=== PATIENT | female | born 1960 ===

== ENCOUNTER 2020-01-01 08:22 | Outpatient (REF) | payer OTHER, SELFPAY ==
[2020-01-01 10:14] LABS: Hematocrit 37.5 % (37-47); Hemoglobin 11.8 g/dl (12.0-16.0); Mean Corpuscular HGB Conc 31.5 g/dl (31.0-35.0); Mean Corpuscular Hemoglobin 28.3 pg (27.0-33.0); Mean Corpuscular Volume 89.9 fL (80-98); Mean Platelet Volume 10.9 fL (9.4-12.3); Platelet Count 342 X10*3/uL (160-400); Red Blood Count 4.17 X10*6/uL (4.20-5.50); Red Cell Distribution Width 19.2 % (11.0-16.0); White Blood Count 6.3 X10*3/uL (4.8-10.8)
[2020-01-01 10:53] LABS: Anion Gap 14 (12-20); Blood Urea Nitrogen 14 mg/dL (9-16); Calcium 9.7 mg/dL (8.4-10.2); Carbon Dioxide 29 mmol/L (22-29); Chloride 104 mmol/L (96-108); Cholesterol 199 mg/dL; Estimated Glomerular Filt Rate > 60; Glucose Fasting 91 mg/dL (60-99); HDL Cholesterol 70 mg/dL; LDL Cholesterol Calculated 119 mg/dl; Potassium 4.3 mmol/l (3.3-5.1); Sodium 143 mmol/L (135-145); Triglycerides 53 mg/dL
== END 2020-01-01 08:23 | disposition home or self-care (01) ==
LOC: HO.LAB 08:22
PROVIDERS: PCP Internal Medicine; Visit Provider Nurse Practitioner Family
DX: Z00.00 Encounter for general adult medical examination without abnormal findings (principal); J30.9 Allergic rhinitis, unspecified
CPT/HCPCS: 36415; 80048; 80061; 85027

== ENCOUNTER → 2020-01-05 12:23 | Outpatient (BNVA) | payer OTHER, SELFPAY | PROVIDERS: PCP Internal Medicine; Referring Provider Internal Medicine; Visit Provider Orthopaedic Surgery | DX: Z47.1 Aftercare following joint replacement surgery (principal); Z96.652 Presence of left artificial knee joint | CPT/HCPCS: 99212 ==

== ENCOUNTER 2020-02-11 13:00 | Outpatient (RCR) | payer OTHER, SELFPAY ==
--- NOTE | 2020-03-09 14:33 | MHC.PT.DC ---
[facility] [place] [facility] [place] [facility] [place] [facility] [address] Mind[address] Nayak 140 [facility] [phone] F: [phone] F: [phone] F: [phone] F: [phone] Physical Therapy Discharge Report Diagnosis: S/P LEFT TKA Date of Surgery: SP LEFT TKA 10/07/2019 Date of Evaluation: 11/07/19 Date of Discharge: Treatments to Date: 21 Cancellations to Date: 0 No Shows to Date: 0 Discharge Status: Discharge Summary: ALTHOUGH ISMA IS STILL LACKING FULL ROM AND SHE DEMONSTATES DECREASED QUAD STRENGTH SHE REQUESTS DC TO [facility] AT THIS TIME. SHE HAS BEEN INSTRUCTED TO CONTACT US WITH ANY QUESTIONS Electronically signed by: TOMA OLMEDO PT, DPT Please sign and return to therapist. Thank you for your referral.
== END 2020-03-09 14:59 | disposition other institution (70) ==
LOC: HO.PT 13:00
PROVIDERS: PCP Internal Medicine; Visit Provider Physician Assistant
DX: Z47.1 Aftercare following joint replacement surgery (principal); Z96.651 Presence of right artificial knee joint
CPT/HCPCS: 97014; 97110; 97112; 97530

== ENCOUNTER → 2020-02-18 10:57 | Outpatient (BNVA) | payer OTHER, SELFPAY | PROVIDERS: PCP Internal Medicine; Visit Provider Internal Medicine | DX: I10 Essential (primary) hypertension (principal); I51.7 Cardiomegaly; R00.2 Palpitations | CPT/HCPCS: 93005; 99212 ==

== ENCOUNTER → 2020-03-16 13:22 | Outpatient (BNVA) | payer OTHER, SELFPAY | PROVIDERS: PCP Internal Medicine; Visit Provider Student in an Organized Health Care Education/Training Program | DX: M89.49 Other hypertrophic osteoarthropathy, multiple sites (principal) | CPT/HCPCS: 99212 ==

== ENCOUNTER 2020-05-10 09:29 | Outpatient (REF) | payer OTHER, SELFPAY | END 2020-05-10 09:30 | disposition home or self-care (01) | LOC: HO.LAB 09:29 | PROVIDERS: Visit Provider Internal Medicine | DX: Z20.822 Contact with and (suspected) exposure to COVID-19 (principal) | CPT/HCPCS: 36415; C9803; U0003; U0005 ==

== ENCOUNTER 2020-05-26 11:02 | Outpatient (REF) | payer OTHER, SELFPAY ==
--- NOTE | ~2020-05-26 | XR_ITS ---
EXAMINATION: XR CHEST CLINICAL INFORMATION: Acute bronchitis COMPARISON: Previous chest x-ray most recent November 2017 TECHNIQUE: 2 views of the chest were obtained. FINDINGS: There is a severe thoracolumbar scoliosis. The cardiac silhouette may be slightly enlarged. Hilar and mediastinal contours are unremarkable. The lungs are clear. There is no pleural effusion or pneumothorax. XR/XR chest 2V IMPRESSION: Severe thoracolumbar scoliosis. Question slightly enlarged cardiac silhouette. No evidence for acute disease in the chest.
== END 2020-05-26 11:03 | disposition home or self-care (01) ==
LOC: HO.XRAY 11:02
PROVIDERS: PCP Internal Medicine; Visit Provider Internal Medicine
DX: J20.9 Acute bronchitis, unspecified (principal); J45.909 Unspecified asthma, uncomplicated; J30.9 Allergic rhinitis, unspecified; Z79.899 Other long term (current) drug therapy
CPT/HCPCS: 71046; 99212

== ENCOUNTER 2020-06-08 16:06 | Emergency (ER) | payer OTHER, SELFPAY ==
--- NOTE | ~2020-06-08 | CT_ITS ---
EXAMINATION: CT ABDOMEN AND PELVIS WITHOUT CONTRAST CLINICAL INFORMATION: Left lower quadrant pain. COMPARISON: None TECHNIQUE: Multidetector volumetric imaging was performed from the superior aspect of the liver through the pubic symphysis. Sagittal and coronal reformatted images were obtained on the technologist's workstation. This CT examination was performed using dose optimization techniques as appropriate, variously including the following: *Automated exposure control *Adjustment of mA and/or kV according to patient size (this includes techniques or standardized protocols for targeted exams where dose is matched to indication/reason for exam; i.e. extremities or head) *Use of iterative reconstruction technique DLP: 553 mGy-cm FINDINGS: LUNG BASES: There is a 4 mm pleural-based lung nodule at the posterior left lung base image 03/09 series 8. No routine follow-up imaging recommended. No acute airspace disease. No pleural effusion LIVER, GALLBLADDER, AND BILIARY TREE: The liver is normal in size, shape, and attenuation. No focal hepatic lesion or biliary ductal dilatation is present. The gallbladder is unremarkable with no evidence of radiopaque gallstones, gallbladder wall thickening, or obvious pericholecystic inflammatory changes. PANCREAS: Unremarkable. SPLEEN: Unremarkable. ADRENAL GLANDS: Unremarkable. KIDNEYS AND URETERS: Left kidney: There is mild hydronephrosis of left kidney with distention renal pelvis calyces and left hydroureter to the ureterovesical junction. There is no renal or ureteral calculus. Right kidney: The kidneys normal. No renal or ureteral calculus. No hydronephrosis. BLADDER: There is a 2 mm stone layering dependently in the central bladder, axial image 598/681 series 4. GASTROINTESTINAL TRACT: There are scattered diverticula of the colon. There is no diverticulitis. There is no bowel wall thickening /edema. There is no bowel obstruction. There is a moderate volume of stool in the colon. The appendix is normal . The small bowel loops are unremarkable. The stomach is normal. There is no hiatal hernia. ABDOMINAL WALL: No significant hernia is appreciated. LYMPH NODES: Normal. VASCULAR: Scattered vascular calcifications of aorta and iliac arteries. There is no aneurysm. PELVIC VISCERA: Unremarkable. OSSEOUS STRUCTURES: Dextroscoliosis of thoracolumbar spine CT/CT abdomen pelvis wo con IMPRESSION: There is mild hydronephrosis of the left kidney. There is a 2 mm stone layering dependently in the bladder which is likely a recently passed stone. There is no additional stone in either renal collecting system.
[2020-06-08 16:43] VITALS: BP 166/78; PULSE 63; RESP 18; TEMP 36.6; O2SAT 99; BMI 28.8
[2020-06-08 17:19] LABS: MANUAL DIFF FLAG NO
[2020-06-08 17:20] LABS: Basophils Percent Auto 0.6 % (0-2); Eosinophils Absolute Auto 0.2 X10*3/uL (0.0-0.4); Eosinophils Percent Auto 2.3 % (0-4); Hematocrit 35.9 % (37-47); Hemoglobin 11.7 g/dl (12.0-16.0); Imm Gran Abs Auto 0.03 X10*3/uL (0.00-0.03); Imm Gran Pct Auto 0.4 % (0.0-0.4); Lymphocytes Absolute Auto 1.5 X10*3/uL (1.2-4.9); Lymphocytes Percent Auto 21.2 % (20-40); Mean Corpuscular HGB Conc 32.6 g/dl (31.0-35.0); Mean Corpuscular Hemoglobin 29.7 pg (27.0-33.0); Mean Corpuscular Volume 91.1 fL (80-98); Mean Platelet Volume 10.7 fL (9.4-12.3); Monocytes Absolute Auto 0.4 X10*3/uL (0.1-1.2); Monocytes Percent Auto 6.3 % (2-11); Neutrophils Absolute Auto 4.8 X10*3/uL (2.0-8.3); Neutrophils Percent Auto 69.2 % (45-73); Platelet Count 291 X10*3/uL (160-400); Red Blood Count 3.94 X10*6/uL (4.20-5.50); Red Cell Distribution Width 18.6 % (11.0-16.0)
[2020-06-08 17:29] LABS: Glucose Urine UA NEG (NEG); Leukocyte Esterase Urine 1+ (NEG); Nitrite Urine NEG (NEG); PH 5.5 (5.0-8.0); Specific Gravity - Urine >= 1.030 (1.005-1.025); UACC Culture Trigger YES; Urine Blood 2+ (NEG); Urine Ketones NEG (NEG); Urine Protein NEG (NEG-TRACE)
[2020-06-08 17:32] LABS: Appearance Urine HAZY; Color Urine YELLOW
[2020-06-08 17:48] LABS: Alanine Aminotransferase 27 U/L (0-31); Albumin Level 4.6 g/dL (3.5-5.0); Alkaline Phosphatase 124 U/L (39-117); Anion Gap 13 (12-20); Aspartate Amino Transferase 19 U/L (5-31); Bilirubin Total 0.4 mg/dL (0.0-1.0); Blood Urea Nitrogen 18 mg/dL (9-16); Calcium 9.5 mg/dL (8.4-10.2); Carbon Dioxide 28 mmol/L (22-29); Chloride 104 mmol/L (96-108); Creatinine Clr Calc Pharmacy 90.5; Estimated Glomerular Filt Rate > 60; Glucose Random 116 mg/dL (60-115); Lipase 22 U/L (8-78); Sodium 141 mmol/L (135-145); Total Protein 7.8 g/dL (6.5-8.0)
[2020-06-08 17:50] LABS: Bacteria Urine 1+ /LPF; Squamous Epithelial Cell Urine 2+ /LPF
--- NOTE | 2020-06-08 22:18 | ED.ABDPAIN ---
HPI - Abdominal Pain General Chief Complaint: Abdominal Pain Stated Complaint: abdominal pain Time Seen by Provider: 06/08/20 21:20 Source: patient Mode of arrival: ambulatory Limitations: no limitations History of Present Illness HPI narrative: Patient presents to ED for left lower quadrant pain for couple days with feeling of pressure when urinating. Patient denies any blood in urine, nausea, vomiting, fever, or chills. Patient states earlier in the week she had left flank pain that resolved on its own. Patient denies any recent trauma to abdomen, chest, or flank. MD elicited complaint: abdominal pain Related Data Home Medications Medication Instructions Recorded Confirmed amlodipine 5 mg tablet 5 mg PO DAILY 12/30/19 04/26/20 fluticasone 250 mcg-salmeterol 50 ea INHALATION 12/30/19 04/26/20 mcg/dose blistr powdr for inhalation Previous Rx's Medication Instructions Recorded loratadine 10 mg tablet 10 mg PO DAILY #90 tab 03/01/20 albuterol sulfate 90 mcg/actuation 2 puff INHALATION QID PRN 30 Days 03/03/20 aerosol inhaler #8.5 g ibuprofen 800 mg tablet 800 mg PO TID PRN #90 tab 03/15/20 albuterol sulfate 2.5 mg INHALATION Q4-6H PRN 30 04/26/20 Days #75 ml ferrous sulfate 325 mg (65 mg 325 mg PO DAILY 90 Days #90 tab 04/26/20 iron) tablet calcium carbonate 600 mg (1,500 1 tab PO BID #60 tab 05/18/20 mg)-vitamin D3 400 unit tablet fluticasone 100 mcg-salmeterol 50 1 inh INHALATION BID 30 Days #60 ea 05/26/20 mcg/dose blistr powdr for inhalation fluticasone propionate 50 2 spray INTRANASAL DAILY 30 Days 05/26/20 mcg/actuation nasal #16 g spray,suspension albuterol sulfate 90 mcg/actuation 2 puff INHALATION Q4-6H PRN 30 05/27/20 aerosol inhaler Days #8.5 g ketotifen fumarate 0.025 % (0.035 1 drp OPHTHALMIC (EYE) BID PRN 7 05/31/20 %) eye drops Days #5 ml ciprofloxacin HCl 250 mg PO BID 7 Days #14 tab 06/08/20 oxycodone-acetaminophen [Percocet] 1 tab PO TID PRN 3 Days #9 tab 06/08/20 tamsulosin [Flomax] 0.4 mg PO DAILY 10 Days #10 cap 06/08/20 Allergies Allergy/AdvReac Type Severity Reaction Status Date / Time Iodinated Contrast Media Allergy Severe ITCH/RASH Verified 05/26/20 11:17 [IV DYE, IODINE CONTAINING] clams Allergy Intermediate ITCHING Verified 05/26/20 11:17 walnut Allergy Intermediate ITCH/RASH Verified 05/26/20 11:17 docusate [From COLACE] Allergy Unknown ITCHING Verified 05/26/20 11:17 lansoprazole [Prevacid] Allergy Unknown hives Verified 05/26/20 11:17 oxybutynin Allergy Unknown bladder Verified 05/26/20 11:17 pain pistachio nut Allergy Unknown ITCHING Verified 05/26/20 11:17 SEASONAL ALLERGIES Allergy Intermediate ITCHY EYES Uncoded 04/26/20 11:12 Review of Systems Review of Systems Yes all other systems are reviewed and are negative Constitutional: Reports as per HPI and Reports no additional constitutional complaints Eyes: Reports as per HPI and Reports no additional eye complaints Reports system reviewed and no additional complaints, except as documented and Reports as per HPI Cardiovascular: Reports as per HPI and Reports no additional cardiovascular complaints Respiratory: Reports as per HPI and Reports no additional respiratory complaints Gastrointestinal: Reports as per HPI, Reports no additional gastrointestinal complaints, Reports abdominal pain, Denies nausea and Denies vomiting Genitourinary: Reports no additional female genitourinary complaints and Reports as per HPI Comments: Dysuria Musculoskeletal: Reports no additional musculoskeletal complaints and Reports as per HPI Reports system reviewed and no additional complaints, except as documented and Reports as per HPI Psychiatric: Reports no additional psychiatric complaints and Reports as per HPI Physical Exam Vital Signs: Vital Signs: Last Vital Signs Temp 97.9 F 06/08/20 16:43 Pulse 65 06/08/20 23:25 Resp 16 06/08/20 23:25 BP 166/78 H 06/08/20 16:43 Pulse Ox 98 06/08/20 23:25 Body Mass Index 28.8 Const: General: cooperative, healthy appearing, comfortable, no acute distress, well developed, alert and awake; No Physically active Orientation/consciousness: patient oriented x3 HENMT: Head: Yes normal to inspection and Yes No palpable skull fracture present Eyes: General: appearance normal, both eyes and all related structures Neck: Neck: Yes normal visual inspection, Yes full ROM, Yes no lymphadenopathy, Yes no meningeal signs, Yes trachea midline, Yes supple and No tender Chest: Chest palpation & inspection: normal inspection of the chest and normal palpation of entire chest wall Resp: Effort & Inspection: normal respiratory effort and able to speak in complete sentences Cardio: Jugular venous distension: no JVD Heart sounds: S1 normal heart sound present and S2 normal heart sound present GI: Inspection: Yes normal to inspection Palpation (GI): Soft to palpation, not firm, Tenderness to palpation present (GI) in the LLQ and suprapubicly, no guarding and not rigid : General: No CVA tenderness and Yes no CVA tenderness Back/Spine/Pelvis: Back: no CVA tenderness, No CVA tenderness and No back tenderness Skin: General skin exam: no rashes or lesions noted and elasticity normal Neuro: General: patient oriented x3, no meningeal signs and CN's II-XI intact bilaterally Cranial nerves: Yes CN's II-XII intact bilaterally Extrem: General: Yes normal to inspection and Yes full ROM Psych: Appearance: grossly normal, well kempt and not disheveled Course Course Course Narrative: Patient will have labs and UA sent. Reevaluation(s) Reevaluation #1: Labs came back at baseline. UA shows UTI was sent for CT scan to make sure there is no kidney stones. Reevaluation #2: CT scan shows kidney stones now in the bladder which means it would soon past. Patient will be discharged with pain medication, Flomax, and antibiotics MDM - Abdominal Pain MDM Narrative Medical decision making narrative: Kidney stone Lab Data Result diagrams: 06/08/20 17:13 06/08/20 17:13 Labs: Lab Results 06/08/20 06/08/20 06/08/20 Range/Units 17:13 17:13 17:13 WBC 7.0 (4.8-10.8) X10*3/uL RBC 3.94 L (4.20-5.50) X10*6/uL Hgb 11.7 L (12.0-16.0) g/dl Hct 35.9 L (37-47) % MCV 91.1 (80-98) fL MCH 29.7 (27.0-33.0) pg MCHC 32.6 (31.0-35.0) g/dl RDW 18.6 H (11.0-16.0) % Plt Count 291 (160-400) X10*3/uL MPV 10.7 (9.4-12.3) fL Immature Gran % (Auto) 0.4 (0.0-0.4) % Neut % (Auto) 69.2 (45-73) % Lymph % (Auto) 21.2 (20-40) % Republic % (Auto) 6.3 (2-11) % Eos % (Auto) 2.3 (0-4) % Baso % (Auto) 0.6 (0-2) % Lymph # (Auto) 1.5 (1.2-4.9) X10*3/uL Republic # (Auto) 0.4 (0.1-1.2) X10*3/uL Eos # (Auto) 0.2 (0.0-0.4) X10*3/uL Baso # (Auto) 0.0 (0.0-0.2) X10*3/uL Abs Immat Gran (auto) 0.03 (0.00-0.03) X10*3/uL Absolute Neuts (auto) 4.8 (2.0-8.3) X10*3/uL Absolute Nucleated RBC 0.000 (0.0-0.012) X10*3/uL Nucleated RBC % (auto) 0.0 (0.0-0.2) /100WBC Hold Blue Top SEE NOTE Sodium 141 (135-145) mmol/L Potassium 4.0 (3.3-5.1) mmol/L Chloride 104 (96-108) mmol/L Carbon Dioxide 28 (22-29) mmol/L Anion Gap 13 (12-20) BUN 18 H (9-16) mg/dL Creatinine 0.66 (0.5-1.4) mg/dL Estim Creat Clear Calc 90.5 Estimated GFR > 60 Random Glucose 116 H (60-115) mg/dL Calcium 9.5 (8.4-10.2) mg/dL Total Bilirubin 0.4 (0.0-1.0) mg/dL AST 19 (5-31) U/L ALT 27 (0-31) U/L Alkaline Phosphatase 124 H (39-117) U/L Total Protein 7.8 (6.5-8.0) g/dL Albumin 4.6 (3.5-5.0) g/dL Lipase 22 (8-78) U/L Urine Color Urine Appearance Urine pH (5.0-8.0) Ur Specific [place] (1.005-1.025) Urine Protein (NEG-TRACE) MG/DL Urine Glucose (UA) (NEG) MG/DL Urine Ketones (NEG) MG/DL Urine Blood (NEG) Urine Nitrite (NEG) Ur Leukocyte Esterase (NEG) Urine RBC (0) /HPF Urine WBC (0-4) /HPF Ur Squamous Epith Cells /LPF Urine Bacteria /LPF 06/08/20 Range/Units 17:13 WBC (4.8-10.8) X10*3/uL RBC (4.20-5.50) X10*6/uL Hgb (12.0-16.0) g/dl Hct (37-47) % MCV (80-98) fL MCH (27.0-33.0) pg MCHC (31.0-35.0) g/dl RDW (11.0-16.0) % Plt Count (160-400) X10*3/uL MPV (9.4-12.3) fL Immature Gran % (Auto) (0.0-0.4) % Neut % (Auto) (45-73) % Lymph % (Auto) (20-40) % Republic % (Auto) (2-11) % Eos % (Auto) (0-4) % Baso % (Auto) (0-2) % Lymph # (Auto) (1.2-4.9) X10*3/uL Republic # (Auto) (0.1-1.2) X10*3/uL Eos # (Auto) (0.0-0.4) X10*3/uL Baso # (Auto) (0.0-0.2) X10*3/uL Abs Immat Gran (auto) (0.00-0.03) X10*3/uL Absolute Neuts (auto) (2.0-8.3) X10*3/uL Absolute Nucleated RBC (0.0-0.012) X10*3/uL Nucleated RBC % (auto) (0.0-0.2) /100WBC Hold Blue Top Sodium (135-145) mmol/L Potassium (3.3-5.1) mmol/L Chloride (96-108) mmol/L Carbon Dioxide (22-29) mmol/L Anion Gap (12-20) BUN (9-16) mg/dL Creatinine (0.5-1.4) mg/dL Estim Creat Clear Calc Estimated GFR Random Glucose (60-115) mg/dL Calcium (8.4-10.2) mg/dL Total Bilirubin (0.0-1.0) mg/dL AST (5-31) U/L ALT (0-31) U/L Alkaline Phosphatase (39-117) U/L Total Protein (6.5-8.0) g/dL Albumin (3.5-5.0) g/dL Lipase (8-78) U/L Urine Color YELLOW Urine Appearance HAZY Urine pH 5.5 (5.0-8.0) Ur Specific [place] >= 1.030 H (1.005-1.025) Urine Protein NEG (NEG-TRACE) MG/DL Urine Glucose (UA) NEG (NEG) MG/DL Urine Ketones NEG (NEG) MG/DL Urine Blood 2+ H (NEG) Urine Nitrite NEG (NEG) Ur Leukocyte Esterase 1+ H (NEG) Urine RBC 5-9 H (0) /HPF Urine WBC 1-4 (0-4) /HPF Ur Squamous Epith Cells 2+ /LPF Urine Bacteria 1+ /LPF Discharge Plan Discharge Clinical Impression: Kidney stone, Calculus in bladder Patient Disposition: Home, Self-Care Instructions: Kidney Stones (ED), Bladder Stones (ED) Additional Instructions: Regrese al servicio de urgencias si empeora el dolor abdominal, hematuria macrosc?pica, n?useas, v?mitos, fiebre, escalofr?os, debilidad, dolor hui en el costado o cualquier otro s?ntoma preocupante. Prescriptions: New oxycodone-acetaminophen [Percocet] 5-325 mg tablet 1 tab PO TID PRN (Reason: pain) 3 Days Qty: 9 RF: 0 tamsulosin [Flomax] 0.4 mg capsule 0.4 mg PO DAILY 10 Days Qty: 10 RF: 0 ciprofloxacin HCl 250 mg tablet 250 mg PO BID 7 Days Qty: 14 RF: 0 No Action loratadine 10 mg tablet 10 mg PO DAILY Qty: 90 RF: 0 albuterol sulfate 90 mcg/actuation HFA aerosol inhaler 2 puff inhalation QID PRN (Reason: bronchospasm) 30 Days Qty: 8.5 RF: 4 ibuprofen 800 mg tablet 800 mg PO TID PRN (Reason: pain) Qty: 90 RF: 1 calcium carbonate-vitamin D3 600 mg(1,500mg) -400 unit tablet 1 tab PO BID Qty: 60 RF: 6 ketotifen fumarate [Alaway] 0.025 % (0.035 %) drops 1 drp ophthalmic (eye) BID PRN (Reason: allergy symptoms) 7 Days Qty: 5 RF: 0 fluticasone propion-salmeterol 250-50 mcg/dose blister with device inhalation RF: 0 amlodipine 5 mg tablet 5 mg PO DAILY RF: 0 albuterol sulfate 2.5 mg /3 mL (0.083 %) solution for nebulization 2.5 mg inhalation Q4-6H PRN (Reason: shortness of breath or wheezing) 30 Days Qty: 75 RF: 6 ferrous sulfate 325 mg (65 mg iron) tablet 325 mg PO DAILY 90 Days Qty: 90 RF: 1 fluticasone propion-salmeterol [Wixela Inhub] 100-50 mcg/dose blister with device 1 inh inhalation BID 30 Days Qty: 60 RF: 3 fluticasone propionate [Children's Flonase Allergy Rlf] 50 mcg/actuation spray,suspension 2 spray intranasal DAILY 30 Days Qty: 16 RF: 2 albuterol sulfate [ProAir HFA] 90 mcg/actuation HFA aerosol inhaler 2 puff inhalation Q4-6H PRN (Reason: shortness of breath or wheezing) 30 Days Qty: 8.5 RF: 3 Referrals: Sunil Carrasco MD [Physician] - 2 days (Left kidney/bladder stone. 2 mm.) Interventions: ED Discharge Assessment Last Done: 06/08/20 23:27 Discharge Date/Time: 06/08/20 23:31 Print Language: [facility] Past Medical History Medical History Acute bronchitis Allergic rhinitis Anemia Asthma Essential hypertension Primary osteoarthritis involving multiple joints Right ankle pain Surgical History History of arthroscopy of right knee History of hemorrhoidectomy History of tonsillectomy History of total abdominal hysterectomy History of total left knee replacement History of total right knee replacement Family History Family History Father Alcoholism Mother Diabetes Acute CVA (cerebrovascular accident) Sister Breast cancer Family/Other FH: mental illness Brother Diabetes Daughter In good health Daughter In good health Daughter In good health Social History Social History Alcohol intake: never Smoking Status: Never smoker Advance Directives: Yes Advance Directives on File: Yes Advance Directives Date on File: 11/28/19
[2020-06-08] MEDS: oxyCODONE HCl Immed Release 5 MG TABLET PO (23:16)
[2020-06-08 23:25] VITALS: PULSE 65; RESP 16; O2SAT 98
== END 2020-06-08 23:31 | disposition home or self-care (01) ==
PROVIDERS: Emergency Medicine; Emergency Provider Emergency Medicine; PCP Internal Medicine
DX: N13.2 Hydronephrosis with renal and ureteral calculous obstruction (principal); N21.0 Calculus in bladder; R10.32 Left lower quadrant pain; I10 Essential (primary) hypertension
CPT/HCPCS: 36415; 74176; 80053; 81001; 81003; 83690; 85025; 87086; 99283; 99284

== ENCOUNTER → 2020-06-24 11:41 | Outpatient (BNVA) | payer OTHER, SELFPAY | PROVIDERS: PCP Internal Medicine; Visit Provider Internal Medicine | DX: J45.909 Unspecified asthma, uncomplicated (principal) | CPT/HCPCS: 99212 ==

== ENCOUNTER 2020-07-21 11:17 | Outpatient (REF) | payer OTHER, SELFPAY ==
--- NOTE | ~2020-07-21 | MM_ITS ---
EXAMINATION: MM SCREENING DIGITAL BREAST TOMOSYNTHESIS, BILATERAL CLINICAL INFORMATION: Screening. Asymptomatic. The lifetime risk of breast cancer based on the Tyrer-Cuzick Model is 9%. COMPARISON: Mammography: 03/17/2019, 03/02/2018, 02/09/2017 TECHNIQUE: Digital breast tomosynthesis is performed in both the craniocaudal and mediolateral oblique views along with computer-aided detection (CAD). Synthesized 2D images are generated from the tomosynthesis. FINDINGS: The breasts are heterogeneously dense, which may obscure small masses (ACR BI-RADS breast composition Category c). Breast tissue composition borders on extremely dense. There are no significant masses, abnormal calcifications, or other abnormalities. Parenchymal pattern is similar to prior studies. No significant changes. MM/MM tomosynthesis screening BI IMPRESSION: No mammographic evidence of malignancy. ASSESSMENT: BI-RADS 1: Negative RECOMMENDATION: Routine annual mammography screening. This patient's information was entered into a reminder system with a target due date for their next mammogram.
== END 2020-07-21 11:18 | disposition home or self-care (01) ==
LOC: HO.MAMMO 11:17
PROVIDERS: Visit Provider Internal Medicine
DX: Z12.31 Encounter for screening mammogram for malignant neoplasm of breast (principal)
CPT/HCPCS: 77063; 77067

== ENCOUNTER → 2020-07-22 10:19 | Outpatient (BNVA) | payer OTHER, SELFPAY | PROVIDERS: PCP Internal Medicine; Visit Provider Internal Medicine | DX: J45.909 Unspecified asthma, uncomplicated (principal); J44.9 Chronic obstructive pulmonary disease, unspecified | CPT/HCPCS: 99212 ==

== ENCOUNTER → 2020-07-27 11:06 | Outpatient (BNVA) | payer OTHER, SELFPAY | PROVIDERS: PCP Internal Medicine; Visit Provider Urology | DX: N20.0 Calculus of kidney (principal) | CPT/HCPCS: 99202 ==

== ENCOUNTER 2020-08-24 15:36 | Outpatient (REF) | payer OTHER, SELFPAY ==
--- NOTE | ~2020-08-24 | US_ITS ---
EXAMINATION: US RETROPERITONEAL LIMITED (RENAL ONLY) CLINICAL INFORMATION: Calculus of kidney. COMPARISON: CT abdomen and pelvis without contrast dated 06/08/2020. Ultrasound abdomen complete dated 09/27/2017 and 03/26/2008. TECHNIQUE: Real-time imaging of the kidneys. FINDINGS: RIGHT KIDNEY: 10.9 x 3.9 x 5.4 cm (SAG x AP x TRV). The kidney is normal in size, contour, and echogenicity. Renal cortical thickness is normal. No calculi or focal parenchymal lesions. No hydronephrosis. LEFT KIDNEY: 12.1 x 5.6 x 4.3 cm (SAG x AP x TRV). The kidney is normal in size, contour, and echogenicity. Renal cortical thickness is normal. No calculi or focal parenchymal lesions. No hydronephrosis. US/US renal BI IMPRESSION: Normal renal ultrasound. No stone seen.
== END 2020-08-24 15:37 | disposition home or self-care (01) ==
LOC: HO.US 15:36
PROVIDERS: PCP Internal Medicine; Visit Provider Urology
DX: N20.0 Calculus of kidney (principal)
CPT/HCPCS: 76775

== ENCOUNTER → 2020-09-03 11:15 | Outpatient (BNVA) | payer OTHER, SELFPAY | PROVIDERS: PCP Internal Medicine; Visit Provider Urology | DX: N20.0 Calculus of kidney (principal) | CPT/HCPCS: Q3014 ==

== ENCOUNTER → 2020-09-28 10:51 | Outpatient (BNVA) | payer OTHER, SELFPAY | PROVIDERS: PCP Internal Medicine; Referring Provider Internal Medicine; Visit Provider Internal Medicine | DX: I10 Essential (primary) hypertension (principal); I51.7 Cardiomegaly; R00.2 Palpitations; R06.02 Shortness of breath | CPT/HCPCS: 93005; 99212 ==

== ENCOUNTER 2020-10-14 08:24 | Outpatient (REF) | payer OTHER, SELFPAY ==
--- NOTE | ~2020-10-14 | XR_ITS ---
EXAMINATION: AP WEIGHTBEARING VIEWS OF BOTH KNEES AND LATERAL AND SUNRISE VIEWS OF BOTH KNEES CLINICAL INFORMATION: Pain COMPARISON: 11/24/2019 TECHNIQUE: As above FINDINGS: Bilateral arthroplasty changes appear intact without evidence for any hardware failure. No effusion on either side. No new findings. No focal bony lesion. XR/XR knee LT 2V IMPRESSION: No evidence of any hardware failure. No new abnormality.
--- NOTE | ~2020-10-14 | XR_ITS ---
EXAMINATION: AP WEIGHTBEARING VIEWS OF BOTH KNEES AND LATERAL AND SUNRISE VIEWS OF BOTH KNEES CLINICAL INFORMATION: Pain COMPARISON: 11/24/2019 TECHNIQUE: As above FINDINGS: Bilateral arthroplasty changes appear intact without evidence for any hardware failure. No effusion on either side. No new findings. No focal bony lesion. XR/XR knee RT 2V IMPRESSION: No evidence of any hardware failure. No new abnormality.
--- NOTE | ~2020-10-14 | XR_ITS ---
EXAMINATION: AP WEIGHTBEARING VIEWS OF BOTH KNEES AND LATERAL AND SUNRISE VIEWS OF BOTH KNEES CLINICAL INFORMATION: Pain COMPARISON: 11/24/2019 TECHNIQUE: As above FINDINGS: Bilateral arthroplasty changes appear intact without evidence for any hardware failure. No effusion on either side. No new findings. No focal bony lesion. XR/XR knee standing BI IMPRESSION: No evidence of any hardware failure. No new abnormality.
== END 2020-10-14 08:25 | disposition home or self-care (01) ==
LOC: HO.HOSX 08:24
PROVIDERS: Visit Provider Orthopaedic Surgery
DX: Z47.1 Aftercare following joint replacement surgery (principal); Z96.653 Presence of artificial knee joint, bilateral
CPT/HCPCS: 73560; 73565; 99212

== ENCOUNTER → 2020-10-28 14:57 | Outpatient (REF) | payer OTHER, SELFPAY ==
--- NOTE | 2020-10-28 15:01 | HM_ITS ---
Basic rhythm is normal sinus rhythm with average heart rate of 76 beats per minute. No significant bradycardia or pauses noted. No episodes of atrial fibrillation noted. Av conduction appears satisfactory Rare PACs noted with 3 short runs of SVT the longest lasting 5 beats. Patient reported no symptoms. MTDD
== END ==
LOC: HO.CARD 14:57
PROVIDERS: Visit Provider Internal Medicine
DX: R00.2 Palpitations (principal)
CPT/HCPCS: 93242

== ENCOUNTER 2020-10-29 08:52 | Outpatient (REF) | payer OTHER, SELFPAY ==
[2020-10-29 09:21] LABS: MANUAL DIFF FLAG NO
[2020-10-29 09:28] LABS: Basophils Percent Auto 0.3 % (0-2); Eosinophils Absolute Auto 0.2 X10*3/uL (0.0-0.4); Eosinophils Percent Auto 3.2 % (0-4); Hematocrit 36.4 % (37-47); Hemoglobin 11.8 g/dl (12.0-16.0); Imm Gran Abs Auto 0.02 X10*3/uL (0.00-0.03); Imm Gran Pct Auto 0.3 % (0.0-0.4); Lymphocytes Absolute Auto 1.9 X10*3/uL (1.2-4.9); Lymphocytes Percent Auto 31.8 % (20-40); Mean Corpuscular HGB Conc 32.4 g/dl (31.0-35.0); Mean Corpuscular Hemoglobin 29.5 pg (27.0-33.0); Mean Platelet Volume 10.7 fL (9.4-12.3); Monocytes Absolute Auto 0.5 X10*3/uL (0.1-1.2); Monocytes Percent Auto 7.7 % (2-11); Neutrophils Absolute Auto 3.4 X10*3/uL (2.0-8.3); Neutrophils Percent Auto 56.7 % (45-73); Platelet Count 298 X10*3/uL (160-400); Red Cell Distribution Width 18.4 % (11.0-16.0); White Blood Count 5.9 X10*3/uL (4.8-10.8)
[2020-10-29 09:56] LABS: Alanine Aminotransferase 30 U/L (0-31); Albumin Level 4.5 g/dL (3.5-5.0); Alkaline Phosphatase 109 U/L (39-117); Anion Gap 10 (12-20); Aspartate Amino Transferase 18 U/L (5-31); Bilirubin Total 0.6 mg/dL (0.0-1.0); Blood Urea Nitrogen 12 mg/dL (9-16); Calcium 9.8 mg/dL (8.4-10.2); Carbon Dioxide 28 mmol/L (22-29); Chloride 107 mmol/L (96-108); Cholesterol 172 mg/dL; Estimated Glomerular Filt Rate > 60; Glucose Fasting 95 mg/dL (60-99); HDL Cholesterol 56 mg/dL; Iron 57 mcg/dL (30-160); LDL Cholesterol Calculated 102 mg/dl; Percent Iron Saturation 16 % (15-50); Potassium 3.9 mmol/L (3.3-5.1); Sodium 141 mmol/L (135-145); Total Iron Binding Capacity 357 mcg/dL (228-428); Total Protein 7.4 g/dL (6.5-8.0); Triglycerides 74 mg/dL; Unsaturated Iron Binding 300 ug/dL
[2020-11-03 15:25] LABS: Vitamin D 25-OH, D2 <4 ng/mL; Vitamin D 25-OH, D3 33 ng/mL; Vitamin D 25-OH, Total 33 ng/mL (30-100)
== END 2020-10-29 08:53 | disposition home or self-care (01) ==
LOC: HO.LAB 08:52
PROVIDERS: PCP Internal Medicine; Visit Provider Internal Medicine
DX: I10 Essential (primary) hypertension (principal); D64.9 Anemia, unspecified; E78.5 Hyperlipidemia, unspecified; E55.9 Vitamin D deficiency, unspecified; N20.0 Calculus of kidney
CPT/HCPCS: 36415; 80053; 80061; 82306; 83540; 85025

== ENCOUNTER → 2020-11-22 11:07 | Outpatient (BNVA) | payer OTHER, SELFPAY | PROVIDERS: PCP Internal Medicine; Visit Provider Internal Medicine | DX: J44.9 Chronic obstructive pulmonary disease, unspecified (principal); J45.909 Unspecified asthma, uncomplicated | CPT/HCPCS: 99212 ==

== ENCOUNTER → 2020-12-03 11:37 | Outpatient (REF) | payer OTHER, SELFPAY ==
--- NOTE | 2020-12-03 11:40 | CA_ITS ---
Transthoracic Echocardiogram Patient (Last, First, Middle): Mckenzie Montgomery, Gender: Female Date of : 1960 Age: 59 Procedure Date: 12/03/2020 Procedure Type: Transthoracic Echocardiogram Location: OP Height: 162.56 cm Weight: 76.2 kg BSA: 1.82 m2 Heart Rate: bpm BP: 122 / 66 mmHg Mammalogist: Referring MD: Sarthak Chacon MD Symptoms: R06.02 - Shortness of breath Study Quality: Fair ECG Rhythm: Sinus Conclusions: - Normal left ventricular size and systolic function. - The visually estimated ejection fraction is between 60-65%. There is evidence of regional wall motion abnormalities. - E/E prime ratio is >15, consistent with elevated filling pressures. - The basal inferior segment is hypokinetic. Findings Left Ventricle Normal left ventricular size and systolic function. There is mildly increased left ventricular wall thickness. The visually estimated ejection fraction is between 60-65%. There is evidence of regional wall motion abnormalities. Abnormal diastolic function is noted. Spectral Doppler is indicative of an impaired relaxation filling pattern. E/E prime ratio is >15, consistent with elevated filling pressures. Wall Motion Rest Echo Findings The basal inferior segment is hypokinetic. Right Ventricle Normal right ventricular cavity size and systolic function. Atria The left atrium is likely dilated. Aortic Valve There is a normal trileaflet aortic valve. There is mild calcification of the aortic valve. Mitral Valve The mitral valve appears normal. There is trace mitral valve regurgitation. There is no mitral valve stenosis. Pulmonic Valve Normal pulmonic valve structure and function. There is trace pulmonic valve regurgitation. Tricuspid Valve Normal tricuspid valve structure. There is trace tricuspid valve regurgitation. Normal right atrial pressure. There is no evidence of pulmonary hypertension. Great Vessels All visible segments of the aorta are normal in size. The pulmonary artery was not well visualized. Venous The inferior vena cava is normal in size and collapses greater than 50% with inspiration. Pericardium/Pleural There is no evidence of pericardial effusion. Prior Study Comparison Changes noted compared to prior study. Elevated filling pressures are present. Measurements 2D Linear Measurements IVSd: 1.13 0.6-0.9/0.6-1.0 cm LVIDd: 4.56 3.9-5.3/4.2-5.9 cm LVIDd Index: 2.51 2.4-3.2/2.2-3.1 cm/m2 LVIDs: 2.51 2.0-3.6 cm LVPWd: 0.95 0.7-1.1 cm Ao Root: 2.70 2.1-3.5 cm LA Diam: 3.00 2.7-3.8/3.0-4.0 cm LAIDs Index: 1.65 1.5-2.3 cm/m2 LV Mass: 206.40 67-162/88-224 g LV Mass Index: 113.41 43-95/49-115 g/m2 LVOT Diam: 2.10 3.0+(-)1.3 cm Mitral Valve MV Pk E: 0.77 MV PK A: 0.98 MV Decel Time: 261.00 E/A: 0.80 E'Lateral: 5.77 E'Medial: 4.46 E/E' Med: 17.30 E/E' Lat: 13.40 PHT: 76.00 MVA PHT: 2.89 Decel [place]: 2.96 Aortic Valve AoV Pk Rickie: 1.81 AoV Mn Rickie: 1.15 AoV VTI: 0.39 AoV Pk Grad: 13.00 Aov Mn Grad: 6.00 AUSTYN Cont.VTI: 2.10 LVOT LVOT Pk Rickie: 1.01 LVOT Mn Rickie: 0.63 LVOT VTI: 0.24 LVOT Pk Grad: 4.00 LVOT Mn Grad: 2.00 LVOT Diam: 2.10 LVOT Area: 3.46 Diastolic Function MV Pk E: 0.77 MV Pk A: 0.98 E/A: 0.80 E'Medial: 4.46 E/E' Med: 17.30 E' Laterial: 5.77 E/E' Lat: 13.40 Tricuspid Valve TR Pk Rickie: 2.10 TR Pk Grad: 18.00 RVSP: 23.00 Great Vessels Aorta Ao Root-2D: 2.70 2.0-3.7 cm Ao Asc: 2.70 2.1-3.4 cm Pulmonary Valve PV Pk Rickie: 1.05 Peak PV Grad: 4.00 Updated in Other Vendor System with Status of Final Praful Queen MD electronically signed on 12/05/2020 1:44:26 PM with status of Final
== END ==
LOC: HO.CARD 11:37
PROVIDERS: Visit Provider Internal Medicine
DX: R06.02 Shortness of breath (principal)
CPT/HCPCS: 93306

== ENCOUNTER 2020-12-04 09:42 | Emergency (ER) | payer OTHER, SELFPAY ==
--- NOTE | ~2020-12-04 | CT_ITS ---
EXAMINATION: CT HEAD WITHOUT CONTRAST CLINICAL INFORMATION: Dizziness COMPARISON: Previous head CT March 2016 TECHNIQUE: Contiguous axial imaging was performed from the skull base to vertex without intravenous administration of contrast. This CT examination was performed using dose optimization techniques as appropriate, variously including the following: *Automated exposure control *Adjustment of mA and/or kV according to patient size (this includes techniques or standardized protocols for targeted exams where dose is matched to indication/reason for exam; i.e. extremities or head) *Use of iterative reconstruction technique DLP: 668 mGy-cm FINDINGS: There is no evidence of acute intracranial hemorrhage or territorial infarction. No abnormal mass effect or midline shift is seen. Hernandez to white matter differentiation is well preserved. No extra-axial fluid collections are identified. The ventricles are normal in size. There is no abnormal attenuation within the brain parenchyma. The osseous structures and soft tissues are normal. The mastoid air cells and visualized portions of the paranasal sinuses are well aerated. CT/CT head/brain wo con IMPRESSION: No acute intracranial pathology.
[2020-12-04 10:02] VITALS: BP 162/81; PULSE 69; RESP 16; TEMP 36.4; O2SAT 98; BMI 28.8
--- NOTE | 2020-12-04 10:21 | ECG_ITS ---
Test Reason : DIZZINESS Blood Pressure : / mmHG Vent. Rate : 069 BPM Atrial Rate : 069 BPM P-R Int : 148 ms QRS Dur : 092 ms QT Int : 418 ms P-R-T Axes : -03 -15 020 degrees QTc Int : 447 ms Normal sinus rhythm Moderate voltage criteria for LVH, may be normal variant Borderline ECG When compared with ECG of 03-SEP-2019 11:55, Premature atrial complexes are no longer Present Referred By: Cornelia Tse Electronically Signed By:DILMA MORAN MD
--- NOTE | 2020-12-04 10:23 | ED_ITS ---
HPI - General Adult General Chief complaint: General Medical Stated complaint: N/V/D , chills , dizziness Time Seen by Provider: 12/04/20 09:58 History of Present Illness HPI narrative: 59-year-old female presented today with having sudden onset of vertigo since about 05:00 this morning. Was very abrupt in onset happens when she turns her head to the left she gets a spinning sensation. Patient denies any fever chills no focal weakness no cough no congestion or upper respiratory symptoms. No chest pain. Improved with staying still. Positive nausea positive vomiting worse with the vertigo. No abdominal pain. No leg swelling. Patient from home. Related Data Home Medications Medication Instructions Recorded Confirmed famotidine 40 mg tablet 40 mg PO BID 06/24/20 11/22/20 Previous Rx's Medication Instructions Recorded albuterol sulfate 90 mcg/actuation 2 puff INHALATION QID PRN 30 Days 03/03/20 aerosol inhaler #8.5 g albuterol sulfate 2.5 mg INHALATION Q4-6H PRN 30 04/26/20 Days #75 ml ferrous sulfate 325 mg (65 mg 325 mg PO DAILY 90 Days #90 tab 04/26/20 iron) tablet calcium carbonate 600 mg (1,500 1 tab PO BID #60 tab 05/18/20 mg)-vitamin D3 400 unit tablet ketotifen fumarate 0.025 % (0.035 1 drp OPHTHALMIC (EYE) BID PRN 7 05/31/20 %) eye drops (Alaway) Days #5 ml tamsulosin 0.4 mg capsule (Flomax) 0.4 mg PO DAILY 10 Days #10 cap 06/08/20 pyridoxine (vitamin B6) 100 mg 100 mg PO DAILY 90 Days #90 tab 07/27/20 tablet loratadine 10 mg tablet 10 mg PO DAILY #90 tab 08/06/20 amlodipine 5 mg tablet 5 mg PO DAILY 90 Days #90 tab 08/10/20 fluticasone propionate 50 2 spray INTRANASAL DAILY #48 ml 08/18/20 mcg/actuation nasal spray,suspension diclofenac sodium 1 % topical gel 2 g TOPICAL BID PRN #100 g 09/14/20 montelukast 10 mg tablet 10 mg PO BEDTIME 30 Days #30 tab 09/15/20 fluticasone 250 mcg-salmeterol 50 1 inh INHALATION BID 30 Days #60 ea 09/16/20 mcg/dose blistr powdr for inhalation (Wixela Inhub) ibuprofen 800 mg tablet 800 mg PO TID PRN #90 tab 10/04/20 meclizine 25 mg tablet 25 mg PO TID PRN #14 tab 12/04/20 ondansetron 4 mg disintegrating 4 mg PO TID PRN 5 Days #10 tab 12/04/20 tablet Allergies Allergy/AdvReac Type Severity Reaction Status Date / Time Iodinated Contrast Media Allergy Severe ITCH/RASH Verified 11/22/20 11:27 [IV DYE, IODINE CONTAINING] clams Allergy Intermediate ITCHING Verified 11/22/20 11:27 docusate [From COLACE] Allergy Intermediate ITCHING Verified 11/22/20 11:27 lansoprazole [Prevacid] Allergy Intermediate hives Verified 11/22/20 11:27 oxybutynin Allergy Intermediate bladder Verified 11/22/20 11:27 pain pistachio nut Allergy Intermediate ITCHING Verified 11/22/20 11:27 walnut Allergy Intermediate ITCH/RASH Verified 11/22/20 11:27 SEASONAL ALLERGIES Allergy Intermediate ITCHY EYES Uncoded 10/27/20 11:19 [facility] Past Medical History Attestation statement: The following information was validated with the patient. Medical History Acute bronchitis Allergic rhinitis Allergic rhinosinusitis Anemia Asthma COPD (chronic obstructive pulmonary disease) Essential hypertension Mild major depression, single episode Primary osteoarthritis involving multiple joints Right ankle pain Right shoulder pain Surgical History History of arthroscopy of right knee History of hemorrhoidectomy History of tonsillectomy History of total abdominal hysterectomy History of total left knee replacement History of total right knee replacement Family History Family History Father Alcoholism Mother Diabetes Acute CVA (cerebrovascular accident) Sister Breast cancer Family/Other FH: mental illness Brother Diabetes Daughter In good health Daughter In good health Daughter In good health Social History Social History Alcohol intake: never Patient Tobacco Use Status: Never used Tobacco Use of substances other than those prescribed or required for medical reasons: No Advance Directives: No Advance Directives Date on File: 11/28/19 Physical Exam Vital Signs: Vital Signs: Last Vital Signs Temp 97.7 F 12/04/20 11:49 Pulse 64 12/04/20 11:49 Resp 14 12/04/20 11:49 BP 153/87 H 12/04/20 11:49 Pulse Ox 98 12/04/20 11:49 Body Mass Index 28.8 Appearance: Alert. Oriented X3. No acute distress. Eyes: Pupils equal, round and reactive to light. ENT: Pharynx normal. Neck: Normal inspection. Neck supple. No lymph nodes noted. No crepitus CVS: Normal heart rate and rhythm. Pulses normal. Normal S1 and S2 Respiratory: No respiratory distress. Breath sounds normal. No Wheezing. No rales Abdomen: Soft and nontender. No rigidity. No distention. good BS x4 Skin: Skin warm and dry. Normal skin color. Normal skin turgor. Extremities: No lower extremity edema. Neurovascular intact to all extremities. No Lacerations. No Rash Neuro: Oriented X 3. No motor deficit. No sensory deficit. Moving all extermities. No slurred speech. Positive Hallpike maneuver. Turning patient's head to the left reproduces symptoms. Medical Decision Making MDM Narrative Medical decision making narrative: Patient positive vertigo. Symptoms worse when turning her head to the left. There is otherwise no focal weakness. Patient's electrolytes normal. CT scan of the head was negative for any acute e vidence of bleeding no fracture. Symptom improved after Antivert. Will discharge patient home close follow-up on an outpatient basis. Patient's EKG showed a sinus pattern heart rate was 70 CO QRS QT within normal limits there is no acute ST segment elevation noted Lab Data Result diagrams: 12/04/20 10:38 12/04/20 10:38 Labs: Lab Results 12/04/20 12/04/20 12/04/20 Range/Units 10:34 10:38 10:38 WBC 9.3 (4.8-10.8) X10*3/uL RBC 4.20 (4.20-5.50) X10*6/uL Hgb 12.7 (12.0-16.0) g/dl Hct 38.2 (37-47) % MCV 91.0 (80-98) fL MCH 30.2 (27.0-33.0) pg MCHC 33.2 (31.0-35.0) g/dl RDW 18.2 H (11.0-16.0) % Plt Count TNP MPV TNP Immature Gran % (Auto) 0.3 (0.0-0.4) % Neut % (Auto) 83.2 H (45-73) % Lymph % (Auto) 11.3 L (20-40) % [place] % (Auto) 4.0 (2-11) % Eos % (Auto) 0.8 (0-4) % Baso % (Auto) 0.4 (0-2) % Lymph # (Auto) 1.1 L (1.2-4.9) X10*3/uL [place] # (Auto) 0.4 (0.1-1.2) X10*3/uL Eos # (Auto) 0.1 (0.0-0.4) X10*3/uL Baso # (Auto) 0.0 (0.0-0.2) X10*3/uL Abs Immat Gran (auto) 0.03 (0.00-0.03) X10*3/uL Absolute Neuts (auto) 7.8 (2.0-8.3) X10*3/uL Absolute Nucleated RBC 0.000 (0.0-0.012) X10*3/uL Nucleated RBC % (auto) 0.0 (0.0-0.2) /100WBC Smear Tech's Comments VERIFIED Sodium 139 (135-145) mmol/L Potassium 4.0 (3.3-5.1) mmol/L Chloride 105 (96-108) mmol/L Carbon Dioxide 26 (22-29) mmol/L Anion Gap 12 (12-20) BUN 11 (9-16) mg/dL Creatinine 0.59 (0.5-1.4) mg/dL Estim Creat Clear Calc 101.3 Estimated GFR > 60 Random Glucose 106 (60-115) mg/dL Calcium 9.8 (8.4-10.2) mg/dL Troponin I High Sens (<3.5-17.0) ng/L Urine Color Urine Appearance Urine pH (5.0-8.0) Ur Specific [place] (1.005-1.025) Urine Protein (NEG-TRACE) MG/DL Urine Glucose (UA) (NEG) MG/DL Urine Ketones (NEG) MG/DL Urine Blood (NEG) Urine Nitrite (NEG) Ur Leukocyte Esterase (NEG) Urine RBC (0) /HPF Urine WBC (0-4) /HPF Ur Squamous Epith Cells /LPF Urine Bacteria /LPF COVID-19 ([facility]) Negative (Negative) COVID-19 Clin Com See Note 12/04/20 12/04/20 Range/Units 10:38 11:51 WBC (4.8-10.8) X10*3/uL RBC (4.20-5.50) X10*6/uL Hgb (12.0-16.0) g/dl Hct (37-47) % MCV (80-98) fL MCH (27.0-33.0) pg MCHC (31.0-35.0) g/dl RDW (11.0-16.0) % Plt Count MPV Immature Gran % (Auto) (0.0-0.4) % Neut % (Auto) (45-73) % Lymph % (Auto) (20-40) % [place] % (Auto) (2-11) % Eos % (Auto) (0-4) % Baso % (Auto) (0-2) % Lymph # (Auto) (1.2-4.9) X10*3/uL [place] # (Auto) (0.1-1.2) X10*3/uL Eos # (Auto) (0.0-0.4) X10*3/uL Baso # (Auto) (0.0-0.2) X10*3/uL Abs Immat Gran (auto) (0.00-0.03) X10*3/uL Absolute Neuts (auto) (2.0-8.3) X10*3/uL Absolute Nucleated RBC (0.0-0.012) X10*3/uL Nucleated RBC % (auto) (0.0-0.2) /100WBC Smear Tech's Comments Sodium (135-145) mmol/L Potassium (3.3-5.1) mmol/L Chloride (96-108) mmol/L Carbon Dioxide (22-29) mmol/L Anion Gap (12-20) BUN (9-16) mg/dL Creatinine (0.5-1.4) mg/dL Estim Creat Clear Calc Estimated GFR Random Glucose (60-115) mg/dL Calcium (8.4-10.2) mg/dL Troponin I High Sens 8.7 (<3.5-17.0) ng/L Urine Color STRAW Urine Appearance CLEAR Urine pH 7.0 (5.0-8.0) Ur Specific [place] <= 1.005 (1.005-1.025) Urine Protein NEG (NEG-TRACE) MG/DL Urine Glucose (UA) NEG (NEG) MG/DL Urine Ketones NEG (NEG) MG/DL Urine Blood NEG (NEG) Urine Nitrite NEG (NEG) Ur Leukocyte Esterase 1+ H (NEG) Urine RBC 0 (0) /HPF Urine WBC 1-4 (0-4) /HPF Ur Squamous Epith Cells 1+ /LPF Urine Bacteria TRACE /LPF COVID-19 ([facility]) (Negative) COVID-19 Clin Com Discharge Plan Discharge Clinical Impression: Vertigo Patient Disposition: Home, Self-Care Instructions: Vertigo (ED) Prescriptions: New meclizine 25 mg tablet 25 mg PO TID PRN (Reason: dizziness) Qty: 14 RF: 0 ondansetron 4 mg tablet,disintegrating 4 mg PO TID PRN (Reason: nausea and vomiting) 5 Days Qty: 10 RF: 0 No Action albuterol sulfate 90 mcg/actuation HFA aerosol inhaler 2 puff inhalation QID PRN (Reason: bronchospasm) 30 Days Qty: 8.5 RF: 4 calcium carbonate-vitamin D3 600 mg(1,500mg) -400 unit tablet 1 tab PO BID Qty: 60 RF: 6 ketotifen fumarate [Alaway] 0.025 % (0.035 %) drops 1 drp ophthalmic (eye) BID PRN (Reason: allergy symptoms) 7 Days Qty: 5 RF: 0 loratadine 10 mg tablet 10 mg PO DAILY Qty: 90 RF: 0 amlodipine 5 mg tablet 5 mg PO DAILY 90 Days Qty: 90 RF: 1 fluticasone propionate 50 mcg/actuation spray,suspension 2 spray intranasal DAILY Qty: 48 RF: 0 diclofenac sodium 1 % gel 2 g topical BID PRN (Reason: pain) Qty: 100 RF: 3 montelukast 10 mg tablet 10 mg PO BEDTIME 30 Days Qty: 30 RF: 5 fluticasone propion-salmeterol [Wixela Inhub] 250-50 mcg/dose blister with device 1 inh inhalation BID 30 Days Qty: 60 RF: 3 ibuprofen 800 mg tablet 800 mg PO TID PRN (Reason: for pain) Qty: 90 RF: 1 tamsulosin [Flomax] 0.4 mg capsule 0.4 mg PO DAILY 10 Days Qty: 10 RF: 0 albuterol sulfate 2.5 mg /3 mL (0.083 %) solution for nebulization 2.5 mg inhalation Q4-6H PRN (Reason: shortness of breath or wheezing) 30 Days Qty: 75 RF: 6 ferrous sulfate 325 mg (65 mg iron) tablet 325 mg PO DAILY 90 Days Qty: 90 RF: 1 famotidine 40 mg tablet 40 mg PO BID RF: 0 pyridoxine (vitamin B6) 100 mg tablet 100 mg PO DAILY 90 Days Qty: 90 RF: 1 Referrals: Nora Anderson MD [Primary Care Provider] - 2 days
--- NOTE | 2020-12-04 10:24 | ED_ITS ---
HPI - General Adult General Chief complaint: General Medical Stated complaint: N/V/D , chills , dizziness Time Seen by Provider: 12/04/20 09:58 Source: patient Mode of arrival: ambulatory Limitations: no limitations History of Present Illness HPI narrative: 59 yo female pmhx significant for HTN, COPD, MDD and asthma presents to the ED with complaints of severe dizziness, nausea, vomiting, diarrhea and headache that started this morning. Onset (ago): hour(s) (5) Related Data Home Medications Medication Instructions Recorded Confirmed famotidine 40 mg tablet 40 mg PO BID 06/24/20 11/22/20 Previous Rx's Medication Instructions Recorded albuterol sulfate 90 mcg/actuation 2 puff INHALATION QID PRN 30 Days 03/03/20 aerosol inhaler #8.5 g albuterol sulfate 2.5 mg INHALATION Q4-6H PRN 30 04/26/20 Days #75 ml ferrous sulfate 325 mg (65 mg 325 mg PO DAILY 90 Days #90 tab 04/26/20 iron) tablet calcium carbonate 600 mg (1,500 1 tab PO BID #60 tab 05/18/20 mg)-vitamin D3 400 unit tablet ketotifen fumarate 0.025 % (0.035 1 drp OPHTHALMIC (EYE) BID PRN 7 05/31/20 %) eye drops (Alaway) Days #5 ml tamsulosin 0.4 mg capsule (Flomax) 0.4 mg PO DAILY 10 Days #10 cap 06/08/20 pyridoxine (vitamin B6) 100 mg 100 mg PO DAILY 90 Days #90 tab 07/27/20 tablet loratadine 10 mg tablet 10 mg PO DAILY #90 tab 08/06/20 amlodipine 5 mg tablet 5 mg PO DAILY 90 Days #90 tab 08/10/20 fluticasone propionate 50 2 spray INTRANASAL DAILY #48 ml 08/18/20 mcg/actuation nasal spray,suspension diclofenac sodium 1 % topical gel 2 g TOPICAL BID PRN #100 g 09/14/20 montelukast 10 mg tablet 10 mg PO BEDTIME 30 Days #30 tab 09/15/20 fluticasone 250 mcg-salmeterol 50 1 inh INHALATION BID 30 Days #60 ea 09/16/20 mcg/dose blistr powdr for inhalation (Wixela Inhub) ibuprofen 800 mg tablet 800 mg PO TID PRN #90 tab 10/04/20 Allergies Allergy/AdvReac Type Severity Reaction Status Date / Time Iodinated Contrast Media Allergy Severe ITCH/RASH Verified 11/22/20 11:27 [IV DYE, IODINE CONTAINING] clams Allergy Intermediate ITCHING Verified 11/22/20 11:27 docusate [From COLACE] Allergy Intermediate ITCHING Verified 11/22/20 11:27 lansoprazole [Prevacid] Allergy Intermediate hives Verified 11/22/20 11:27 oxybutynin Allergy Intermediate bladder Verified 11/22/20 11:27 pain pistachio nut Allergy Intermediate ITCHING Verified 11/22/20 11:27 walnut Allergy Intermediate ITCH/RASH Verified 11/22/20 11:27 SEASONAL ALLERGIES Allergy Intermediate ITCHY EYES Uncoded 10/27/20 11:19 PMFSH Past Medical History Medical History Acute bronchitis Allergic rhinitis Allergic rhinosinusitis Anemia Asthma COPD (chronic obstructive pulmonary disease) Essential hypertension Mild major depression, single episode Primary osteoarthritis involving multiple joints Right ankle pain Right shoulder pain Surgical History History of arthroscopy of right knee History of hemorrhoidectomy History of tonsillectomy History of total abdominal hysterectomy History of total left knee replacement History of total right knee replacement Family History Family History Father Alcoholism Mother Diabetes Acute CVA (cerebrovascular accident) Sister Breast cancer Family/Other FH: mental illness Brother Diabetes Daughter In good health Daughter In good health Daughter In good health Social History Social History Alcohol intake: never Patient Tobacco Use Status: Never used Tobacco Use of substances other than those prescribed or required for medical reasons: No Advance Directives: No Advance Directives Date on File: 11/28/19 Physical Exam Vital Signs: Vital Signs: Last Vital Signs Temp 97.6 F 12/04/20 10:02 Pulse 69 12/04/20 10:02 Resp 16 12/04/20 10:02 BP 162/81 H 12/04/20 10:02 Pulse Ox 98 12/04/20 10:02 Body Mass Index 28.8 Discharge Plan Discharge Prescriptions: No Action albuterol sulfate 90 mcg/actuation HFA aerosol inhaler 2 puff inhalation QID PRN (Reason: bronchospasm) 30 Days Qty: 8.5 RF: 4 calcium carbonate-vitamin D3 600 mg(1,500mg) -400 unit tablet 1 tab PO BID Qty: 60 RF: 6 ketotifen fumarate [Alaway] 0.025 % (0.035 %) drops 1 drp ophthalmic (eye) BID PRN (Reason: allergy symptoms) 7 Days Qty: 5 RF: 0 loratadine 10 mg tablet 10 mg PO DAILY Qty: 90 RF: 0 amlodipine 5 mg tablet 5 mg PO DAILY 90 Days Qty: 90 RF: 1 fluticasone propionate 50 mcg/actuation spray,suspension 2 spray intranasal DAILY Qty: 48 RF: 0 diclofenac sodium 1 % gel 2 g topical BID PRN (Reason: pain) Qty: 100 RF: 3 montelukast 10 mg tablet 10 mg PO BEDTIME 30 Days Qty: 30 RF: 5 fluticasone propion-salmeterol [Wixela Inhub] 250-50 mcg/dose blister with device 1 inh inhalation BID 30 Days Qty: 60 RF: 3 ibuprofen 800 mg tablet 800 mg PO TID PRN (Reason: for pain) Qty: 90 RF: 1 tamsulosin [Flomax] 0.4 mg capsule 0.4 mg PO DAILY 10 Days Qty: 10 RF: 0 albuterol sulfate 2.5 mg /3 mL (0.083 %) solution for nebulization 2.5 mg inhalation Q4-6H PRN (Reason: shortness of breath or wheezing) 30 Days Qty: 75 RF: 6 ferrous sulfate 325 mg (65 mg iron) tablet 325 mg PO DAILY 90 Days Qty: 90 RF: 1 famotidine 40 mg tablet 40 mg PO BID RF: 0 pyridoxine (vitamin B6) 100 mg tablet 100 mg PO DAILY 90 Days Qty: 90 RF: 1
[2020-12-04] MEDS: Meclizine HCl 25 MG TABLET PO (10:39)
[2020-12-04] MEDS: 0.9 % Sodium Chloride 1,000 ML 999 ML IV (10:39)
[2020-12-04 10:51] LABS: MANUAL DIFF FLAG SCAN; Monocytes Absolute Auto 0.4 X10*3/uL (0.1-1.2); PLT CLUMP 1; Red Cell Distribution Width 18.2 % (11.0-16.0); SCAN SMEAR FLAG 1
[2020-12-04 10:53] LABS: Basophils Percent Auto 0.4 % (0-2); Eosinophils Absolute Auto 0.1 X10*3/uL (0.0-0.4); Eosinophils Percent Auto 0.8 % (0-4); Hematocrit 38.2 % (37-47); Hemoglobin 12.7 g/dl (12.0-16.0); Imm Gran Abs Auto 0.03 X10*3/uL (0.00-0.03); Imm Gran Pct Auto 0.3 % (0.0-0.4); Lymphocytes Absolute Auto 1.1 X10*3/uL (1.2-4.9); Lymphocytes Percent Auto 11.3 % (20-40); Mean Corpuscular HGB Conc 33.2 g/dl (31.0-35.0); Mean Corpuscular Hemoglobin 30.2 pg (27.0-33.0); Neutrophils Absolute Auto 7.8 X10*3/uL (2.0-8.3); Neutrophils Percent Auto 83.2 % (45-73); White Blood Count 9.3 X10*3/uL (4.8-10.8)
[2020-12-04 11:02] LABS: COVID-19 Test Negative (Negative)
[2020-12-04 11:03] LABS: PLT ABN DIST 1
[2020-12-04 11:09] LABS: SLIDE REVIEW VERIFIED
[2020-12-04 11:19] LABS: Anion Gap 12 (12-20); Blood Urea Nitrogen 11 mg/dL (9-16); Calcium 9.8 mg/dL (8.4-10.2); Carbon Dioxide 26 mmol/L (22-29); Chloride 105 mmol/L (96-108); Creatinine Clr Calc Pharmacy 101.3; Estimated Glomerular Filt Rate > 60; Glucose Random 106 mg/dL (60-115); Sodium 139 mmol/L (135-145)
[2020-12-04 11:26] LABS: Troponin-I High Sensitivity 8.7 ng/L (<3.5-17.0)
[2020-12-04 11:49] VITALS: BP 153/87; PULSE 64; RESP 14; TEMP 36.5; O2SAT 98
[2020-12-04 12:13] LABS: Appearance Urine CLEAR; Color Urine STRAW; Glucose Urine UA NEG (NEG); Leukocyte Esterase Urine 1+ (NEG); Nitrite Urine NEG (NEG); Specific Gravity - Urine <= 1.005 (1.005-1.025); UACC Culture Trigger YES; Urine Blood NEG (NEG); Urine Ketones NEG (NEG); Urine Protein NEG (NEG-TRACE)
[2020-12-04 12:24] LABS: RBC Urine 0 /HPF (0)
[2020-12-04 12:25] LABS: Bacteria Urine TRACE /LPF; Squamous Epithelial Cell Urine 1+ /LPF
== END 2020-12-04 12:51 | disposition home or self-care (01) ==
PROVIDERS: Physician Assistant Medical; Emergency Provider Emergency Medicine Emergency Medical Services; PCP Internal Medicine
DX: R42 Dizziness and giddiness (principal); Z20.822 Contact with and (suspected) exposure to COVID-19; Z79.899 Other long term (current) drug therapy
CPT/HCPCS: 36415; 70450; 80048; 81001; 81003; 84484; 85025; 87086; 87147; 87635; 93005; 96360; 99284

== ENCOUNTER 2020-12-30 14:49 | Outpatient (REF) | payer OTHER, SELFPAY ==
[2020-12-30 16:12] LABS: Anion Gap 13 (12-20); Blood Urea Nitrogen 18 mg/dL (9-16); Calcium 9.7 mg/dL (8.4-10.2); Carbon Dioxide 28 mmol/L (22-29); Chloride 104 mmol/L (96-108); Estimated Glomerular Filt Rate > 60; Glucose Random 169 mg/dL (60-115); Potassium 3.9 mmol/L (3.3-5.1); Sodium 141 mmol/L (135-145)
== END 2020-12-30 14:50 | disposition home or self-care (01) ==
LOC: HO.LAB 14:49
PROVIDERS: PCP Internal Medicine; Visit Provider Nurse Practitioner Family
DX: R93.1 Abnormal findings on diagnostic imaging of heart and coronary circulation (principal)
CPT/HCPCS: 36415; 80048

== ENCOUNTER 2021-02-16 11:20 | Outpatient (REF) | payer OTHER, SELFPAY ==
--- NOTE | ~2021-02-16 | US_ITS ---
EXAMINATION: US RETROPERITONEAL LIMITED (RENAL ONLY) CLINICAL INFORMATION: Calculus of kidney. COMPARISON: Renal ultrasound 08/24/2020. CT abdomen and pelvis 06/08/2020. Ultrasound abdomen 09/27/2017. TECHNIQUE: Real-time imaging of the kidneys. FINDINGS: RIGHT KIDNEY: 12.9 x 4.1 x 6.8 cm (SAG x AP x TRV). The kidney is normal in size, contour, and echogenicity. Renal cortical thickness is normal. No calculi or focal parenchymal lesions. No hydronephrosis. LEFT KIDNEY: 12.7 x 5.3 x 4.8 cm (SAG x AP x TRV). The kidney is normal in size, contour, and echogenicity. Renal cortical thickness is normal. There is a newly appreciated 6 x 7 mm echogenic density with twinkle artifact stone in the lower pole questionable for a stone. No focal parenchymal lesions or hydronephrosis. US/US renal BI IMPRESSION: Question left renal stone. Normal right kidney.
== END 2021-02-16 11:21 | disposition home or self-care (01) ==
LOC: HO.US 11:20
PROVIDERS: PCP Internal Medicine; Visit Provider Urology
DX: N20.0 Calculus of kidney (principal)
CPT/HCPCS: 76775

== ENCOUNTER → 2021-03-03 11:09 | Outpatient (BNVA) | payer OTHER, SELFPAY | PROVIDERS: PCP Internal Medicine; Referring Provider Internal Medicine; Visit Provider Internal Medicine | DX: I25.10 Atherosclerotic heart disease of native coronary artery without angina pectoris (principal); I51.7 Cardiomegaly; I10 Essential (primary) hypertension | CPT/HCPCS: 99212 ==

== ENCOUNTER 2021-03-21 09:04 | Outpatient (REF) | payer OTHER, SELFPAY | END 2021-03-21 09:05 | disposition home or self-care (01) | LOC: HO.LAB 09:04 | PROVIDERS: PCP Internal Medicine | DX: N39.0 Urinary tract infection, site not specified (principal); I10 Essential (primary) hypertension; J44.9 Chronic obstructive pulmonary disease, unspecified; J30.9 Allergic rhinitis, unspecified; J30.2 Other seasonal allergic rhinitis; J98.4 Other disorders of lung; M41.9 Scoliosis, unspecified; Z88.8 Allergy status to other drugs, medicaments and biological substances; Z91.041 Radiographic dye allergy status; Z91.018 Allergy to other foods; Z91.013 Allergy to seafood; Z79.82 Long term (current) use of aspirin; Z79.899 Other long term (current) drug therapy | CPT/HCPCS: 87086; 87088; 87186; 99212; Q3014 ==

== ENCOUNTER 2021-04-11 13:55 | Outpatient (REF) | payer OTHER, SELFPAY ==
[2021-04-11 15:28] LABS: Hematocrit 38.1 % (37.0-47.0); Hemoglobin 12.3 g/dl (12.0-16.0); Mean Corpuscular HGB Conc 32.3 g/dl (31.0-35.0); Mean Corpuscular Hemoglobin 29.5 pg (27.0-33.0); Mean Corpuscular Volume 91.4 fL (80.0-98.0); Mean Platelet Volume 11.6 fL (9.4-12.3); Platelet Count 289 X10*3/uL (160-400); Red Blood Count 4.17 X10*6/uL (4.20-5.50); Red Cell Distribution Width 18.5 % (11.0-16.0)
[2021-04-11 15:35] LABS: INTERNATIONAL NORM RATIO 1.1 (0.9-1.1); Prothrombin Time 12.5 SEC (9.9-13.0)
[2021-04-11 15:56] LABS: Alanine Aminotransferase 34 U/L (0-31); Albumin Level 4.6 g/dL (3.5-5.0); Alkaline Phosphatase 108 U/L (39-117); Anion Gap 11 (12-20); Aspartate Amino Transferase 22 U/L (5-31); Bilirubin Total 0.5 mg/dL (0.0-1.0); Blood Urea Nitrogen 16 mg/dL (9-16); Calcium 10.1 mg/dL (8.4-10.2); Carbon Dioxide 29 mmol/L (22-29); Chloride 106 mmol/L (96-108); Estimated Glomerular Filt Rate > 60; Glucose Fasting 121 mg/dL (60-99); Sodium 142 mmol/L (135-145); Total Protein 7.7 g/dL (6.5-8.0)
[2021-04-11 16:00] LABS: Troponin-I High Sensitivity 3.8 ng/L (<3.5-17.0)
== END 2021-04-11 13:56 | disposition home or self-care (01) ==
LOC: HO.LAB 13:55
PROVIDERS: PCP Internal Medicine; Referring Provider Internal Medicine; Visit Provider Nurse Practitioner Family
DX: R07.9 Chest pain, unspecified (principal); N20.0 Calculus of kidney; I25.10 Atherosclerotic heart disease of native coronary artery without angina pectoris
CPT/HCPCS: 36415; 80053; 84484; 85027; 85610; 93005; 99212

== ENCOUNTER → 2021-05-18 13:14 | Outpatient (BNVA) | payer OTHER, SELFPAY | PROVIDERS: PCP Internal Medicine; Referring Provider Internal Medicine; Visit Provider Nurse Practitioner Family | DX: I51.7 Cardiomegaly (principal); R07.9 Chest pain, unspecified; R06.02 Shortness of breath; I10 Essential (primary) hypertension; R00.2 Palpitations; Z98.890 Other specified postprocedural states | CPT/HCPCS: Q3014 ==

== ENCOUNTER 2021-07-20 08:03 | Outpatient (REF) | payer OTHER, SELFPAY ==
[2021-07-20 09:07] LABS: Alanine Aminotransferase 25 U/L (0-31); Albumin Level 4.2 g/dL (3.5-5.0); Alkaline Phosphatase 104 U/L (39-117); Anion Gap 11 (12-20); Aspartate Amino Transferase 17 U/L (5-31); Bilirubin Total 0.9 mg/dL (0.0-1.0); Blood Urea Nitrogen 16 mg/dL (9-16); Calcium 9.6 mg/dL (8.4-10.2); Carbon Dioxide 27 mmol/L (22-29); Chloride 107 mmol/L (96-108); Cholesterol 166 mg/dL; Estimated Glomerular Filt Rate > 60; Glucose Fasting 99 mg/dL (60-99); HDL Cholesterol 58 mg/dL; LDL Cholesterol Calculated 99 mg/dl; Potassium 4.1 mmol/L (3.3-5.1); Sodium 141 mmol/L (135-145); Total Protein 7.1 g/dL (6.5-8.0); Triglycerides 46 mg/dL
== END 2021-07-20 08:04 | disposition home or self-care (01) ==
LOC: HO.LAB 08:03
PROVIDERS: PCP Internal Medicine; Visit Provider Internal Medicine
DX: E78.5 Hyperlipidemia, unspecified (principal); I25.10 Atherosclerotic heart disease of native coronary artery without angina pectoris
CPT/HCPCS: 36415; 80053; 80061

== ENCOUNTER 2021-09-01 15:48 | Outpatient (REF) | payer OTHER, SELFPAY ==
--- NOTE | ~2021-09-01 | US_ITS ---
EXAMINATION: US RETROPERITONEAL LIMITED (RENAL ONLY) CLINICAL INFORMATION: Calculus of kidney. COMPARISON: Renal ultrasound 02/16/2021 and 08/24/2020. CT abdomen and pelvis 06/08/2020. TECHNIQUE: Real-time imaging of the kidneys. FINDINGS: RIGHT KIDNEY: 11.9 x 3.9 x 4.8 cm (SAG x AP x TRV). The kidney is normal in size, contour, and echogenicity. Renal cortical thickness is normal. No calculi or focal parenchymal lesions. No hydronephrosis. There are multiple echogenic foci likely calcified vessels. LEFT KIDNEY: 12.2 x 5.7 x 5.1 cm (SAG x AP x TRV). The kidney is normal in size, contour, and echogenicity. Renal cortical thickness is normal. No hydronephrosis. There is an anechoic cyst in the midpole measuring 1.1 x 1.3 x 1.3 cm. There is an echogenic stone upper pole measuring 0.2 x 0.2 x 0.6 cm. There are multiple echogenic foci likely calcified vessels. US/US renal BI IMPRESSION: Multiple echogenic foci likely calcified vessels. There is an anechoic cyst in the left kidney midpole measuring 1.1 x 1.3 x 1.3 cm and an echogenic stone in the upper pole measuring 0.2 x 0.2 x 0.6 cm.
== END 2021-09-01 15:49 | disposition home or self-care (01) ==
LOC: HO.US 15:48
DX: N20.0 Calculus of kidney (principal)
CPT/HCPCS: 76775

== ENCOUNTER → 2021-09-21 11:12 | Outpatient (BNVA) | payer OTHER, SELFPAY | PROVIDERS: PCP Internal Medicine; Visit Provider Internal Medicine | DX: M41.9 Scoliosis, unspecified (principal); J44.9 Chronic obstructive pulmonary disease, unspecified; J98.4 Other disorders of lung; J30.9 Allergic rhinitis, unspecified | CPT/HCPCS: 99212 ==

== ENCOUNTER → 2021-10-11 10:22 | Outpatient (BNVA) | payer OTHER, SELFPAY | PROVIDERS: PCP Internal Medicine | DX: N20.0 Calculus of kidney (principal) | CPT/HCPCS: Q3014 ==

== ENCOUNTER 2021-10-12 11:41 | Outpatient (REF) | payer OTHER, SELFPAY ==
--- NOTE | ~2021-10-12 | MM_ITS ---
EXAMINATION: MM SCREENING DIGITAL BREAST TOMOSYNTHESIS, BILATERAL CLINICAL INFORMATION: Screening. Asymptomatic. The lifetime risk of breast cancer based on the Tyrer-Cuzick Model is 9%. COMPARISON: Mammography: 07/21/2020, 03/17/2019, 03/02/2018 6, 02/09/2017, 12/08/2015 TECHNIQUE: Digital breast tomosynthesis is performed in both the craniocaudal and mediolateral oblique views along with computer-aided detection (CAD). Synthesized 2D images are generated from the tomosynthesis. FINDINGS: The breasts are heterogeneously dense, which may obscure small masses (ACR BI-RADS breast composition Category c). Parenchymal pattern is similar to prior studies. No interval architectural abnormality or abnormal calcifications. Nodule central outer left breast on CC view is decreased since 2016 consistent with regressing cyst. The axilla are unremarkable. The skin contours are smooth. MM/MM tomosynthesis screening BI IMPRESSION: No significant changes from prior exams. ASSESSMENT: BI-RADS 2: Benign RECOMMENDATION: Routine annual mammography screening. This patient's information was entered into a reminder system with a target due date for their next mammogram.
== END 2021-10-12 11:42 | disposition home or self-care (01) ==
LOC: HO.MAMMO 11:41
PROVIDERS: PCP Internal Medicine; Visit Provider Internal Medicine
DX: Z12.31 Encounter for screening mammogram for malignant neoplasm of breast (principal)
CPT/HCPCS: 77063; 77067

== ENCOUNTER 2021-11-09 09:25 | Outpatient (REF) | payer OTHER, SELFPAY ==
--- NOTE | ~2021-11-09 | XR_ITS ---
EXAMINATION: XR HAND, BILATERAL HAND CLINICAL INFORMATION: Pain in the joints of the hands. COMPARISON: X-rays of the hands April 2013. TECHNIQUE: 3 views of each hand. FINDINGS: RIGHT HAND: Interphalangeal Joints: Third and 5th DIP Joints: Severe osteoarthritic change with marginal osteophytes and some central erosive change. The changes in the 5th DIP joint are new compared to prior. There is [id number] osteoarthritic change of the 2nd DIP joint which is new compared to prior manifested by marginal osteophytes and nonuniform joint space narrowing. Metacarpophalangeal Joints: Normal. Wrist: Normal. LEFT HAND: Interphalangeal Joints: Third DIP Joint: There is severe osteoarthritic change with prominent marginal osteophytes and some central erosive change with severe joint space loss. Additional mild and/or moderate osteoarthritic change of the 2nd, 4th and 5th DIP joints with marginal osteophytes and subchondral cystic changes. These degenerative changes have progressed compared to prior. Metacarpophalangeal Joints: Normal. First Carpometacarpal Joint: There is joint space narrowing, marginal osteophytes and subchondral cystic change indicative of moderate osteoarthritis, new compared to prior. XR/XR hand wrist LT IMPRESSION: RIGHT HAND: Osteoarthritis involving the interphalangeal joints with degenerative changes progressing compared with the prior x-ray April 2013. Severe degenerative changes noted in the 3rd and 5th PIP joints. LEFT HAND: Osteoarthritis involving multiple joints, overall new compared with the prior x-ray April 2013.
--- NOTE | ~2021-11-09 | XR_ITS ---
EXAMINATION: XR HAND, BILATERAL HAND CLINICAL INFORMATION: Pain in the joints of the hands. COMPARISON: X-rays of the hands April 2013. TECHNIQUE: 3 views of each hand. FINDINGS: RIGHT HAND: Interphalangeal Joints: Third and 5th DIP Joints: Severe osteoarthritic change with marginal osteophytes and some central erosive change. The changes in the 5th DIP joint are new compared to prior. There is [id number] osteoarthritic change of the 2nd DIP joint which is new compared to prior manifested by marginal osteophytes and nonuniform joint space narrowing. Metacarpophalangeal Joints: Normal. Wrist: Normal. LEFT HAND: Interphalangeal Joints: Third DIP Joint: There is severe osteoarthritic change with prominent marginal osteophytes and some central erosive change with severe joint space loss. Additional mild and/or moderate osteoarthritic change of the 2nd, 4th and 5th DIP joints with marginal osteophytes and subchondral cystic changes. These degenerative changes have progressed compared to prior. Metacarpophalangeal Joints: Normal. First Carpometacarpal Joint: There is joint space narrowing, marginal osteophytes and subchondral cystic change indicative of moderate osteoarthritis, new compared to prior. XR/XR hand wrist RT IMPRESSION: RIGHT HAND: Osteoarthritis involving the interphalangeal joints with degenerative changes progressing compared with the prior x-ray April 2013. Severe degenerative changes noted in the 3rd and 5th PIP joints. LEFT HAND: Osteoarthritis involving multiple joints, overall new compared with the prior x-ray April 2013.
[2021-11-09 09:53] LABS: MANUAL DIFF FLAG NO
[2021-11-09 10:11] LABS: Basophils Percent Auto 0.5 % (0-2); Eosinophils Absolute Auto 0.2 X10*3/uL (0.0-0.4); Eosinophils Percent Auto 2.6 % (0-4); Hematocrit 36.4 % (37.0-47.0); Hemoglobin 11.9 g/dl (12.0-16.0); Imm Gran Abs Auto 0.03 X10*3/uL (0.00-0.03); Imm Gran Pct Auto 0.5 % (0.0-0.4); Lymphocytes Absolute Auto 1.6 X10*3/uL (1.2-4.9); Lymphocytes Percent Auto 25.7 % (20-40); Mean Corpuscular HGB Conc 32.7 g/dl (31.0-35.0); Mean Corpuscular Hemoglobin 29.8 pg (27.0-33.0); Mean Corpuscular Volume 91.2 fL (80.0-98.0); Mean Platelet Volume 10.9 fL (9.4-12.3); Monocytes Absolute Auto 0.4 X10*3/uL (0.1-1.2); Monocytes Percent Auto 7.2 % (2-11); Neutrophils Absolute Auto 3.9 x10*3/uL (2.0-8.3); Neutrophils Percent Auto 63.5 % (45-73); Platelet Count 288 X10*3/uL (160-400); Red Blood Count 3.99 X10*6/uL (4.20-5.50); Red Cell Distribution Width 19.1 % (11.0-16.0); White Blood Count 6.1 X10*3/uL (4.8-10.8)
[2021-11-09 10:34] LABS: Alanine Aminotransferase 35 U/L (0-31); Albumin Level 4.5 g/dL (3.5-5.0); Alkaline Phosphatase 107 U/L (39-117); Anion Gap 13 (12-20); Aspartate Amino Transferase 34 U/L (5-31); Bilirubin Total 0.7 mg/dL (0.0-1.0); Blood Urea Nitrogen 13 mg/dL (9-16); C Reactive Protein 1.09 mg/dL (< or = 0.50); Calcium 10.2 mg/dL (8.4-10.2); Carbon Dioxide 28 mmol/L (22-29); Chloride 105 mmol/L (96-108); Estimated Glomerular Filt Rate > 60; Glucose Random 84 mg/dL (60-115); Rheumatoid Factor < 15.0 IU/mL (<15.0); Sodium 142 mmol/L (135-145); Total Protein 7.6 g/dL (6.5-8.0)
[2021-11-09 10:52] LABS: Erythrocyte Sedimentation Rate 22 MM/HR (0-20)
[2021-11-11 17:46] LABS: Cyclic Citrullinated Peptide <16 UNITS
== END 2021-11-09 09:26 | disposition home or self-care (01) ==
LOC: HO.LAB 09:25
PROVIDERS: PCP Internal Medicine; Visit Provider Student in an Organized Health Care Education/Training Program
DX: M19.041 Primary osteoarthritis, right hand (principal); M19.042 Primary osteoarthritis, left hand; M25.50 Pain in unspecified joint; Z79.899 Other long term (current) drug therapy
CPT/HCPCS: 36415; 73110; 73130; 80053; 85025; 85652; 86140; 86200; 86431; 99212

== ENCOUNTER → 2021-12-08 11:33 | Outpatient (BNVA) | payer OTHER, SELFPAY | PROVIDERS: PCP Internal Medicine; Visit Provider Student in an Organized Health Care Education/Training Program | DX: M15.4 Erosive (osteo)arthritis (principal); R74.01 Elevation of levels of liver transaminase levels | CPT/HCPCS: 99212 ==

== ENCOUNTER 2022-01-10 11:00 | Outpatient (RCR) | payer OTHER, SELFPAY | END 2022-02-01 16:06 | disposition home or self-care (01) | LOC: HO.OT 11:00 | PROVIDERS: PCP Internal Medicine; Visit Provider Student in an Organized Health Care Education/Training Program | DX: M15.4 Erosive (osteo)arthritis (principal) | CPT/HCPCS: 97035; 97110; 97166; 97535; 97760 ==

== ENCOUNTER → 2022-01-11 08:25 | Outpatient (BNVA) | payer OTHER, SELFPAY | PROVIDERS: PCP Internal Medicine; Visit Provider Orthopaedic Surgery | DX: M18.12 Unilateral primary osteoarthritis of first carpometacarpal joint, left hand (principal); M19.042 Primary osteoarthritis, left hand; G56.03 Carpal tunnel syndrome, bilateral upper limbs | CPT/HCPCS: 99202 ==

== ENCOUNTER → 2022-02-21 13:41 | Outpatient (BNVA) | payer OTHER, SELFPAY | PROVIDERS: PCP Internal Medicine; Visit Provider Orthopaedic Surgery | DX: G56.03 Carpal tunnel syndrome, bilateral upper limbs (principal); M18.12 Unilateral primary osteoarthritis of first carpometacarpal joint, left hand; M19.042 Primary osteoarthritis, left hand; L03.012 Cellulitis of left finger | CPT/HCPCS: 99212 ==

== ENCOUNTER → 2022-03-23 13:44 | Outpatient (BNVA) | payer OTHER, SELFPAY | PROVIDERS: PCP Internal Medicine; Visit Provider Internal Medicine | DX: M41.9 Scoliosis, unspecified (principal); J98.4 Other disorders of lung; J30.9 Allergic rhinitis, unspecified; J45.909 Unspecified asthma, uncomplicated | CPT/HCPCS: 99212 ==

== ENCOUNTER 2022-03-29 12:24 | Outpatient (REF) | payer OTHER, SELFPAY ==
--- NOTE | ~2022-03-29 | US_ITS ---
EXAMINATION: US RETROPERITONEAL LIMITED (RENAL ONLY) CLINICAL INFORMATION: Calculus of kidney COMPARISON: Ultrasound renal 09/01/2021 and 02/16/2021. CT scan dated June 08, 2020. TECHNIQUE: Real-time imaging of the kidneys. FINDINGS: RIGHT KIDNEY: 13.2 x 3.4 x 5.7 cm (SAG x AP x TRV). The kidney appears unremarkable in size, contour, and echogenicity. Renal cortical thickness is normal. No focal parenchymal lesion identified. No stone identified as such. No hydronephrosis. LEFT KIDNEY: 11.8 x 5.5 x 4.5 cm (SAG x AP x TRV). 1.2 x 1.1 x 1.1 cm benign parapelvic simple renal cyst for which no further dedicated follow up imaging is indicated. The kidney otherwise appears unremarkable in size, contour, and echogenicity. Renal cortical thickness is normal. No suspicious focal parenchymal lesion identified. The technologist toro a 0.5 cm echogenic, nonshadowing structure in the upper pole the left kidney which probably represents normal renal sinus fat. No stone identified as such. No hydronephrosis. US/US renal BI IMPRESSION: Essentially unremarkable renal ultrasound examination.
== END 2022-03-29 12:25 | disposition home or self-care (01) ==
LOC: HO.US 12:24
PROVIDERS: PCP Internal Medicine
DX: N20.0 Calculus of kidney (principal)
CPT/HCPCS: 76775

== ENCOUNTER → 2022-04-13 11:09 | Outpatient (BNVA) | payer OTHER, SELFPAY | PROVIDERS: PCP Internal Medicine; Visit Provider Nurse Practitioner Family | DX: N20.0 Calculus of kidney (principal); R35.0 Frequency of micturition | CPT/HCPCS: 99212 ==

== ENCOUNTER → 2022-05-02 12:58 | Outpatient (BNVA) | payer OTHER, SELFPAY | PROVIDERS: PCP Internal Medicine; Referring Provider Internal Medicine; Visit Provider Nurse Practitioner Family | DX: R07.89 Other chest pain (principal); R00.2 Palpitations; I11.9 Hypertensive heart disease without heart failure; Z98.890 Other specified postprocedural states | CPT/HCPCS: 93005; 99212 ==

== ENCOUNTER 2022-05-03 11:27 | Outpatient (REF) | payer OTHER, SELFPAY ==
--- NOTE | 2022-05-03 08:45 | EMG_ITS ---
Please see scanned EMG / Nerve Conduction Report. MTDD
== END 2022-05-03 11:28 | disposition home or self-care (01) ==
LOC: HO.NEURO 11:27
PROVIDERS: PCP Internal Medicine; Visit Provider Orthopaedic Surgery
DX: R20.0 Anesthesia of skin (principal); R20.2 Paresthesia of skin
CPT/HCPCS: 95885; 95910

== ENCOUNTER 2022-05-04 08:00 | Outpatient (REF) | payer OTHER, SELFPAY ==
[2022-05-04 09:46] LABS: Alanine Aminotransferase 24 U/L (0-31); Albumin Level 4.4 g/dL (3.5-5.0); Alkaline Phosphatase 97 U/L (39-117); Anion Gap 10 (12-20); Aspartate Amino Transferase 17 U/L (5-31); Bilirubin Direct 0.2 mg/dL (0.0-0.5); Bilirubin Total 0.8 mg/dL (0.0-1.0); Blood Urea Nitrogen 18 mg/dL (9-16); Calcium 9.4 mg/dL (8.4-10.2); Carbon Dioxide 31 mmol/L (22-29); Chloride 104 mmol/L (96-108); Cholesterol 168 mg/dL; Estimated Glomerular Filt Rate > 60; Glucose Fasting 92 mg/dL (60-99); HDL Cholesterol 54 mg/dL; LDL Cholesterol Calculated 101 mg/dl; Potassium 4.3 mmol/L (3.3-5.1); Sodium 141 mmol/L (135-145); Total Protein 7.2 g/dL (6.5-8.0); Triglycerides 67 mg/dL
== END 2022-05-04 08:01 | disposition home or self-care (01) ==
LOC: HO.LAB 08:00
PROVIDERS: PCP Internal Medicine; Visit Provider Internal Medicine
DX: Z00.00 Encounter for general adult medical examination without abnormal findings (principal); R74.01 Elevation of levels of liver transaminase levels; E78.5 Hyperlipidemia, unspecified
CPT/HCPCS: 36415; 80053; 80061; 80076; 82248

== ENCOUNTER → 2022-05-19 15:02 | Outpatient (REF) | payer OTHER, SELFPAY ==
--- NOTE | 2022-05-19 15:05 | HM_ITS ---
Conclusion: 1. Patient was monitored for total period of 2 days 2. Baseline was normal sinus rhythm with average heart of 75 beats per minute 3. No significant pauses or bradycardia noted 4. Total of 3295 PACs accounting for 1% of total beats account for frequent PACs 5. Total of 13 SVT events, longest lasting 11 beats and the fastest at 174 beats per minute 6. Total of 5420 PVCs accounting for 1.7% total beats account for frequent PVCs, all isolated 7. Patient reported 6 events that correlated with either PACs or PVCs MTDD
== END ==
LOC: HO.CARD 15:02
PROVIDERS: PCP Internal Medicine; Visit Provider Nurse Practitioner Family
DX: R00.2 Palpitations (principal)
CPT/HCPCS: 93242

== ENCOUNTER 2022-05-30 13:46 | Outpatient (REF) | payer OTHER, SELFPAY ==
[2022-05-30 15:21] LABS: MANUAL DIFF FLAG NO
[2022-05-30 15:38] LABS: Basophils Absolute Auto 0.1 X10*3/uL (0.0-0.2); Eosinophils Absolute Auto 0.2 X10*3/uL (0.0-0.4); Hematocrit 37.8 % (37.0-47.0); Hemoglobin 12.3 g/dl (12.0-16.0); Imm Gran Abs Auto 0.02 X10*3/uL (0.00-0.03); Imm Gran Pct Auto 0.3 % (0.0-0.4); Lymphocytes Absolute Auto 2.1 X10*3/uL (1.2-4.9); Lymphocytes Percent Auto 33.8 % (20-40); Mean Corpuscular HGB Conc 32.5 g/dl (31.0-35.0); Mean Corpuscular Hemoglobin 29.7 pg (27.0-33.0); Mean Corpuscular Volume 91.3 fL (80.0-98.0); Mean Platelet Volume 11.7 fL (9.4-12.3); Monocytes Absolute Auto 0.5 X10*3/uL (0.1-1.2); Monocytes Percent Auto 7.8 % (2-11); Neutrophils Absolute Auto 3.4 x10*3/uL (2.0-8.3); Neutrophils Percent Auto 54.1 % (45-73); Platelet Count 280 X10*3/uL (160-400); Red Blood Count 4.14 X10*6/uL (4.20-5.50); White Blood Count 6.3 X10*3/uL (4.8-10.8)
[2022-05-30 16:29] LABS: Alanine Aminotransferase 25 U/L (0-31); Albumin Level 4.6 g/dL (3.5-5.0); Alkaline Phosphatase 102 U/L (39-117); Anion Gap 11 (12-20); Aspartate Amino Transferase 18 U/L (5-31); Bilirubin Total 0.6 mg/dL (0.0-1.0); Blood Urea Nitrogen 23 mg/dL (9-16); C Reactive Protein 0.63 mg/dL (< or = 0.50); Calcium 10.1 mg/dL (8.4-10.2); Carbon Dioxide 29 mmol/L (22-29); Chloride 106 mmol/L (96-108); Estimated Glomerular Filt Rate > 60; Glucose Random 81 mg/dL (60-115); Potassium 4.1 mmol/L (3.3-5.1); Sodium 142 mmol/L (135-145); Total Protein 7.3 g/dL (6.5-8.0)
[2022-05-30 16:32] LABS: Erythrocyte Sedimentation Rate 18 MM/HR (0-20)
[2022-06-01 11:58] LABS: H Pylori Breath Test Positive (Negative)
[2022-06-05 09:29] LABS: Transglutaminase Ab IgG <1.0 U/mL; Transglutaminase IgA <1.0 U/mL
== END 2022-05-30 13:47 | disposition home or self-care (01) ==
LOC: HO.LAB 13:46
PROVIDERS: Student in an Organized Health Care Education/Training Program; PCP Internal Medicine; Visit Provider Nurse Practitioner Family
DX: M15.4 Erosive (osteo)arthritis (principal); R74.01 Elevation of levels of liver transaminase levels; R10.13 Epigastric pain; K21.9 Gastro-esophageal reflux disease without esophagitis; K59.01 Slow transit constipation
CPT/HCPCS: 36415; 80053; 82550; 83013; 85025; 85652; 86140; 86364; 99202

== ENCOUNTER 2022-05-31 10:34 | Outpatient (REF) | payer OTHER, SELFPAY ==
[2022-06-08 16:43] LABS: Pancreatic Elastase-1 >500 mcg/g
== END 2022-05-31 10:35 | disposition home or self-care (01) ==
LOC: HO.LNP 10:34
PROVIDERS: Visit Provider Nurse Practitioner Family
DX: R10.9 Unspecified abdominal pain (principal)
CPT/HCPCS: 82656

== ENCOUNTER → 2022-07-04 13:51 | Outpatient (BNVA) | payer OTHER, SELFPAY | PROVIDERS: PCP Internal Medicine; Visit Provider Nurse Practitioner Family | DX: K21.9 Gastro-esophageal reflux disease without esophagitis (principal); R10.9 Unspecified abdominal pain; R13.10 Dysphagia, unspecified; K59.1 Functional diarrhea; A04.8 Other specified bacterial intestinal infections | CPT/HCPCS: 99212 ==

== ENCOUNTER → 2022-07-10 13:29 | Outpatient (BNVA) | payer OTHER, SELFPAY | PROVIDERS: PCP Internal Medicine; Visit Provider Nurse Practitioner Family | DX: G43.909 Migraine, unspecified, not intractable, without status migrainosus (principal); R42 Dizziness and giddiness; G47.9 Sleep disorder, unspecified; R06.83 Snoring; G47.19 Other hypersomnia | CPT/HCPCS: 99202 ==

== ENCOUNTER → 2022-08-14 14:17 | Outpatient (BNVA) | payer OTHER, SELFPAY | PROVIDERS: Visit Provider Nurse Practitioner Family | DX: K21.9 Gastro-esophageal reflux disease without esophagitis (principal); K58.2 Mixed irritable bowel syndrome; R10.9 Unspecified abdominal pain; R13.10 Dysphagia, unspecified; R19.7 Diarrhea, unspecified | CPT/HCPCS: 99212 ==

== ENCOUNTER 2022-08-15 09:19 | Outpatient (REF) | payer OTHER, SELFPAY | END 2022-08-15 09:20 | disposition home or self-care (01) | LOC: HO.LNP 09:19 | PROVIDERS: Visit Provider Nurse Practitioner Family | DX: K21.9 Gastro-esophageal reflux disease without esophagitis (principal) | CPT/HCPCS: 87338 ==

== ENCOUNTER 2022-09-19 06:56 | Day surgery (SDC) | payer OTHER, SELFPAY ==
[2022-09-15 16:56] VITALS: BMI 27.6
--- NOTE | 2022-09-18 12:10 | HO.ANESPROP2 ---
Documented by User: Phoebe Garcia NP 09/18/22 12:11 HPI - Anesthesia Eval Consult details Narrative: 61yo F for Upper Endoscopy and Colonoscopy PMF Active Problems Active Problems: All Active Problems (Updated 07/10/22 @ 15:06 by FIFI Ga) Excessive daytime sleepiness (Acute) Snoring (Acute) Sleep difficulties (Acute) Migraine (Acute) Helicobacter pylori (H. pylori) (Acute) Abdominal pain (Acute) Skin lesion (Acute) Urinary frequency (Acute) Arthritis of finger of left hand (Acute) Arthritis of carpometacarpal (CMC) joint of left thumb (Acute) Carpal tunnel syndrome on both sides (Acute) Transaminitis (Acute) Erosive osteoarthritis of left hand (Acute) S/P cardiac catheterization (Acute) Physical exam (Acute) CAD (coronary artery disease) (Acute) Chest pain (Acute) UTI (urinary tract infection) (Acute) Scoliosis (Acute) Restrictive lung disease (Acute) Atherosclerotic cardiovascular disease (Acute) Abnormal echocardiogram findings without diagnosis (Acute) Dysphagia (Acute) Vertigo (Acute) Mild major depression, single episode (Acute) Right shoulder pain (Acute) S/P bilateral unicompartmental knee replacement (Acute) Shortness of breath on exertion (Acute) Bilateral nephrolithiasis (Acute) COPD (chronic obstructive pulmonary disease) (Acute) Allergic rhinosinusitis (Acute) Acute bronchitis (Acute) Asthma (Acute) Anemia (Acute) Primary osteoarthritis involving multiple joints (Acute) Palpitation (Acute) LVH (left ventricular hypertrophy) (Acute) Essential hypertension (Acute) History of total left knee replacement (Acute) Right ankle pain (Acute) Physical exam (Acute) Allergic rhinitis (Acute) Past Medical History Medical History Acute bronchitis Allergic rhinitis Allergic rhinosinusitis Anemia Asthma COPD (chronic obstructive pulmonary disease) Dysphagia Essential hypertension Helicobacter pylori (H. pylori) Mild major depression, single episode Physical exam Primary osteoarthritis involving multiple joints Restrictive lung disease Right ankle pain Right shoulder pain Scoliosis UTI (urinary tract infection) Family History Family History Father Alcoholism Arthritis Mother Diabetes Acute CVA (cerebrovascular accident) Sister Breast cancer Family/Other FH: mental illness Brother Diabetes Myocardial infarct Daughter In good health Daughter In good health Daughter In good health Surgical History Surgical History (Updated 09/19/22 @ 07:17 by Marian Taylor RN) History of arthroscopy of right knee History of hemorrhoidectomy History of tonsillectomy History of total abdominal hysterectomy History of total left knee replacement History of total right knee replacement Hx of cardiac cath Social History Social History Housing: Apartment Alcohol intake: never Patient Tobacco Use Status: Never used Tobacco e-Cigarette/Vaping Use: Never Used Second Hand Smoke Exposure: No Are you DNR?: No Advance Directives: No Advance Directives Information Provided: Yes Advance Directives Date on File: 11/28/19 Nutrition Risks: No Nutritional Risk service: No 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al status: disabled 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 Cognitive needs: No Hearing needs: No Vision needs: No Meds Allergies Allergy/AdvReac Type Severity Reaction Status Date / Time Iodinated Contrast Media Allergy Severe ITCH/RASH Verified 08/14/22 14:25 [IV DYE, IODINE CONTAINING] clams Allergy Intermediate ITCHING Verified 08/14/22 14:25 docusate [From COLACE] Allergy Intermediate ITCHING Verified 08/14/22 14:25 lansoprazole [Prevacid] Allergy Intermediate hives Verified 08/14/22 14:25 oxybutynin Allergy Intermediate bladder Verified 08/14/22 14:25 pain pistachio nut Allergy Intermediate ITCHING Verified 08/14/22 14:25 walnut Allergy Intermediate ITCH/RASH Verified 08/14/22 14:25 SEASONAL ALLERGIES Allergy Intermediate ITCHY EYES Uncoded 08/14/22 14:25 Home Medications Medication Instructions Recorded Confirmed Last Taken Type glucosamine HCl PO DAILY 07/10/22 07/10/22 Unknown History metoprolol succinate 50 mg 50 mg PO DAILY 07/10/22 07/10/22 Unknown History tablet,extended release 24 hr Exam Exam Date and Time: September 18, 2022 1210 Height,Weight and Vital Signs: Height 5 ft 4 in Weight 73.028 kg Pertinent Lab Results Pertinent Lab Results: Laboratory Tests 05/30/22 05/30/22 15:19 15:19 WBC 6.3 Hgb 12.3 Hct 37.8 Plt Count 280 Sodium 142 Potassium 4.1 Chloride 106 Carbon Dioxide 29 BUN 23 H Creatinine 0.62 Assessment and Plan Assessment Anesthesia Assessment: Chart Reviewed Documented by User: Sean Gottlieb MD 09/19/22 08:12 [facility] Past Medical History Medical History Acute bronchitis Allergic rhinitis Allergic rhinosinusitis Anemia Asthma COPD (chronic obstructive pulmonary disease) Dysphagia Essential hypertension Helicobacter pylori (H. pylori) Mild major depression, single episode Physical exam Primary osteoarthritis involving multiple joints Restrictive lung disease Right ankle pain Right shoulder pain Scoliosis UTI (urinary tract infection) Family History Family History Father Alcoholism Arthritis Mother Diabetes Acute CVA (cerebrovascular accident) Sister Breast cancer Family/Other FH: mental illness Brother Diabetes Myocardial infarct Daughter In good health Daughter In good health Daughter In good health Family history of problems with anesthesia: No Surgical History Surgical History (Updated 09/19/22 @ 07:17 by Marian Taylor RN) History of arthroscopy of right knee History of hemorrhoidectomy History of tonsillectomy History of total abdominal hysterectomy History of total left knee replacement History of total right knee replacement Hx of cardiac cath History of Problems with Anesthesia: No Social History Social History Housing: Apartment Alcohol intake: never Patient Tobacco Use Status: Never used Tobacco e-Cigarette/Vaping Use: Never Used Second Hand Smoke Exposure: No Are you DNR?: No Advance Directives: No Advance Directives Information Provided: Yes Advance Directives Date on File: 11/28/19 Nutrition Risks: No Nutritional Risk service: No 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al status: disabled 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 Cognitive needs: No Hearing needs: No Vision needs: No Meds Allergies Allergy/AdvReac Type Severity Reaction Status Date / Time Iodinated Contrast Media Allergy Severe ITCH/RASH Verified 08/14/22 14:25 [IV DYE, IODINE CONTAINING] clams Allergy Intermediate ITCHING Verified 08/14/22 14:25 docusate [From COLACE] Allergy Intermediate ITCHING Verified 08/14/22 14:25 lansoprazole [Prevacid] Allergy Intermediate hives Verified 08/14/22 14:25 oxybutynin Allergy Intermediate bladder Verified 08/14/22 14:25 pain pistachio nut Allergy Intermediate ITCHING Verified 08/14/22 14:25 walnut Allergy Intermediate ITCH/RASH Verified 08/14/22 14:25 SEASONAL ALLERGIES Allergy Intermediate ITCHY EYES Uncoded 08/14/22 14:25 Home Medications Medication Instructions Recorded Confirmed Last Taken Type glucosamine HCl PO DAILY 07/10/22 07/10/22 Unknown History metoprolol succinate 50 mg 50 mg PO DAILY 07/10/22 07/10/22 Unknown History tablet,extended release 24 hr Exam Airway Mallampati Class: II TM Dist: >3cm Neck ROM: Limited Heart: rrr Lungs: cta Assessment and Plan Assessment Anesthesia Assessment: Anesthesia Plan Discussed Final Anesthetic Review Family History of Problems with Anesthesia: No History of Problems with Anesthesia: No NPO: Yes ASA Class: III Final Preanesthetic Review: No Changes in Pt Med Stat, Meds/Allgs Chart Reviewed, Consent Obtained/Reviewed and Anes Risks/Benef Reviewed Patient Risk: Intermediate Procedure Risk: Intermediate Anesthetic Plan Anesthetic Plan: MAC: and Agree w/ Assess. and Plan Disposition: Standard PACU
[2022-09-19] VITALS (11 sets, daily range): BP systolic 114–168; BP diastolic 62–95; PULSE 51–81; RESP 16–20; TEMP 36.1–36.6; O2SAT 93–99
[2022-09-19] MEDS: Lactated Ringers 1,000 ML 100 ML IVCONT (07:26)
--- NOTE | 2022-09-19 08:33 | MHC.SHP ---
Pre-Procedural Eval Section A Date of Service: 09/19/22 Section B Chief Complaint: Diarrhea,dysphagia Details of Present Illness: PMH: Acute bronchitis Allergic rhinitis Allergic rhinosinusitis Anemia Asthma COPD (chronic obstructive pulmonary disease) Dysphagia Essential hypertension Helicobacter pylori (H. pylori) Mild major depression, single episode Physical exam Primary osteoarthritis involving multiple joints Restrictive lung disease Right ankle pain Right shoulder pain Scoliosis UTI (urinary tract infection) Surgical History History of arthroscopy of right knee History of hemorrhoidectomy History of tonsillectomy History of total abdominal hysterectomy History of total left knee replacement History of total right knee replacement Present Medications: see Short Stay Collaborative assessment Allergies: Allergies Allergy/AdvReac Type Severity Reaction Status Date / Time Iodinated Contrast Media Allergy Severe ITCH/RASH Verified 08/14/22 14:25 [IV DYE, IODINE CONTAINING] clams Allergy Intermediate ITCHING Verified 08/14/22 14:25 docusate [From COLACE] Allergy Intermediate ITCHING Verified 08/14/22 14:25 lansoprazole [Prevacid] Allergy Intermediate hives Verified 08/14/22 14:25 oxybutynin Allergy Intermediate bladder Verified 08/14/22 14:25 pain pistachio nut Allergy Intermediate ITCHING Verified 08/14/22 14:25 walnut Allergy Intermediate ITCH/RASH Verified 08/14/22 14:25 SEASONAL ALLERGIES Allergy Intermediate ITCHY EYES Uncoded 08/14/22 14:25 Review of Systems Review of Systems Comment: 10 point ROS as above Exam Exam Comment: Gen appear: No acute distress HEENT: no icterus Chest: No overt resp distress Abd: soft, nontender, nondistended Psych: Stable affect, answering questions appropriately Neuro: A/Ox3 noted to move all extremities spontaneously Ext: no peripheral edema Plan Diagnosis/Plan: Unchanged I have reviewed the history and physical and performed a pertinent physical examination on my patient. No changes have occurred unless specified. Time Spent With Patient Time: Total time managing care of this patient today ____ minutes.
--- NOTE | 2022-09-19 08:34 | P.OP_ITS ---
Operative Note Operative Note Date of Service: 09/19/22 Narrative: Procedure:?Esophagogastroduodenoscopy and colonoscopy Endoscopist:?Malena Chan MD Indication:?dysphagia, chronic diarrhea Anesthesia Provider:?Nancy Romero CRNA Anesthesia Type:?MAC Instrument:?Olympus GIF-H190, PCF-H190L EGD Procedure:?? The procedure, indications, preparation and potential complications were reviewed with the patient, who indicated understanding and gave written informed consent to proceed. A physical exam was performed. The endoscope was introduced through the mouth, and advanced to the second part of duodenum. The mucosa was carefully examined on slow withdrawal of the endoscope.? There were no immediate complications.? Patient tolerated the procedure well. EGD Findings:? * Esophagus:? Normal mucosa noted in the entire esophagus.? The Z-line is at 37 cm. Cold forceps biopsies were taken from middle and lower esophagus rule out eosinophilic esophagitis * Stomach:? Abnormal mucosa was noted in the antrum the 3 o'clock position. Cold forceps biopsies were taken for histology. Retroflexion in the cardia revealed small hiatal hernia. * Duodenum:? Normal duodenal mucosa to the extent visualised.? Cold forceps biopsies were taken to rule out celiac disease. Additional intervention: A soft tip Savary wire was advanced through the biopsy channel of the gastroscope and advanced to the antrum. The gastroscope was then backed out. Savary Kendra bougie was guided over the wire and the esophagus was incrementally dilated from 16 mm to 18 mm. On relook, no heme or tear was noted anywhere in the esophagus. Colonoscopy Procedure:? The patient was then turned for the colonoscopy. A digital rectal exam was performed which was abnormal for external hemorrhoids.? A distal attachment cap was affixed to the tip of the scope and the colonoscope was then inserted through the anus and advanced through the colon to the cecum at 70 cm and terminal ileum. Appendiceal orifice and ileocecal valve were identified. Mucosa was carefully examined under high definition white light as the instrument was slowly withdrawn in a retrograde panoramic fashion. Retroflexion was performed i n rectum. The procedure was not difficult. There were no immediate obvious complications. The quality of the prep was BBPS: 2+2+3 = adequate Withdrawal time: 10 minutes Limitations: No limitation. Findings: Mucosa: Normal mucosa to cecum and terminal ileum.? Cold forceps biopsies were taken from the right and left side of colon to rule out microscopic colitis. Protruding lesions: * Large internal hemorrhoids without stigmata of recent bleeding. Excavated lesions: * Mild diverticulosis in sigmoid colon. Impression: 1. Normal esophageal mucosa (biopsy, dilation) 2. Abnormal antral mucosa (biopsy) 3. Normal duodenum (biopsy) 4. Normal colon and terminal ileum mucosa (biopsy) 5. Diverticulosis 6. Internal and external hemorrhoids Recommendations:?? * Await pathology results.? * Although no distinct stricture was noted, if patient has promising response to dilation, this can be repeated as needed for recurrence of symptoms. Otherwise, can consider barium swallow and/or HREM for further evaluation. * Repeat colonoscopy for asymptomatic colon cancer screening in 7-10 years.
[2022-09-19] MEDS: Meclizine HCl 25 MG TABLET PO (11:05)
[2022-09-19] MEDS: ondansetron HCL 4 MG/2 ML VIAL IVPUSH (12:09)
== END 2022-09-19 12:47 | disposition home or self-care (01) ==
PROVIDERS: PCP Internal Medicine; Visit Provider Internal Medicine
PROC: (CPT 45380; principal; 2022-09-19 08:30)
DX: K44.9 Diaphragmatic hernia without obstruction or gangrene (principal); K31.9 Disease of stomach and duodenum, unspecified; K57.30 Diverticulosis of large intestine without perforation or abscess without bleeding; K64.8 Other hemorrhoids; K64.4 Residual hemorrhoidal skin tags; Z86.19 Personal history of other infectious and parasitic diseases; I10 Essential (primary) hypertension; J44.9 Chronic obstructive pulmonary disease, unspecified; D64.9 Anemia, unspecified; K21.9 Gastro-esophageal reflux disease without esophagitis; Z79.899 Other long term (current) drug therapy
CPT/HCPCS: 45380; 43248; 43239; 88305; 88342; J2405

== ENCOUNTER → 2022-09-19 06:56 | Outpatient (BNV) | payer OTHER, SELFPAY | PROVIDERS: PCP Internal Medicine; Visit Provider Internal Medicine | DX: K52.9 Noninfective gastroenteritis and colitis, unspecified (principal); R13.10 Dysphagia, unspecified; K57.30 Diverticulosis of large intestine without perforation or abscess without bleeding; K64.8 Other hemorrhoids | CPT/HCPCS: 43248; 45380 ==

== ENCOUNTER 2022-10-02 13:51 | Outpatient (AMB) | payer OTHER, SELFPAY ==
--- NOTE | 2022-10-02 13:58 | A.OFFVIS_ITS ---
Intake Vital Signs 10/02/22 13:59 Height 5 ft 4 in Weight 160 lb 0.889 oz BMI 27.5 Blood Pressure Location Lt brachial Position Sitting Intake Visit Reasons: S/P double; Dr. Chan Intake Note: Mckenzie presents in office as a est.patient for a post-op for EGD/COLO pt got it done 09.19.22 PT CC: pt reports having nausea , GERD, bloating , food smells bad to pt , lots of gas pt denies any other GI Issues Public Health Outreach Worker Required: Yes Public Health Outreach Worker Language: Samoan Accompanied by: Self / Same As Patient Allergies Iodinated Contrast Media [IV DYE, IODINE CONTAINING] Allergy (Severe, Verified 10/02/22 14:00) ITCH/RASH clams Allergy (Intermediate, Verified 10/02/22 14:00) ITCHING docusate [From COLACE] Allergy (Intermediate, Verified 10/02/22 14:00) ITCHING lansoprazole [Prevacid] Allergy (Intermediate, Verified 10/02/22 14:00) hives oxybutynin Allergy (Intermediate, Verified 10/02/22 14:00) bladder pain pistachio nut Allergy (Intermediate, Verified 10/02/22 14:00) ITCHING walnut Allergy (Intermediate, Verified 10/02/22 14:00) ITCH/RASH SEASONAL ALLERGIES Allergy (Intermediate, Uncoded 10/02/22 14:00) ITCHY EYES HPI S/P double; Dr. Chan HPI Details LAST VISIT Abdominal pain Occasional abdominal discomfort. Low FODMAP diet discussed with patient Dysphagia Patient reports occasional dysphagia with dyspepsia. Awaiting to go for barium swallow. Appointment was made for September. Will send patient for upper endoscopy GERD (gastroesophageal reflux disease) Discussed with patient avoiding dietary triggers in late night snacking. Staying away from food that could be spicy. Patient will avoid salad dressings like Caesar dressing. Will send patient for upper endoscopy to rule out gastritis, esophagitis, Ferrara's, gastric or peptic ulcer, H pylori. Will send patient for H pylori testing again to see if previous treatment eradicated the bacteria Diarrhea Patient reports postprandial loose stools occasionally. Patient denies any melena, hematochezia, unintentional weight loss or ribbon like stools. Patient will try to change her diet if she continues to have a diarrhea I will send her for colonoscopy. Will book colonoscopy today and cancel if patient's condition will improve IBS (irritable bowel syndrome) Discussed with patient will FODMAP diet. List of food recommended as well as list of food to avoid given to patient. I will see patient in 4 weeks, sooner on as needed basis. Patient is agreeable to this plan and verbalizes understanding of instructions. She was given the opportunity to ask questions and all questions answered. ? Thank you for allowing me to participate in the care Plan Orders Orders H pylori Ag Stool Today K21.9 Medications New sucralfate 1 g PO BEDTIME 30 tabs 1RF R19.7 pantoprazole take one tablet half an hour before breakfast 40 mg PO DAILY 30 tabs 2RF K21.9 Discontinued omeprazole Discontinued Reason: Doctor's Order 20 mg PO DAILY 30 caps 3RF K21.9 UPPER ENDOSCOPY AND COLONOSCOPY EGD Findings:? * Esophagus:? Normal mucosa noted in the entire esophagus.? The Z-line is at 37 cm. Cold forceps biopsies were taken from middle and lower esophagus rule out eosinophilic esophagitis * Stomach:?? Abnormal mucosa was noted in the antrum the 3 o'clock position. ? Cold forceps biopsies were taken for histology.? Retroflexion in the cardia revealed small hiatal hernia. * Duodenum:? Normal duodenal mucosa to the extent visualised.? Cold forceps biopsies were taken to rule out celiac disease. Additional intervention:?A soft tip Savary wire was advanced through the biopsy channel of the gastroscope and advanced to the antrum.? The gastroscope was then backed out.? Savary Kendra bougie was guided over the wire and the esophagus was incrementally dilated from 16 mm to 18 mm.? On relook, no heme or tear was noted anywhere in the esophagus. Colonoscopy Procedure:? The patient was then turned for the colonoscopy. A digital rectal exam was performed which was abnormal? for external hemorrhoids.? A distal attachment cap was affixed to the tip of the scope and the colonoscope was then inserted through the anus and advanced through the colon to the cecum at 70 cm and terminal ileum. Appendiceal orifice and ileocecal valve were identified. Mucosa was carefully examined under high definition white light as the instrument was slowly withdrawn in a retrograde panoramic fashion. Retroflexion was performed in rectum. The procedure was not difficult. There were no immediate obvious complications. The quality of the prep was BBPS: 2+2+3 = adequate Withdrawal time: 10 minutes Limitations: No limitation. Findings: Mucosa: Normal mucosa to cecum and terminal ileum.? Cold forceps biopsies were taken from the right and left side of colon to rule out microscopic colitis. Protruding lesions: * ?Large internal hemorrhoids without stigmata of recent bleeding. Excavated lesions: * Mild diverticulosis in sigmoid colon. Impression: 1. Normal esophageal mucosa (biopsy, dilation) 2. Abnormal antral mucosa (biopsy) 3. Normal duodenum (biopsy) 4. Normal colon and terminal ileum mucosa (biopsy) 5. Diverticulosis 6. Internal and external hemorrhoids Recommendations:?? * Await pathology results.? * Although no distinct stricture was noted, if patient has promising response to dilation, this can be repeated as needed for recurrence of symptoms.? Otherwise, can consider barium swallow and/or HREM for further evaluation. * Repeat colonoscopy for asymptomatic colon cancer screening in 7-10 years.? PATHOLOGY RESULTS Diagnosis A.? Duodenum, biopsy:? Duodenal mucosa with mildly increased intraepithelial lymphocytes, Kelli gland hyperplasia and preserved villous architecture.? See comment. B.? Stomach, antral lesion, biopsy:? Antral-type mucosa with moderate chronic inactive inflammation, regenerative changes and intestinal metaplasia; negative for dysplasia; no Helicobacter organisms seen. C.? Esophagus, lower, biopsy: - Squamous epithelium within normal limits; no inflammation seen; negative for eosinophilic esophagitis. - Small strips of gastric epithelium within normal limits. D.? Esophagus, middle, biopsy:? Squamous epithelium within normal limits; no inflammation seen; negative for eosinophilic esophagitis. E.? Colon, right, biopsy:? Colonic mucosa within normal limits; negative for microscopic colitis. F.? Colon, left, biopsy:? Colonic mucosa within normal limits; negative for microscopic colitis. COMMENT: The findings in the duodenum are non-specific.? The differential diagnosis is broad and includes infection (e.g. viral or H. pylori), medication/drugs (e.g. NSAIDs), gluten sensitivity/celiac disease, bacterial overgrowth, tropical sprue, immunodeficiency syndromes (e.g. IgA deficiency, CVID), autoimmune enteropathy, Crohns and collagen vascular disease, among others.? Please correlate with clinical and other laboratory findings. TODAY'S VISIT Patient is here today for follow-up and to discuss upper endoscopy and colonoscopy results. Both procedures discussed with patient as well as the biopsy results. Patient denies any ill effects from the prep, anesthesia or procedure itself. Patient continues to have epigastric discomfort with dyspepsia. She no longer has symptoms of dysphagia. Patient states that she eats small amounts and feels like the food does not taste good to her. Patient did not like taking sucralfate and stopped. Patient is taking pantoprazole every morning, states that it helps her but she still occasionally will have dyspepsia. Patient states that she is constipated. Tried taking senna, however felt like she was getting back pain when she was taking it and she stopped taking. Patient had no trouble when she took Dulcolax before colonoscopy. Patient denies melena, hematochezia, unintentional weight loss or ribbon like stools. [facility] Medical History Acute bronchitis Allergic rhinitis Allergic rhinosinusitis Anemia Asthma COPD (chronic obstructive pulmonary disease) Dysphagia Essential hypertension Helicobacter pylori (H. pylori) Mild major depression, single episode Physical exam PONV (postoperative nausea and vomiting) Primary osteoarthritis involving multiple joints Restrictive lung disease Right ankle pain Right shoulder pain Scoliosis UTI (urinary tract infection) Surgical History History of arthroscopy of right knee History of esophagogastroduodenoscopy (EGD) History of hemorrhoidectomy History of tonsillectomy History of total abdominal hysterectomy History of total left knee replacement History of total right knee replacement Hx of cardiac cath Hx of colonoscopy Family History Father Alcoholism Arthritis Mother Diabetes Acute CVA (cerebrovascular accident) Sister Breast cancer Family/Other FH: mental illness Brother Diabetes Myocardial infarct Daughter In good health Daughter In good health Daughter In good health Social History Housing: Apartment Alcohol intake: never Patient Tobacco Use Status: Never used Tobacco e-Cigarette/Vaping Use: Never Used Second Hand Smoke Exposure: No Advance Directives Date on File: 11/28/19 service: No 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al status: disabled 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 Cognitive needs: No Hearing needs: No Vision needs: No Review of Systems Const Denies weight gain and Denies weight loss ENT Reports no additional complaints, Denies dysphagia and Denies odynophagia Card Reports no additional complaints Resp Reports no additional complaints GI Denies abdominal pain, Denies belching, Denies melena, Reports bloating, Denies change in bowel habits, Reports constipation, Denies dysphagia, Denies excessive flatus, Reports dyspepsia, Reports heartburn, Denies diarrhea, Denies loose stools, Reports nausea, Denies odynophagia and Denies vomiting Reports no additional complaints Musc Reports no additional complaints Neuro Reports no additional complaints Psych Reports no additional complaints Endo Reports no additional complaints Physical Exam Vital Signs: BMI result Body Mass Index 27.5 Const General: healthy appearing, no acute distress and well developed Nutritional Appearance: well nourished Orientation/consciousness: patient oriented x3 HEENT Head: Yes normal to inspection, Yes normocephalic and Yes atraumatic Face and sinus: Yes normal facial exam Mouth: Normal oral and palatal mucosa present Throat: Yes posterior oropharynx normal, Yes tonsils normal and Yes uvula midline Eyes General: appearance normal, both eyes and all related structures Neck Neck: Yes normal visual inspection, Yes full ROM and Yes trachea midline Thyroid: Thyroid normal Resp Effort & Inspection: normal respiratory effort, able to speak in complete sentences, no tracheal deviation and symmetric chest movement Auscultation: clear to auscultation bilaterally Cardio Rate: regular rate Heart sounds: S1 normal heart sound present and S2 normal heart sound present GI Inspection: Yes normal to inspection and No distended Palpation (GI): Soft to palpation, not firm, nontender and No hepatosplenomegaly present Auscultation: normal bowel sounds General: Yes no CVA tenderness Back/Spine/Pelvis Back: no CVA tenderness Skin General skin exam: elasticity normal, turgor normal and dry skin Neuro General: patient oriented x3 Psych Appearance: grossly normal Mental Status: mental status grossly normal Speech and movement: Normal speech and movement present Assessment & Plan Assessment & Plan (1) Abdominal pain: Code(s): R10.9 - Unspecified abdominal pain Qualifiers: Abdominal location: epigastric Qualified Code(s): R10.13 - Epigastric pain Plan: Continue taking PPI. Patient was encouraged to avoid dietary triggers. Eat small amounts and more often. (2) Dysphagia: Code(s): R13.10 - Dysphagia, unspecified Qualifiers: Dysphagia type: unspecified Qualified Code(s): R13.10 - Dysphagia, unspecified Plan: Balloon stretching of the esophagus helped. Patient has no dysphagia. Will repeat if symptoms return (3) GERD (gastroesophageal reflux disease): Code(s): K21.9 - Gastro-esophageal reflux disease without esophagitis Qualifiers: Esophagitis presence: without esophagitis Qualified Code(s): K21.9 - Gastro-esophageal reflux disease without esophagitis Plan: Continue PPI therapy. Patient was encouraged to avoid dietary triggers and lightheaded snacking. Staying upright for minimum 3 hours after meals discussed with patient (4) IBS (irritable bowel syndrome): Code(s): K58.9 - Irritable bowel syndrome without diarrhea Qualifiers: Irritable bowel syndrome type: with constipation Qualified Code(s): K58.1 - Irritable bowel syndrome with constipation Plan: Postprandial abdominal bloating and occasional cramping. Patient was encouraged to take Dulcolax tablet to help her move her bowels better. Stop Senokot. Patient was also encouraged to increase fluid intake and activity to promote better bowel motility. I will see patient in 2 months, sooner on as needed basis. Patient is agreeable to this plan and verbalizes understanding of instructions. She was given the opportunity to ask questions and all questions answered. Thank you for allowing me to participate in her care Medications: New bisacodyl (Dulcolax (bisacodyl)) 10 mg (2 x 5 mg) PO BEDTIME 180 tabs 4RF Discontinued sucralfate Discontinued Reason: Doctor's Order 1 g PO BEDTIME 30 tabs 1RF R19.7 - Diarrhea, unspecified sennosides (Natural Senna Laxative) Discontinued Reason: Doctor's Order 17.2 mg (2 x 8.6 mg) PO BEDTIME 60 tabs 1RF constipation K59.00 - Constipation, unspecified Coding Level of Care Code Est Pt Level 4 (53283) Diagnoses Abdominal pain R10.13 Abdominal location: epigastric Dysphagia R13.10 Dysphagia type: unspecified GERD (gastroesophageal reflux disease) K21.9 Esophagitis presence: without esophagitis IBS (irritable bowel syndrome) K58.1 Irritable bowel syndrome type: with constipation Time Spent (min) 35 Comment 20 minutes spent with patient and additional 15 minutes spent reviewing her records
[2022-10-02 13:59] VITALS: BMI 27.5
== END 2022-10-02 14:27 | disposition home or self-care (01) ==
PROVIDERS: PCP Internal Medicine; Visit Provider Nurse Practitioner Family
DX: R10.13 Epigastric pain (principal); R13.10 Dysphagia, unspecified; K21.9 Gastro-esophageal reflux disease without esophagitis; K58.1 Irritable bowel syndrome with constipation
CPT/HCPCS: 99214

== ENCOUNTER → 2022-10-02 13:51 | Outpatient (BNVA) | payer OTHER, SELFPAY | PROVIDERS: PCP Internal Medicine; Visit Provider Nurse Practitioner Family | DX: K58.1 Irritable bowel syndrome with constipation (principal); K21.9 Gastro-esophageal reflux disease without esophagitis; R10.13 Epigastric pain; R13.10 Dysphagia, unspecified | CPT/HCPCS: 99212 ==

== ENCOUNTER 2022-10-19 13:03 | Outpatient (REF) | payer OTHER, SELFPAY ==
--- NOTE | ~2022-10-19 | US_ITS ---
EXAMINATION: US RETROPERITONEAL LIMITED (RENAL ONLY) CLINICAL INFORMATION: Calculus of kidney. COMPARISON: Ultrasound retroperitoneal limited (renal only) 03/29/2022 [address] 09/01/2021. CT abdomen and pelvis without contrast 06/08/2020. TECHNIQUE: Real-time imaging of the kidneys. FINDINGS: RIGHT KIDNEY: 12.2 x 3.8 x 4.7 cm (SAG x AP x TRV). The kidney is normal in size, contour, and echogenicity. Renal cortical thickness is normal. No calculi or focal parenchymal lesions. No hydronephrosis. Mild nonspecific pelvic fullness. LEFT KIDNEY: 11.9 x 6.2 x 5.0 cm (SAG x AP x TRV). The kidney is normal in size, contour, and echogenicity. Renal cortical thickness is normal. No renal calculi or hydronephrosis. Mild nonspecific pelvic fullness. US/US renal BI IMPRESSION: Mild bilateral pelvic fullness. No calyectasis. No nephrolithiasis.
== END 2022-10-19 13:04 | disposition home or self-care (01) ==
LOC: HO.US 13:03
PROVIDERS: Visit Provider Nurse Practitioner Family
DX: N20.0 Calculus of kidney (principal)
CPT/HCPCS: 76775

== ENCOUNTER 2022-10-25 13:39 | Outpatient (AMB) | payer OTHER, SELFPAY ==
--- NOTE | 2022-10-25 13:40 | A.OFFVIS_ITS ---
Intake Vital Signs 10/25/22 13:42 Height 5 ft 4 in Weight 161 lb BMI 27.6 BP 128/80 Blood Pressure Location Rt brachial Position Sitting Intake Visit Reasons: 3m follow up Dizziness/giddiness - Confirmed Intake Note: Patient presents for 3 month follow up dizziness/giddiness.Patient states Im still having some dizziness if I sleep on my left side. Allergies Iodinated Contrast Media [IV DYE, IODINE CONTAINING] Allergy (Severe, Verified 10/25/22 13:43) ITCH/RASH clams Allergy (Intermediate, Verified 10/25/22 13:43) ITCHING docusate [From COLACE] Allergy (Intermediate, Verified 10/25/22 13:43) ITCHING lansoprazole [Prevacid] Allergy (Intermediate, Verified 10/25/22 13:43) hives oxybutynin Allergy (Intermediate, Verified 10/25/22 13:43) bladder pain pistachio nut Allergy (Intermediate, Verified 10/25/22 13:43) ITCHING walnut Allergy (Intermediate, Verified 10/25/22 13:43) ITCH/RASH SEASONAL ALLERGIES Allergy (Intermediate, Uncoded 10/25/22 13:43) ITCHY EYES Medication List - Last Reconciled 10/25/22 by FIFI Ga acetaminophen 500 mg PO .every 8 hours PRN 5 days albuterol sulfate 2.5 mg (3 mL) inhalation Q4-6H PRN 30 days albuterol sulfate 90 mcg/actuation 2 puffs inhalation Q4-6H PRN bisacodyl (Dulcolax (bisacodyl)) 10 mg (2 x 5 mg) PO BEDTIME blood pressure monitor As directed calcium carbonate-vitamin D3 600 mg-10 mcg (400 unit) 1 tab PO BID diclofenac sodium 1% 2 grams topical BID PRN fluticasone propion-salmeterol 250-50 mcg/dose (Wixela Inhub) INHALE 1 PUFF BY MOUTH TWICE A DAY fluticasone propionate 50 mcg/actuation 2 sprays intranasal DAILY glucosamine HCl PO DAILY lidocaine 4% (Aspercreme (lidocaine)) 1 patch topical DAILY PRN 30 days loratadine 10 mg PO DAILY meclizine 25 mg PO TID PRN 30 days methylcellulose (laxative) (Citrucel) 500 mg PO DAILY metoprolol succinate ER 50 mg PO DAILY pantoprazole 40 mg PO DAILY pyridoxine (vitamin B6) 50 mg (1/2 x 100 mg) PO DAILY 90 days HPI HPI Comments History of Present Illness Details 61-yr-old female presents for f/u visit. Pt reports she had a Covid-19 infection in early Sep- was very fatigued, increased nasal congestion, headaches, hair loss. She took vit C and zinc, which helped. She is now feeling better. She also reports she is scheduled to have EGD in Nov d/t dysphagia. She reports her dizziness is better, as long as she does not sleep on her left side or turns her head quickly. However, when she had the colonoscopy, she had to lay on the left side and this triggered her dizziness. Headaches were better, but increased since the Covid-19 infection, since she has had more headache and migraine. She is taking the vitamin B2. [facility] Medical History Acute bronchitis Allergic rhinitis Allergic rhinosinusitis Anemia Asthma COPD (chronic obstructive pulmonary disease) Dysphagia Essential hypertension Helicobacter pylori (H. pylori) Mild major depression, single episode Physical exam PONV (postoperative nausea and vomiting) Primary osteoarthritis involving multiple joints Restrictive lung disease Right ankle pain Right shoulder pain Scoliosis UTI (urinary tract infection) Surgical History History of arthroscopy of right knee History of esophagogastroduodenoscopy (EGD) History of hemorrhoidectomy History of tonsillectomy History of total abdominal hysterectomy History of total left knee replacement History of total right knee replacement Hx of cardiac cath Hx of colonoscopy Family History Father Alcoholism Arthritis Mother Diabetes Acute CVA (cerebrovascular accident) Sister Breast cancer Family/Other FH: mental illness Brother Diabetes Myocardial infarct Daughter In good health Daughter In good health Daughter In good health Social History Housing: Apartment Alcohol intake: never Patient Tobacco Use Status: Never used Tobacco e-Cigarette/Vaping Use: Never Used Second Hand Smoke Exposure: No Advance Directives Date on File: 11/28/19 service: No 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al status: disabled 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 Cognitive needs: No Hearing needs: No Vision needs: No Review of Systems Const All systems reviewed & are unremarkable except as noted in HPI and below Physical Exam Vital Signs: Last Vital Signs BP 128/80 10/25/22 13:42 BMI result Body Mass Index 27.6 Const General: cooperative and no acute distress Orientation/consciousness: patient oriented x3 HEENT Head: Yes normocephalic Resp Effort & Inspection: normal respiratory effort and able to speak in complete sentences Neuro Other: Stands ok, slightly unsteady with turns General: patient oriented x3 and CN's II-XI intact bilaterally Cognition (Neuro): normal cognition Motor exam (neuro): 5/5 motor strength present throughout Psych Appearance: grossly normal Mental Status: mental status grossly normal Speech and movement: Normal speech and movement present Affect: normal affect Attitude: cooperative Thought process: Normal thought process present Thought content: Normal thought content present Insight: Good insight present (Psych) Judgement: Good judgement present (Psych) Assessment & Plan Assessment & Plan (1) Vertigo: Comment: ? BPPV, ? vestibular migraine component, ? intracranial process Code(s): R42 - Dizziness and giddiness (2) Excessive daytime sleepiness: Code(s): G47.19 - Other hypersomnia (3) Snoring: Code(s): R06.83 - Snoring (4) Sleep difficulties: Code(s): G47.9 - Sleep disorder, unspecified (5) Headache: Code(s): R51.9 - Headache, unspecified Plan Pt is again advised to undergo brain MRI w/wo to assess for intracranial/internal auditory canal etiologies of pt' vertigo and new onset migraine-like headache attacks. Pt advised to try Vestibular tx- she has never tried to do vestibular exercises. Pt advised to undergo HST to assess for sleep apnea. ? Continue Riboflavin. May use Meclizine sparingly. Future considerations- gepant, SSRIs, TCAs, CCBs. ? f/u in 3 months or sooner prn. Orders: Orders MR head/brain wo/w con Today I25.10 - Atherosclerotic heart disease of enterprise coronary artery without angina pectoris, I51.7 - Cardiomegaly, R13.10 - Dysphagia, unspecified, R42 - Dizziness and giddiness, R51.9 - Headache, unspecified RT home sleep study Today G47.19 - Other hypersomnia, G47.9 - Sleep disorder, unspecified, R06.83 - Snoring PT Evaluation and Treatment Today H81.10 - Benign paroxysmal vertigo, unspecified ear Coding Level of Care Code Est Pt Level 4 (76949) Diagnoses Vertigo R42 Excessive daytime sleepiness G47.19 Snoring R06.83 Sleep difficulties G47.9 Headache R51.9
[2022-10-25 13:42] VITALS: BP 128/80; BMI 27.6
== END 2022-10-25 14:25 | disposition home or self-care (01) ==
PROVIDERS: Visit Provider Nurse Practitioner Family
DX: R42 Dizziness and giddiness (principal); G47.19 Other hypersomnia; R06.83 Snoring; G47.9 Sleep disorder, unspecified; R51.9 Headache, unspecified
CPT/HCPCS: 99214

== ENCOUNTER → 2022-10-25 13:39 | Outpatient (BNVA) | payer OTHER, SELFPAY | PROVIDERS: Visit Provider Nurse Practitioner Family | DX: R42 Dizziness and giddiness (principal); G47.19 Other hypersomnia; R06.83 Snoring; R51.9 Headache, unspecified | CPT/HCPCS: 99212 ==

== ENCOUNTER 2022-10-27 14:13 | Outpatient (AMB) | payer OTHER, SELFPAY ==
--- NOTE | 2022-10-27 14:34 | MHC.OFFVIS ---
Intake Intake Visit Reasons: 6m/US(SET) Intake Note: Patient is present for follow up ultrasound/nephrolithiasis (imaging 10/19/22) Urology Medications: vitamin B6 Blood Thinner: none Logistics Program Manager Required: No Accompanied by: Self / Same As Patient Allergies Iodinated Contrast Media [IV DYE, IODINE CONTAINING] Allergy (Severe, Verified 10/27/22 15:13) ITCH/RASH clams Allergy (Intermediate, Verified 10/27/22 15:13) ITCHING docusate [From COLACE] Allergy (Intermediate, Verified 10/27/22 15:13) ITCHING lansoprazole [Prevacid] Allergy (Intermediate, Verified 10/27/22 15:13) hives oxybutynin Allergy (Intermediate, Verified 10/27/22 15:13) bladder pain pistachio nut Allergy (Intermediate, Verified 10/27/22 15:13) ITCHING walnut Allergy (Intermediate, Verified 10/27/22 15:13) ITCH/RASH SEASONAL ALLERGIES Allergy (Intermediate, Uncoded 10/27/22 15:13) ITCHY EYES Medication List - Last Reconciled 10/27/22 by FIFI Palomares-GABBY acetaminophen 500 mg PO .every 8 hours PRN 5 days albuterol sulfate 2.5 mg (3 mL) inhalation Q4-6H PRN 30 days albuterol sulfate 90 mcg/actuation 2 puffs inhalation Q4-6H PRN bisacodyl (Dulcolax (bisacodyl)) 10 mg (2 x 5 mg) PO BEDTIME blood pressure monitor As directed calcium carbonate-vitamin D3 600 mg-10 mcg (400 unit) 1 tab PO BID diclofenac sodium 1% 2 grams topical BID PRN fluticasone propion-salmeterol 250-50 mcg/dose (Wixela Inhub) INHALE 1 PUFF BY MOUTH TWICE A DAY fluticasone propionate 50 mcg/actuation 2 sprays intranasal DAILY glucosamine HCl PO DAILY lidocaine 4% (Aspercreme (lidocaine)) 1 patch topical DAILY PRN 30 days loratadine 10 mg PO DAILY meclizine 25 mg PO TID PRN 30 days methylcellulose (laxative) (Citrucel) 500 mg PO DAILY metoprolol succinate ER 50 mg PO DAILY pantoprazole 40 mg PO DAILY HPI HPI Comments History of Present Illness Details Mckenzie is pleasant 61-year-old female patient of . Up she has a past medical history of anemia, asthma, COPD, dysphagia, hypertension, H pylori, depression, scoliosis, nephrolithiasis, and recurrent urinary tract infections. She presents to the office today for a follow up of her nephrolithiasis. Recent renal imaging results reviewed with the patient today. Bilateral kidneys with no calculi, lesions, and or hydronephrosis noted. Mild bilateral pelvic fullness. When asked patient reports to be doing and feeling well. She does report having episodes of urinary frequency and nocturia at times. However, she reports this to be intermittent and a longstanding issue for many years. Discussed further workup with nuclear renal scan versus surveillance monitoring. In office urinalysis results reviewed with the patient today. She otherwise denies urinary urgency, incontinence, hematuria, dysuria, foul smelling urine, changes to urinary stream, flank pain, fever, and or chills. She is happy with her current voiding parameters. She otherwise offers no issues or concerns at this time. [facility] Medical History Acute bronchitis Allergic rhinitis Allergic rhinosinusitis Anemia Asthma COPD (chronic obstructive pulmonary disease) Dysphagia Essential hypertension Helicobacter pylori (H. pylori) Mild major depression, single episode Physical exam PONV (postoperative nausea and vomiting) Primary osteoarthritis involving multiple joints Restrictive lung disease Right ankle pain Right shoulder pain Scoliosis UTI (urinary tract infection) Surgical History History of arthroscopy of right knee History of esophagogastroduodenoscopy (EGD) History of hemorrhoidectomy History of tonsillectomy History of total abdominal hysterectomy History of total left knee replacement History of total right knee replacement Hx of cardiac cath Hx of colonoscopy Family History Father Alcoholism Arthritis Mother Diabetes Acute CVA (cerebrovascular accident) Sister Breast cancer Family/Other FH: mental illness Brother Diabetes Myocardial infarct Daughter In good health Daughter In good health Daughter In good health Social History Housing: Apartment Alcohol intake: never Patient Tobacco Use Status: Never used Tobacco e-Cigarette/Vaping Use: Never Used Second Hand Smoke Exposure: No Advance Directives Date on File: 11/28/19 service: No 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al status: disabled 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 Cognitive needs: No Hearing needs: No Vision needs: No Review of Systems Const Reports as per HPI Eyes Reports no additional complaints ENT Reports no additional complaints Card Reports as per HPI Resp Reports as per HPI GI Reports as per HPI Reports as per HPI Musc Reports no additional complaints Neuro Reports no additional complaints Psych Reports no additional complaints Endo Reports no additional complaints Connor/Lymph Reports no additional complaints Aller/Immun Reports no additional complaints Physical Exam Const General: cooperative, comfortable, no acute distress, well developed, alert and awake Orientation/consciousness: patient oriented x3 HEENT Head: Yes normal to inspection, Yes normocephalic and Yes atraumatic Ears: hearing grossly normal bilaterally Eyes General: appearance normal, both eyes and all related structures Neck Neck: Yes normal visual inspection and Yes trachea midline Chest Chest palpation & inspection: normal inspection of the chest Resp Effort & Inspection: normal respiratory effort and able to speak in complete sentences Cardio Rate: regular rate GI Inspection: Yes normal to inspection General: Yes no CVA tenderness Back/Spine/Pelvis Back: no CVA tenderness Skin General skin exam: no rashes or lesions noted Neuro General: patient oriented x3 Extrem General: Yes normal to inspection Psych Appearance: grossly normal and well kempt Mental Status: mental status grossly normal Speech and movement: Normal speech and movement present and Clear speech present Affect: normal affect Attitude: cooperative Thought process: Normal thought process present Thought content: Normal thought content present Insight: Fair insight present (Psych) Judgement: Fair judgement present (Psych) Results AMB Urinalysis, Automated UA Leukoctes 0 Ethan/uL Last Edit by [employer] on 10/27/22 14:47 UA Nitrite Last Edit by [employer] on 10/27/22 14:47 UA Urobilinogen 0.2 mg/dL Last Edit by [employer] on 10/27/22 14:47 UA Protein 0 mg/dL Last Edit by [employer] on 10/27/22 14:47 UA pH 6.0 Last Edit by [employer] on 10/27/22 14:47 UA Blood 0 Gabe/uL Last Edit by [employer] on 10/27/22 14:47 UA Specific [place] 1.030 Last Edit by [employer] on 10/27/22 14:47 UA Ketone Last Edit by Jennifer Kendyalexander on 10/27/22 14:47 UA Bilirubin 0 mg/dL Last Edit by Billfarhan Kendyalexander on 10/27/22 14:47 UA Glucose 0 mg/dL Last Edit by Jennifer Kendyalexander on 10/27/22 14:47 Results Reviewed Results Reviewed: Laboratory Last Values Urine pH (Auto) 6.0 10/27/22 14:41 Specific [place] (Auto) 1.030 10/27/22 14:41 Urine Protein (Auto) 0 mg/dL 10/27/22 14:41 Glucose (UA)(Auto) 0 mg/dL 10/27/22 14:41 Urine Blood (Auto) 0 Gabe/uL 10/27/22 14:41 Urine Bilirubin (Auto) 0 mg/dL 10/27/22 14:41 Urine Urobilinogen (Auto) 0.2 mg/dL 10/27/22 14:41 Leukocyte Esterase (Auto) 0 Ethan/uL 10/27/22 14:41 Date of Service: 10/19/22 EXAMINATION: US RETROPERITONEAL LIMITED (RENAL ONLY) CLINICAL INFORMATION: FINDINGS: RIGHT KIDNEY: 12.2 x 3.8 x 4.7 cm (SAG x AP x TRV). The kidney is normal in size, contour, and echogenicity. Renal cortical thickness is normal. No calculi or focal parenchymal lesions. No hydronephrosis. Mild nonspecific pelvic fullness. LEFT KIDNEY: 11.9 x 6.2 x 5.0 cm (SAG x AP x TRV). The kidney is normal in size, contour, and echogenicity. Renal cortical thickness is normal. No renal calculi or hydronephrosis. Mild nonspecific pelvic fullness. IMPRESSION: Mild bilateral pelvic fullness. No calyectasis. No nephrolithiasis. ? Assessment & Plan Assessment & Plan (1) Urinary frequency: Code(s): R35.0 - Frequency of micturition (2) Bilateral nephrolithiasis: Code(s): N20.0 - Calculus of kidney Plan In office urinalysis results reviewed with the patient today; as noted above. Recent renal imaging results reviewed with the patient today; as noted above. Discussed further assessment of mild bilateral pelvic fullness noted on ultrasound versus surveillance monitoring; will continue with surveillance monitoring at this time Patient denies any bothersome urinary issues or concerns at this time. Retroperitoneal ultrasound in 6 months. Follow-up in 6 months with imaging to be completed prior; or sooner with any issues, concerns, and or questions. Orders: Orders US retroperitoneal comp Today N20.0 - Calculus of kidney, R35.0 - Frequency of micturition AMB Urinalysis Automated Today Z13.9 - Encounter for screening, unspecified Patient Instructions: The patient had an opportunity to ask questions regarding the treatment plan. All questions were answered. Physical exam, labs, and imaging were discussed and reviewed in detail. As well as risks, benefits, and discussion of treatment choices. No major barriers to understanding were identified. The patient expressed understanding and agreement with the above treatment plan. The patient was made aware they should contact our office by phone for worsening of their current condition, the appearance of new symptoms, or with any questions or concerns. Compliance is encouraged with any medications and follow up testing that is ordered. It is a privilege to be allowed the opportunity to participate in? your urological care.? Again, if you have any questions or concerns If you have any questions or concerns please do not hesitate to contact me. The office is [phone]. This note is constructed using voice recognition software. While every effort has been made to ensure accuracy run boat operator errors may have been included. Yours sincerely, NANCY Palomares Coding Level of Care Code Est Pt Level 3 (72573) Diagnoses Urinary frequency R35.0 Bilateral nephrolithiasis N20.0
== END 2022-10-27 15:20 | disposition home or self-care (01) ==
PROVIDERS: PCP Internal Medicine; Visit Provider Nurse Practitioner Family
DX: R35.0 Frequency of micturition (principal); N20.0 Calculus of kidney; Z13.9 Encounter for screening, unspecified
CPT/HCPCS: 99213

== ENCOUNTER → 2022-10-27 14:13 | Outpatient (BNVA) | payer OTHER, SELFPAY | PROVIDERS: PCP Internal Medicine; Visit Provider Nurse Practitioner Family | DX: R35.0 Frequency of micturition (principal); N20.0 Calculus of kidney | CPT/HCPCS: 81003; 99212 ==

== ENCOUNTER 2022-11-01 13:13 | Outpatient (AMB) | payer OTHER, SELFPAY ==
[2022-11-01 13:19] VITALS: BP 116/70; BMI 27.5
--- NOTE | 2022-11-01 13:19 | MHC.PC.OV ---
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 Required: No Accompanied by: Self / Same As Patient Allergies Iodinated Contrast Media [IV DYE, IODINE CONTAINING] Allergy (Severe, Verified 11/01/22 13:32) ITCH/RASH clams Allergy (Intermediate, Verified 11/01/22 13:32) ITCHING docusate [From COLACE] Allergy (Intermediate, Verified 11/01/22 13:32) ITCHING lansoprazole [Prevacid] Allergy (Intermediate, Verified 11/01/22 13:32) hives oxybutynin Allergy (Intermediate, Verified 11/01/22 13:32) bladder pain pistachio nut Allergy (Intermediate, Verified 11/01/22 13:32) ITCHING walnut Allergy (Intermediate, Verified 11/01/22 13:32) ITCH/RASH SEASONAL ALLERGIES Allergy (Intermediate, Uncoded 11/01/22 13:32) ITCHY EYES Medication List - Last Reconciled 11/01/22 by Nora Julian MD acetaminophen 500 mg PO .every 8 hours PRN 5 days albuterol sulfate 2.5 mg (3 mL) inhalation Q4-6H PRN 30 days albuterol sulfate 90 mcg/actuation 2 puffs inhalation Q4-6H PRN bisacodyl (Dulcolax (bisacodyl)) 10 mg (2 x 5 mg) PO BEDTIME blood pressure monitor As directed calcium carbonate-vitamin D3 600 mg-10 mcg (400 unit) 1 tab PO BID diclofenac sodium 1% 2 grams topical BID PRN fluticasone propion-salmeterol 250-50 mcg/dose (Wixela Inhub) INHALE 1 PUFF BY MOUTH TWICE A DAY fluticasone propionate 50 mcg/actuation 2 sprays intranasal DAILY glucosamine HCl PO DAILY lidocaine 4% (Aspercreme (lidocaine)) 1 patch topical DAILY PRN 30 days loratadine 10 mg PO DAILY meclizine 25 mg PO TID PRN 30 days methylcellulose (laxative) (Citrucel) 500 mg PO DAILY metoprolol succinate ER 50 mg PO DAILY pantoprazole 40 mg PO DAILY Tobacco use date assessed: 04/27/22 Dental Screening Dental Screen Date: 11/01/22 Did you have a dental visit in the last 12 months?: Yes Did you have a dental problem in the last 6 months where you did not have access to dental care?: No Was dental information given to patient?: Patient has dentist HPI HPI Comments History of Present Illness Details This is a 61-year-old female with asthma, mild major depression, GERD and constipation that comes today for follow-up on her conditions. Use rescue inhaler about twice a month and follows with pulmonology. Depression is in remission with no need for counseling or medications. GERD still present with pantoprazole and will have an endoscopy soon. Constipation stable with medications as needed. No chest pain or shortness of breath. [facility] Medical History (Updated 11/01/22 @ 13:44 by Nora Julian MD) Acute bronchitis Allergic rhinitis Allergic rhinosinusitis Anemia Asthma COPD (chronic obstructive pulmonary disease) Dysphagia Essential hypertension Helicobacter pylori (H. pylori) Mild major depression, single episode Physical exam PONV (postoperative nausea and vomiting) Primary osteoarthritis involving multiple joints Restrictive lung disease Right ankle pain Right shoulder pain Scoliosis UTI (urinary tract infection) Surgical History History of arthroscopy of right knee History of esophagogastroduodenoscopy (EGD) History of hemorrhoidectomy History of tonsillectomy History of total abdominal hysterectomy History of total left knee replacement History of total right knee replacement Hx of cardiac cath Hx of colonoscopy Family History Father Alcoholism Arthritis Mother Diabetes Acute CVA (cerebrovascular accident) Sister Breast cancer Family/Other FH: mental illness Brother Diabetes Myocardial infarct Daughter In good health Daughter In good health Daughter In good health Social History Housing: Apartment Alcohol intake: never Patient Tobacco Use Status: Never used Tobacco e-Cigarette/Vaping Use: Never Used Second Hand Smoke Exposure: No Advance Directives Date on File: 11/28/19 service: No 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al status: disabled 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 Lake Douglass, Kristina Millard, Umang Rome and colleagues, with an educational telma from [employer]. Review of Systems Const All systems reviewed & are unremarkable except as noted in HPI and below Eyes Reports no additional complaints, Denies change in vision and Denies other visual disturbances Card Denies chest pain at rest, Denies chest pain with activity, Denies edema, Denies irregular heart rhythm, Denies claudication, Denies dyspnea, Denies dyspnea on exertion, Denies orthopnea, Denies paroxysmal nocturnal dyspnea and Denies slow heart rate Resp Denies cough, Denies dyspnea and Denies dyspnea on exertion GI Denies abdominal pain, Denies change in bowel habits, Denies excessive flatus, Denies nausea and Denies vomiting Denies urinary incontinence, Denies urinary hesitancy and Denies urinary urgency Musc Denies abnormal gait, Denies atrophy, Denies deformity and Denies limited range of motion Skin/Breast Denies bleeding lesions, Denies changing lesions and Denies rash Neuro Denies abnormal gait and Denies lack of coordination Physical exam (Primary Care) Vital Signs: Last Vital Signs BP 116/70 11/01/22 13:19 BMI result Body Mass Index 27.5 Tobacco/Smoking Status: Tobacco use Status Tobacco use date assessed 04/27/22 11/01/22 13:25 Patient Tobacco Use Status Never used Tobacco 11/01/22 13:25 e-Cigarette/Vaping Use Never Used 11/01/22 13:25 Thrive Assessment: Date of Thrive Assessment Date Thrive assessed 04/27/22 11/01/22 13:25 Eyes General: appearance normal, both eyes and all related structures Eyelids: Yes eyelids normal Conjunctivae: conjunctivae normal Neck Neck: Yes normal visual inspection and Yes supple Resp Effort & Inspection: normal respiratory effort Auscultation: clear to auscultation bilaterally Cardio Jugular venous distension: no JVD Rate: regular rate Rhythm: regular rhythm Heart sounds: S1 normal heart sound present and S2 normal heart sound present Extrem General: Yes full ROM Assessment and Plan Assessment & Plan (1) Mild major depression, single episode: Code(s): F32.0 - Major depressive disorder, single episode, mild Plan: In remission (2) Constipation by delayed colonic transit: Code(s): K59.01 - Slow transit constipation Plan: Continue Citrucel as needed. (3) GERD (gastroesophageal reflux disease): Code(s): K21.9 - Gastro-esophageal reflux disease without esophagitis Plan: Continue PPIs. Follow up with Gastroenterology (4) Asthma: Comment: PULMONARY FUNCTION TEST HAD SHOWN MODERATE DEGREE OF RESTRICTIVE PULMONARY DISORDER, AND NO OBSTRUCTIVE ELEMENT. HOWEVER HER SYMPTOMS ARE CONSISTENT WITH CHRONIC BRONCHIAL ASTHMA. TX: CONT. WIXELA , 250-50 ONE INH BID GARGLE AND RINSE MOUTH WELL AFTER USING WIXELA AND ALSO MOUTH WASHES WITH DILUTED SOLUTION OF LISTERINE TID AND USE VENTOLIN 2 PUFFS Q 6 HRS PRN Code(s): J45.909 - Unspecified asthma, uncomplicated Plan: Continue Wixela. Use rescue inhaler as needed. Medications: Refilled calcium carbonate-vitamin D3 600 mg-10 mcg (400 unit) 1 tab PO BID 180 tabs 2RF Coding Level of Care Code Est Pt Level 4 (65393) Diagnoses Mild major depression, single episode F32.0 Constipation by delayed colonic transit K59.01 GERD (gastroesophageal reflux disease) K21.9 Asthma J45.909 Time Spent (min) 22
== END 2022-11-01 13:46 | disposition home or self-care (01) ==
PROVIDERS: Visit Provider Internal Medicine
DX: F32.0 Major depressive disorder, single episode, mild (principal); K59.01 Slow transit constipation; K21.9 Gastro-esophageal reflux disease without esophagitis; J45.909 Unspecified asthma, uncomplicated
CPT/HCPCS: 99214

== ENCOUNTER 2022-11-14 14:00 | Outpatient (RCR) | payer OTHER, SELFPAY ==
[2022-11-09 10:39] VITALS: BP 154/65; PULSE 70
--- NOTE | 2022-11-09 12:35 | MHC.PT.EP ---
[facility] [place] Office [place] Office [place] [facility] [address] Dorothy Nayak [address] [phone] F: [phone] F: [phone] F: [phone] F: [phone] Physical Therapy Plan of Care Date of Evaluation: 11/09/22 Date of Surgery: Diagnosis: BPPV Assessment: 61 y/o female referred to PT with BPPV. Dizziness episodes occurs every 2-3 months which occurs with L sidelying and turning head tooo quickly. Describes dizziness as room-spinning that lasts for several hours with associated n/v and tinnitus. Of note, she has a hx of migraines (vision/noise sensitivity, dizzy), HTN, and nausea will eating and she is undergoing testing for n/v. Brain MRI has been ordered. Examination shows negative VBI testing, dizziness with smooth pursuits/ saccades, mild dizziness with VOR, normal static balance (- romberg), 20/24 DGI, and BPPV testing not performed secondary to time constraints. Hx sounds like BPPV with ? mild hypofunction. She does have positve oculomotor tests which may show central involvement as well. Will assess for BPPV next visit and educated pt to bring a ride as well as take her anti-nausea medications she has been prescribed Frequency and Duration: The patient will be seen 2x/week for 4 weeks Short Term Goals: Assess for BPPV (pt to bring a ride) Assisted Goals: Pt will be (-) for nystagmus of reports of vertigo in all diagnostic directions B to resolutions of BPPV in 4 weeks Tolerate position changes without complaints vertigo to improve safety and return to pre-onset level Pt to be able to functionally move in all planes without provocation of dizziness and return to PLOF in 4 weeks Pt to be educated on sx and indications to return to therapy when needed in 4 weeks Treatment Plan: Modalities to reduce pain, spasms and effusion. Manual therapy to restore motion and function. Therapeutic exercise to improve strength and flexibility. Neuromuscular re-education for posture and balance. Therapeutic activities to return to functional activities of daily living. Electronically signed by: Inge Salas PT Please sign and return to therapist. Thank you for your referral.
--- NOTE | 2022-12-27 09:25 | MHC.PT.DC ---
[facility] Office [place] Office [place] Office [address] Dorothy Nayak [address] [phone] F: [phone] F: [phone] F: [phone] F: [phone] Physical Therapy Discharge Report Diagnosis: BPPV Date of Surgery: Date of Evaluation: 11/09/22 Date of Discharge: Treatments to Date: 2 Cancellations to Date: 0 No Shows to Date: 0 Discharge Status: Recommend MD Follow-up Discharge Summary: Assessed for BPPV with Juan-Hallpike and Roll Test; all positions (-) for sx and nystagmus. Dizziness may be stemming from vestibular migraines or another source, but at this time she is negative for BPPV. She is undergoing brain MRI 12/13/22 and sees her program manager slp this week. She will f/u with MD regarding continued dizziness. Will keep her chart open for 30 days in case of recurrence. It has been > 30 days and chart will now be d/c. Electronically signed by: Inge Salas PT Please sign and return to therapist. Thank you for your referral.
== END 2022-12-27 09:25 | disposition home or self-care (01) ==
LOC: HO.PT 14:00
PROVIDERS: PCP Internal Medicine; Visit Provider Nurse Practitioner Family
DX: H81.10 Benign paroxysmal vertigo, unspecified ear (principal)
CPT/HCPCS: 95992; 97110; 97112; 97162

== ENCOUNTER 2022-11-16 13:56 | Outpatient (AMB) | payer OTHER, SELFPAY ==
[2022-11-16 14:01] VITALS: BP 102/60; PULSE 68; O2SAT 96; BMI 27.6
--- NOTE | 2022-11-16 14:01 | MHC.OFFVIS ---
Intake Vital Signs 11/16/22 14:01 Height 5 ft 4 in Weight 161 lb BMI 27.6 BP 102/60 Blood Pressure Location Lt brachial Position Sitting Pulse 68 Pulse Source Pulse Oximeter Pulse Oximetry (%) 96 Oxygen Delivery Method Room Air Intake Visit Reasons: Asthma Intake Note: pt is here for follow up and states her lungs are okay, but her allergies are acting up, she states it might be going into her chest, she has a lot of phelgm. 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 Allergies Iodinated Contrast Media [IV DYE, IODINE CONTAINING] Allergy (Severe, Verified 11/16/22 14:13) ITCH/RASH clams Allergy (Intermediate, Verified 11/16/22 14:13) ITCHING docusate [From COLACE] Allergy (Intermediate, Verified 11/16/22 14:13) ITCHING lansoprazole [Prevacid] Allergy (Intermediate, Verified 11/16/22 14:13) hives oxybutynin Allergy (Intermediate, Verified 11/16/22 14:13) bladder pain pistachio nut Allergy (Intermediate, Verified 11/16/22 14:13) ITCHING walnut Allergy (Intermediate, Verified 11/16/22 14:13) ITCH/RASH SEASONAL ALLERGIES Allergy (Intermediate, Uncoded 11/16/22 14:13) ITCHY EYES Medication List - Last Reconciled 11/16/22 by Chelly Navarro MD acetaminophen 500 mg PO .every 8 hours PRN 5 days albuterol sulfate 2.5 mg (3 mL) inhalation Q4-6H PRN 30 days albuterol sulfate 90 mcg/actuation 2 puffs inhalation Q4-6H PRN bisacodyl (Dulcolax (bisacodyl)) 10 mg (2 x 5 mg) PO BEDTIME blood pressure monitor As directed calcium carbonate-vitamin D3 600 mg-10 mcg (400 unit) 1 tab PO BID diclofenac sodium 1% 2 grams topical BID PRN fluticasone propion-salmeterol 250-50 mcg/dose (Wixela Inhub) INHALE 1 PUFF BY MOUTH TWICE A DAY fluticasone propionate 50 mcg/actuation 2 sprays intranasal DAILY glucosamine HCl PO DAILY lidocaine 4% (Aspercreme (lidocaine)) 1 patch topical DAILY PRN 30 days loratadine 10 mg PO DAILY meclizine 25 mg PO TID PRN 30 days methylcellulose (laxative) (Citrucel) 500 mg PO DAILY metoprolol succinate ER 50 mg PO DAILY pantoprazole 40 mg PO DAILY Do you need a note to return to daycare/school/sports/work: No HPI Asthma HPI Details 61 years old very pleasant female is here for follow-up, after about 9 months. During the summer months her allergies has been acting up off and on, causing increased nasal. Congestion and postnasal discharge Recently due to change in the weather she is again having increased symptoms. Her breathing has remained very stable and she denies any shortness of breath on exertion. She also denies wheezing. She continues to use Wixela 250-51 inhalation b.i.d.. For her allergy. Issue she takes Claritin p.r.n. She was supposed to be on montelukast 10 mg daily which she ran out of and needs a prescription for renewal. She always has discomfort in the back and this is more due to her dextroscoliosis. [facility] Medical History PONV (postoperative nausea and vomiting) Helicobacter pylori (H. pylori) Physical exam UTI (urinary tract infection) Scoliosis Restrictive lung disease Dysphagia Mild major depression, single episode Right shoulder pain COPD (chronic obstructive pulmonary disease) Allergic rhinosinusitis Acute bronchitis Asthma Anemia Primary osteoarthritis involving multiple joints Essential hypertension Right ankle pain Allergic rhinitis Surgical History History of esophagogastroduodenoscopy (EGD) Hx of colonoscopy Hx of cardiac cath History of total left knee replacement History of arthroscopy of right knee History of hemorrhoidectomy History of total right knee replacement History of total abdominal hysterectomy History of tonsillectomy Family History Father Alcoholism Arthritis Mother Diabetes Acute CVA (cerebrovascular accident) Sister Breast cancer Family/Other FH: mental illness Brother Diabetes Myocardial infarct Daughter In good health Daughter In good health Daughter In good health Social History Housing: Apartment Alcohol intake: never Patient Tobacco Use Status: Never used Tobacco e-Cigarette/Vaping Use: Never Used Second Hand Smoke Exposure: No Advance Directives Date on File: 11/28/19 service: No 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al status: disabled 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 Cognitive needs: No Hearing needs: No Vision needs: No Review of Systems Const All systems reviewed & are unremarkable except as noted in HPI and below Eyes Reports no additional complaints ENT Reports nasal congestion and Reports nasal discharge Card Denies chest pain, Denies irregular heart rhythm and Denies leg edema Resp Reports as per HPI GI Reports no additional complaints Reports no additional complaints Musc Reports back pain (Mild) Skin/Breast Reports system reviewed and no additional complaints, except as documented Neuro Reports no additional complaints Psych Reports no additional complaints Physical Exam Vital Signs: Last Vital Signs Pulse 68 11/16/22 14:01 BP 102/60 11/16/22 14:01 Pulse Ox 96 11/16/22 14:01 Oxygen Delivery Method Room Air 11/16/22 14:01 BMI result Body Mass Index 27.6 Const General: comfortable, no acute distress, alert and awake Orientation/consciousness: patient oriented x3 HEENT Head: Yes normal to inspection General nose exam: No nasal polyps present, No nasal discharge present and Other nasal findings present (Mild nasal congestion, chronic) Face and sinus: Yes sinuses nontender Mouth: oropharynx normal Throat: Yes posterior oropharynx normal Eyes General: appearance normal, both eyes and all related structures Neck Neck: Yes normal visual inspection, Yes no lymphadenopathy, Yes trachea midline and Yes no JVD Thyroid: Thyroid normal Chest Chest palpation & inspection: normal inspection of the chest, normal palpation of entire chest wall and no tenderness Resp Other: Percussion note resonant, breath sounds are slightly distant, no wheezes or rhonchi are heard today. Cardio Palpation: normal PMI Rate: regular rate Rhythm: regular rhythm Heart sounds: no gallops and no murmurs Peripheral pulses: Peripheral pulses 2+ throughout GI Palpation (GI): Soft to palpation, nontender, No hepatosplenomegaly present and no masses Auscultation: normal bowel sounds Back/Spine/Pelvis Thoracic/Lumbar Spine: thoracic and lumbar spine normal to inspection and Thoracic/lumbar scoliosis (Patient has moderately severe size dextroscoliosis of the thoracic spine.) Skin General skin exam: no rashes or lesions noted Neuro General: patient oriented x3 and no focal motor deficits Cranial nerves: Yes CN's II-XII intact bilaterally Extrem General: Yes normal to inspection, Yes no clubbing, cyanosis or edema and Yes no calf tenderness Psych Appearance: grossly normal and well kempt Speech and movement: Normal speech and movement present Assessment & Plan Assessment & Plan (1) Scoliosis: Comment: MODERATELY SEVERE DEXTROSCOLIOSIS OF THORACOLUMBAR SPINE. Code(s): M41.9 - Scoliosis, unspecified (2) Restrictive lung disease: Comment: THIS IS MAINLY BECAUSE OF DEXTROSCOLIOSIS OF THE THORACO -LUMBAR SPINE Code(s): J98.4 - Other disorders of lung (3) Allergic rhinosinusitis: Comment: SHE HAS ONGOING CHRONIC RHINITIS AND SINUSITIS. I THINK THIS IS THE BASIC CAUSE OF HER ONGOING CHRONIC COUGH, WHICH IS MOSTLY UNDER CONTROL. TX: FLONASE 2 SPRAY EACH NOSTRIL DAILY LORATADINE 10 MG DAILY. CONTINUE MONTELUKAST 10 MG DAILY. represcribed . Code(s): J30.9 - Allergic rhinitis, unspecified (4) Asthma: Comment: PULMONARY FUNCTION TEST HAD SHOWN MODERATE DEGREE OF RESTRICTIVE PULMONARY DISORDER, AND NO OBSTRUCTIVE ELEMENT. HOWEVER HER SYMPTOMS ARE CONSISTENT WITH CHRONIC BRONCHIAL ASTHMA. TX: CONT. WIXELA , 250-50 ONE INH BID GARGLE AND RINSE MOUTH WELL AFTER USING WIXELA AND ALSO MOUTH WASHES WITH DILUTED SOLUTION OF LISTERINE TID AND USE VENTOLIN 2 PUFFS Q 6 HRS PRN Code(s): J45.909 - Unspecified asthma, uncomplicated Coding Level of Care Code Est Pt Level 3 (97363) Diagnoses Scoliosis M41.9 Restrictive lung disease J98.4 Allergic rhinosinusitis J30.9 Asthma J45.909
== END 2022-11-16 14:13 | disposition home or self-care (01) ==
PROVIDERS: PCP Internal Medicine; Visit Provider Internal Medicine
DX: M41.9 Scoliosis, unspecified (principal); J98.4 Other disorders of lung; J30.9 Allergic rhinitis, unspecified; J45.909 Unspecified asthma, uncomplicated
CPT/HCPCS: 99213

== ENCOUNTER → 2022-11-16 13:56 | Outpatient (BNVA) | payer OTHER, SELFPAY | PROVIDERS: PCP Internal Medicine; Visit Provider Internal Medicine | DX: J98.4 Other disorders of lung (principal); J45.909 Unspecified asthma, uncomplicated; M41.9 Scoliosis, unspecified | CPT/HCPCS: 99212 ==

== ENCOUNTER → 2022-12-07 09:51 | Outpatient (REF) | payer OTHER, SELFPAY | LOC: HO.SL 09:51 | PROVIDERS: PCP Internal Medicine; Visit Provider Nurse Practitioner Family | DX: G47.33 Obstructive sleep apnea (adult) (pediatric) (principal); R06.83 Snoring | CPT/HCPCS: 95806 ==

== ENCOUNTER 2022-12-07 09:54 | Outpatient (REF) | payer OTHER, SELFPAY ==
--- NOTE | ~2022-12-07 | FL_ITS ---
EXAMINATION: FL BARIUM SWALLOW CLINICAL INFORMATION: Dysphasia, heartburn, cough. COMPARISON: 10/18/2016. TECHNIQUE/FINDINGS: Barium swallow examination is performed using fluoroscopic evaluation in addition to multiple fluoroscopic spot views. The patient aspirated barium to the subglottic region on the first swallow and the exam was terminated at that time. Unfortunately, due to a technical problem, the lateral cine image hold run of the hypopharynx and aspiration event did not save. Barium can be seen along the anterior trachea at the level of the mónica on one of the spot image hold images. Limited images of the stomach, GE junction, distal esophagus show no definite abnormality. Fluoroscopy time: 52 seconds DAP: 275.9 Gycm2 Images: 1 Cine image hold fluoroscopy run, and 2 spot images acquired. FL/FL barium swallow IMPRESSION: Patient aspirated thick barium on first swallow to the subglottic region. Study was terminated at that point, and no further drinks were given. Unfortunately, the lateral cine image run of the hypopharynx did not save for technical reasons. Otherwise, limited images of the esophagus and stomach show no gross abnormality but are very limited. Patient was advised to performed a chin tuck maneuver when eating or drinking, until the patient could follow up with her physician. Findings were discussed with Dr. Dale Julian via phone call at 12:14 PM, 12/07/2022.
== END 2022-12-07 09:55 | disposition home or self-care (01) ==
LOC: HO.XRAY 09:54
PROVIDERS: PCP Internal Medicine; Visit Provider Nurse Practitioner Family
DX: R13.10 Dysphagia, unspecified (principal)
CPT/HCPCS: 74220

== ENCOUNTER → 2022-12-07 09:54 | Outpatient (BNV) | payer OTHER, SELFPAY | PROVIDERS: PCP Internal Medicine; Visit Provider Radiology Diagnostic Radiology | DX: R13.10 Dysphagia, unspecified (principal) | CPT/HCPCS: 74220 ==

== ENCOUNTER → 2022-12-07 10:51 | Outpatient (BNV) | payer OTHER, SELFPAY | PROVIDERS: PCP Internal Medicine; Visit Provider Psychiatry & Neurology Neurology | DX: G47.33 Obstructive sleep apnea (adult) (pediatric) (principal) | CPT/HCPCS: 95806 ==

== ENCOUNTER 2022-12-13 08:16 | Outpatient (REF) | payer OTHER, SELFPAY ==
--- NOTE | ~2022-12-13 | MR_ITS ---
EXAMINATION: MR BRAIN WITHOUT AND WITH CONTRAST CLINICAL INFORMATION: Dizziness and giddiness, vertigo and migraine. COMPARISON: CT scan of the head 12/04/2020. TECHNIQUE: Multiplanar, multisequence MRI of the brain was obtained before and after the intravenous administration of 7.5 mL Gadavist. FINDINGS: No diffusion abnormalities are identified to suggest an acute or subacute infarct. No mass effect or midline shift is seen. The ventricles and sulci are mildly commensurately prominent. There are a few scattered foci of hyperintense T2 and FLAIR signal in the periventricular and subcortical white matter and in the gwendolyn which are nonspecific. They are most consistent with mild chronic microvascular ischemic disease. No extra-axial fluid collections are seen. On postcontrast imaging, there is no abnormal parenchymal or leptomeningeal enhancement. No pathologic magnetic susceptibility artifact is identified on the gradient refocused acquisition. The cerebellar tonsils have normal contour and position, and the craniocervical junction appears normal. Marrow signal and midline structures are normal. The major intracranial flow-voids at the level of the [place] are preserved. There are degenerative changes of the left temporomandibular joint. The dural venous sinus flow-voids are maintained. The mastoid air cells are well-aerated. There is mild mucoperiosteal thickening in the ethmoid sinuses bilaterally. MR/MR head/brain wo/w con IMPRESSION: 1. There are no acute bleeds or territorial infarcts. No masses are demonstrated. There is no abnormal enhancement. 2. There are chronic microvascular ischemic changes and there is mild diffuse volume loss.
[2022-12-13] MEDS: gadobutroL 7.5 ML VIAL IVPUSH (09:14)
== END 2022-12-13 08:17 | disposition home or self-care (01) ==
LOC: HO.MRI 08:16
PROVIDERS: PCP Internal Medicine; Visit Provider Nurse Practitioner Family
DX: R42 Dizziness and giddiness (principal); G43.909 Migraine, unspecified, not intractable, without status migrainosus; I25.10 Atherosclerotic heart disease of native coronary artery without angina pectoris; R13.10 Dysphagia, unspecified; I51.7 Cardiomegaly
CPT/HCPCS: 70553; A9585

== ENCOUNTER 2022-12-27 10:44 | Outpatient (AMB) | payer OTHER, SELFPAY ==
[2022-12-27 10:49] VITALS: BP 140/80; PULSE 77; TEMP 37.3; O2SAT 96; BMI 28.0
--- NOTE | 2022-12-27 10:49 | A.OFFVIS_ITS ---
Intake Vital Signs 12/27/22 10:49 Height 5 ft 4 in Weight 163 lb BMI 28.0 BP 140/80 H Blood Pressure Location Lt brachial Position Sitting Pulse 77 Pulse Source Pulse Oximeter Temp 99.1 F Temp Source Temporal Artery Scan Pulse Oximetry (%) 96 Oxygen Delivery Method Room Air Intake Visit Reasons: shortness of breath, productive cough Intake Note: pt is here for a sick visit, she has had asthma for a about 2-3 weeks, she feels nebulizer medication is not working as well, it feels like she gets no relief from it., wheezing , coughing, she is using mucinex and she needs something for allegies from last visit, but nothing is at pharmacy, Licensed Insurance Agent Required: No Allergies Iodinated Contrast Media [IV DYE, IODINE CONTAINING] Allergy (Severe, Verified 12/27/22 10:57) ITCH/RASH clams Allergy (Intermediate, Verified 12/27/22 10:57) ITCHING docusate [From COLACE] Allergy (Intermediate, Verified 12/27/22 10:57) ITCHING lansoprazole [Prevacid] Allergy (Intermediate, Verified 12/27/22 10:57) hives oxybutynin Allergy (Intermediate, Verified 12/27/22 10:57) bladder pain pistachio nut Allergy (Intermediate, Verified 12/27/22 10:57) ITCHING walnut Allergy (Intermediate, Verified 12/27/22 10:57) ITCH/RASH SEASONAL ALLERGIES Allergy (Intermediate, Uncoded 12/27/22 10:57) ITCHY EYES Medication List - Last Reconciled 12/27/22 by Chelly Navarro MD acetaminophen 500 mg PO .every 8 hours PRN 5 days albuterol sulfate 2.5 mg (3 mL) inhalation Q4-6H PRN 30 days albuterol sulfate 90 mcg/actuation 2 puffs inhalation Q4-6H PRN bisacodyl (Dulcolax (bisacodyl)) 10 mg (2 x 5 mg) PO BEDTIME blood pressure monitor As directed calcium carbonate-vitamin D3 600 mg-10 mcg (400 unit) 1 tab PO BID diclofenac sodium 1% 2 grams topical BID PRN fluticasone propion-salmeterol 250-50 mcg/dose (Wixela Inhub) INHALE 1 PUFF BY MOUTH TWICE A DAY fluticasone propionate 50 mcg/actuation 2 sprays intranasal DAILY glucosamine HCl PO DAILY lidocaine 4% (Aspercreme (lidocaine)) 1 patch topical DAILY PRN 30 days loratadine 10 mg PO DAILY meclizine 25 mg PO TID PRN 30 days methylcellulose (laxative) (Citrucel) 500 mg PO DAILY metoprolol succinate ER 50 mg PO DAILY pantoprazole 40 mg PO DAILY Do you need a note to return to daycare/school/sports/work: No HPI shortness of breath, productive cough HPI Details PATIENT COMES FOR AN URGENT VISIT TODAY BECAUSE OF SCRATCHY FEELING IN THE THROAT, DIFFICULTY IN SWALLOWING BECAUSE IT HURTS ON THE LEFT SIDE WHEN SHE SWALLOWS, SHE HAS HAD INCREASED COUGH BUT CANNOT EXPECTORATES ANY PHLEGM. IN RETURNED SHE IS BECOMING MORE SHORT OF BREATH. SHE HAS HAD NO FEVER BUT FEELS WARM AND SWEATY. SHE DOES HAVE HER CHRONIC ONGOING NASAL CONGESTION WITH POSTNASAL DISCHARGE. [facility] Medical History Bronchitis PONV (postoperative nausea and vomiting) Helicobacter pylori (H. pylori) Physical exam UTI (urinary tract infection) Scoliosis Restrictive lung disease Dysphagia Mild major depression, single episode Right shoulder pain COPD (chronic obstructive pulmonary disease) Allergic rhinosinusitis Acute bronchitis Asthma Anemia Primary osteoarthritis involving multiple joints Essential hypertension Right ankle pain Allergic rhinitis Surgical History History of esophagogastroduodenoscopy (EGD) Hx of colonoscopy Hx of cardiac cath History of total left knee replacement History of arthroscopy of right knee History of hemorrhoidectomy History of total right knee replacement History of total abdominal hysterectomy History of tonsillectomy Family History Father Alcoholism Arthritis Mother Diabetes Acute CVA (cerebrovascular accident) Sister Breast cancer Family/Other FH: mental illness Brother Diabetes Myocardial infarct Daughter In good health Daughter In good health Daughter In good health Social History Housing: Apartment Alcohol intake: never Patient Tobacco Use Status: Never used Tobacco e-Cigarette/Vaping Use: Never Used Second Hand Smoke Exposure: No Advance Directives Date on File: 10/02/20 service: No 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al status: disabled 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 Cognitive needs: No Hearing needs: No Vision needs: No Review of Systems Const All systems reviewed & are unremarkable except as noted in HPI and below Eyes Reports no additional complaints ENT Reports nasal congestion and Reports nasal discharge Card Denies chest pain, Denies irregular heart rhythm and Denies leg edema Resp Reports as per HPI GI Reports no additional complaints Reports no additional complaints Musc Reports back pain (Mild) Skin/Breast Reports system reviewed and no additional complaints, except as documented Neuro Reports no additional complaints Psych Reports no additional complaints Physical Exam Const General: comfortable, no acute distress, alert and awake Orientation/consciousness: patient oriented x3 HEENT Head: Yes normal to inspection General nose exam: No nasal polyps present, No nasal discharge present and Other nasal findings present (Mild nasal congestion, chronic) Face and sinus: Yes sinuses nontender Mouth: oropharynx normal Throat: Yes posterior oropharynx normal Eyes General: appearance normal, both eyes and all related structures Neck Neck: Yes normal visual inspection, Yes no lymphadenopathy, Yes trachea midline and Yes no JVD Thyroid: Thyroid normal Chest Chest palpation & inspection: normal inspection of the chest, normal palpation of entire chest wall and no tenderness Resp Other: Percussion note resonant, breath sounds are slightly distant, SHE HAS INSPIRATORY CREPITATIONS OVER THE RIGHT UPPER LOBE, AND MID CHEST AREA. NO ACTIVE WHEEZES. Cardio Palpation: normal PMI Rate: regular rate Rhythm: regular rhythm Heart sounds: no gallops and no murmurs Peripheral pulses: Peripheral pulses 2+ throughout GI Palpation (GI): Soft to palpation, nontender, No hepatosplenomegaly present and no masses Auscultation: normal bowel sounds Back/Spine/Pelvis Thoracic/Lumbar Spine: thoracic and lumbar spine normal to inspection and Thoracic/lumbar scoliosis (Patient has moderately severe size dextroscoliosis of the thoracic spine.) Skin General skin exam: no rashes or lesions noted Neuro General: patient oriented x3 and no focal motor deficits Cranial nerves: Yes CN's II-XII intact bilaterally Extrem General: Yes normal to inspection, Yes no clubbing, cyanosis or edema and Yes no calf tenderness Psych Appearance: grossly normal and well kempt Speech and movement: Normal speech and movement present Assessment & Plan Assessment & Plan (1) Acute bronchitis: Comment: SYMPTOMS OF ACUTE RONCHITIS, SINCE LAST WEEK. A CHEST X-RAY IS ORDERED TO RULE OUT ANY PNEUMONIA Code(s): J20.9 - Acute bronchitis, unspecified (2) Asthma: Comment: SHE HAS CHRONIC ASTHMA IN ADDITION TO CHRONIC RHINOSINUSITIS AT PRESENT SHE HAS A FLARE UP OF HER ACUTE SYMPTOMS, ESPECIALLY WITH COUGH. TX: PREDNISONE 20 MG B.I.D. FOR 5 DAYS, AND COURSE OF Z-KEVIN IS PRESCRIBED. CONT. WIXELA , 250-50 ONE INH BID GARGLE AND RINSE MOUTH WELL AFTER USING WIXELA AND ALSO MOUTH WASHES WITH DILUTED SOLUTION OF LISTERINE TID AND USE VENTOLIN 2 PUFFS Q 6 HRS PRN Code(s): J45.909 - Unspecified asthma, uncomplicated (3) Allergic rhinitis: Comment: Chronic allergic rhinitis. Advised to use Flonase 2 spray each nostril daily. May use Zyrtec or loratadine 10 mg once a day p.r.n. Montelukast 10 mg daily is added. Code(s): J30.9 - Allergic rhinitis, unspecified Orders: Orders XR chest 2V Today J30.9 - Allergic rhinitis, unspecified, J44.9 - Chronic obstructive pulmonary disease, unspecified, J45.909 - Unspecified asthma, uncomplicated Medications: New prednisone 20 mg PO BID 5 days 10 tabs 0RF azithromycin For 250 mg dose pack: take 500 mg today (day 1), then 250 mg for 4 days (days 2-5) PO 6 tabs 0RF montelukast 10 mg PO DAILY 30 days 30 tabs 3RF ALLERGIC RHINITIS Coding Level of Care Code Est Pt Level 3 (69422) Diagnoses Acute bronchitis J20.9 Asthma J45.909 Allergic rhinitis J30.9
== END 2022-12-27 11:08 | disposition home or self-care (01) ==
PROVIDERS: PCP Internal Medicine; Visit Provider Internal Medicine
DX: J20.9 Acute bronchitis, unspecified (principal); J45.909 Unspecified asthma, uncomplicated; J30.9 Allergic rhinitis, unspecified
CPT/HCPCS: 99213

== ENCOUNTER 2022-12-27 10:44 | Outpatient (REF) | payer OTHER, SELFPAY ==
--- NOTE | ~2022-12-27 | XR_ITS ---
EXAMINATION: XR CHEST CLINICAL INFORMATION: Chronic obstructive pulmonary disease, unspecified COMPARISON: 05/26/2020, 11/26/2017 TECHNIQUE: 2 views of the chest were obtained. FINDINGS: Dextroscoliosis scoliosis of the thoracic spine causing thoracic cage deformity. No focal consolidation, interstitial pulmonary edema or pneumothorax. No pleural effusion. The cardiomediastinal silhouette is within normal limits. XR/XR chest 2V IMPRESSION: No acute cardiopulmonary disease.
== END 2022-12-27 10:45 | disposition home or self-care (01) ==
LOC: HO.XRAY 10:44
PROVIDERS: PCP Internal Medicine; Visit Provider Internal Medicine
DX: J44.9 Chronic obstructive pulmonary disease, unspecified (principal); J20.9 Acute bronchitis, unspecified; J45.909 Unspecified asthma, uncomplicated
CPT/HCPCS: 71046; 99212

== ENCOUNTER 2023-01-08 14:22 | Outpatient (REF) | payer OTHER, SELFPAY ==
--- NOTE | ~2023-01-08 | FL_ITS ---
EXAMINATION: XR FL BARIUM SWALLOW CLINICAL INFORMATION: Dysphasia. COMPARISON: None available. TECHNIQUE: Only a single lateral image of the neck was obtained. FINDINGS: The patient was unable to proceed with the exam. FLUOROSCOPY TIME: 0:54 minutes. DOSE AREA PRODUCT: 369.8 uGy-m2 (microgray-meter squared). DLP: 26.06 mGy IMAGES: 1 FL/FL barium swallow modified IMPRESSION: Unsuccessful performance of the barium swallow.
--- NOTE | 2023-01-09 12:47 | MHC.SL.IMP ---
Date of Plan of Treatment: 01/08/23 Onset of Symptoms/Illness: 10/02/22 Date Treatment Started: 01/08/23 Admitting Diagnosis: Dysphagia Primary Speech & Language Diagnosis: R13.10 Dysphagia Reason for Today's Visit: 40077 Modified Barium Swallow Study Pre-evaluation Dietary Consistencies: Regular Pre-evaluation Liquid Consistency: Thin Pre-evaluation Medication Administration: Whole with Liquid Medical History: Modified Barium Swallow Study Fluoroscopic Evaluation of Swallowing Function CPT Code 34338 Evaluation Year: 2022 Reason for Study: Pt reporting difficulty swallowing. Referring Physician: Mercy CRUZ Evaluating Clinician: Christen Vernon MA, CCC-PRESSER HAND Study Number: 1 Patient Name: Mckenzie Montgomery Status: Outpatient, Ambulatory Age: 62 Gender: Female Medical History Medical History Bronchitis PONV (postoperative nausea and vomiting) Helicobacter pylori (H. pylori) Physical exam UTI (urinary tract infection) Scoliosis Restrictive lung disease Dysphagia Mild major depression, single episode Right shoulder pain COPD (chronic obstructive pulmonary disease) Allergic rhinosinusitis Acute bronchitis Asthma Anemia Primary osteoarthritis involving multiple joints Essential hypertension Right ankle pain Allergic rhinitis Surgical History History of esophagogastroduodenoscopy (EGD) Hx of colonoscopy Hx of cardiac cath History of total left knee replacement History of arthroscopy of right knee History of hemorrhoidectomy History of total right knee replacement History of total abdominal hysterectomy History of tonsillectomy Current (pre-evaluation) Intake/Diet: Route: PO Diet Grade: Regular Liquid Consistencies: Thin SUBJECTIVE: Pt is a 62 year old female referred for a modified barium swallow study by Mercy CRUZ from the Gastroenterology office. Pt reports that food feels stuck in her upper pharynx and that she was experiencing pain when swallowing. She reports onset to have occurred after she fell sick with a cough and a fever. She says that now she no longer feels sick and her dysphagia has resolved, though she mentioned an episode of water coming back up after she had laid down. Pt is being followed by [facility] for GERD, as well as IBS and dysphagia. Her history also includes bronchitis, H pylori, scoliosis, restrictive lung disease, COPD, allergic rhinosinusitis, and asthma. Of note, pt did have a barium swallow x-ray on 12/07/22 which noted aspiration on thick barium. Pt?s chest x-ray from 12/27/22 showed no acute cardiopulmonary disease. Oral Motor Exam Facial Symmetry: Symmetrical Mouth Occlusion: Normal Oral-Facial Teeth Characteristics: Intact/Normal Oral-Facial Smile (Lips) Description: Normal Tongue Size: Normal Is patient able to manage secretions?: Yes Is patient able to produce volitional cough?: Yes Food and Liquid Trials: Oral Impairment: Lip Closure: Did not test Oral Impairment: Tongue Control During Bolus Hold: Did not test Oral Impairment: Bolus Preparation/Mastication: 0=Timely and efficient chewing and mashing Oral Impairment: Bolus Transport/Lingual Motion: 0=Brisk tongue motion Oral Impairment: Oral Residue: 1=Trace residue lining oral structures Oral Impairment:Initiation of Pharyngeal Swallow: 3=Bolus head in pyriforms Pharyngeal Impairment: Soft Palate Elevation: 0=No bolus between soft palate (SP)/pharyngeal wall (PW) Pharyngeal Impairment: Laryngeal Elevation: 1=Partial thyroid cartilage/arytenoids to epiglottic petiole movement Pharyngeal Impairment: Anterior Hyoid Excursion: 1=Partial anterior movement Pharyngeal Impairment: Epiglottic Movement: 1=Partial inversion Pharyngeal Impairment: Laryngeal Vestibular Closure:: 0=Complete: no air/contrast in laryngeal vestibule Pharyngeal Impairment: Pharyngeal Stripping Wave: 0=Present: complete Pharyngeal Impairment: Pharyngeal Contraction: Did not test Pharyngeal Impairment: Pharyngoesophageal Segment Openin=Complete distension and complete duration: no obstruction of flow Pharyngeal Impairment: Tongue Base (TB) Retraction: 1=Trace column of contrast/air between TB and posterior PW Pharyngeal Impairment: Pharyngeal Residue: 1=Trace residue within or on pharyngeal structures Pharyngeal Impairment: Esophageal Clearance Upright Position: Did not test Impressions and Recommendations OBJECTIVE: Time-out: performed at 15:00 Evaluation Start: 14:45; Stop: 14:50 Viewing Planes: LATERAL ONLY Contrast: MBSImP? Standardized Protocol using commercially prepared, standardized Barium viscosities, including: Varibar? THIN LIQUID (40% w/v, <15 cps) , 1/2 Shortbread Cookie (1 x1 x.25 ) MBSImP ID: [id number] MBSImP Results: Lip closure for intraoral bolus containment could not be assessed due to logistical reasons not related to physiologic impairment. Tongue control during bolus hold could not be assessed due to logistical reasons not related to physiologic impairment. Bolus preparation and mastication resulted in timely and efficient chewing and mashing. Bolus transport/lingual motion was with brisk tongue motion. Oral residue was a trace, lining oral structures. Initiation of the pharyngeal swallow occurred when the bolus head was in the pyriform sinuses. Soft palate elevation resulted in no bolus between the soft palate and the pharyngeal wall. Laryngeal elevation was decreased, with partial superior movement of the thyroid cartilage/partial approximation of the arytenoids to the epiglottic petiole. Anterior hyoid excursion demonstrated partial anterior movement. Epiglottic movement resulted in partial inversion. Laryngeal vestibular closure was complete, as indicated by no air or contrast within the laryngeal vestibule at the height of the swallow. Pharyngeal stripping wave was present and complete. Pharyngeal contraction could not be determined due to logistical reasons not related to physiologic impairment. Pharyngoesophageal segment opening was completely distended for complete duration with no obstruction of bolus flow. Tongue base retraction allowed a trace column of contrast or air between the retracted tongue base and the posterior pharyngeal wall. Pharyngeal residue was a trace within or on pharyngeal structures. Esophageal clearance in the upright position could not be assessed due to logistical reasons not related to physiologic impairment. Oral Impairment Score: 3 (absence of score, component 1component 2) Pharyngeal Impairment Score: 3 (absence of score, component 13) Esophageal Impairment Score: --- (absence of score, component 17) Laryngeal Penetration and Aspiration: Neither penetration nor aspiration was observed in today's study with Cookie, Thin. ASSESSMENT: Clinician Assessment: This exam was conducted by the speech pathologist and radiologist. Pt was standing for lateral view and trialed the following consistencies: thin liquid barium (5 mL, individual cup sips), pureed solid (applesauce with barium paste), regular solid (Linda Doone cookie coated with barium paste), whole barium pill tablet with sips of water. Unable to visualize lip closure with imaging. Clinically, pt did not appear to have any spillage anteriorly. Posterior lingual motion was brisk and timely. Mastication pattern was also timely and efficient. There was trace lingual residue with liquids and solids which cleared with subsequent swallows. Pharyngeal swallow trigger was timely across most trials, on one instance, initiated at the level of the pyriforms. There was no nasopharyngeal reflux. Reduced laryngeal elevation and partial epiglottic inversion noted, but laryngeal vestibular closure was complete. No evidence of penetration or aspiration during this exam. There was trace residue in the valleculae and the pyriforms, which cleared with subsequent swallows. Pt swallowed whole barium pill tablet with sips of water. Pt briefly held the tablet on the tongue, then with sips of water, the tablet passed through the oral and pharyngeal cavities with no hang up. No obstruction of flow through the PES Liquid Intake Recommendation: Thin Liquid Intake Strategies: Small Sips Dietary Recommendations: Regular Medication Administration: Whole with Liquid Please contact the pharmacy regarding appropriate crushable or liquid drug formulations that are available whenever modified delivery is recommended. Compensatory Strategies Recommended: Sitting Upright (90 deg), Small Bites and Sips, Rate of Ingestion Change Supervision during eating and or drinking: None Needed Recommendation for Speech Therapy: NA:Typical Evaluation PLAN: Intake Recommendations: Route: PO Diet Grade: Regular Liquid Consistencies: Thin Post-Study Functional Oral Intake Scale (FOIS): 7- Total oral intake with no restrictions Overall, unremarkable exam. No evidence of penetration or aspiration. Very trace residue noted on the tongue and in the valleculae, which cleared with subsequent swallows. Further follow-up with speech therapy is not warranted at this time as pt?s swallow is deemed to be within functional limits in the oral and pharyngeal phases. Recommend pt to continue monitoring her dysphagia. If there are any changes or worsening of symptoms, consult with MD, at which point a re-evaluation may be indicated. Recommend pt continue her workup as indicated with [facility]to rule in/out an esophageal pathology, as pt is reporting sometimes expectorating liquids and solids, Suggested Referrals: The patient might benefit from a referral to: Gastroenterology Indication for Referral: Continue workup for pt?s complaint of expectoration of liquids and solids Therapy Recommendations: Therapy will be discontinued Clinician - Supplemental, Miscellaneous Communication: It is important to note MBSS objective studies are snapshots in time and Patient function might vary with factors such as time of day or concomitant medical conditions. For this reason, the final treatment plan for this patient should rest with their medical care team. Additional recommendations should be considered with the totality of the Patient in mind. Thank for the opportunity to participate in the care of this patient. If you have any questions about the content of this report, please contact the [facility] at [facility]. Education: Education regarding findings from today's study and plans for therapy were provided to Patient only through Verbal Instruction. Understanding was expressed by the Patient only. Chief Librarian Work With Blind Clinician/Clinical Fellow: No Supervisory Statement: N/A Speech Language Pathologist: Christen Vernon M.A., CCC-PRESSER HAND
== END 2023-01-08 14:23 | disposition home or self-care (01) ==
LOC: HO.XRAY 14:22
PROVIDERS: PCP Internal Medicine; Visit Provider Nurse Practitioner Family
DX: R13.10 Dysphagia, unspecified (principal)
CPT/HCPCS: 74230; 92611

== ENCOUNTER 2023-01-15 10:12 | Outpatient (AMB) | payer OTHER, SELFPAY ==
[2023-01-15 10:25] VITALS: BP 130/80; PULSE 65; O2SAT 95; BMI 28.1
--- NOTE | 2023-01-15 10:25 | A.OFFVIS_ITS ---
Intake Vital Signs 01/15/23 10:25 Height 5 ft 4 in Weight 164 lb BMI 28.1 BP 130/80 Blood Pressure Location Lt brachial Position Sitting Pulse 65 Pulse Source Pulse Oximeter Pulse Oximetry (%) 95 Oxygen Delivery Method Room Air Intake Visit Reasons: Cough Intake Note: pt is here for follow up and states she is doing better, and today started with congestion in the nose. Manifest/Order Organizer Print Orders Required: No Allergies Iodinated Contrast Media [IV DYE, IODINE CONTAINING] Allergy (Severe, Verified 1 03/17/22 10:39) ITCH/RASH clams Allergy (Intermediate, Verified 01/15/23 10:39) ITCHING docusate [From COLACE] Allergy (Intermediate, Verified 01/15/23 10:39) ITCHING lansoprazole [Prevacid] Allergy (Intermediate, Verified 01/15/23 10:39) hives oxybutynin Allergy (Intermediate, Verified 01/15/23 10:39) bladder pain pistachio nut Allergy (Intermediate, Verified 01/15/23 10:39) ITCHING walnut Allergy (Intermediate, Verified 01/15/23 10:39) ITCH/RASH SEASONAL ALLERGIES Allergy (Intermediate, Uncoded 01/15/23 10:39) ITCHY EYES Medication List - Last Reconciled 01/15/23 by Chelly Navarro MD acetaminophen 500 mg PO .every 8 hours PRN 5 days albuterol sulfate 2.5 mg (3 mL) inhalation Q4-6H PRN 30 days albuterol sulfate 90 mcg/actuation 2 puffs inhalation Q4-6H PRN bisacodyl (Dulcolax (bisacodyl)) 10 mg (2 x 5 mg) PO BEDTIME blood pressure monitor As directed calcium carbonate-vitamin D3 600 mg-10 mcg (400 unit) 1 tab PO BID diclofenac sodium 1% 2 grams topical BID PRN fluticasone propion-salmeterol 250-50 mcg/dose (Wixela Inhub) INHALE 1 PUFF BY MOUTH TWICE A DAY fluticasone propionate 50 mcg/actuation 2 sprays intranasal DAILY glucosamine HCl PO DAILY lidocaine 4% (Aspercreme (lidocaine)) 1 patch topical DAILY PRN 30 days loratadine 10 mg PO DAILY meclizine 25 mg PO TID PRN 30 days methylcellulose (laxative) (Citrucel) 500 mg PO DAILY metoprolol succinate ER 50 mg PO DAILY pantoprazole 40 mg PO DAILY Do you need a note to return to daycare/school/sports/work: No HPI Cough HPI Details 62 years old female is doing well and mark dempsey come for routine follow-up. Only problem is nasal congestion off and on with postnasal drip and cough. She uses her inhalers regularly, She gets short of breath if she walks fast or climbs stairs. Has had no recent infection. [facility] Medical History Bronchitis PONV (postoperative nausea and vomiting) Helicobacter pylori (H. pylori) Physical exam UTI (urinary tract infection) Scoliosis Restrictive lung disease Dysphagia Mild major depression, single episode Right shoulder pain COPD (chronic obstructive pulmonary disease) Allergic rhinosinusitis Acute bronchitis Asthma Anemia Primary osteoarthritis involving multiple joints Essential hypertension Right ankle pain Allergic rhinitis Surgical History History of esophagogastroduodenoscopy (EGD) Hx of colonoscopy Hx of cardiac cath History of total left knee replacement History of arthroscopy of right knee History of hemorrhoidectomy History of total right knee replacement History of total abdominal hysterectomy History of tonsillectomy Family History Father Alcoholism Arthritis Mother Diabetes Acute CVA (cerebrovascular accident) Sister Breast cancer Family/Other FH: mental illness Brother Diabetes Myocardial infarct Daughter In good health Daughter In good health Daughter In good health Social History Housing: Apartment Alcohol intake: never Patient Tobacco Use Status: Never used Tobacco e-Cigarette/Vaping Use: Never Used Second Hand Smoke Exposure: No Advance Directives Date on File: 11/28/19 service: No 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al status: disabled 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 Cognitive needs: No Hearing needs: No Vision needs: No Review of Systems Const All systems reviewed & are unremarkable except as noted in HPI and below Eyes Reports no additional complaints ENT Reports nasal congestion and Reports nasal discharge Card Denies chest pain, Denies irregular heart rhythm and Denies leg edema Resp Reports as per HPI GI Reports no additional complaints Reports no additional complaints Musc Reports back pain (Mild) Skin/Breast Reports system reviewed and no additional complaints, except as documented Neuro Reports no additional complaints Psych Reports no additional complaints Physical Exam Vital Signs: Last Vital Signs Pulse 65 01/15/23 10:25 BP 130/80 01/15/23 10:25 Pulse Ox 95 01/15/23 10:25 Oxygen Delivery Method Room Air 01/15/23 10:25 BMI result Body Mass Index 28.1 Const General: comfortable, no acute distress, alert and awake Orientation/consciousness: patient oriented x3 HEENT Head: Yes normal to inspection General nose exam: No nasal polyps present, No nasal discharge present and Other nasal findings present (Mild nasal congestion, chronic) Face and sinus: Yes sinuses nontender Mouth: oropharynx normal Throat: Yes posterior oropharynx normal Eyes General: appearance normal, both eyes and all related structures Neck Neck: Yes normal visual inspection, Yes no lymphadenopathy, Yes trachea midline and Yes no JVD Thyroid: Thyroid normal Chest Chest palpation & inspection: normal inspection of the chest, normal palpation of entire chest wall and no tenderness Resp Other: Percussion note resonant, breath sounds are slightly distant, Breath sounds are slightly distant. No audible wheezes or crepitations. Cardio Palpation: normal PMI Rate: regular rate Rhythm: regular rhythm Heart sounds: no gallops and no murmurs Peripheral pulses: Peripheral pulses 2+ throughout GI Palpation (GI): Soft to palpation, nontender, No hepatosplenomegaly present and no masses Auscultation: normal bowel sounds Back/Spine/Pelvis Thoracic/Lumbar Spine: thoracic and lumbar spine normal to inspection and Thoracic/lumbar scoliosis (Patient has moderately severe size dextroscoliosis of the thoracic spine.) Skin General skin exam: no rashes or lesions noted Neuro General: patient oriented x3 and no focal motor deficits Cranial nerves: Yes CN's II-XII intact bilaterally Extrem General: Yes normal to inspection, Yes no clubbing, cyanosis or edema and Yes no calf tenderness Psych Appearance: grossly normal and well kempt Speech and movement: Normal speech and movement present Assessment & Plan Assessment & Plan (1) Asthma: Comment: SHE HAS THE CHRONIC BRONCHIAL ASTHMA IN ADDITION TO CHRONIC ALLERGIC RHINOSINUSITIS. TREATED FOR ACUTE EXACERBATION LAST MONTH AND HAS RECOVERED TO BASELINE. TX: CONT. WIXELA , 250-50 ONE INH BID GARGLE AND RINSE MOUTH WELL AFTER USING WIXELA AND USE VENTOLIN 2 PUFFS Q 6 HRS PRN Code(s): J45.909 - Unspecified asthma, uncomplicated Plan: ABOVE (2) Allergic rhinosinusitis: Comment: SHE HAS ONGOING CHRONIC RHINITIS AND SINUSITIS. I THINK THIS IS THE BASIC CAUSE OF HER ONGOING CHRONIC COUGH, WHICH IS MOSTLY UNDER CONTROL. TX: FLONASE 2 SPRAY EACH NOSTRIL DAILY LORATADINE 10 MG DAILY. CONTINUE MONTELUKAST 10 MG DAILY. represcribed . Code(s): J30.9 - Allergic rhinitis, unspecified Plan: ABOVE (3) COPD (chronic obstructive pulmonary disease): Comment: PER PFT. DID NOT HAVE EVIDENCE OF COPD ,, But clinically patient does have symptoms of bronchial asthma/COPD, mild. She is doing well with WIXELA 250-50 1 INHALATION B.I.D. AND USES PROAIR Q 4-6 HOURS ONLY P.R.N. Code(s): J44.9 - Chronic obstructive pulmonary disease, unspecified Plan: ABOVE (4) Scoliosis: Comment: MODERATELY SEVERE DEXTROSCOLIOSIS OF THORACOLUMBAR SPINE. Code(s): M41.9 - Scoliosis, unspecified Plan: THIS IS A CHRONIC ABNORMALITY, CAUSES BACK PAIN OFF AND ON. STABLE AT PRESENT Coding Level of Care Code Est Pt Level 3 (55272) Diagnoses Asthma J45.909 Allergic rhinosinusitis J30.9 COPD (chronic obstructive pulmonary disease) J44.9 Scoliosis M41.9
== END 2023-01-15 10:45 | disposition home or self-care (01) ==
PROVIDERS: PCP Internal Medicine; Visit Provider Internal Medicine
DX: J45.909 Unspecified asthma, uncomplicated (principal); J30.9 Allergic rhinitis, unspecified; J44.9 Chronic obstructive pulmonary disease, unspecified; M41.9 Scoliosis, unspecified
CPT/HCPCS: 99213

== ENCOUNTER → 2023-01-15 10:12 | Outpatient (BNVA) | payer OTHER, SELFPAY | PROVIDERS: PCP Internal Medicine; Visit Provider Internal Medicine | DX: J45.909 Unspecified asthma, uncomplicated (principal); J44.9 Chronic obstructive pulmonary disease, unspecified; M41.9 Scoliosis, unspecified | CPT/HCPCS: 99212 ==

== ENCOUNTER 2023-01-17 10:13 | Outpatient (AMB) | payer OTHER, SELFPAY ==
[2023-01-17 10:14] VITALS: BP 134/63; PULSE 81; BMI 28.0
--- NOTE | 2023-01-17 10:14 | MHC.OFFVIS ---
Intake Vital Signs 01/17/23 10:14 Height 5 ft 4 in Weight 163 lb 2.273 oz BMI 28.0 BP 134/63 Blood Pressure Location Lt brachial Position Sitting Pulse 81 Intake Visit Reasons: 2 month fu Intake Note: Mckenzie presents in the office as a 2 month follow up. CC: She states she is feeling better but she still has constipation. Allergies Iodinated Contrast Media [IV DYE, IODINE CONTAINING] Allergy (Severe, Verified 01/17/23 10:20) ITCH/RASH clams Allergy (Intermediate, Verified 01/17/23 10:20) ITCHING docusate [From COLACE] Allergy (Intermediate, Verified 01/17/23 10:20) ITCHING lansoprazole [Prevacid] Allergy (Intermediate, Verified 01/17/23 10:20) hives oxybutynin Allergy (Intermediate, Verified 01/17/23 10:20) bladder pain pistachio nut Allergy (Intermediate, Verified 01/17/23 10:20) ITCHING walnut Allergy (Intermediate, Verified 01/17/23 10:20) ITCH/RASH SEASONAL ALLERGIES Allergy (Intermediate, Uncoded 01/17/23 10:20) ITCHY EYES HPI 2 month fu HPI Details LAST VISIT: Abdominal pain Continue taking PPI. Patient was encouraged to avoid dietary triggers. Eat small amounts and more often. Dysphagia Balloon stretching of the esophagus helped. Patient has no dysphagia. Will repeat if symptoms return GERD (gastroesophageal reflux disease) Continue PPI therapy. Patient was encouraged to avoid dietary triggers and lightheaded snacking. Staying upright for minimum 3 hours after meals discussed with patient IBS (irritable bowel syndrome) Postprandial abdominal bloating and occasional cramping. Patient was encouraged to take Dulcolax tablet to help her move her bowels better. Stop Senokot. Patient was also encouraged to increase fluid intake and activity to promote better bowel motility. I will see patient in 2 months, sooner on as needed basis. Patient is agreeable to this plan and verbalizes understanding of instructions. She was given the opportunity to ask questions and all questions answered. ? Thank you for allowing me to participate in her care Plan Medications New bisacodyl (Dulcolax (bisacodyl)) 10 mg (2 x 5 mg) PO BEDTIME 180 tabs 4RF Discontinued sucralfate Discontinued Reason: Doctor's Order 1 g PO BEDTIME 30 tabs 1RF R19.7 - Diarrhea, unspecified sennosides (Natural Senna Laxative) Discontinued Reason: Doctor's Order 17.2 mg (2 x 8.6 mg) PO BEDTIME 60 tabs 1RF constipation K59.00 - Constipation, unspecified LAST VISIT Patient is here today for follow-up. Patient reports that since the last time I have seen her she has been doing better. Patient no longer has dyspepsia or dysphagia. Patient takes pantoprazole every morning. Patient reports that her symptoms are suppressed. Patient continues to have constipation. Patient states that when she takes Dulcolax she will have a bowel movement, however she reports to have cramping. Patient does not drink enough water. Patient states that she used to had trouble swallowing even drinking water and just recently is feeling better. Patient has been following up with pulmonology and is getting over upper respiratory infection. Patient was on prednisone for 5 days [facility] Medical History Bronchitis PONV (postoperative nausea and vomiting) Helicobacter pylori (H. pylori) Physical exam UTI (urinary tract infection) Scoliosis Restrictive lung disease Dysphagia Mild major depression, single episode Right shoulder pain COPD (chronic obstructive pulmonary disease) Allergic rhinosinusitis Acute bronchitis Asthma Anemia Primary osteoarthritis involving multiple joints Essential hypertension Right ankle pain Allergic rhinitis Surgical History History of esophagogastroduodenoscopy (EGD) Hx of colonoscopy Hx of cardiac cath History of total left knee replacement History of arthroscopy of right knee History of hemorrhoidectomy History of total right knee replacement History of total abdominal hysterectomy History of tonsillectomy Family History Father Alcoholism Arthritis Mother Diabetes Acute CVA (cerebrovascular accident) Sister Breast cancer Family/Other FH: mental illness Brother Diabetes Myocardial infarct Daughter In good health Daughter In good health Daughter In good health Housing: Apartment Alcohol intake: never Patient Tobacco Use Status: Never used Tobacco e-Cigarette/Vaping Use: Never Used Second Hand Smoke Exposure: No Advance Directives Date on File: 11/28/19 service: No 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al status: disabled 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 Cognitive needs: No Hearing needs: No Vision needs: No Review of Systems Const Denies weight gain and Denies weight loss ENT Reports no additional complaints, Denies dysphagia and Denies odynophagia Card Reports no additional complaints Resp Reports no additional complaints GI Denies abdominal pain, Denies belching, Denies melena, Denies bloating, Denies change in bowel habits, Reports constipation, Denies dysphagia, Denies excessive flatus, Denies dyspepsia, Denies heartburn, Denies diarrhea, Denies loose stools, Denies nausea, Denies odynophagia and Denies vomiting Reports no additional complaints Musc Reports no additional complaints Neuro Reports no additional complaints Psych Reports no additional complaints Endo Reports no additional complaints Physical Exam Const General: healthy appearing, no acute distress and well developed Nutritional Appearance: obese Orientation/consciousness: patient oriented x3 HEENT Head: Yes normal to inspection, Yes normocephalic and Yes atraumatic Face and sinus: Yes normal facial exam Mouth: Normal oral and palatal mucosa present Throat: Yes posterior oropharynx normal, Yes tonsils normal and Yes uvula midline Eyes General: appearance normal, both eyes and all related structures Neck Neck: Yes normal visual inspection, Yes full ROM and Yes trachea midline Thyroid: Thyroid normal Resp Effort & Inspection: normal respiratory effort, able to speak in complete sentences, no tracheal deviation and symmetric chest movement Auscultation: clear to auscultation bilaterally Cardio Rate: regular rate Heart sounds: S1 normal heart sound present and S2 normal heart sound present GI Inspection: Yes normal to inspection, No distended and Yes obesity Palpation (GI): Soft to palpation, not firm, nontender and No hepatosplenomegaly present Auscultation: normal bowel sounds General: Yes no CVA tenderness Back/Spine/Pelvis Back: no CVA tenderness Skin General skin exam: elasticity normal, turgor normal and dry skin Neuro General: patient oriented x3 Psych Appearance: grossly normal Mental Status: mental status grossly normal Assessment & Plan Assessment & Plan (1) Abdominal pain: Code(s): R10.9 - Unspecified abdominal pain Qualifiers: Abdominal location: epigastric Qualified Code(s): R10.13 - Epigastric pain (2) Dysphagia: Code(s): R13.10 - Dysphagia, unspecified Qualifiers: Dysphagia type: unspecified Qualified Code(s): R13.10 - Dysphagia, unspecified (3) GERD (gastroesophageal reflux disease): Code(s): K21.9 - Gastro-esophageal reflux disease without esophagitis Qualifiers: Esophagitis presence: esophagitis presence not specified Qualified Code(s): K21.9 - Gastro-esophageal reflux disease without esophagitis (4) IBS (irritable bowel syndrome): Code(s): K58.9 - Irritable bowel syndrome without diarrhea Qualifiers: Irritable bowel syndrome type: with constipation Qualified Code(s): K58.1 - Irritable bowel syndrome with constipation (5) Constipation by delayed colonic transit: Code(s): K59.01 - Slow transit constipation Plan: Continue pantoprazole daily. Discussed with patient avoiding dietary triggers in late night snacking. Patient was encouraged to stay upright for minimal 3 hours after meals. Left lower quadrant pain occasionally when constipated. Patient will take MiraLax daily and 1-2 Dulcolax tablets in the evening. Food was encouraged to increase fluid intake and activity to promote better bowel motility. I will see patient in 4 months, sooner on as needed basis. Patient is agreeable to this plan and verbalizes understanding of instructions. She was given the opportunity to ask questions and all questions answered. Thank you for allowing me to participate in her care Medications: Refilled pantoprazole take one tablet half an hour before breakfast 40 mg PO DAILY 90 tabs 2RF K21.9 - Gastro-esophageal reflux disease without esophagitis Coding Level of Care Code Est Pt Level 4 (97734) Diagnoses Epigastric pain R10.13 Abdominal location: epigastric Dysphagia, unspecified type R13.10 Dysphagia type: unspecified Gastroesophageal reflux disease, unspecified whether esophagitis present K21.9 Esophagitis presence: esophagitis presence not specified Irritable bowel syndrome with constipation K58.1 Irritable bowel syndrome type: with constipation Constipation by delayed colonic transit K59.01 Time Spent (min) 35 Comment 20 minutes spent with patient and additional 15 minutes spent reviewing her records
== END 2023-01-17 10:43 | disposition home or self-care (01) ==
PROVIDERS: PCP Internal Medicine; Visit Provider Nurse Practitioner Family
DX: R10.13 Epigastric pain (principal); R13.10 Dysphagia, unspecified; K21.9 Gastro-esophageal reflux disease without esophagitis; K58.1 Irritable bowel syndrome with constipation; K59.01 Slow transit constipation
CPT/HCPCS: 99214

== ENCOUNTER → 2023-01-17 10:13 | Outpatient (BNVA) | payer OTHER, SELFPAY | PROVIDERS: PCP Internal Medicine; Visit Provider Nurse Practitioner Family | DX: R10.13 Epigastric pain (principal); R13.10 Dysphagia, unspecified; K21.9 Gastro-esophageal reflux disease without esophagitis; K58.1 Irritable bowel syndrome with constipation; K59.01 Slow transit constipation | CPT/HCPCS: 99212 ==

== ENCOUNTER 2023-02-07 10:28 | Outpatient (AMB) | payer OTHER, SELFPAY ==
[2023-02-07 10:37] VITALS: BP 136/68; PULSE 75; O2SAT 95; BMI 28.2
--- NOTE | 2023-02-07 10:38 | AM.OFFWIN_ITS ---
Intake Vital Signs 02/07/23 10:37 Height 5 ft 4 in Weight 164 lb 6 oz BMI 28.2 BP 136/68 Blood Pressure Location Rt brachial Position Sitting Pulse 75 Pulse Source Pulse Oximeter Pulse Oximetry (%) 95 Oxygen Delivery Method Room Air Intake Visit Reasons: EP, left eye redness/itchiness (masked) Patient Tobacco Use Status: Never used Tobacco Allergies Iodinated Contrast Media [IV DYE, IODINE CONTAINING] Allergy (Severe, Verified 02/07/23 10:40) ITCH/RASH clams Allergy (Intermediate, Verified 02/07/23 10:40) ITCHING docusate [From COLACE] Allergy (Intermediate, Verified 02/07/23 10:40) ITCHING lansoprazole [Prevacid] Allergy (Intermediate, Verified 02/07/23 10:40) hives oxybutynin Allergy (Intermediate, Verified 02/07/23 10:40) bladder pain pistachio nut Allergy (Intermediate, Verified 02/07/23 10:40) ITCHING walnut Allergy (Intermediate, Verified 02/07/23 10:40) ITCH/RASH SEASONAL ALLERGIES Allergy (Intermediate, Uncoded 01/17/23 10:20) ITCHY EYES Medication List - Last Reconciled 02/07/23 by Marley Ratliff MD acetaminophen 500 mg PO .every 8 hours PRN 5 days albuterol sulfate 2.5 mg (3 mL) inhalation Q4-6H PRN 30 days albuterol sulfate 90 mcg/actuation 2 puffs inhalation Q4-6H PRN bisacodyl (Dulcolax (bisacodyl)) 10 mg (2 x 5 mg) PO BEDTIME blood pressure monitor As directed calcium carbonate-vitamin D3 600 mg-10 mcg (400 unit) 1 tab PO BID diclofenac sodium 1% 2 grams topical BID PRN fluticasone propion-salmeterol 250-50 mcg/dose (Wixela Inhub) INHALE 1 PUFF BY MOUTH TWICE A DAY fluticasone propionate 50 mcg/actuation 2 sprays intranasal DAILY glucosamine HCl PO DAILY lidocaine 4% (Aspercreme (lidocaine)) 1 patch topical DAILY PRN 30 days loratadine 10 mg PO DAILY meclizine 25 mg PO TID PRN 30 days methylcellulose (laxative) (Citrucel) 500 mg PO DAILY metoprolol succinate ER 50 mg PO DAILY pantoprazole 40 mg PO DAILY Do you need a note to return to daycare/school/sports/work: No HPI EP, left eye redness/itchiness (masked) HPI Details Patient is 62-year-old female came today to be evaluated for possible conjunctivitis Patient says that her eyes have been itching for the past 3 days, and this morning she woke up with sticky discharge in both eyes Vision is intact however eyes feels very irritated. There is no pain in the eye On examination patient does not have any photophobia, pupil are reactive, extraocular movement intact I am treating her with Polytrim eyedrops, patient was instructed to seek ophthalmology consultation if not better within 3 days. [facility] Medical History Bronchitis PONV (postoperative nausea and vomiting) Helicobacter pylori (H. pylori) Physical exam UTI (urinary tract infection) Scoliosis Restrictive lung disease Dysphagia Mild major depression, single episode Right shoulder pain COPD (chronic obstructive pulmonary disease) Allergic rhinosinusitis Acute bronchitis Asthma Anemia Primary osteoarthritis involving multiple joints Essential hypertension Right ankle pain Allergic rhinitis Surgical History History of esophagogastroduodenoscopy (EGD) Hx of colonoscopy Hx of cardiac cath History of total left knee replacement History of arthroscopy of right knee History of hemorrhoidectomy History of total right knee replacement History of total abdominal hysterectomy History of tonsillectomy Family History Father Alcoholism Arthritis Mother Diabetes Acute CVA (cerebrovascular accident) Sister Breast cancer Family/Other FH: mental illness Brother Diabetes Myocardial infarct Daughter In good health Daughter In good health Daughter In good health Social History Housing: Apartment Alcohol intake: never Patient Tobacco Use Status: Never used Tobacco e-Cigarette/Vaping Use: Never Used Second Hand Smoke Exposure: No Advance Directives Date on File: 11/28/19 service: No 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al status: disabled 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 Cognitive needs: No Hearing needs: No Vision needs: No Review of Systems Const All systems reviewed & are unremarkable except as noted in HPI and below Physical Exam Vital Signs: Last Vital Signs Pulse 75 02/07/23 10:37 BP 136/68 02/07/23 10:37 Pulse Ox 95 02/07/23 10:37 Oxygen Delivery Method Room Air 02/07/23 10:37 BMI result Body Mass Index 28.2 Const General: no acute distress Orientation/consciousness: patient oriented x3 Eyes Other: Moderate conjunctival injection bilateral, CHUY, extraocular movement intact no photophobia no pain with palpation Resp Effort & Inspection: normal respiratory effort and able to speak in complete sentences Auscultation: clear to auscultation bilaterally Cardio Other: S1 S2 Neuro General: patient oriented x3 Psych Mental Status: mental status grossly normal Assessment & Plan Assessment & Plan (1) Acute conjunctivitis, bilateral: Code(s): H10.33 - Unspecified acute conjunctivitis, bilateral Qualifiers: Acute conjunctivitis type: unspecified Qualified Code(s): H10.33 - Unspecified acute conjunctivitis, bilateral Plan Patient is 62-year-old female came today to be evaluated for possible conjunctivitis Patient says that her eyes have been itching for the past 3 days, and this morning she woke up with sticky discharge in both eyes Vision is intact however eyes feels very irritated. There is no pain in the eye On examination patient does not have any photophobia, pupil are reactive, extraocular movement intact I am treating her with Polytrim eyedrops, patient was instructed to seek ophthalmology consultation if not better within 3 days. Medications: New polymyxin B sulf-trimethoprim 10,000 unit- 1 mg/mL while awake; do not exceed 6 doses in 24 hours 1 drp ophthalmic (eye) QID 5 days 10 mL 0RF Coding Level of Care Code Est Pt Level 3 (91493) Diagnoses Acute conjunctivitis of both eyes, unspecified acute conjunctivitis type H10.33 Acute conjunctivitis type: unspecified
== END 2023-02-07 11:51 | disposition home or self-care (01) ==
PROVIDERS: PCP Internal Medicine; Visit Provider Internal Medicine
DX: H10.33 Unspecified acute conjunctivitis, bilateral (principal)
CPT/HCPCS: 99213

== ENCOUNTER 2023-04-24 13:23 | Outpatient (REF) | payer OTHER, SELFPAY ==
--- NOTE | ~2023-04-24 | US_ITS ---
EXAMINATION: US RETROPERITONEAL COMPLETE (RENAL) CLINICAL INFORMATION: Frequency of micturition. COMPARISON: Renal ultrasound 10/19/2022 and 03/29/2022. CT abdomen and pelvis 06/08/2020. TECHNIQUE: Real-time imaging of the kidneys and bladder. FINDINGS: RIGHT KIDNEY: 13.1 x 3.8 x 5.8 cm (SAG x AP x TRV). The kidney is normal in size, contour, and echogenicity. Renal cortical thickness is normal. No calculi or focal parenchymal lesions. No hydronephrosis. LEFT KIDNEY: 12.2 x 5.7 x 5.2 cm (SAG x AP x TRV). The kidney is normal in size, contour, and echogenicity. Renal cortical thickness is normal. No calculi or focal parenchymal lesions. No hydronephrosis. BLADDER: Partially distended. Bilateral ureteral jets are demonstrated. Prevoid bladder volume is 93 mL. Postvoid bladder volume was not obtained. ADDITIONAL FINDINGS: A 2.0 cm benign, simple left ovarian follicles seen, for which no imaging follow-up is recommended. US/US retroperitoneal comp IMPRESSION: Unremarkable examination.
== END 2023-04-24 13:24 | disposition home or self-care (01) ==
LOC: HO.US 13:23
PROVIDERS: PCP Internal Medicine; Visit Provider Nurse Practitioner Family
DX: N20.0 Calculus of kidney (principal); R35.0 Frequency of micturition
CPT/HCPCS: 76770

== ENCOUNTER 2023-04-30 11:02 | Outpatient (AMB) | payer OTHER, SELFPAY ==
--- NOTE | 2023-04-30 11:17 | MHC.OFFVIS ---
Intake Intake Visit Reasons: 6m/US(set) Intake Note: Patient is present for follow up ultrasound/nephrolithiasis Imagin04/24/23 Urology Medications: none Blood Thinner: none Ribbing Machine Operator Required: Yes Ribbing Machine Operator Name: BARBARA DALTONMIGDALIA Accompanied by: Self / Same As Patient Allergies Iodinated Contrast Media [IV DYE, IODINE CONTAINING] Allergy (Severe, Verified 04/30/23 13:15) ITCH/RASH clams Allergy (Intermediate, Verified 04/30/23 13:15) ITCHING docusate [From COLACE] Allergy (Intermediate, Verified 04/30/23 13:15) ITCHING lansoprazole [Prevacid] Allergy (Intermediate, Verified 04/30/23 13:15) hives oxybutynin Allergy (Intermediate, Verified 04/30/23 13:15) bladder pain pistachio nut Allergy (Intermediate, Verified 04/30/23 13:15) ITCHING walnut Allergy (Intermediate, Verified 04/30/23 13:15) ITCH/RASH SEASONAL ALLERGIES Allergy (Intermediate, Uncoded 04/30/23 13:15) ITCHY EYES Medication List - Last Reconciled 04/30/23 by NANCY Palomares acetaminophen 500 mg PO .every 8 hours PRN 5 days albuterol sulfate 2.5 mg (3 mL) inhalation Q4-6H PRN 30 days albuterol sulfate 90 mcg/actuation 2 puffs inhalation Q4-6H PRN bisacodyl (Dulcolax (bisacodyl)) 10 mg (2 x 5 mg) PO BEDTIME blood pressure monitor As directed calcium carbonate-vitamin D3 600 mg-10 mcg (400 unit) 1 tab PO BID diclofenac sodium 1% 2 grams topical BID PRN fluticasone propion-salmeterol 250-50 mcg/dose (Wixela Inhub) INHALE 1 PUFF BY MOUTH TWICE A DAY fluticasone propionate 50 mcg/actuation 2 sprays intranasal DAILY glucosamine HCl PO DAILY lidocaine 4% (Aspercreme (lidocaine)) 1 patch topical DAILY PRN 30 days loratadine 10 mg PO DAILY meclizine 25 mg PO TID PRN 30 days methylcellulose (laxative) (Citrucel) 500 mg PO DAILY metoprolol succinate ER 50 mg PO DAILY mirabegron ER (Myrbetriq) 25 mg PO DAILY 30 days montelukast 10 mg PO DAILY olopatadine 0.2% (Pataday Once Daily Relief) 1 drp ophthalmic (eye) BEDTIME 7 days pantoprazole 40 mg PO DAILY polymyxin B sulf-trimethoprim 10,000 unit- 1 mg/mL 1 drp ophthalmic (eye) QID 5 days tobramycin 0.3% 1 drp ophthalmic (eye) Q4H 7 days valacyclovir 1,000 mg PO Q8H 5 days HPI HPI Comments History of Present Illness Details Mckenzie is pleasant 62-year-old / Macedonian speaking female patient of Dr. Hunter. She has a past medical history of anemia, asthma, COPD, dysphagia, hypertension, H pylori, depression, scoliosis, nephrolithiasis, and recurrent urinary tract infections. She presents to the office today for a follow up of her nephrolithiasis. Recent renal imaging results reviewed with the patient today. Bilateral kidneys with no calculi, lesions, and or hydronephrosis. The bladder is partially distended. Bilateral ureteral jets are demonstrated. Pre void bladder volume is approximately 100 mL. Postvoid bladder volume was not obtained. Two point cm benign simple left ovarian follicles seen which require no additional follow-up per radiology report. In discussion with the patient today she continues to report intermittent episodes of urinary frequency and nocturia as well as urinary urgency. In office urinalysis results reviewed with the patient today microscopic hematuria noted. She otherwise denies any previous smoking history and or known chemical exposure. When asked she denies incontinence, hematuria, dysuria, foul smelling urine, changes to urinary stream, flank pain, fever, and or chills. When asked she does report a history of sleep apnea and is currently undergoing further assessment evaluation for a CPAP machine. Discussed at length further treatment options for urinary urgency, urinary frequency, and episodes of nocturia. Discussed at length correlation of sleep apnea with nocturia. Discussed pelvic floor therapy verses trial of medication. Discussed possible near future in office cystoscopy and or urodynamics for further assessment evaluation. She otherwise offers no issues or concerns at this time. [facility] Medical History Bronchitis PONV (postoperative nausea and vomiting) Helicobacter pylori (H. pylori) Physical exam UTI (urinary tract infection) Scoliosis Restrictive lung disease Dysphagia Mild major depression, single episode Right shoulder pain COPD (chronic obstructive pulmonary disease) Allergic rhinosinusitis Acute bronchitis Asthma Anemia Primary osteoarthritis involving multiple joints Essential hypertension Right ankle pain Allergic rhinitis Surgical History History of esophagogastroduodenoscopy (EGD) Hx of colonoscopy Hx of cardiac cath History of total left knee replacement History of arthroscopy of right knee History of hemorrhoidectomy History of total right knee replacement History of total abdominal hysterectomy History of tonsillectomy Family History Father Alcoholism Arthritis Mother Diabetes Acute CVA (cerebrovascular accident) Sister Breast cancer Family/Other FH: mental illness Brother Diabetes Myocardial infarct Daughter In good health Daughter In good health Daughter In good health Social History Housing: Apartment Alcohol intake: never Patient Tobacco Use Status: Never used Tobacco e-Cigarette/Vaping Use: Never Used Second Hand Smoke Exposure: No Advance Directives Date on File: 11/28/19 service: No 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al status: disabled 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 Cognitive needs: No Hearing needs: No Vision needs: No Review of Systems Const Reports as per HPI Eyes Reports no additional complaints ENT Reports no additional complaints Card Reports as per HPI Resp Reports as per HPI GI Reports as per HPI Reports as per HPI Musc Reports no additional complaints Neuro Reports no additional complaints Psych Reports no additional complaints Endo Reports no additional complaints Connor/Lymph Reports no additional complaints Aller/Immun Reports no additional complaints Physical Exam Const General: cooperative, comfortable, no acute distress, well developed, alert and awake Orientation/consciousness: patient oriented x3 HEENT Head: Yes normal to inspection, Yes normocephalic and Yes atraumatic Ears: hearing grossly normal bilaterally Eyes General: appearance normal, both eyes and all related structures Neck Neck: Yes normal visual inspection and Yes trachea midline Chest Chest palpation & inspection: normal inspection of the chest Resp Effort & Inspection: normal respiratory effort and able to speak in complete sentences Cardio Rate: regular rate GI Inspection: Yes normal to inspection General: Yes no CVA tenderness Back/Spine/Pelvis Back: no CVA tenderness Skin General skin exam: no rashes or lesions noted Neuro General: patient oriented x3 Extrem General: Yes normal to inspection Psych Appearance: grossly normal and well kempt Mental Status: mental status grossly normal Speech and movement: Normal speech and movement present and Clear speech present Affect: normal affect Attitude: cooperative Thought process: Normal thought process present Thought content: Normal thought content present Insight: Fair insight present (Psych) Judgement: Fair judgement present (Psych) Results AMB Urinalysis, Automated UA Leukoctes 0 Ethan/uL Last Edit by Ultromexzi Bey on 04/30/23 11:33 UA Nitrite Negative Last Edit by Mendeleyalexander on 04/30/23 11:33 UA Urobilinogen 0.2 mg/dL Last Edit by Mendeleyalexander on 04/30/23 11:33 UA Protein 15 mg/dL Last Edit by [facility] on 04/30/23 11:33 UA pH 6.0 Last Edit by Mendeleyalexander on 04/30/23 11:33 UA Blood 10 Gabe/uL Last Edit by Mendeleyalexander on 04/30/23 11:33 UA Specific [place] 1.025 Last Edit by Mendeleyalexander on 04/30/23 11:33 UA Ketone Negative Last Edit by [facility] on 04/30/23 11:33 UA Bilirubin 0 mg/dL Last Edit by [facility] on 04/30/23 11:33 UA Glucose 0 mg/dL Last Edit by Mendeleyalexander on 04/30/23 11:33 Results Reviewed Results Reviewed: Laboratory Last Values Urine pH (Auto) 6.0 04/30/23 11:23 Specific [place] (Auto) 1.025 04/30/23 11:23 Urine Protein (Auto) 15 mg/dL 04/30/23 11:23 Glucose (UA)(Auto) 0 mg/dL 04/30/23 11:23 Urine Ketones (Auto) Negative 04/30/23 11:23 Urine Blood (Auto) 10 Gabe/uL 04/30/23 11:23 Urine Nitrite (Auto) Negative 04/30/23 11:23 Urine Bilirubin (Auto) 0 mg/dL 04/30/23 11:23 Urine Urobilinogen (Auto) 0.2 mg/dL 04/30/23 11:23 Leukocyte Esterase (Auto) 0 Ethan/uL 04/30/23 11:23 Date of Service: 04/24/23 EXAMINATION: US RETROPERITONEAL COMPLETE (RENAL) FINDINGS: RIGHT KIDNEY: 13.1 x 3.8 x 5.8 cm (SAG x AP x TRV). The kidney is normal in size, contour, and echogenicity. Renal cortical thickness is normal. No calculi or focal parenchymal lesions. No hydronephrosis. LEFT KIDNEY: 12.2 x 5.7 x 5.2 cm (SAG x AP x TRV). The kidney is normal in size, contour, and echogenicity. Renal cortical thickness is normal. No calculi or focal parenchymal lesions. No hydronephrosis. BLADDER: Partially distended. Bilateral ureteral jets are demonstrated. Prevoid bladder volume is 93 mL. Postvoid bladder volume was not obtained. ADDITIONAL FINDINGS: A 2.0 cm benign, simple left ovarian follicles seen, for which no imaging follow-up is recommended. IMPRESSION: Unremarkable examination Assessment & Plan Assessment & Plan (1) Urinary frequency: Code(s): R35.0 - Frequency of micturition (2) Bilateral nephrolithiasis: Code(s): N20.0 - Calculus of kidney Plan In office urinalysis results reviewed with the patient today; as noted above. Recent renal imaging results reviewed with the patient today; as noted above. Discussed at length further treatment options for urinary urgency, urinary frequency, and nocturia. Discussed correlation of nocturia with sleep apnea. Discussed bladder triggers/irritants. Start Myrbetriq 25 mg daily as discussed and prescribed. Discussed potential near future in office cystoscopy and or urodynamics for further assessment evaluation. Follow-up in 2-3 months with [facility]; or sooner with any issues, concerns, and or questions. Orders: Orders AMB Urinalysis Automated Today Z13.9 - Encounter for screening, unspecified Medications: New mirabegron ER (Myrbetriq) 25 mg PO DAILY 30 days 30 tabs 2RF N30.10 - Interstitial cystitis (chronic) without hematuria, N32.81 - Overactive bladder, R35.1 - Nocturia, R39.15 - Urgency of urination Patient Instructions: The patient had an opportunity to ask questions regarding the treatment plan. All questions were answered. Physical exam, labs, and imaging were discussed and reviewed in detail. As well as risks, benefits, and discussion of treatment choices. No major barriers to understanding were identified. The patient expressed understanding and agreement with the above treatment plan. The patient was made aware they should contact our office by phone for worsening of their current condition, the appearance of new symptoms, or with any questions or concerns. Compliance is encouraged with any medications and follow up testing that is ordered. It is a privilege to be allowed the opportunity to participate in? your urological care.? Again, if you have any questions or concerns If you have any questions or concerns please do not hesitate to contact me. The office is [phone]. This note is constructed using voice recognition software. While every effort has been made to ensure accuracy lead housekeeper errors may have been included. Yours sincerely, NANCY Palomares Coding Level of Care Code Est Pt Level 4 (63615) Diagnoses Urinary frequency R35.0 Bilateral nephrolithiasis N20.0
== END 2023-04-30 12:13 | disposition home or self-care (01) ==
PROVIDERS: PCP Internal Medicine; Visit Provider Nurse Practitioner Family
DX: R35.0 Frequency of micturition (principal); N20.0 Calculus of kidney
CPT/HCPCS: 99214

== ENCOUNTER → 2023-04-30 11:02 | Outpatient (BNVA) | payer OTHER, SELFPAY | PROVIDERS: PCP Internal Medicine; Visit Provider Nurse Practitioner Family | DX: R35.0 Frequency of micturition (principal); N20.0 Calculus of kidney | CPT/HCPCS: 81003; 99212 ==

== ENCOUNTER 2023-05-01 12:45 | Outpatient (AMB) | payer OTHER, SELFPAY ==
[2023-05-01 12:47] VITALS: BP 130/70; BMI 29.2
--- NOTE | 2023-05-01 12:47 | MHC.PC.OV ---
Vital Signs 05/01/23 12:47 Height 5 ft 4 in Weight 170 lb BMI 29.2 BP 130/70 Blood Pressure Location Lt brachial Position Sitting Intake Visit Reasons: PE Intake Note: Patient here for a physical exam Construction Management Assistant Required: No Accompanied by: Self / Same As Patient Allergies Iodinated Contrast Media [IV DYE, IODINE CONTAINING] Allergy (Severe, Verified 05/01/23 13:10) ITCH/RASH clams Allergy (Intermediate, Verified 05/01/23 13:10) ITCHING docusate [From COLACE] Allergy (Intermediate, Verified 05/01/23 13:10) ITCHING lansoprazole [Prevacid] Allergy (Intermediate, Verified 05/01/23 13:10) hives oxybutynin Allergy (Intermediate, Verified 05/01/23 13:10) bladder pain pistachio nut Allergy (Intermediate, Verified 05/01/23 13:10) ITCHING walnut Allergy (Intermediate, Verified 05/01/23 13:10) ITCH/RASH SEASONAL ALLERGIES Allergy (Intermediate, Uncoded 05/01/23 13:10) ITCHY EYES Medication List - Last Reconciled 05/01/23 by Nora Julian MD acetaminophen 500 mg PO .every 8 hours PRN 5 days albuterol sulfate 2.5 mg (3 mL) inhalation Q4-6H PRN 30 days albuterol sulfate 90 mcg/actuation 2 puffs inhalation Q4-6H PRN bisacodyl (Dulcolax (bisacodyl)) 10 mg (2 x 5 mg) PO BEDTIME blood pressure monitor As directed calcium carbonate-vitamin D3 600 mg-10 mcg (400 unit) 1 tab PO BID diclofenac sodium 1% 2 grams topical BID PRN fluticasone propion-salmeterol 250-50 mcg/dose (Wixela Inhub) INHALE 1 PUFF BY MOUTH TWICE A DAY fluticasone propionate 50 mcg/actuation 2 sprays intranasal DAILY glucosamine HCl PO DAILY lidocaine 4% (Aspercreme (lidocaine)) 1 patch topical DAILY PRN 30 days loratadine 10 mg PO DAILY meclizine 25 mg PO TID PRN 30 days methylcellulose (laxative) (Citrucel) 500 mg PO DAILY metoprolol succinate ER 50 mg PO DAILY mirabegron ER (Myrbetriq) 25 mg PO DAILY 30 days montelukast 10 mg PO DAILY olopatadine 0.2% (Pataday Once Daily Relief) 1 drp ophthalmic (eye) BEDTIME 7 days pantoprazole 40 mg PO DAILY tobramycin 0.3% 1 drp ophthalmic (eye) Q4H 7 days valacyclovir 1,000 mg PO Q8H 5 days Tobacco use date assessed: 05/01/23 Dental Screening Dental Screen Date: 05/01/23 Did you have a dental visit in the last 12 months?: No Did you have a dental problem in the last 6 months where you did not have access to dental care?: No Was dental information given to patient?: Patient has dentist HPI HPI Comments History of Present Illness Details This is a 62-year-old female with COPD that comes for her physical exam. COPD has been follow by pulmonology and has been stable with long-acting inhaler. Colonoscopy done 2022. Mammogram was over 2 years ago and will be order. No need for Pap smear due to hysterectomy. No chest pain or shortness of breath. [facility] Medical History (Updated 05/01/23 @ 13:24 by Nora Julian MD) Bronchitis PONV (postoperative nausea and vomiting) Helicobacter pylori (H. pylori) Physical exam UTI (urinary tract infection) Scoliosis Restrictive lung disease Dysphagia Mild major depression, single episode Right shoulder pain COPD (chronic obstructive pulmonary disease) Allergic rhinosinusitis Acute bronchitis Asthma Anemia Primary osteoarthritis involving multiple joints Essential hypertension Right ankle pain Allergic rhinitis Surgical History History of esophagogastroduodenoscopy (EGD) Hx of colonoscopy Hx of cardiac cath History of total left knee replacement History of arthroscopy of right knee History of hemorrhoidectomy History of total right knee replacement History of total abdominal hysterectomy History of tonsillectomy Family History Father Alcoholism Arthritis Mother Diabetes Acute CVA (cerebrovascular accident) Sister Breast cancer Family/Other FH: mental illness Brother Diabetes Myocardial infarct Daughter In good health Daughter In good health Daughter In good health Social History Housing: Apartment Alcohol intake: never Patient Tobacco Use Status: Never used Tobacco e-Cigarette/Vaping Use: Never Used Second Hand Smoke Exposure: No Advance Directives Date on File: 11/28/19 service: No 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al status: disabled 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 1. Little interest or pleasure in doing things: several days 2. Feeling down, depressed, or hopeless: several days 3. Trouble falling or staying asleep, or sleeping too much: several days 4. Feeling tired or having little energy: not at all 5. Poor appetite or overeating: not at all 6. Feeling bad about yourself - or that you are a failure or have let yourself or your family down: not at all 7. Trouble concentrating on things, such as reading the newspaper or watching television: not at all 8. Moving or speaking so slowly that other people could have noticed. Or the opposite - being so fidgety or restless that you have been moving around a lot more than usual: not at all 9. Thoughts that you would be better off or of hurting yourself in some way: not at all Total score: 3 Depression Screening Interpretation: Negative Depression Screening Done: Yes 85267 - PHQ-9 Billing: Yes Source: Developed by Drs. Lake Douglass, Kristina Millard, mUang Rome and colleagues, with an educational telma from [employer]. Thrive Questionnaire Date Thrive assessed: 05/01/23 I am a: Patient What is your living situation today?: I have a steady place to live Within the past 12 months, did the food you bought not last and you didn't have the money to get more?: Never true Within the past 12 months, did you worry whether your food would run out before you got money to buy more?: Never true Do you have trouble paying for medicines?: No Do you have trouble getting transportation to medical appointments?: No Do you have trouble paying your heating and electricity bill?: No Do you have trouble taking care of your child, family member or friend?: No Do you have trouble with day-to-day activities such as bathing, preparing meals, shopping, managing finances, etc.?: No Are you currently unemployed and looking for a job?: No Are you interested in more education?: No Please select the resources that you would like help with: None Currently or been in a relationship where the following occur: no concerns reported THRIVE Score: 0 AUDIT C Alcohol Use Questionnaire (AUDIT-C) 1. How often do you have a drink containing alcohol?: Never Total Score: 0 Score Reviewed/Action Taken: No HELEN-7 AMB Questionnaire HELEN-7 Date HELEN - 7 assessed: 05/01/23 Feeling nervous, anxious, or on edge: 0 = Not at all Not being able to stop or control worryin = Not at all Worrying too much about different things: 0 = Not at all Trouble relaxin = Not at all Being so restless that it is hard to sit still: 0 = Not at all Becoming easily annoyed or irritable: 0 = Not at all Feeling afraid as if something awful might happen: 0 = Not at all Total HELEN-7 score (0-4 normal; 5-9 mild; 10-14 moderate; 15-21 severe): 0 Source: Developed by Drs. Lake Douglass, Kristina Millard, Umang Rome and colleagues, with an educational telma from [employer]. HELEN-7 Assessment Billing HELEN-7 Assessment Tool: HELEN-7 Assessment 06997 Review of Systems Const All systems reviewed & are unremarkable except as noted in HPI and below Eyes Reports no additional complaints, Denies change in vision and Denies other visual disturbances Card Denies chest pain at rest, Denies chest pain with activity, Denies edema, Denies irregular heart rhythm, Denies claudication, Denies dyspnea, Denies dyspnea on exertion, Denies orthopnea, Denies paroxysmal nocturnal dyspnea and Denies slow heart rate Resp Denies cough, Denies dyspnea and Denies dyspnea on exertion GI Denies abdominal pain, Denies change in bowel habits, Denies excessive flatus, Denies nausea and Denies vomiting Denies urinary incontinence, Denies urinary hesitancy and Denies urinary urgency Musc Denies abnormal gait, Denies atrophy, Denies deformity and Denies limited range of motion Skin/Breast Denies bleeding lesions, Denies changing lesions and Denies rash Neuro Denies abnormal gait and Denies lack of coordination Physical exam (Primary Care) Vital Signs: Last Vital Signs BP 130/70 05/01/23 12:47 BMI result Body Mass Index 29.2 Tobacco/Smoking Status: Tobacco use Status Tobacco use date assessed 05/01/23 05/01/23 12:55 Patient Tobacco Use Status Never used Tobacco 05/01/23 12:55 e-Cigarette/Vaping Use Never Used 05/01/23 12:55 PHQ-9: PHQ-9 Score PHQ-9: Total score 3 05/01/23 12:55 Depression Screening Interpretation: Negative Thrive Assessment: Date of Thrive Assessment Date Thrive assessed 05/01/23 05/01/23 12:55 Currently or been in a relationship where the following occur: no concerns reported Const Orientation/consciousness: patient oriented x3 HENMT Head: Yes normal to inspection, Yes normocephalic and Yes atraumatic Ears: external ears normal Eyes General: appearance normal, both eyes and all related structures Eyelids: Yes eyelids normal Conjunctivae: conjunctivae normal Neck Neck: Yes normal visual inspection and Yes supple Resp Effort & Inspection: normal respiratory effort Auscultation: clear to auscultation bilaterally Cardio Jugular venous distension: no JVD Rate: regular rate Rhythm: regular rhythm Heart sounds: S1 normal heart sound present and S2 normal heart sound present GI Inspection: Yes normal to inspection Palpation (GI): Soft to palpation and nontender Auscultation: normal bowel sounds Skin General skin exam: no rashes or lesions noted Neuro General: patient oriented x3 and no focal motor deficits Extrem General: Yes full ROM Psych Appearance: grossly normal Assessment and Plan Assessment & Plan (1) Physical exam: Code(s): Z00.00 - Encounter for general adult medical examination without abnormal findings Plan: Repeat in a year. (2) COPD (chronic obstructive pulmonary disease): Comment: PER PFT. DID NOT HAVE EVIDENCE OF COPD ,, But clinically patient does have symptoms of bronchial asthma/COPD, mild. She is doing well with WIXELA 250-50 1 INHALATION B.I.D. AND USES PROAIR Q 4-6 HOURS ONLY P.R.N. Code(s): J44.9 - Chronic obstructive pulmonary disease, unspecified Plan: Continue long-acting inhaler. Follow-up with pulmonology. Use rescue inhaler as needed. Orders: Orders IRON PROFILE Today D64.9 - Anemia, unspecified Vitamin B12 and Folate Today E53.8 - Deficiency of other specified B group vitamins Lipid Panel Today Z00.00 - Encounter for general adult medical examination without abnormal findings Complete Blood Count Auto Diff Today D64.9 - Anemia, unspecified Vitamin D 25-OH Total Today E55.9 - Vitamin D deficiency, unspecified Comprehensive [place]. Panel Fast Today Z00.00 - Encounter for general adult medical examination without abnormal findings MM screening mammo BI Today Z12.31 - Encounter for screening mammogram for malignant neoplasm of breast Coding Level of Care Code Est Pt Prev Care 40-64y(23657) Diagnoses Physical exam Z00.00 COPD (chronic obstructive pulmonary disease) J44.9 Additional Codes HELEN-7 Assessment Billing - HELEN-7 Assessment Tool: HELEN-7 Assessment 83830 ([id number]) Time Spent (min) 31
== END 2023-05-01 13:27 | disposition home or self-care (01) ==
PROVIDERS: Visit Provider Internal Medicine
DX: Z00.00 Encounter for general adult medical examination without abnormal findings (principal); J44.9 Chronic obstructive pulmonary disease, unspecified
CPT/HCPCS: 99396

== ENCOUNTER 2023-05-04 15:13 | Outpatient (AMB) | payer OTHER, SELFPAY ==
--- NOTE | 2023-05-04 15:32 | MHC.OFFVIS ---
Intake Intake Visit Reasons: 3m follow up Dizziness/giddiness-Conf Intake Note: Patient presents for 3 month follow up dizziness. I'm getting them but not as much or strong as before Allergies Iodinated Contrast Media [IV DYE, IODINE CONTAINING] Allergy (Severe, Verified 05/11/23 11:08) ITCH/RASH clams Allergy (Intermediate, Verified 05/11/23 11:08) ITCHING docusate [From COLACE] Allergy (Intermediate, Verified 05/11/23 11:08) ITCHING lansoprazole [Prevacid] Allergy (Intermediate, Verified 05/11/23 11:08) hives oxybutynin Allergy (Intermediate, Verified 05/11/23 11:08) bladder pain pistachio nut Allergy (Intermediate, Verified 05/11/23 11:08) ITCHING walnut Allergy (Intermediate, Verified 05/11/23 11:08) ITCH/RASH SEASONAL ALLERGIES Allergy (Intermediate, Uncoded 05/09/23 11:08) ITCHY EYES Medication List - Last Reconciled 05/04/23 by FIFI Ga acetaminophen 500 mg PO .every 8 hours PRN 5 days albuterol sulfate 2.5 mg (3 mL) inhalation Q4-6H PRN 30 days albuterol sulfate 90 mcg/actuation 2 puffs inhalation Q4-6H PRN bisacodyl (Dulcolax (bisacodyl)) 10 mg (2 x 5 mg) PO BEDTIME blood pressure monitor As directed calcium carbonate-vitamin D3 600 mg-10 mcg (400 unit) 1 tab PO BID diclofenac sodium 1% 2 grams topical BID PRN fluticasone propion-salmeterol 250-50 mcg/dose (Wixela Inhub) INHALE 1 PUFF BY MOUTH TWICE A DAY fluticasone propionate 50 mcg/actuation 2 sprays intranasal DAILY glucosamine HCl PO DAILY lidocaine 4% (Aspercreme (lidocaine)) 1 patch topical DAILY PRN 30 days loratadine 10 mg PO DAILY magnesium oxide 400 mg PO BEDTIME 30 days meclizine 25 mg PO TID PRN 30 days methylcellulose (laxative) (Citrucel) 500 mg PO DAILY metoprolol succinate ER 50 mg PO DAILY mirabegron ER (Myrbetriq) 25 mg PO DAILY 30 days montelukast 10 mg PO DAILY olopatadine 0.2% (Pataday Once Daily Relief) 1 drp ophthalmic (eye) BEDTIME 7 days pantoprazole 40 mg PO DAILY riboflavin (vitamin B2) 400 mg PO DAILY 30 days tobramycin 0.3% 1 drp ophthalmic (eye) Q4H 7 days valacyclovir 1,000 mg PO Q8H 5 days HPI HPI Comments History of Present Illness Details 62-yr-old female presents for f/u visit. She had home study (lasted 668min) which showed mild MAXIMILIANO w/ AHI 12/hr w/ O2 kieran 75%- SpO2 < 90% x's 105 min of study, and SpO2 < 88% x's 23.8min of study. She was advised to start APAP. Pt started APAP, however, she did not tolerate this and has returned the machine. She does still have snoring and nocturia- saw urology recently who suggested she try Myrbetric- but she does not want to take as it carries a risk for dizziness. She does have asthma, and is f/b Dr Navarro. She is still having daily headache and dizziness. The dizziness is triggered by moving her eyes, turning her head, or moving quickly. She did vestibular PT eval at [facility] [place]- was told no vestibular s/s. She has been having falls- she relates this to her back pain- has had for a long time - has scoliosis. Walking with a cane helps when the pain is stronger and walking outside. Baseline headache characteristics: Unilateral, possibly right-sided pulling sensation (like hair is being pulled) a/w photophobia, phonophobia, osmophobia, some nausea, can be dizzy (different than her vertigo). MR/MR head/brain wo/w con IMPRESSION: 1. There are no acute bleeds or territorial infarcts. No masses are demonstrated. There is no abnormal enhancement. 2. There are chronic microvascular ischemic changes and there is mild diffuse volume loss. COUNTS INCLUDE 234 BEDS AT THE [facility] Medical History MAXIMILIANO (obstructive sleep apnea) Bronchitis PONV (postoperative nausea and vomiting) Helicobacter pylori (H. pylori) Physical exam UTI (urinary tract infection) Scoliosis Restrictive lung disease Dysphagia Mild major depression, single episode Right shoulder pain COPD (chronic obstructive pulmonary disease) Allergic rhinosinusitis Acute bronchitis Asthma Anemia Primary osteoarthritis involving multiple joints Essential hypertension Right ankle pain Allergic rhinitis Surgical History History of esophagogastroduodenoscopy (EGD) Hx of colonoscopy Hx of cardiac cath History of total left knee replacement History of arthroscopy of right knee History of hemorrhoidectomy History of total right knee replacement History of total abdominal hysterectomy History of tonsillectomy Family History Father Alcoholism Arthritis Mother Diabetes Acute CVA (cerebrovascular accident) Sister Breast cancer Family/Other FH: mental illness Brother Diabetes Myocardial infarct Daughter In good health Daughter In good health Daughter In good health Social History Housing: Apartment Alcohol intake: never Patient Tobacco Use Status: Never used Tobacco e-Cigarette/Vaping Use: Never Used Second Hand Smoke Exposure: No Advance Directives Date on File: 11/28/19 service: No 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al status: disabled 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 Cognitive needs: No Hearing needs: No Vision needs: Yes Physical Exam Const General: cooperative and no acute distress Orientation/consciousness: patient oriented x3 Resp Effort & Inspection: normal respiratory effort and able to speak in complete sentences Neuro General: patient oriented x3 Cranial nerves: Yes CN's II-XII intact bilaterally Cognition (Neuro): normal cognition Psych Appearance: grossly normal Mental Status: mental status grossly normal Speech and movement: Normal speech and movement present Affect: normal affect Attitude: cooperative Assessment & Plan Assessment & Plan (1) Migraine without aura: Code(s): G43.009 - Migraine without aura, not intractable, without status migrainosus (2) Vertigo: Comment: ? BPPV, ? vestibular migraine component Code(s): R42 - Dizziness and giddiness (3) Snoring: Code(s): R06.83 - Snoring (4) Sleep difficulties: Code(s): G47.9 - Sleep disorder, unspecified Plan Reviewed brain MRI w/wo- chronic microvascular ischemic changes and mild diffuse volume loss. Pt advised to try Vestibular tx- she has never tried to do vestibular exercises. MAXIMILIANO: Reviewed HST results mild MAXIMILIANO 12/hr and O2 kieran 75%. Pt was started on APAP, unfortunately she did not tolerate it. Avoid sleeping supine. Pt advised to f/u w/ pulmonology. ? For migraine and dizziness: Continue Riboflavin. Start Magnesium 400mg qhs. May use Meclizine sparingly. Vestibular eval- did not reveal BPPV. Future considerations- gepant, SSRIs, TCAs, CCBs. ? f/u in 4 months or sooner prn. Medications: New riboflavin (vitamin B2) 400 mg PO DAILY 30 tabs 6RF 30 days magnesium oxide may hold for loose stools 400 mg PO BEDTIME 30 tabs 6RF 30 days Coding Level of Care Code Est Pt Level 4 (28016) Diagnoses Migraine without aura G43.009 Vertigo R42 Snoring R06.83 Sleep difficulties G47.9
== END 2023-05-04 16:28 | disposition home or self-care (01) ==
PROVIDERS: PCP Internal Medicine; Visit Provider Nurse Practitioner Family
DX: G43.009 Migraine without aura, not intractable, without status migrainosus (principal); R42 Dizziness and giddiness; R06.83 Snoring; G47.9 Sleep disorder, unspecified
CPT/HCPCS: 99214

== ENCOUNTER → 2023-05-04 15:13 | Outpatient (BNVA) | payer OTHER, SELFPAY | PROVIDERS: PCP Internal Medicine; Visit Provider Nurse Practitioner Family | DX: R42 Dizziness and giddiness (principal); G43.909 Migraine, unspecified, not intractable, without status migrainosus; R06.83 Snoring; G47.9 Sleep disorder, unspecified | CPT/HCPCS: 99212 ==

== ENCOUNTER 2023-05-09 10:56 | Outpatient (AMB) | payer OTHER, SELFPAY ==
--- NOTE | 2023-05-09 11:02 | MHC.OFFVIS ---
Intake Vital Signs 05/09/23 11:03 Height 5 ft 4 in Weight 169 lb 12.095 oz BMI 29.1 BP 120/70 Blood Pressure Location Lt brachial Position Sitting Pulse 83 Pulse Source Pulse Oximeter Pulse Oximetry (%) 95 Oxygen Delivery Method Room Air Intake Visit Reasons: Cough Intake Note: pt is here for follow up and states she is runny nose, and sinus pain, she starts with asthma this way. Sleep medicine would like to have ABG done, it was 105 last time and wanted to repeat it. pt returned cpap due to short of breath, Tanika to her to return it. Dinkey Locomotive Engineer Required: No Allergies Iodinated Contrast Media [IV DYE, IODINE CONTAINING] Allergy (Severe, Verified 05/09/23 11:08) ITCH/RASH clams Allergy (Intermediate, Verified 05/09/23 11:08) ITCHING docusate [From COLACE] Allergy (Intermediate, Verified 05/09/23 11:08) ITCHING lansoprazole [Prevacid] Allergy (Intermediate, Verified 05/09/23 11:08) hives oxybutynin Allergy (Intermediate, Verified 05/09/23 11:08) bladder pain pistachio nut Allergy (Intermediate, Verified 05/09/23 11:08) ITCHING walnut Allergy (Intermediate, Verified 05/09/23 11:08) ITCH/RASH SEASONAL ALLERGIES Allergy (Intermediate, Uncoded 05/09/23 11:08) ITCHY EYES Do you need a note to return to daycare/school/sports/work: No HPI Cough HPI Details This 62 years old female is being treated for chronic allergic rhinitis and bronchial asthma. She has been fairly stable on Wixela 250-51 inhalation b.i.d.. And for her nasal allergies she has used montelukast in the past but had some. Side effect and stopped using Now she uses Flonase and also loratadine as needed. According to her history whenever she has increased nasal congestion with pressure over the sinuses it is followed by an exacerbation of her bronchial asthma. Now she states that her nose is congested with postnasal drip for the last few weeks. She has feeling of chills, with some pressure over the sinuses, and she thinks she is having a flare up of or sinus problem. She does have mild intermittent. Cough but No expectoration she denies any wheezing attacks . Patient was diagnosed to have sleep apnea which was mild with total sleep time AHI 12, She try to use the CPAP but could not tolerated. She is now sleeping okay without the CPAP and she tries to sleep on her side. [facility] Medical History (Updated 05/09/23 @ 11:30 by Chelly Navarro MD) MAXIMILIANO (obstructive sleep apnea) Bronchitis PONV (postoperative nausea and vomiting) Helicobacter pylori (H. pylori) Physical exam UTI (urinary tract infection) Scoliosis Restrictive lung disease Dysphagia Mild major depression, single episode Right shoulder pain COPD (chronic obstructive pulmonary disease) Allergic rhinosinusitis Acute bronchitis Asthma Anemia Primary osteoarthritis involving multiple joints Essential hypertension Right ankle pain Allergic rhinitis Surgical History History of esophagogastroduodenoscopy (EGD) Hx of colonoscopy Hx of cardiac cath History of total left knee replacement History of arthroscopy of right knee History of hemorrhoidectomy History of total right knee replacement History of total abdominal hysterectomy History of tonsillectomy Family History Father Alcoholism Arthritis Mother Diabetes Acute CVA (cerebrovascular accident) Sister Breast cancer Family/Other FH: mental illness Brother Diabetes Myocardial infarct Daughter In good health Daughter In good health Daughter In good health Social History Housing: Apartment Alcohol intake: never Patient Tobacco Use Status: Never used Tobacco e-Cigarette/Vaping Use: Never Used Second Hand Smoke Exposure: No Advance Directives Date on File: 11/28/19 service: No 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al status: disabled 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 Cognitive needs: No Hearing needs: No Vision needs: Yes Review of Systems Const All systems reviewed & are unremarkable except as noted in HPI and below Eyes Reports no additional complaints ENT Reports nasal congestion and Reports nasal discharge Card Denies chest pain, Denies irregular heart rhythm and Denies leg edema Resp Reports as per HPI GI Reports no additional complaints Reports no additional complaints Musc Reports back pain (Mild) Skin/Breast Reports system reviewed and no additional complaints, except as documented Neuro Reports no additional complaints Psych Reports no additional complaints Physical Exam Vital Signs: Last Vital Signs Pulse 83 05/09/23 11:03 BP 120/70 05/09/23 11:03 Pulse Ox 95 05/09/23 11:03 Oxygen Delivery Method Room Air 05/09/23 11:03 BMI result Body Mass Index 29.1 Const General: comfortable, no acute distress, alert and awake Orientation/consciousness: patient oriented x3 HEENT Head: Yes normal to inspection General nose exam: No nasal polyps present, No nasal discharge present and Other nasal findings present (Mild nasal congestion, chronic) Face and sinus: Yes sinuses nontender Mouth: oropharynx normal Throat: Yes posterior oropharynx normal Eyes General: appearance normal, both eyes and all related structures Neck Neck: Yes normal visual inspection, Yes no lymphadenopathy, Yes trachea midline and Yes no JVD Thyroid: Thyroid normal Chest Chest palpation & inspection: normal inspection of the chest, normal palpation of entire chest wall and no tenderness Resp Other: Percussion note resonant, breath sounds are slightly distant, Breath sounds are slightly distant. No audible wheezes or crepitations. Cardio Palpation: normal PMI Rate: regular rate Rhythm: regular rhythm Heart sounds: no gallops and no murmurs Peripheral pulses: Peripheral pulses 2+ throughout GI Palpation (GI): Soft to palpation, nontender, No hepatosplenomegaly present and no masses Auscultation: normal bowel sounds Back/Spine/Pelvis Thoracic/Lumbar Spine: thoracic and lumbar spine normal to inspection and Thoracic/lumbar scoliosis (Patient has moderately severe size dextroscoliosis of the thoracic spine.) Skin General skin exam: no rashes or lesions noted Neuro General: patient oriented x3 and no focal motor deficits Cranial nerves: Yes CN's II-XII intact bilaterally Extrem General: Yes normal to inspection, Yes no clubbing, cyanosis or edema and Yes no calf tenderness Psych Appearance: grossly normal and well kempt Speech and movement: Normal speech and movement present Assessment & Plan Assessment & Plan (1) Allergic rhinosinusitis: Comment: SHE HAS ONGOING CHRONIC RHINITIS AND SINUSITIS. I THINK THIS IS THE BASIC CAUSE OF HER ONGOING CHRONIC COUGH, WHICH IS MOSTLY UNDER CONTROL. She seems to have an acute exacerbation for the last 2 weeks. Code(s): J30.9 - Allergic rhinitis, unspecified Plan: TX: FLONASE 2 SPRAY EACH NOSTRIL DAILY LORATADINE 10 MG DAILY. Doxycycline 100 b.i.d. for 10 days. (2) COPD (chronic obstructive pulmonary disease): Comment: PER PFT. DID NOT HAVE EVIDENCE OF COPD ,, But clinically patient does have symptoms of bronchial Asthma/COPD She is doing well with WIXELA 250-50 1 INHALATION B.I.D. Code(s): J44.9 - Chronic obstructive pulmonary disease, unspecified Plan: Continue using Wixela 250-51 inhalation b.i.d.. And ProAir 2 puffs Q 4-6 hours p.r.n.. (3) Restrictive lung disease: Comment: THIS IS MAINLY BECAUSE OF DEXTROSCOLIOSIS OF THE THORACO -LUMBAR SPINE Code(s): J98.4 - Other disorders of lung Plan: Patient explained that she should try to do deep breathing exercises 2 or 3 times a day (4) MAXIMILIANO (obstructive sleep apnea): Comment: Patient was recently diagnosed to have obstructive sleep apnea, mild,. She was being followed by [facility]/sleep medicine service. She could not tolerate the CPAP so she has return the CPAP device. Now she is sleeping fairly well as long as she can sleep in lateral position. Code(s): G47.33 - Obstructive sleep apnea (adult) (pediatric) Plan: as above Coding Level of Care Code Est Pt Level 3 (84873) Diagnoses Allergic rhinosinusitis J30.9 COPD (chronic obstructive pulmonary disease) J44.9 Restrictive lung disease J98.4 MAXIMILIANO (obstructive sleep apnea) G47.33
[2023-05-09 11:03] VITALS: BP 120/70; PULSE 83; O2SAT 95; BMI 29.1
== END 2023-05-09 11:22 | disposition home or self-care (01) ==
PROVIDERS: PCP Internal Medicine; Visit Provider Internal Medicine
DX: J30.9 Allergic rhinitis, unspecified (principal); J44.9 Chronic obstructive pulmonary disease, unspecified; J98.4 Other disorders of lung; G47.33 Obstructive sleep apnea (adult) (pediatric)
CPT/HCPCS: 99213

== ENCOUNTER → 2023-05-09 10:56 | Outpatient (BNVA) | payer OTHER, SELFPAY | PROVIDERS: PCP Internal Medicine; Visit Provider Internal Medicine | DX: J98.4 Other disorders of lung (principal); J44.9 Chronic obstructive pulmonary disease, unspecified; G47.33 Obstructive sleep apnea (adult) (pediatric); J30.9 Allergic rhinitis, unspecified | CPT/HCPCS: 99212 ==

== ENCOUNTER 2023-05-11 11:02 | Outpatient (AMB) | payer OTHER, SELFPAY ==
--- NOTE | 2023-05-11 11:09 | MHC.OFFVIS ---
Intake Vital Signs 05/11/23 11:11 Height 5 ft 4 in Weight 169 lb BMI 29.0 BP 133/72 Blood Pressure Location Lt brachial Position Sitting Pulse 79 Pulse Oximetry (%) 95 Oxygen Delivery Method Room Air Intake Visit Reasons: 4 month follow up Intake Note: Patient follow up abdominal pain. Patient cc: chronic constipation medication is not helping her, acid reflex with burning sensation and some swallowing problems with solid and liquid, too. Scientific Director Required: No Accompanied by: Self / Same As Patient Allergies Iodinated Contrast Media [IV DYE, IODINE CONTAINING] Allergy (Severe, Verified 05/11/23 11:08) ITCH/RASH clams Allergy (Intermediate, Verified 05/11/23 11:08) ITCHING docusate [From COLACE] Allergy (Intermediate, Verified 05/11/23 11:08) ITCHING lansoprazole [Prevacid] Allergy (Intermediate, Verified 05/11/23 11:08) hives oxybutynin Allergy (Intermediate, Verified 05/11/23 11:08) bladder pain pistachio nut Allergy (Intermediate, Verified 05/11/23 11:08) ITCHING walnut Allergy (Intermediate, Verified 05/11/23 11:08) ITCH/RASH SEASONAL ALLERGIES Allergy (Intermediate, Uncoded 05/09/23 11:08) ITCHY EYES HPI 4 month follow up HPI Details LAST VISIT Abdominal pain Dysphagia GERD (gastroesophageal reflux disease) IBS (irritable bowel syndrome) Constipation by delayed colonic transit Continue pantoprazole daily. Discussed with patient avoiding dietary triggers in late night snacking. Patient was encouraged to stay upright for minimal 3 hours after meals. Left lower quadrant pain occasionally when constipated. Patient will take MiraLax daily and 1-2 Dulcolax tablets in the evening. Food was encouraged to increase fluid intake and activity to promote better bowel motility. I will see patient in 4 months, sooner on as needed basis. Patient is agreeable to this plan and verbalizes understanding of instructions. She was given the opportunity to ask questions and all questions answered. ? Thank you for allowing me to participate in her care Plan Medications Refilled pantoprazole take one tablet half an hour before breakfast 40 mg PO DAILY 90 tabs 2RF K21.9 TODAY'S VISIT Patient is here today for follow-up. Patient reports that she has been feeling better, however in the last week or so she has has been having respiratory issues. Patient reports that her asthma flare up and she had to see her qa lead yesterday. Patient was put on doxycycline. She continues to have a sore throat sinus pressure and having trouble swallowing. Patient reports that she is taking her pantoprazole every morning, however sometimes depending on what she eats she has to take it again after heavy meal in the evening. Patient reports that she wakes up in the morning sometimes with epigastric discomfort and burning. Patient reports that she is moving her bowels better now. Unable to take Dulcolax tablets as they were causing too much pain. Patient but fiber supplements [id number] and is using bathroom daily. Patient denies melena, hematochezia, unintentional weight loss or ribbon like stools. [facility] Medical History MAXIMILIANO (obstructive sleep apnea) Bronchitis PONV (postoperative nausea and vomiting) Helicobacter pylori (H. pylori) Physical exam UTI (urinary tract infection) Scoliosis Restrictive lung disease Dysphagia Mild major depression, single episode Right shoulder pain COPD (chronic obstructive pulmonary disease) Allergic rhinosinusitis Acute bronchitis Asthma Anemia Primary osteoarthritis involving multiple joints Essential hypertension Right ankle pain Allergic rhinitis Surgical History History of esophagogastroduodenoscopy (EGD) Hx of colonoscopy Hx of cardiac cath History of total left knee replacement History of arthroscopy of right knee History of hemorrhoidectomy History of total right knee replacement History of total abdominal hysterectomy History of tonsillectomy Family History Father Alcoholism Arthritis Mother Diabetes Acute CVA (cerebrovascular accident) Sister Breast cancer Family/Other FH: mental illness Brother Diabetes Myocardial infarct Daughter In good health Daughter In good health Daughter In good health Social History Housing: Apartment Alcohol intake: never Patient Tobacco Use Status: Never used Tobacco e-Cigarette/Vaping Use: Never Used Second Hand Smoke Exposure: No Advance Directives Date on File: 11/28/19 service: No 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al status: disabled 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 Cognitive needs: No Hearing needs: No Vision needs: Yes Review of Systems Const Denies weight gain and Denies weight loss ENT Reports no additional complaints, Reports dysphagia and Denies odynophagia Card Reports no additional complaints Resp Reports no additional complaints GI Denies abdominal pain, Denies belching, Denies melena, Reports bloating, Denies change in bowel habits, Reports dysphagia, Denies excessive flatus, Reports dyspepsia, Reports heartburn, Denies diarrhea, Denies loose stools, Denies nausea, Denies odynophagia and Denies vomiting Reports no additional complaints Musc Reports no additional complaints Neuro Reports no additional complaints Psych Reports no additional complaints Endo Reports no additional complaints Physical Exam Vital Signs: Last Vital Signs Pulse 79 05/11/23 11:11 BP 133/72 05/11/23 11:11 Pulse Ox 95 05/11/23 11:11 Oxygen Delivery Method Room Air 05/11/23 11:11 BMI result Body Mass Index 29.0 Const General: healthy appearing, no acute distress and well developed Nutritional Appearance: well nourished Orientation/consciousness: patient oriented x3 Resp Effort & Inspection: normal respiratory effort, able to speak in complete sentences, no tracheal deviation and symmetric chest movement Auscultation: clear to auscultation bilaterally Cardio Rate: regular rate GI Inspection: Yes normal to inspection and No distended Palpation (GI): Soft to palpation, not firm, nontender and No hepatosplenomegaly present Auscultation: normal bowel sounds General: Yes no CVA tenderness Back/Spine/Pelvis Back: no CVA tenderness Skin General skin exam: elasticity normal, turgor normal and dry skin Neuro General: patient oriented x3 Psych Appearance: grossly normal Mental Status: mental status grossly normal Assessment & Plan Assessment & Plan (1) Dysphagia: Code(s): R13.10 - Dysphagia, unspecified Qualifiers: Dysphagia type: unspecified Qualified Code(s): R13.10 - Dysphagia, unspecified (2) Abdominal pain: Code(s): R10.9 - Unspecified abdominal pain Qualifiers: Abdominal location: epigastric Qualified Code(s): R10.13 - Epigastric pain (3) Constipation by delayed colonic transit: Code(s): K59.01 - Slow transit constipation (4) GERD (gastroesophageal reflux disease): Code(s): K21.9 - Gastro-esophageal reflux disease without esophagitis Qualifiers: Esophagitis presence: esophagitis presence not specified Qualified Code(s): K21.9 - Gastro-esophageal reflux disease without esophagitis (5) IBS (irritable bowel syndrome): Code(s): K58.9 - Irritable bowel syndrome without diarrhea Qualifiers: Irritable bowel syndrome type: without diarrhea Qualified Code(s): K58.9 - Irritable bowel syndrome without diarrhea Plan Continue pantoprazole every morning. Patient was encouraged to avoid dietary triggers and late night snacking. Staying upright for minimal 3 hours after meals discussed with patient. Patient will start taking famotidine at bedtime. We will refer her to ENT patient can continue taking fiber supplements. I will see her in 6 months, sooner on as needed basis. Patient is agreeable to this plan and verbalizes understanding of instructions. She was given the opportunity to ask questions and all questions answered. Thank you for allowing me to participate in her care Orders: Referrals Ear/Nose/Throat Referral R13.10 - Dysphagia, unspecified Medications: New famotidine 40 mg PO BEDTIME 30 tabs 3RF K21.9 - Gastro-esophageal reflux disease without esophagitis Coding Level of Care Code Est Pt Level 3 (07485) Diagnoses Dysphagia, unspecified type R13.10 Dysphagia type: unspecified Epigastric pain R10.13 Abdominal location: epigastric Constipation by delayed colonic transit K59.01 Gastroesophageal reflux disease, unspecified whether esophagitis present K21.9 Esophagitis presence: esophagitis presence not specified Irritable bowel syndrome without diarrhea K58.9 Irritable bowel syndrome type: without diarrhea Time Spent (min) 30 Comment 20 minutes spent with patient and additional 10 minutes spent reviewing her records
[2023-05-11 11:11] VITALS: BP 133/72; PULSE 79; O2SAT 95; BMI 29.0
== END 2023-05-11 12:15 | disposition home or self-care (01) ==
PROVIDERS: PCP Internal Medicine; Visit Provider Nurse Practitioner Family
DX: R13.10 Dysphagia, unspecified (principal); R10.13 Epigastric pain; K59.01 Slow transit constipation; K21.9 Gastro-esophageal reflux disease without esophagitis; K58.9 Irritable bowel syndrome, unspecified
CPT/HCPCS: 99213

== ENCOUNTER → 2023-05-11 11:02 | Outpatient (BNVA) | payer OTHER, SELFPAY | PROVIDERS: PCP Internal Medicine; Visit Provider Nurse Practitioner Family | DX: R13.10 Dysphagia, unspecified (principal); R10.13 Epigastric pain; K59.01 Slow transit constipation; K21.9 Gastro-esophageal reflux disease without esophagitis; K58.1 Irritable bowel syndrome with constipation; Z79.899 Other long term (current) drug therapy | CPT/HCPCS: 99212 ==

== ENCOUNTER 2023-05-29 11:55 | Outpatient (REF) | payer OTHER, SELFPAY | END 2023-05-29 11:56 | disposition home or self-care (01) | LOC: HO.MAMMO 11:55 | PROVIDERS: PCP Internal Medicine; Visit Provider Internal Medicine | DX: Z12.31 Encounter for screening mammogram for malignant neoplasm of breast (principal) | CPT/HCPCS: 77063; 77067 ==

== ENCOUNTER → 2023-05-29 12:30 | Outpatient (BNV) | payer OTHER, SELFPAY | PROVIDERS: PCP Internal Medicine; Visit Provider Radiology Diagnostic Radiology | DX: Z12.31 Encounter for screening mammogram for malignant neoplasm of breast (principal) | CPT/HCPCS: 77063; 77067 ==

== ENCOUNTER 2023-06-27 13:13 | Outpatient (AMB) | payer OTHER, SELFPAY ==
--- NOTE | 2023-06-27 13:20 | MHC.OFFVIS ---
Vital Signs 06/27/23 13:21 Height 5 ft 4 in Weight 167 lb 8.821 oz BMI 28.8 BP 130/80 Blood Pressure Location Lt brachial Position Sitting Pulse 66 Intake Visit Reasons: r/s 1 year followup w/ekg Intake Note: 1 year follow-up with ekg c/o chest pain and palpitations Foreign Languages Department Chair Required: Yes Foreign Languages Department Chair Name: [facility] [place] Allergies Iodinated Contrast Media [IV DYE, IODINE CONTAINING] Allergy (Severe, Verified 05/11/23 11:08) ITCH/RASH clams Allergy (Intermediate, Verified 05/11/23 11:08) ITCHING docusate [From COLACE] Allergy (Intermediate, Verified 05/11/23 11:08) ITCHING lansoprazole [Prevacid] Allergy (Intermediate, Verified 05/11/23 11:08) hives oxybutynin Allergy (Intermediate, Verified 05/11/23 11:08) bladder pain pistachio nut Allergy (Intermediate, Verified 05/11/23 11:08) ITCHING walnut Allergy (Intermediate, Verified 05/11/23 11:08) ITCH/RASH SEASONAL ALLERGIES Allergy (Intermediate, Uncoded 05/09/23 11:08) ITCHY EYES Medication List - Last Reconciled 06/27/23 by Sarthak Chacon MD acetaminophen 500 mg PO .every 8 hours PRN 5 days albuterol sulfate 2.5 mg (3 mL) inhalation Q4-6H PRN 30 days albuterol sulfate 90 mcg/actuation 2 puffs inhalation Q4-6H PRN blood pressure monitor As directed calcium carbonate-vitamin D3 600 mg-10 mcg (400 unit) 1 tab PO BID diclofenac sodium 1% 2 grams topical BID PRN famotidine 40 mg PO BEDTIME fluticasone propion-salmeterol 250-50 mcg/dose (Wixela Inhub) INHALE 1 PUFF BY MOUTH TWICE A DAY fluticasone propionate 50 mcg/actuation 2 sprays intranasal DAILY glucosamine HCl PO DAILY lidocaine 4% (Aspercreme (lidocaine)) 1 patch topical DAILY PRN 30 days loratadine 10 mg PO DAILY magnesium oxide 400 mg PO BEDTIME 30 days meclizine 25 mg PO TID PRN 30 days metoprolol succinate ER 50 mg PO DAILY mirabegron ER (Myrbetriq) 25 mg PO DAILY 30 days olopatadine 0.2% (Pataday Once Daily Relief) 1 drp ophthalmic (eye) BEDTIME 7 days pantoprazole 40 mg PO DAILY riboflavin (vitamin B2) 400 mg PO DAILY 30 days tobramycin 0.3% 1 drp ophthalmic (eye) Q4H 7 days valacyclovir 1,000 mg PO Q8H 5 days HPI Comments Details: Mckenzie returns for follow-up. Originally, seen regarding hypertension. She checked home blood pressures because of dizziness and detected hypertension. She was on hydrochlorothiazide and then we added amlodipine. Over time, she is stopped both medications. Then she was complaining of some other symptoms like palpitations, chest pressure extra which led to further workup. She underwent coronary CTA that showed LAD stenosis but then cardiac catheterization did not show any evidence of the same. Unclear reason for discrepancy. Again having nonspecific symptoms like electric shock type sensation down the left arm extra. Nothing clearly anginal. [facility] Medical History MAXIMILIANO (obstructive sleep apnea) Bronchitis PONV (postoperative nausea and vomiting) Helicobacter pylori (H. pylori) Physical exam UTI (urinary tract infection) Scoliosis Restrictive lung disease Dysphagia Mild major depression, single episode Right shoulder pain COPD (chronic obstructive pulmonary disease) Allergic rhinosinusitis Acute bronchitis Asthma Anemia Primary osteoarthritis involving multiple joints Essential hypertension Right ankle pain Allergic rhinitis Surgical History History of esophagogastroduodenoscopy (EGD) Hx of colonoscopy Hx of cardiac cath History of total left knee replacement History of arthroscopy of right knee History of hemorrhoidectomy History of total right knee replacement History of total abdominal hysterectomy History of tonsillectomy Family History Father Alcoholism Arthritis Mother Diabetes Acute CVA (cerebrovascular accident) Sister Breast cancer Family/Other FH: mental illness Brother Diabetes Myocardial infarct Daughter In good health Daughter In good health Daughter In good health Social History Housing: Apartment Alcohol intake: never Patient Tobacco Use Status: Never used Tobacco e-Cigarette/Vaping Use: Never Used Second Hand Smoke Exposure: No Advance Directives Date on File: 11/28/19 service: No 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al status: disabled 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 Cognitive needs: No Hearing needs: No Vision needs: Yes Review of Systems Const Denies chills, Denies fatigue, Denies fever(s), Denies frequent falls, Denies weakness, Denies weight gain and Denies weight loss ENT Denies dizziness Card Denies chest pain, Denies leg edema, Denies lightheadedness, Denies palpitations, Denies dyspnea, Denies dyspnea on exertion, Denies orthopnea and Denies other (loss of consciousness) Resp Denies cough, Denies dyspnea and Denies dyspnea on exertion GI Denies hematochezia and Denies change in stool character Musc Denies abnormal gait, Denies muscle weakness, Denies numbness, Denies radiating pain into limb and Denies tingling Neuro Denies abnormal gait, Denies dizziness, Denies frequent falls, Denies numbness, Denies tingling and Denies weakness Endo Denies fatigue and Denies palpitations Physical Exam Vital Signs: Last Vital Signs Pulse 66 06/27/23 13:21 BP 130/80 06/27/23 13:21 BMI result Body Mass Index 28.8 Const General: comfortable and no acute distress Orientation/consciousness: patient oriented x3 HEENT Other: Unremarkable Head: Yes normal to inspection Neck Neck: Yes normal visual inspection Chest Chest palpation & inspection: normal inspection of the chest Resp Auscultation: clear to auscultation bilaterally Cardio Palpation: normal PMI Heart sounds: S1 normal heart sound present, S2 normal heart sound present, no gallops, no murmurs and no rubs GI Palpation (GI): Soft to palpation Back/Spine/Pelvis Other: unremarkable Skin General skin exam: no rashes or lesions noted Neuro General: patient oriented x3 Extrem General: Yes normal to inspection Psych Mental Status: mental status grossly normal Office Procedures EKG Details: EKG with sinus rhythm at 66/Min; voltage criteria for LVH and T inversions in lead 3 and AVF more prominent now than in the past. [id number], Complete Assessment & Plan Assessment & Plan (1) Chest pain: Code(s): R07.9 - Chest pain, unspecified Category: Medical (2) Essential hypertension: Code(s): I10 - Essential (primary) hypertension Category: Medical (3) LVH (left ventricular hypertrophy): Code(s): I51.7 - Cardiomegaly Category: Medical (4) PAC (premature atrial contraction): Code(s): I49.1 - Atrial premature depolarization Category: Medical (5) PVC (premature ventricular contraction): Code(s): I49.3 - Ventricular premature depolarization Category: Medical Plan Cardiac studies reviewed. EKG with sinus rhythm, LVH; nonspecific changes in the inferior leads. Echocardiogram with LVEF 60-65% and basal inferior hypokinesis. Myocardial perfusion imaging study without any significant findings. Coronary CTA had reported severe narrowing in the proximal subsequent of distal LAD with evidence of myocardial bridging. Otherwise normal coronaries. Cardiac catheterization 2021-LAD with a small proximal LAD bridge but otherwise normal coronary arteries. Overall, atypical symptoms and discrepant findings in the about testing. From the catheterization standpoint, no clear obstructive disease at all. Unclear if she had a small inferior NSTEMI at some point which could possibly explain EKG/echo findings. Vasospasm is also not completely excluded. She has been on amlodipine in the past but not anymore. With regard to palpitations, prior Holter had shown supraventricular and ventricular ectopy. She feels better with beta-blockers and that can be continued. Follow-up in 1 year. In the interim, call with concerns. Discussed using live diecast machine operator. Coding Level of Care Code Est Pt Level 4 (94580) Diagnoses Chest pain R07.9 Essential hypertension I10 LVH (left ventricular hypertrophy) I51.7 PAC (premature atrial contraction) I49.1 PVC (premature ventricular contraction) I49.3 CPT Codes EKG - CPT: 22689-[id number], Complete ([id number])
[2023-06-27 13:21] VITALS: BP 130/80; PULSE 66; BMI 28.8
== END 2023-06-27 13:41 | disposition home or self-care (01) ==
PROVIDERS: PCP Internal Medicine; Visit Provider Internal Medicine
DX: R07.9 Chest pain, unspecified (principal); I10 Essential (primary) hypertension; I51.7 Cardiomegaly; I49.1 Atrial premature depolarization; I49.3 Ventricular premature depolarization
CPT/HCPCS: 93010; 99214

== ENCOUNTER → 2023-06-27 13:13 | Outpatient (BNVA) | payer OTHER, SELFPAY | PROVIDERS: PCP Internal Medicine; Visit Provider Internal Medicine | DX: R07.9 Chest pain, unspecified (principal); R00.2 Palpitations; I10 Essential (primary) hypertension; I51.7 Cardiomegaly; I49.1 Atrial premature depolarization; I49.3 Ventricular premature depolarization | CPT/HCPCS: 93005; 99212 ==

== ENCOUNTER 2023-09-09 09:56 | Inpatient (IN) | payer OTHER, SELFPAY ==
[2023-09-09] VITALS (9 sets, daily range): BP systolic 139–166; BP diastolic 60–87; PULSE 62–83; RESP 14–20; TEMP 36.6–38.7; O2SAT 92–96; BMI 28.5
--- NOTE | 2023-09-09 | ECG_ITS ---
Test Reason : PRE OP Blood Pressure : / mmHG Vent. Rate : 063 BPM Atrial Rate : 063 BPM P-R Int : 156 ms QRS Dur : 094 ms QT Int : 398 ms P-R-T Axes : 000 -41 004 degrees QTc Int : 407 ms Normal sinus rhythm with sinus arrhythmia Left axis deviation Moderate voltage criteria for LVH, may be normal variant ( R in aVL , Cullen product ) Abnormal ECG When compared with ECG of 04-DEC-2020 10:37, No significant change was found Referred By: Susan Breaux Electronically Signed By:GALE MCDANIEL MD
--- NOTE | ~2023-09-09 | CT_ITS ---
EXAMINATION: CT ABDOMEN AND PELVIS WITHOUT CONTRAST CLINICAL INFORMATION: Left abdominal pain and bloating COMPARISON: 06/08/2020 TECHNIQUE: Multidetector volumetric imaging was performed from the superior aspect of the liver through the pubic symphysis. Sagittal and coronal reformatted images were obtained on the technologist's workstation. This CT examination was performed using dose optimization techniques as appropriate, variously including the following: *Automated exposure control *Adjustment of mA and/or kV according to patient size (this includes techniques or standardized protocols for targeted exams where dose is matched to indication/reason for exam; i.e. extremities or head) *Use of iterative reconstruction technique DLP: 554 mGy-cm FINDINGS: AUDITOR IN CHARGE: Thoracolumbar scoliosis. Nonobstructive bowel pattern. LUNG BASES: The visualized lung bases are unremarkable. LIVER, GALLBLADDER, AND BILIARY TREE: The liver is normal in size, shape, and attenuation. No focal hepatic lesion or biliary ductal dilatation is present. The gallbladder is unremarkable with no evidence of radiopaque gallstones, gallbladder wall thickening, or obvious pericholecystic inflammatory changes. PANCREAS: Unremarkable. SPLEEN: Unremarkable. ADRENAL GLANDS: Unremarkable. KIDNEYS AND URETERS: The left kidney is comparatively larger than the right. Bilateral mild intrarenal collecting system prominence. No hydroureteronephrosis, renal, ureteral calculi or perinephric stranding. BLADDER: Decompressed but unremarkable. GASTROINTESTINAL TRACT: Under distended stomach. Nonobstructive bowel pattern. Unremarkable terminal ileum. Appendiceal tip is thickened with small internal calcification surrounding inflammatory change. No CT evidence of perforation or abscess collection. Diverticulosis without diverticulitis. ABDOMINAL WALL: Small fat filled left inguinal hernia. LYMPH NODES: No pathologic lymphadenopathy. VASCULAR: Atherosclerotic calcifications nonaneurysmal aorta. Unremarkable inferior vena cava and iliac veins. PELVIC VISCERA:. No pelvic pathology recognized. OSSEOUS STRUCTURES: Severe thoracolumbar scoliosis. Mild left inferior SI sclerosis. CT/CT abdomen pelvis wo IV con IMPRESSION: Acute appendicitis. Diverticulosis without diverticulitis. Fleischner guidelines were followed. At the time of this dictation, PSA service contacted to alert physician.
[2023-09-09 10:15] LABS: Basophils Absolute Auto 0.1 X10*3/uL (0.0-0.2); Basophils Percent Auto 0.6 % (0-2); Eosinophils Absolute Auto 0.1 X10*3/uL (0.0-0.4); Eosinophils Percent Auto 0.8 % (0-4); Hematocrit 37.7 % (37.0-47.0); Hemoglobin 12.8 g/dl (12.0-16.0); Imm Gran Abs Auto 0.07 X10*3/uL (0.00-0.03); Imm Gran Pct Auto 0.5 % (0.0-0.4); Lymphocytes Absolute Auto 1.2 X10*3/uL (1.2-4.9); Lymphocytes Percent Auto 8.4 % (20-40); MANUAL DIFF FLAG NO; Mean Corpuscular Hemoglobin 31.2 pg (27.0-33.0); Mean Platelet Volume 11.4 fL (9.4-12.3); Monocytes Absolute Auto 0.8 X10*3/uL (0.1-1.2); Monocytes Percent Auto 5.3 % (2-11); NRBC Pct Auto 0.1 /100WBC (0.0-0.2); Neutrophils Absolute Auto 12.2 x10*3/uL (2.0-8.3); Neutrophils Percent Auto 84.4 % (45-73); Platelet Count 303 X10*3/uL (160-400); Red Cell Distribution Width 19.1 % (11.0-16.0); White Blood Count 14.4 X10*3/uL (4.8-10.8)
--- NOTE | 2023-09-09 10:40 | ED_ITS ---
HPI - Abdominal Pain General Chief Complaint: Abdominal Pain Stated Complaint: Kidney stone? Time Seen by Provider: 09/09/23 10:13 Source: patient, family (daughter), RN notes reviewed and old records reviewed Mode of arrival: ambulatory Limitations: no limitations History of Present Illness ED Provider: IRENE GOODEN PA-C HPI narrative: 62 year old rwandan speaking female with pmhx significant for MAXIMILIANO, asthma, anemia, CAD s/p cardiac cath in 2021, and hypertension presents to the ED today for evaluation of left upper quadrant abdominal pain/ bloating x2 days. Admits to associated N/V and frequent bowel movements/ flatus. Denies diarrhea. Admits to chills without documented fever. She reports history of renal stones 1 year ago which felt similar. She has been taking Tylenol at home without improvement. Reports history of total hysterectomy. No other abdominal surgeries. Denies dysuria, hematuria, flank or back pain, constipation. Denies recent travel outside [place]. Denies known sick contacts. Denies recent antibiotic use. Patient both rwandan and bruneian speaking. Curbstone Setter offered however patient is declining at this time. Her daughter, Sybil, is at bedside to assist with history which patient prefers. Related Data Home Medications ?Medication ?Instructions ?Recorded ?Confirmed glucosamine HCl PO DAILY 07/10/22 06/27/23 Previous Rx's ?Medication ?Instructions ?Recorded blood pressure monitor #1 ea 04/19/21 diclofenac sodium 1 % topical gel 2 g topical BID PRN pain #100 grams 12/08/21 acetaminophen 500 mg tablet 500 mg PO .every 8 hours PRN fever 10/09/22 5 days #15 tabs albuterol sulfate 2.5 mg/3 mL 2.5 mg (3 mL) inhalation Q4-6H PRN 10/10/22 (0.083 %) solution for nebulization shortness of breath or wheezing 30 days #75 mL albuterol sulfate 90 mcg/actuation 2 puff inhalation Q4-6H PRN for 10/10/22 aerosol inhaler wheezing #8.5 ea fluticasone propionate 50 2 spray intranasal DAILY #48 mL 10/10/22 mcg/actuation nasal spray,suspension calcium carbonate 600 mg-vitamin 1 tab PO BID #180 tabs 11/01/22 D3 10 mcg (400 unit) tablet lidocaine 4 % topical patch 1 patch topical DAILY PRN pain 30 11/15/22 (Aspercreme (lidocaine)) days #15 ea pantoprazole 40 mg tablet,delayed 40 mg PO DAILY #90 tabs 01/17/23 release olopatadine 0.2 % eye drops 1 drp ophthalmic (eye) BEDTIME 7 02/08/23 (Pataday Once Daily Relief) days #2.5 mL metoprolol succinate 50 mg 50 mg PO DAILY #90 tabs 02/27/23 tablet,extended release 24 hr tobramycin 0.3 % eye drops 1 drp ophthalmic (eye) Q4H 7 days 02/27/23 #5 mL fluticasone 250 mcg-salmeterol 50 See Rx Instructions .Route 03/22/23 mcg/dose blistr powdr for .COMPLEX #60 ea inhalation (Wixela Inhub) meclizine 25 mg tablet 25 mg PO TID PRN dizziness 30 days 03/24/23 #90 tabs valacyclovir 1 gram tablet 1,000 mg PO Q8H 5 days #15 tabs 04/19/23 mirabegron 25 mg tablet,extended 25 mg PO DAILY 30 days #30 tabs 04/30/23 release 24 hr (Myrbetriq) magnesium oxide 400 mg (241.3 mg 400 mg PO BEDTIME 30 days #30 tabs 05/04/23 magnesium) tablet riboflavin (vitamin B2) 400 mg 400 mg PO DAILY 30 days #30 tabs 05/04/23 tablet loratadine 10 mg tablet 10 mg PO DAILY #90 tabs 05/10/23 famotidine 40 mg tablet 40 mg PO BEDTIME #30 tabs 05/11/23 Allergies Allergy/AdvReac Type Severity Reaction Status Date / Time Iodinated Contrast Media Allergy Severe ITCH/RASH Verified 09/09/23 10:06 [IV DYE, IODINE CONTAINING] clams Allergy Intermediate ITCHING Verified 09/09/23 10:06 docusate [From COLACE] Allergy Intermediate ITCHING Verified 09/09/23 10:06 lansoprazole [Prevacid] Allergy Intermediate hives Verified 09/09/23 10:06 oxybutynin Allergy Intermediate bladder Verified 09/09/23 10:06 pain pistachio nut Allergy Intermediate ITCHING Verified 09/09/23 10:06 walnut Allergy Intermediate ITCH/RASH Verified 09/09/23 10:06 SEASONAL ALLERGIES Allergy Intermediate ITCHY EYES Uncoded 09/09/23 10:06 Review of Systems Review of Systems Constitutional: No fever, chills, fatigue, night sweats, weight changes ENT/Mouth: No ear pain, hearing loss, nasal congestion, sinus pain, rhinorrhea, sore throat Eyes: No eye pain, swelling, redness, vision changes, discharge Cardio: No chest pain, palpitations, REDDY, orthopnea, peripheral edema Pulm: No SOB, cough, sputum, wheezing, dyspnea, hemoptysis GI: No hematemesis, diarrhea, constipation, hematochezia, melena, +abdominal pain, +nausea, +vomiting : No irregular bleeding, dysuria, frequency, urgency, hesitancy, hematuria, flank pain, urinary flow changes, urinary incontinence or retention MSK: No back pain, neck pain, joint pain, myalgias Skin: No lesions, rashes Neuro: No weakness, numbness, paresthesias, LOC, dizziness, headache Psych: No anxiety/panic, depression, SI/HI, AH/VH All other systems reviewed and are negative. [facility] Past Medical History Attestation statement: The following information was validated with the patient. Source: old records reviewed and nursing notes reviewed Medical History MAXIMILIANO (obstructive sleep apnea) Bronchitis PONV (postoperative nausea and vomiting) Helicobacter pylori (H. pylori) Physical exam UTI (urinary tract infection) Scoliosis Restrictive lung disease Dysphagia Mild major depression, single episode Right shoulder pain COPD (chronic obstructive pulmonary disease) Allergic rhinosinusitis Acute bronchitis Asthma Anemia Primary osteoarthritis involving multiple joints Essential hypertension Right ankle pain Allergic rhinitis Surgical History History of esophagogastroduodenoscopy (EGD) Hx of colonoscopy Hx of cardiac cath History of total left knee replacement History of arthroscopy of right knee History of hemorrhoidectomy History of total right knee replacement History of total abdominal hysterectomy History of tonsillectomy Family History Family History Father Alcoholism Arthritis Mother Diabetes Acute CVA (cerebrovascular accident) Sister Breast cancer Family/Other FH: mental illness Brother Diabetes Myocardial infarct Daughter In good health Daughter In good health Daughter In good health Social History Social History Housing: Apartment Alcohol intake: never Patient Tobacco Use Status: Never used Tobacco Smoked in Last 30 Days: No e-Cigarette/Vaping Use: Never Used Second Hand Smoke Exposure: No Use of substances other than those prescribed or required for medical reasons: No Advance Directives: Yes Advance Directives on File: Yes Advance Directives Date on File: 11/28/19 Patient : No service: No 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al status: disabled 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 Afebrile. Const Other: Patient uncomfortable appearing lying on exam bed. General: cooperative, healthy appearing and no acute distress Orientation/consciousness: patient oriented x3 Limitations: no limitations HENMT Head: Yes normal to inspection, Yes No palpable skull fracture present, Yes normocephalic and Yes atraumatic Eyes General: appearance normal, both eyes and all related structures Pupils: Equal, round and reactive pupils present Neck Neck: Yes normal visual inspection, Yes full ROM and Yes no lymphadenopathy Resp Effort & Inspection: normal respiratory effort and able to speak in complete sentences Auscultation: clear to auscultation bilaterally Cardio Rate: regular rate Rhythm: regular rhythm GI Other: Abdomen distended, soft, tender to palpation of the lower right abdomen without rebound tenderness or guarding. normoactive bs x4. General: Yes no CVA tenderness Back/Spine/Pelvis Other: No midline spinous tenderness or step off deformity. No paraspinal muscle tenderness. Back: no CVA tenderness Skin General skin exam: no rashes or lesions noted Neuro General: patient oriented x3 and gait normal Cranial nerves: Yes Equal, round and reactive pupils present Course Course Course Narrative: 1116-- CBC with leukocytosis to 14.4 with left shift. No anemia. H&H stable. Chemistry without acute electrolyte abnormality requiring intervention. Normal renal function. Random glucose 151. Normal liver function. UA without evidence of infection or blood. > CT abdomen/pelvis pending > patient receiving Toradol for pain control and Zofran for nausea. IV fluids ordered. 1246 -- I received a call from [facility] regarding CT abdomen results. CT abdomen showing evidence of acute appendicitis with thickening of the appendiceal tip. I did discuss these results with patient. She states her last p.o. intake was at 8:30 a.m. this morning. Blood cultures. zosyn, and morphine ordered. Bed request placed. I also discussed case with on-call general surgeon Dr. Fernandez who elevated patient at bedside. He has accepted patient admission for treatment of acute appendicitis with IV antibiotics and observation. Bed request placed. Medical Decision Making Medical Decision Making [facility] Narrative: 62 year old rwandan speaking female with pmhx significant for MAXIMILIANO, asthma, anemia, and hypertension presents to the ED today for evaluation of left upper quadrant abdominal pain x2 days. Patient hypertensive, vitals otherwise wnl. Patient uncomfortable appearing. Abdomen distended, soft, tender to palpation of the lower right abdomen without rebound tenderness or guarding. normoactive bs x4. No CVAT bilaterally. ambulating with slow but steady gait. skin w/d/i. no rashes. Differential diagnosis includes gastroenteritis, colitis, diverticulosis/diverticulitis, urinary tract infection, renal colic, nephrolithiasis, hydronephrosis. Lower suspicion for pyelonephritis, bowel obstruction. Unlikely ischemic bowel, acute surgical abdomen. Plan for labs, UA, CT scan, pain control, IVF and re-evaluation. Differential Diagnosis Differential Diagnoses: The differential diagnosis associated with the presentation includes as above Admission/Observation Consideration of admission/observation: Escalation of care including admission/observation considered Patient to be admitted for acute appendicitis. Consult Healthcare Provider Management of the patient was discussed with: [place] (Dr. Fernandez (general surgery)) Lab Data [facility] Lab Attestation statement: I reviewed the patient's lab results. as above. 09/09/23 10:10 09/09/23 10:10 Labs: Lab Results 09/09/23 09/09/23 Range/Units 10:10 11:01 WBC 14.4 H (4.8-10.8) X10*3/uL RBC 4.10 L (4.20-5.50) X10*6/uL Hgb 12.8 (12.0-16.0) g/dl Hct 37.7 (37.0-47.0) % MCV 92.0 (80.0-98.0) fL MCH 31.2 (27.0-33.0) pg MCHC 34.0 (31.0-35.0) g/dl RDW 19.1 H (11.0-16.0) % Plt Count 303 (160-400) X10*3/uL MPV 11.4 (9.4-12.3) fL Immature Gran % (Auto) 0.5 H (0.0-0.4) % Neut % (Auto) 84.4 H (45-73) % Lymph % (Auto) 8.4 L (20-40) % [place] % (Auto) 5.3 (2-11) % Eos % (Auto) 0.8 (0-4) % Baso % (Auto) 0.6 (0-2) % Lymph # (Auto) 1.2 (1.2-4.9) X10*3/uL [place] # (Auto) 0.8 (0.1-1.2) X10*3/uL Eos # (Auto) 0.1 (0.0-0.4) X10*3/uL Baso # (Auto) 0.1 (0.0-0.2) X10*3/uL Abs Immat Gran (auto) 0.07 H (0.00-0.03) X10*3/uL Absolute Neuts (auto) 12.2 H (2.0-8.3) x10*3/uL Absolute Nucleated RBC 0.020 H (0.0-0.012) X10*3/uL Nucleated RBC % (auto) 0.1 (0.0-0.2) /100WBC Sodium 137 (135-145) mmol/L Potassium 3.8 (3.3-5.1) mmol/L Chloride 104 (96-108) mmol/L Carbon Dioxide 23 (22-29) mmol/L Anion Gap 14 (12-20) BUN 13 (9-16) mg/dL Creatinine 0.72 (0.5-1.4) mg/dL Estim Creat Clear Calc 79.4 Estimated GFR > 60 Random Glucose 151 H (60-115) mg/dL Calcium 9.9 (8.4-10.2) mg/dL Total Bilirubin 0.9 (0.0-1.0) mg/dL AST 16 (5-31) U/L ALT 23 (0-31) U/L Alkaline Phosphatase 111 (39-117) U/L Total Protein 7.9 (6.5-8.0) g/dL Albumin 4.6 (3.5-5.0) g/dL Urine Color Dark Yellow Urine Appearance Clear Urine pH 5.5 (5.0-9.0) Ur Specific [place] >= 1.030 H (1.005-1.025) Urine Protein 30 (1+) H (Neg-Trace) mg/dL Urine Glucose (UA) Negative (Negative) mg/dL Urine Ketones Trace (Negative) mg/dL Urine Blood Negative (Negative) Urine Nitrite Negative (Negative) Ur Leukocyte Esterase Trace H (Negative) Urine RBC 0-2 (0-2) /HPF Urine WBC 0-5 (0-5) /HPF Ur Squamous Epith Cells 0-2 (0-2) /HPF Urine Bacteria None Seen (None Seen) Hyaline Casts 6-10 (0-2) /LPF Independent Interpretation I performed an independent interpretation of an: CT Scan Interpretation: CT abdomen/ pelvis showing thickening of the appendix tip, agree with radiologist's interpretation. Radiology Impression Discussion of test interpretation with radiology: I have reviewed the radiologist's reading. Radiologist Impression: EXAMINATION: CT ABDOMEN AND PELVIS WITHOUT CONTRAST CLINICAL INFORMATION: Left abdominal pain and bloating COMPARISON: 06/08/2020 TECHNIQUE: Multidetector volumetric imaging was performed from the superior aspect of the liver through the pubic symphysis. Sagittal and coronal reformatted images were obtained on the technologist's workstation. This CT examination was performed using dose optimization techniques as appropriate, variously including the following: *Automated exposure control *Adjustment of mA and/or kV according to patient size (this includes techniques or standardized protocols for targeted exams where dose is matched to indication/reason for exam; i.e. extremities or head) *Use of iterative reconstruction technique DLP: 554 mGy-cm FINDINGS: [employer] WORK[employer] CONSULTANT: Thoracolumbar scoliosis. Nonobstructive bowel pattern. LUNG BASES: The visualized lung bases are unremarkable. LIVER, GALLBLADDER, AND BILIARY TREE: The liver is normal in size, shape, and attenuation. No focal hepatic lesion or biliary ductal dilatation is present. The gallbladder is unremarkable with no evidence of radiopaque gallstones, gallbladder wall thickening, or obvious pericholecystic inflammatory changes. PANCREAS: Unremarkable. SPLEEN: Unremarkable. ADRENAL GLANDS: Unremarkable. KIDNEYS AND URETERS: The left kidney is comparatively larger than the right. Bilateral mild intrarenal collecting system prominence. No hydroureteronephrosis, renal, ureteral calculi or perinephric stranding. BLADDER: Decompressed but unremarkable. GASTROINTESTINAL TRACT: Under distended stomach. Nonobstructive bowel pattern. Unremarkable terminal ileum. Appendiceal tip is thickened with small internal calcification surrounding inflammatory change. No CT evidence of perforation or abscess collection. Diverticulosis without diverticulitis. ABDOMINAL WALL: Small fat filled left inguinal hernia. LYMPH NODES: No pathologic lymphadenopathy. VASCULAR: Atherosclerotic calcifications nonaneurysmal aorta. Unremarkable inferior vena cava and iliac veins. PELVIC VISCERA:. No pelvic pathology recognized. OSSEOUS STRUCTURES: Severe thoracolumbar scoliosis. Mild left inferior SI sclerosis. CT/CT abdomen pelvis wo IV con IMPRESSION: Acute appendicitis. Diverticulosis without diverticulitis. Fleischner guidelines were followed. At the time of this dictation, PSA service contacted to alert physician. Independent Historian Clinical information obtained from an independent historian. History obtained from or confirmed by: Other (daughter) External Record Review External record reviewed: Inpatient record, Office record, Outpatient record, Prior outpatient labs, Prior outpatient radiology, Primary care record and Outside ED record Prescription Management I considered prescription management with: Pain Medication and Antibiotic Social Determinants Patient?s care significantly limited by Social Determinants of Health including: Other Social Determinant of Health Medications Administered Discontinued Medications Generic Name Dose Route Start Last Admin Trade Name Freq PRN Reason Stop Dose Admin Sodium Chloride 1,000 mls @ 999 mls/hr 09/09/23 11:15 09/09/23 11:30 Ns IV 09/09/23 12:15 999 mls/hr .Q1H1M THA Administration Ketorolac Tromethamine 15 mg 09/09/23 11:11 09/09/23 11:30 Ketorolac Tromethamine 15 Mg/Ml Vial IVPUSH 09/09/23 11:12 15 mg ONCE ONE Administration Ondansetron HCl 4 mg 09/09/23 11:12 09/09/23 11:30 Ondansetron Hcl 4 Mg/2 Ml Vial IVPUSH 09/09/23 11:13 4 mg ONCE ONE Administration Critical Care Time Critical Care Time Critical Care Time: Yes Total Critical Care Time: 35 Attestation: Critical care time in the amount of 35 minutes has been provided to the patient in terms of direct patient care, frequent reevaluation after IV morphine, consultation with general surgery, review and interpretation of medical data and results, and management of potentially life-threatening conditions. This is all outside of any medical procedures. Discharge Plan Discharge Clinical Impression: Acute appendicitis Qualifiers: Appendicitis gangrene presence: without gangrene Appendicitis perforation presence: without perforation Appendicitis abscess presence: without abscess Patient Disposition: Admitted As Inpatient Print Language: Wallisian
[2023-09-09 10:50] LABS: Alanine Aminotransferase 23 U/L (0-31); Albumin Level 4.6 g/dL (3.5-5.0); Alkaline Phosphatase 111 U/L (39-117); Anion Gap 14 (12-20); Aspartate Amino Transferase 16 U/L (5-31); Bilirubin Total 0.9 mg/dL (0.0-1.0); Blood Urea Nitrogen 13 mg/dL (9-16); Calcium 9.9 mg/dL (8.4-10.2); Carbon Dioxide 23 mmol/L (22-29); Chloride 104 mmol/L (96-108); Creatinine Clr Calc Pharmacy 79.4; Estimated Glomerular Filt Rate > 60; Glucose Random 151 mg/dL (60-115); Potassium 3.8 mmol/L (3.3-5.1); Sodium 137 mmol/L (135-145); Total Protein 7.9 g/dL (6.5-8.0)
--- NOTE | 2023-09-09 11:04 | PC.NURSE ---
Pt presents to ED today with complaints of abd pain 8/10 pain. Reports Hx of Kidney Stones and states pain is similar. C/o frequent and urgent urination. A&Ox3, VSS, and afebrile. Blood labs completed and urine sent to lab to analysis. Family at bedside.
[2023-09-09 11:07] LABS: Appearance Urine Clear; Color Urine Dark Yellow; Glucose Urine UA Negative (Negative); Leukocyte Esterase Urine Trace (Negative); Nitrite Urine Negative (Negative); PH 5.5 (5.0-9.0); Specific Gravity - Urine >= 1.030 (1.005-1.025); UMIC TRIGGER UACC YES; Urine Blood Negative (Negative); Urine Ketones Trace mg/dL (Negative); Urine Protein 30 (1+) mg/dL (Neg-Trace)
[2023-09-09 11:30] LABS: Bacteria Urine None Seen (None Seen); RBC Urine 0-2 /HPF (0-2); Squamous Epithelial Cell Urine 0-2 /HPF (0-2); WBC Urine 0-5 /HPF (0-5)
[2023-09-09] MEDS: Ketorolac Tromethamine 15 MG/ML VIAL IVPUSH (11:30)
[2023-09-09] MEDS: 0.9 % Sodium Chloride 1,000 ML 999 ML IV (11:30)
[2023-09-09] MEDS: ondansetron HCL 4 MG/2 ML VIAL IVPUSH (11:30)
--- NOTE | 2023-09-09 12:07 | MHC.EDTECH ---
pt vital signs taken, pt resting in the room with family member, call tang within reach.
[2023-09-09] MEDS: Morphine Sulfate 4 MG/ML CARTRIDGE IVPUSH (12:50)
--- NOTE | 2023-09-09 12:50 | P.HPGS_ITS ---
History of Present Illness History of Present Illness Date of Service: 09/10/23 Chief complaint: acute appendicitis Narrative: Mckenzie Montgomery is a 62 year old female here in the ED for abdominal pain. She says this started yesterday at noon. She describes this as on the lower abdomen, right more than the left. She says this had persisted through the night so she decided to come to the ED this morning. She has baseline frequency of urination from hyperactive bladder She describes some nausea but no vomitting. She has had no fever. She has other medical problems icluding MAXIMILIANO, CAD and had stents done in 2021. She says she had been following Dr. Chacon for this. She is not on anticoagulation. She had hysterectomy 20 years ago for uterine bleeding. Review of Systems Constitutional: Constitutional: Denies chills and Denies fever(s) Cardiovascular: Cardiovascular: Denies chest pain, Denies dyspnea and Denies dyspnea on exertion Respiratory: Respiratory: Denies cough, Denies dyspnea and Denies dyspnea on exertion Gastrointestinal: Gastrointestinal: Denies hematochezia and Denies change in bowel habits Genitourinary: Genitourinary: Denies hematuria Comments: overactive bladder Musculoskeletal: Musculoskeletal: Denies back pain, Reports arthralgias and Reports limited range of motion Neurologic: Denies focal weakness and Denies convulsions Psychiatric: Psychiatric: Denies depression and Denies mood swings PMFSH Past Medical History Medical History MAXIMILIANO (obstructive sleep apnea) Bronchitis PONV (postoperative nausea and vomiting) Helicobacter pylori (H. pylori) Physical exam UTI (urinary tract infection) Scoliosis Restrictive lung disease Dysphagia Mild major depression, single episode Right shoulder pain COPD (chronic obstructive pulmonary disease) Allergic rhinosinusitis Acute bronchitis Asthma Anemia Primary osteoarthritis involving multiple joints Essential hypertension Right ankle pain Allergic rhinitis Family History Family History Father Alcoholism Arthritis Mother Diabetes Acute CVA (cerebrovascular accident) Sister Breast cancer Family/Other FH: mental illness Brother Diabetes Myocardial infarct Daughter In good health Daughter In good health Daughter In good health Surgical History Surgical History History of esophagogastroduodenoscopy (EGD) Hx of colonoscopy Hx of cardiac cath History of total left knee replacement History of arthroscopy of right knee History of hemorrhoidectomy History of total right knee replacement History of total abdominal hysterectomy History of tonsillectomy Social History Social History Household Members: Family Housing: House Alcohol intake: never Patient Tobacco Use Status: Never used Tobacco e-Cigarette/Vaping Use: Never Used Second Hand Smoke Exposure: No Advance Directives Date on File: 11/28/19 service: No 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al status: disabled 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 Cognitive needs: No Hearing needs: No Vision needs: Yes Meds Allergies Allergy/AdvReac Type Severity Reaction Status Date / Time Iodinated Contrast Media Allergy Severe ITCH/RASH Verified 09/09/23 10:06 [IV DYE, IODINE CONTAINING] clams Allergy Intermediate ITCHING Verified 09/09/23 10:06 docusate [From COLACE] Allergy Intermediate ITCHING Verified 09/09/23 10:06 lansoprazole [Prevacid] Allergy Intermediate hives Verified 09/09/23 10:06 oxybutynin Allergy Intermediate bladder Verified 09/09/23 10:06 pain pistachio nut Allergy Intermediate ITCHING Verified 09/09/23 10:06 walnut Allergy Intermediate ITCH/RASH Verified 09/09/23 10:06 SEASONAL ALLERGIES Allergy Intermediate ITCHY EYES Uncoded 09/09/23 10:06 Active Medications: Current Medications Piperacillin Sod/Tazobactam (Sod 3.375 gm/ Sodium Chloride) 50 mls @ 100 mls/hr IV ONCE ONE Stop: 09/09/23 12:57 Home Medications ?Medication ?Instructions ?Recorded ?Confirmed ?Last Taken ?Type acetaminophen 650 mg 650 mg PO Q8H PRN Pain 09/09/23 09/09/23 09/09/23 History tablet,extended release (Tylenol 8 Hour) albuterol sulfate 2.5 mg/3 mL 2.5 mg inhalation Q6H PRN 09/09/23 09/09/23 Unknown History (0.083 %) solution for nebulization shortness of breath or wheezing albuterol sulfate 90 mcg/actuation 2 puff inhalation Q6H PRN for 09/09/23 09/09/23 Unknown History aerosol inhaler wheezing calcium carbonate 600 mg-vitamin 1 tab PO MOFR@0900 09/09/23 09/09/23 Unknown History D3 10 mcg (400 unit) tablet fluticasone 250 mcg-salmeterol 50 1 inh inhalation BID 09/09/23 09/09/23 Unknown History mcg/dose blistr powdr for inhalation ([place] Inhub) fluticasone propionate 50 1 spray intranasal DAILY 09/09/23 09/09/23 Unknown History mcg/actuation nasal spray,suspension glucosamine sulfate 750 mg tablet 750 mg PO DAILY 09/09/23 09/09/23 Unknown History lidocaine 4 % topical patch 1 patch topical DAILY PRN Back Pain 09/09/23 09/09/23 Unknown History (Aspercreme (lidocaine)) magnesium oxide 400 mg (241.3 mg 400 mg PO BEDTIME PRN Constipation 09/09/23 09/09/23 Unknown History magnesium) tablet pantoprazole 40 mg tablet,delayed 40 mg PO DAILY@0630 PRN Acid Reflux 09/09/23 09/09/23 Unknown History release Physical Exam Vital Signs: Vital Signs: Last Vital Signs Temp 98.9 F 09/09/23 12:00 Pulse 63 09/09/23 12:00 Resp 14 09/09/23 12:00 BP 165/60 H 09/09/23 12:00 Pulse Ox 95 09/09/23 12:00 O2 Del Method Room Air 09/09/23 12:00 BMI result Body Mass Index 28.5 Const: Other: looks well General: comfortable and no acute distress Orientation/consciousness: patient oriented x3 Neck: Neck: Yes no lymphadenopathy Resp: Auscultation: clear to auscultation bilaterally Cardio: Rhythm: regular rhythm GI: Other: some tenderness on RLQ Palpation (GI): Soft to palpation, nontender and no guarding Neuro: General: patient oriented x3 Results Results Labs: Short CBC 09/09/23 Range/Units 10:10 WBC 14.4 H (4.8-10.8) X10*3/uL Hgb 12.8 (12.0-16.0) g/dl Hct 37.7 (37.0-47.0) % Plt Count 303 (160-400) X10*3/uL BMP 09/09/23 10:10 Sodium 137 Potassium 3.8 Chloride 104 Carbon Dioxide 23 BUN 13 Creatinine 0.72 Calcium 9.9 Liver Function 09/09/23 Range/Units 10:10 Total Bilirubin 0.9 (0.0-1.0) mg/dL AST 16 (5-31) U/L ALT 23 (0-31) U/L Alkaline Phosphatase 111 (39-117) U/L Albumin 4.6 (3.5-5.0) g/dL Urine 09/09/23 Range/Units 11:01 Urine Color Dark Yellow Urine Appearance Clear Urine pH 5.5 (5.0-9.0) Ur Specific [place] >= 1.030 H (1.005-1.025) Urine Protein 30 (1+) H (Neg-Trace) mg/dL Urine Glucose (UA) Negative (Negative) mg/dL Abdomen CT scan report/results: report reviewed and image reviewed CT scan - pelvis: report reviewed and image reviewed Additional studies: Laboratory Results WBC 14.4 X10*3/uL (4.8-10.8) H 09/09/23 10:10 RBC 4.10 X10*6/uL (4.20-5.50) L 09/09/23 10:10 Hgb 12.8 g/dl (12.0-16.0) 09/09/23 10:10 Hct 37.7 % (37.0-47.0) 09/09/23 10:10 MCV 92.0 fL (80.0-98.0) 09/09/23 10:10 MCH 31.2 pg (27.0-33.0) 09/09/23 10:10 MCHC 34.0 g/dl (31.0-35.0) 09/09/23 10:10 RDW 19.1 % (11.0-16.0) H 09/09/23 10:10 Plt Count 303 X10*3/uL (160-400) 09/09/23 10:10 MPV 11.4 fL (9.4-12.3) 09/09/23 10:10 Immature Gran % (Auto) 0.5 % (0.0-0.4) H 09/09/23 10:10 Neut % (Auto) 84.4 % (45-73) H 09/09/23 10:10 Lymph % (Auto) 8.4 % (20-40) L 09/09/23 10:10 [place] % (Auto) 5.3 % (2-11) 09/09/23 10:10 Eos % (Auto) 0.8 % (0-4) 09/09/23 10:10 Baso % (Auto) 0.6 % (0-2) 09/09/23 10:10 Lymph # (Auto) 1.2 X10*3/uL (1.2-4.9) 09/09/23 10:10 [place] # (Auto) 0.8 X10*3/uL (0.1-1.2) 09/09/23 10:10 Eos # (Auto) 0.1 X10*3/uL (0.0-0.4) 09/09/23 10:10 Baso # (Auto) 0.1 X10*3/uL (0.0-0.2) 09/09/23 10:10 Abs Immat Gran (auto) 0.07 X10*3/uL (0.00-0.03) H 09/09/23 10:10 Absolute Neuts (auto) 12.2 x10*3/uL (2.0-8.3) H 09/09/23 10:10 Absolute Nucleated RBC 0.020 X10*3/uL (0.0-0.012) H 09/09/23 10:10 Nucleated RBC % (auto) 0.1 /100WBC (0.0-0.2) 09/09/23 10:10 Sodium 137 mmol/L (135-145) 09/09/23 10:10 Potassium 3.8 mmol/L (3.3-5.1) 09/09/23 10:10 Chloride 104 mmol/L (96-108) 09/09/23 10:10 Carbon Dioxide 23 mmol/L (22-29) 09/09/23 10:10 Anion Gap 14 (12-20) 09/09/23 10:10 BUN 13 mg/dL (9-16) 09/09/23 10:10 Creatinine 0.72 mg/dL (0.5-1.4) 09/09/23 10:10 Estim Creat Clear Calc 79.4 09/09/23 10:10 Estimated GFR > 60 09/09/23 10:10 Random Glucose 151 mg/dL (60-115) H 09/09/23 10:10 Calcium 9.9 mg/dL (8.4-10.2) 09/09/23 10:10 Total Bilirubin 0.9 mg/dL (0.0-1.0) 09/09/23 10:10 AST 16 U/L (5-31) 09/09/23 10:10 ALT 23 U/L (0-31) 09/09/23 10:10 Alkaline Phosphatase 111 U/L (39-117) 09/09/23 10:10 Total Protein 7.9 g/dL (6.5-8.0) 09/09/23 10:10 Albumin 4.6 g/dL (3.5-5.0) 09/09/23 10:10 Urine Color Dark Yellow 09/09/23 11:01 Urine Appearance Clear 09/09/23 11:01 Urine pH 5.5 (5.0-9.0) 09/09/23 11:01 Ur Specific [place] >= 1.030 (1.005-1.025) H 09/09/23 11:01 Urine Protein 30 (1+) mg/dL (Neg-Trace) H 09/09/23 11:01 Urine Glucose (UA) Negative mg/dL (Negative) 09/09/23 11:01 Urine Ketones Trace mg/dL (Negative) 09/09/23 11:01 Urine Blood Negative (Negative) 09/09/23 11:01 Urine Nitrite Negative (Negative) 09/09/23 11:01 Ur Leukocyte Esterase Trace (Negative) H 09/09/23 11:01 Urine RBC 0-2 /HPF (0-2) 09/09/23 11:01 Urine WBC 0-5 /HPF (0-5) 09/09/23 11:01 Ur Squamous Epith Cells 0-2 /HPF (0-2) 09/09/23 11:01 Urine Bacteria None Seen (None Seen) 09/09/23 11:01 Hyaline Casts 6-10 /LPF (0-2) 09/09/23 11:01 Impressions Abdomen/Pelvis CT 09/09/23 11:43 IMPRESSION: Acute appendicitis. Diverticulosis without diverticulitis. Fleischner guidelines were followed. At the time of this dictation, PSA service contacted to alert physician. Assessment and Plan (1) Acute appendicitis: Qualifiers: Appendicitis abscess presence: without abscess Appendicitis gangrene presence: without gangrene Appendicitis perforation presence: without perforation Status: Acute I have reviewed her CT scan and this does show the appendix to be thickened at the tip with inflammatory changes c/w appendicits. I had a long discussion with her about option of laparoscopic appendectomy and poss. open appendectomy. I explained to her the risks including but not limited to lbleeding, infections, injury to other organs,staple line leak as well as the beenfits and alternatives. I also explained to her the option of nonoperative treatment with IV abx. I explained to her that there is no guarantee this will achieve complete resolution. She states she is scared about going ahead with surgery for now. She says she wants to try abx tx. I did tell her that if I feel she is not clinically getting better, I would recommend proceeding with surgery. Her daughter was with her during the discussion. She otherwise looks well but does admit to some pain. I have consulted the Hospitalist in view of pt's CAD with stenting in 2021. We will continue with beta clemente for now. Quality Stroke Does the patient have a stroke diagnosis?: No VTE Prior VTE?: No VTE Risk Level:: Medical - moderate - high VTE Device Contraindication: N/A - Device Ordered VTE Drug Contraindication: N/A - Med Ordered Procedures Date of Service Date of Service: 09/10/23
[2023-09-09] MEDS: Piperacillin Sodium/Tazobactam 3.375 GM in 0.9 % Sodium Chloride 50 ML IV ×2 (13:25→19:30)
--- NOTE | 2023-09-09 13:49 | PC.NURSE ---
PO challenge and pt tolerated well
--- NOTE | 2023-09-09 14:28 | MHC.EDTECH ---
assisted pt to go to the bathroom, call tang within reach.
--- NOTE | 2023-09-09 15:54 | PHA.MEDREC ---
Pharmacy Consult ? Medication Reconciliation Pharmacy has completed the medication reconciliation.
--- NOTE | 2023-09-09 15:58 | HO.PM.IMCN ---
History of Present Illness Data of Consult Service Date: 09/09/23 Primary Care Provider: Nora Julian MD HPI Reason for consult: Pre-op clearance Patient is a 62-year-old female with a PMH significant for HTN, asthma, MAXIMILIANO intolerant of CPAP arthritis, GERD, and overactive bladder who presented to the emergency room earlier today for evaluation of abdominal pain that started yesterday afternoon. Was found on imaging to have acute appendicitis and was admitted to the hospital under general surgery services. Patient currently electing to treat with IV antibiotics rather than surgery though will re-evaluate surgical options in the morning. Hospitalist consult for preop risk assessment in case surgery is needed. Patient's PMH complicated by previously experiencing atypical chest pain/palpitations. Has been seen by Dr. Chacon and Bret in Cardiology. Underwent coronary CTA that initially showed LAD stenosis, but subsequent cardiac catheterization did not show evidence of the same and was negative for CAD. Echocardiogram showed LVEF of 60-65% and basal inferior hypokinesis. Patient also previously treated for hypertension with hydrochlorothiazide and amlodipine, but is no longer taking these medications. Pt reports palpitations have been overall well-controlled with metoprolol. Currently denies any chest pain/pressure, palpitations. No shortness a breath or difficulty breathing. Continues to complain of RLQ tenderness, though pain much better than before. Currently no nausea or vomiting. EKG obtained and reviewed, showing normal sinus rhythm without evidence of significant ST elevations or depressions, similar to previous. Review of Systems Review of Systems: RLQ tenderness Denies fever, chills, nausea, vomiting No chest pain/pressure, palpitations Denies shortness of breath or difficulty breathing [facility] Medical History MAXIMILIANO (obstructive sleep apnea) Bronchitis PONV (postoperative nausea and vomiting) Helicobacter pylori (H. pylori) Physical exam UTI (urinary tract infection) Scoliosis Restrictive lung disease Dysphagia Mild major depression, single episode Right shoulder pain COPD (chronic obstructive pulmonary disease) Allergic rhinosinusitis Acute bronchitis Asthma Anemia Primary osteoarthritis involving multiple joints Essential hypertension Right ankle pain Allergic rhinitis Family History Father Alcoholism Arthritis Mother Diabetes Acute CVA (cerebrovascular accident) Sister Breast cancer Family/Other FH: mental illness Brother Diabetes Myocardial infarct Daughter In good health Daughter In good health Daughter In good health Surgical History History of esophagogastroduodenoscopy (EGD) Hx of colonoscopy Hx of cardiac cath History of total left knee replacement History of arthroscopy of right knee History of hemorrhoidectomy History of total right knee replacement History of total abdominal hysterectomy History of tonsillectomy Social History Housing: Apartment Alcohol intake: never Patient Tobacco Use Status: Never used Tobacco Smoked in Last 30 Days: No e-Cigarette/Vaping Use: Never Used Second Hand Smoke Exposure: No Use of substances other than those prescribed or required for medical reasons: No Advance Directives: Yes Advance Directives on File: Yes Advance Directives Date on File: 11/28/19 Patient : No service: No 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al status: disabled 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 Cognitive needs: No Hearing needs: No Vision needs: Yes Meds Allergies Allergy/AdvReac Type Severity Reaction Status Date / Time Iodinated Contrast Media Allergy Severe ITCH/RASH Verified 09/09/23 10:06 [IV DYE, IODINE CONTAINING] clams Allergy Intermediate ITCHING Verified 09/09/23 10:06 docusate [From COLACE] Allergy Intermediate ITCHING Verified 09/09/23 10:06 lansoprazole [Prevacid] Allergy Intermediate hives Verified 09/09/23 10:06 oxybutynin Allergy Intermediate bladder Verified 09/09/23 10:06 pain pistachio nut Allergy Intermediate ITCHING Verified 09/09/23 10:06 walnut Allergy Intermediate ITCH/RASH Verified 09/09/23 10:06 SEASONAL ALLERGIES Allergy Intermediate ITCHY EYES Uncoded 09/09/23 10:06 Active Medications: Current Medications Acetaminophen (Acetaminophen 325 Mg Tablet) 650 mg PO Q6H PRN PRN Reason: Pain, Mild (Pain Scale 1-3), fever or headache Piperacillin Sod/Tazobactam (Sod 3.375 gm/ Sodium Chloride) 50 mls @ 100 mls/hr IV Q6H THA Last Infusion: 09/09/23 13:49 Dose: Infused Magnesium Hydroxide (Milk Of Magnesia 30 Ml Oral.Susp) 30 ml PO DAILY PRN PRN Reason: Constipation Melatonin (Melatonin 3 Mg Tablet) 6 mg PO BEDTIME PRN PRN Reason: Insomnia Metoprolol Succinate (Metoprolol Succinate Er 50 Mg Tab.Er.24h) 50 mg PO DAILY [facility] [place]; Protocol Morphine Sulfate (Morphine Sulfate 4 Mg/Ml Cartridge) 3 mg IVPUSH Q3H PRN; Protocol PRN Reason: Pain, Severe (Pain Scale 7-10) Ondansetron HCl (Ondansetron Hcl 4 Mg/2 Ml Vial) 4 mg IVPUSH Q8H PRN PRN Reason: Nausea and Vomiting Sodium Chloride (0.9 % Sodium Chloride Flush 3 Ml Syringe) 3 ml IVFLUSH QSHIFT [facility] Home Medications ?Medication ?Instructions ?Recorded ?Confirmed ?Last Taken ?Type acetaminophen 650 mg 650 mg PO Q8H PRN Pain 09/09/23 09/09/23 09/09/23 History tablet,extended release (Tylenol 8 Hour) albuterol sulfate 2.5 mg/3 mL 2.5 mg inhalation Q6H PRN 09/09/23 09/09/23 Unknown History (0.083 %) solution for nebulization shortness of breath or wheezing albuterol sulfate 90 mcg/actuation 2 puff inhalation Q6H PRN for 09/09/23 09/09/23 Unknown History aerosol inhaler wheezing calcium carbonate 600 mg-vitamin 1 tab PO MOFR@0900 09/09/23 09/09/23 Unknown History D3 10 mcg (400 unit) tablet fluticasone 250 mcg-salmeterol 50 1 inh inhalation BID 09/09/23 09/09/23 Unknown History mcg/dose blistr powdr for inhalation ([place] Inhub) fluticasone propionate 50 1 spray intranasal DAILY 09/09/23 09/09/23 Unknown History mcg/actuation nasal spray,suspension glucosamine sulfate 750 mg tablet 750 mg PO DAILY 09/09/23 09/09/23 Unknown History lidocaine 4 % topical patch 1 patch topical DAILY PRN Back Pain 09/09/23 09/09/23 Unknown History (Aspercreme (lidocaine)) magnesium oxide 400 mg (241.3 mg 400 mg PO BEDTIME PRN Constipation 09/09/23 09/09/23 Unknown History magnesium) tablet pantoprazole 40 mg tablet,delayed 40 mg PO DAILY@0630 PRN Acid Reflux 09/09/23 09/09/23 Unknown History release Physical Exam Vital Signs and Narrative: Vital Signs: Last Vital Signs Temp 97.8 F 09/09/23 14:00 Pulse 62 09/09/23 14:00 Resp 15 09/09/23 14:00 BP 139/75 09/09/23 14:00 Pulse Ox 95 09/09/23 14:00 O2 Del Method Room Air 09/09/23 14:00 BMI result Body Mass Index 28.5 General: AOx3, no acute distress Resp: CTA bilaterally CVS: S1, S2, RRR GI: +BS, no distention, soft, RLQ tenderness Skin: Warm, dry Neuro: Cranial nerves II-XII grossly intact bilaterally. Motor grossly intact bilaterally Extremities: No edema Psych: Appropriate affect Results Labs 09/09/23 10:10 09/09/23 10:10 Labs: Laboratory Results - last 24 hr 09/09/23 09/09/23 10:10 11:01 MCV 92.0 MCH 31.2 MCHC 34.0 RDW 19.1 H Plt Count 303 MPV 11.4 Immature Gran % (Auto) 0.5 H Neut % (Auto) 84.4 H Lymph % (Auto) 8.4 L [place] % (Auto) 5.3 Eos % (Auto) 0.8 Baso % (Auto) 0.6 Lymph # (Auto) 1.2 [place] # (Auto) 0.8 Eos # (Auto) 0.1 Baso # (Auto) 0.1 Abs Immat Gran (auto) 0.07 H Absolute Neuts (auto) 12.2 H Absolute Nucleated RBC 0.020 H Nucleated RBC % (auto) 0.1 Anion Gap 14 Estim Creat Clear Calc 79.4 Estimated GFR > 60 Random Glucose 151 H Calcium 9.9 Total Bilirubin 0.9 AST 16 ALT 23 Alkaline Phosphatase 111 Total Protein 7.9 Albumin 4.6 Urine Color Dark Yellow Urine Appearance Clear Urine pH 5.5 Ur Specific [place] >= 1.030 H Urine Protein 30 (1+) H Urine Glucose (UA) Negative Urine Ketones Trace Urine Blood Negative Urine Nitrite Negative Ur Leukocyte Esterase Trace H Urine RBC 0-2 Urine WBC 0-5 Ur Squamous Epith Cells 0-2 Urine Bacteria None Seen Hyaline Casts 6-10 Imaging Radiologist's Impressions: Impressions Abdomen/Pelvis CT 09/09/23 11:43 IMPRESSION: Acute appendicitis. Diverticulosis without diverticulitis. Fleischner guidelines were followed. At the time of this dictation, PSA service contacted to alert physician. Assessment and Plan (1) Acute appendicitis: Qualifiers: Appendicitis abscess presence: without abscess Appendicitis gangrene presence: without gangrene Appendicitis perforation presence: without perforation Status: Acute Plan Patient is a 62-year-old female with a PMH significant for HTN, asthma, MAXIMILIANO intolerant of CPAP arthritis, GERD, and overactive bladder who presented to the emergency room earlier today for evaluation of abdominal pain that started yesterday afternoon. Was found on imaging to have acute appendicitis and was admitted to the hospital under general surgery services. Patient currently electing to treat with IV antibiotics rather than surgery though will re-evaluate surgical options in the morning. Hospitalist consult for preop risk assessment in case surgery is needed. Acute appendicitis Plan as per General surgery Atypical chest pain/palpitations Pt has had significant cardiac workup in the past which has been negative Cardiac catheterization in 2020 2- for CAD Palpitations have been well-controlled with metoprolol Continue metoprolol Preop assessment Pt is at moderate risk for procedure given age and comorbidities including asthma Cardiac risk assessment: RCRI score of 1, class II risk No further workup indicated at this time Asthma Not in acute exacerbation Continue home inhalers GERD Continue PPI Thank you for allowing us to participate in the care of this patient. Signing off at this time. Please re-consult if any acute complaints or issues arise.
--- NOTE | 2023-09-09 16:15 | MHC.EDTECH ---
ambulated pt to the bathroom, warm blanket given, call tang within reach.
--- NOTE | 2023-09-09 17:12 | PM.EVENT ---
Event Note Date of Service: 09/09/23 Event Note: seen on ffup says pain is 2/10 stable VS appears well not toxic looking abd soft, mild tenderness on RLQ continue IV abx as pt's preference - continue IV abx, says she will re-think surgery in AM doing well so far repeat labs in AM NPO post MN Time Spent With Patient Time: Total time managing care of this patient today ____ minutes.
[2023-09-09] MEDS: 0.9 % Sodium Chloride Flush 3 ML SYRINGE IVFLUSH (17:28)
[2023-09-09] MEDS: Acetaminophen 325 MG TABLET 650 MG PO (18:48)
--- NOTE | 2023-09-09 18:49 | MHC.EDTECH ---
pt c/o being cold, rectal temp 101.6, RN notified.
--- NOTE | 2023-09-09 18:50 | PC.NURSE ---
Pt with rectal temp 101.6. Tylenol given. Dr. Fernandez and [facility] made aware.
[2023-09-09] MEDS: Famotidine 20 MG TABLET 40 MG PO (19:26)
[2023-09-10] VITALS (14 sets, daily range): BP systolic 140–176; BP diastolic 56–89; PULSE 60–84; RESP 13–22; TEMP 36.4–36.8; O2SAT 93–100
[2023-09-10] MEDS: 0.9 % Sodium Chloride Flush 3 ML SYRINGE IVFLUSH ×4 (00:06→20:27)
[2023-09-10] MEDS: Piperacillin Sodium/Tazobactam 3.375 GM in 0.9 % Sodium Chloride 50 ML IV ×3 (02:02→13:39)
[2023-09-10 07:07] LABS: Hematocrit 35.9 % (37.0-47.0); Hemoglobin 11.7 g/dl (12.0-16.0); Mean Corpuscular HGB Conc 32.6 g/dl (31.0-35.0); Mean Corpuscular Hemoglobin 30.7 pg (27.0-33.0); Mean Corpuscular Volume 94.2 fL (80.0-98.0); Mean Platelet Volume 11.6 fL (9.4-12.3); Platelet Count 265 X10*3/uL (160-400); Red Blood Count 3.81 X10*6/uL (4.20-5.50); Red Cell Distribution Width 19.3 % (11.0-16.0); White Blood Count 8.7 X10*3/uL (4.8-10.8)
[2023-09-10 07:19] LABS: Anion Gap 13 (12-20); Blood Urea Nitrogen 11 mg/dL (9-16); Calcium 9.8 mg/dL (8.4-10.2); Carbon Dioxide 26 mmol/L (22-29); Chloride 105 mmol/L (96-108); Creatinine Clr Calc Pharmacy 77.3; Estimated Glomerular Filt Rate > 60; Glucose Random 94 mg/dL (60-115); Potassium 3.6 mmol/L (3.3-5.1); Sodium 140 mmol/L (135-145)
[2023-09-10] MEDS: Fluticasone Propionate Nasal 16 GM SPRAY 1 SPRAY NOSTRIL-B (07:28)
[2023-09-10] MEDS: Metoprolol Succinate ER 50 MG TAB.ER.24H PO (07:28)
--- NOTE | 2023-09-10 07:59 | PM.PNGS ---
Subjective Subjective Date of Service: 09/10/23 <Serina Julian PA-C - Last Filed: 09/10/23 08:02> 09/10/23 <Fernando Fernandez MD - Last Filed: 09/10/23 16:17> Interval history: Continued RLQ pain, nausea. Would like to proceed with surgery. <Serina Julian PA-C - Last Filed: 09/10/23 08:02> Physical Exam Vital Signs: Vital Signs: Last Vital Signs Temp 98.3 F 09/10/23 07:53 Pulse 71 09/10/23 07:53 Resp 18 09/10/23 07:53 BP 140/76 H 09/10/23 07:53 Pulse Ox 94 09/10/23 07:53 O2 Del Method Room Air 09/10/23 07:53 BMI result Body Mass Index 28.5 <HALEIGH Jolley Last Filed: 09/10/23 08:02> Const: Other: uncomfortable appearing <Serina Julian PA-C - Last Filed: 09/10/23 08:02> General: alert <Serina Julian PA-C - Last Filed: 09/10/23 08:02> Orientation/consciousness: patient oriented x3 <Serina Julian PA-C - Last Filed: 09/10/23 08:02> Resp: Effort & Inspection: normal respiratory effort <Serina Julian PA-C - Last Filed: 09/10/23 08:02> GI: Inspection: No distended <Serina Julian PA-C - Last Filed: 09/10/23 08:02> Palpation (GI): Soft to palpation, Tenderness to palpation present (GI) (RLQ, moderate) and no guarding <HALEIGH Jolley Last Filed: 09/10/23 08:02> Skin: General skin exam: no rashes or lesions noted <HALEIGH Jolley Last Filed: 09/10/23 08:02> Neuro: General: patient oriented x3 <HALEIGH Jolley Last Filed: 09/10/23 08:02> Objective Data Active Medications Acetaminophen (Acetaminophen 325 Mg Tablet) 650 mg PO Q6H PRN PRN Reason: Pain, Mild (Pain Scale 1-3), fever or headache Last Admin: 09/09/23 18:48 Dose: 650 mg Documented By: ONEAL Albuterol Sulfate (Albuterol Sulfate (0.083%) 2.5 Mg/3 Ml Vial.Neb) 2.5 mg INHALE Q6H PRN PRN Reason: shortness of breath or wheezing Albuterol Sulfate (Albuterol Sulfate 90 Mcg 8 Gm Inhaler) 2 puff INHALE Q6H PRN PRN Reason: for wheezing Famotidine (Famotidine 20 Mg Tablet) 40 mg PO BEDTIME [facility] Last Admin: 09/09/23 19:26 Dose: 40 mg Documented By: ANGELA Fluticasone Propionate (Fluticasone Propionate Nasal 16 Gm [place]) 1 spray NOSTRIL-B DAILY [facility] Last Admin: 09/10/23 07:28 Dose: 1 spray Documented By: ANGELA Fluticasone/Vilanterol (Fluticasone/Vilanterol 100/25 Blst.W.Dev) 1 puff INHALE RDAILY [facility] Last Admin: 09/10/23 07:10 Dose: Not Given Documented By: NGHIA Non-Admin Reason: Patient Refused Piperacillin Sod/Tazobactam (Sod 3.375 gm/ Sodium Chloride) 50 mls @ 100 mls/hr IV Q6H [facility] Last Infusion: 09/10/23 07:29 Dose: Infused Documented By: ANGELA Magnesium Hydroxide (Milk Of Magnesia 30 Ml Oral.Susp) 30 ml PO DAILY PRN PRN Reason: Constipation Melatonin (Melatonin 3 Mg Tablet) 6 mg PO BEDTIME PRN PRN Reason: Insomnia Metoprolol Succinate (Metoprolol Succinate Er 50 Mg Tab.Er.24h) 50 mg PO DAILY [facility]; Protocol Last Admin: 09/10/23 07:28 Dose: 50 mg Documented By: ANGELA Morphine Sulfate (Morphine Sulfate 4 Mg/Ml Cartridge) 3 mg IVPUSH Q3H PRN; Protocol PRN Reason: Pain, Severe (Pain Scale 7-10) Ondansetron HCl (Ondansetron Hcl 4 Mg/2 Ml Vial) 4 mg IVPUSH Q8H PRN PRN Reason: Nausea and Vomiting Sodium Chloride (0.9 % Sodium Chloride Flush 3 Ml Syringe) [facility] Last Admin: 09/10/23 07:28 Dose: 3 ml Documented By: ANGELA <Serina Julian PA-C - Last Filed: 09/10/23 08:02> Labs CBC & Chem 7: 09/10/23 06:39 09/10/23 06:39 <Serina Julian PA-C - Last Filed: 09/10/23 08:02> Labs: Laboratory Results - last 24 hr 09/09/23 09/09/23 09/10/23 10:10 11:01 06:39 MCV 92.0 94.2 MCH 31.2 30.7 MCHC 34.0 32.6 RDW 19.1 H 19.3 H Plt Count 303 265 MPV 11.4 11.6 Immature Gran % (Auto) 0.5 H Neut % (Auto) 84.4 H Lymph % (Auto) 8.4 L [place] % (Auto) 5.3 Eos % (Auto) 0.8 Baso % (Auto) 0.6 Lymph # (Auto) 1.2 [place] # (Auto) 0.8 Eos # (Auto) 0.1 Baso # (Auto) 0.1 Abs Immat Gran (auto) 0.07 H Absolute Neuts (auto) 12.2 H Absolute Nucleated RBC 0.020 H 0.000 Nucleated RBC % (auto) 0.1 0.0 Anion Gap 14 13 Estim Creat Clear Calc 79.4 77.3 Estimated GFR > 60 > 60 Random Glucose 151 H 94 Calcium 9.9 9.8 Total Bilirubin 0.9 AST 16 ALT 23 Alkaline Phosphatase 111 Total Protein 7.9 Albumin 4.6 Urine Color Dark Yellow Urine Appearance Clear Urine pH 5.5 Ur Specific [place] >= 1.030 H Urine Protein 30 (1+) H Urine Glucose (UA) Negative Urine Ketones Trace Urine Blood Negative Urine Nitrite Negative Ur Leukocyte Esterase Trace H Urine RBC 0-2 Urine WBC 0-5 Ur Squamous Epith Cells 0-2 Urine Bacteria None Seen Hyaline Casts 6-10 <Serina Julian PA-C - Last Filed: 09/10/23 08:02> Microbiology Microbiology Results: Microbiology 09/09/23 13:08 Blood Culture - Preliminary Blood - Venous <Serina Julian PA-C - Last Filed: 09/10/23 08:02> Procedures Date of Service Date of Service: 09/10/23 <Serina Julian PA-C - Last Filed: 09/10/23 08:02> 09/10/23 <Fernando Fernandez MD - Last Filed: 09/10/23 16:17> Progress Note: A&P Assessment and plan (1) Acute appendicitis: Status: Acute <Serina Julian PA-C - Last Filed: 09/10/23 08:02> Assessment and Plan: Patient says she continues to have pain Also had temperature of 101.6 degrees last night She therefore agrees to proceed with appendectomy I reviewed with her the technique of laparoscopic appendectomy and possible open appendectomy I reviewed the risks including but not limited to bleeding, infections, staple line leak, injury to other organs including bowel or the urinary tract, DC, blood clots, pneumonia She understands and wants to proceed Seen and examined independently <Fernando Fernandez MD - Last Filed: 09/10/23 16:17> Assessment and Plan: WBC improved but has continued RLQ pain and tenderness with IV abx. Would like to proceed with appendectomy. Risks, benefits, alternatives of laparoscopic possible open appendectomy were reviewed with the patient and included but not limited to bleeding, infection, numbness, pain, scarring, bowel or bladder injury or staple line leak and the patient wishes to proceed. She has been added onto the OR schedule for today. Cont IV zosyn. <Serina Julian PA-C - Last Filed: 09/10/23 08:02> Time Spent With Patient Time: Total time managing care of this patient today ____ minutes. <Serina Julian PA-C - Last Filed: 09/10/23 08:02> Quality Stroke Does the patient have a stroke diagnosis?: No <HALEIGH Jolley Last Filed: 09/10/23 08:02> VTE Prior VTE?: No <HALEIGH Jolley Last Filed: 09/10/23 08:02> VTE Risk Level:: Medical - moderate - high <Serina Julian PA-C - Last Filed: 09/10/23 08:02> VTE Device Contraindication: N/A - Device Ordered <HALEIGH Jolley Last Filed: 09/10/23 08:02> VTE Drug Contraindication: N/A - Med Ordered <Serina Julian PA-C - Last Filed: 09/10/23 08:02>
--- NOTE | 2023-09-10 08:24 | MHC.CM.PN ---
CM met with Patient at bedside and addressed IMM with her, providing Patient with the original and a copy has been placed on the chart.Patient lives in a house with her , Son, [id number], and Grandchildren and she uses a cane to assist with mobility. Home/self care is the goal and CM has initiated and will follow for dc planning. PCP is Dr. Nora Spain.
--- NOTE | 2023-09-10 13:53 | PC.NURSE ---
pt ambulated to bathroom steady gait voided dr beard at bedside goig over procedure with patient and family member
--- NOTE | 2023-09-10 13:57 | P.CONAN_ITS ---
HPI - Anesthesia Eval Consult details Narrative: 62 yo female patient with acute appendicitis. For Laparoscopic appendectomy PMFSH Active Problems Active Problems: All Active Problems Acute appendicitis (Acute) PVC (premature ventricular contraction) (Acute) PAC (premature atrial contraction) (Acute) Migraine without aura (Acute) MAXIMILIANO (obstructive sleep apnea) (Acute)- does not use CPAP machine Acute conjunctivitis, bilateral (Acute) Bronchitis (Acute) GERD (gastroesophageal reflux disease) (Acute) Constipation by delayed colonic transit (Acute) Headache (Acute) Benign paroxysmal vertigo, unspecified ear (Acute) Physical exam (Acute) LVH (left ventricular hypertrophy) (Acute) Palpitation (Acute) Bilateral nephrolithiasis (Acute) Shortness of breath on exertion (Acute) S/P bilateral unicompartmental knee replacement (Acute) Vertigo (Acute) Abnormal echocardiogram findings without diagnosis (Acute) Atherosclerotic cardiovascular disease (Acute) Chest pain (Acute) CAD (coronary artery disease) (Acute)- cardiav cath- Clear coronaries S/P cardiac catheterization (Acute) Erosive osteoarthritis of left hand (Acute) Transaminitis (Acute) Carpal tunnel syndrome on both sides (Acute) Arthritis of carpometacarpal (CMC) joint of left thumb (Acute) Arthritis of finger of left hand (Acute) Urinary frequency (Acute) Skin lesion (Acute) Abdominal pain (Acute) Migraine (Acute) Sleep difficulties (Acute) Snoring (Acute) Excessive daytime sleepiness (Acute) Helicobacter pylori (H. pylori) (Acute) Physical exam (Acute) UTI (urinary tract infection) (Acute) Scoliosis (Acute) Restrictive lung disease (Acute) Dysphagia (Acute) Right shoulder pain (Acute) COPD (chronic obstructive pulmonary disease) (Acute) Allergic rhinosinusitis (Acute) Acute bronchitis (Acute) Asthma/COPD -daily inhalers Anemia (Acute) Primary osteoarthritis involving multiple joints (Acute) Essential hypertension (Acute) History of total left knee replacement (Acute) Right ankle pain (Acute) Allergic rhinitis (Acute) Past Medical History Medical History MAXIMILIANO (obstructive sleep apnea) Bronchitis PONV (postoperative nausea and vomiting) Helicobacter pylori (H. pylori) Physical exam UTI (urinary tract infection) Scoliosis Restrictive lung disease Dysphagia Mild major depression, single episode Right shoulder pain COPD (chronic obstructive pulmonary disease) Allergic rhinosinusitis Acute bronchitis Asthma Anemia Primary osteoarthritis involving multiple joints Essential hypertension Right ankle pain Allergic rhinitis Family History Family History Father Alcoholism Arthritis Mother Diabetes Acute CVA (cerebrovascular accident) Sister Breast cancer Family/Other FH: mental illness Brother Diabetes Myocardial infarct Daughter In good health Daughter In good health Daughter In good health Family history of problems with anesthesia: No Surgical History Surgical History History of esophagogastroduodenoscopy (EGD) Hx of colonoscopy Hx of cardiac cath History of total left knee replacement History of arthroscopy of right knee History of hemorrhoidectomy History of total right knee replacement History of total abdominal hysterectomy History of tonsillectomy History of Problems with Anesthesia: No Social History Social History Household Members: Family Housing: House Alcohol intake: never Patient Tobacco Use Status: Never used Tobacco e-Cigarette/Vaping Use: Never Used Second Hand Smoke Exposure: No Advance Directives Date on File: 11/28/19 service: No 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al status: disabled 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 Cognitive needs: No Hearing needs: No Vision needs: Yes Meds Allergies Allergy/AdvReac Type Severity Reaction Status Date / Time Iodinated Contrast Media Allergy Severe ITCH/RASH Verified 09/09/23 10:06 [IV DYE, IODINE CONTAINING] clams Allergy Intermediate ITCHING Verified 09/09/23 10:06 docusate [From COLACE] Allergy Intermediate ITCHING Verified 09/09/23 10:06 lansoprazole [Prevacid] Allergy Intermediate hives Verified 09/09/23 10:06 oxybutynin Allergy Intermediate bladder Verified 09/09/23 10:06 pain pistachio nut Allergy Intermediate ITCHING Verified 09/09/23 10:06 walnut Allergy Intermediate ITCH/RASH Verified 09/09/23 10:06 SEASONAL ALLERGIES Allergy Intermediate ITCHY EYES Uncoded 09/09/23 10:06 Active Medications: Current Medications Acetaminophen (Acetaminophen 325 Mg Tablet) 650 mg PO Q6H PRN PRN Reason: Pain, Mild (Pain Scale 1-3), fever or headache Last Admin: 09/09/23 18:48 Dose: 650 mg Albuterol Sulfate (Albuterol Sulfate (0.083%) 2.5 Mg/3 Ml Vial.Neb) 2.5 mg INHALE Q6H PRN PRN Reason: shortness of breath or wheezing Albuterol Sulfate (Albuterol Sulfate 90 Mcg 8 Gm Inhaler) 2 puff INHALE Q6H PRN PRN Reason: for wheezing Famotidine (Famotidine 20 Mg Tablet) 40 mg PO BEDTIME [facility] Last Admin: 09/09/23 19:26 Dose: 40 mg Fluticasone Propionate (Fluticasone Propionate Nasal 16 Gm [place]) 1 spray NOSTRIL-B DAILY [facility] Last Admin: 09/10/23 07:28 Dose: 1 spray Fluticasone/Vilanterol (Fluticasone/Vilanterol 100/25 Blst.W.Dev) 1 puff INHALE RDAILY [facility] Last Admin: 09/10/23 07:10 Dose: Not Given Piperacillin Sod/Tazobactam (Sod 3.375 gm/ Sodium Chloride) 50 mls @ 100 mls/hr IV Q6H [facility] Last Admin: 09/10/23 13:39 Dose: 100 mls/hr Magnesium Hydroxide (Milk Of Magnesia 30 Ml Oral.Susp) 30 ml PO DAILY PRN PRN Reason: Constipation Melatonin (Melatonin 3 Mg Tablet) 6 mg PO BEDTIME PRN PRN Reason: Insomnia Metoprolol Succinate (Metoprolol Succinate Er 50 Mg Tab.Er.24h) 50 mg PO DAILY [facility]; Protocol Last Admin: 09/10/23 07:28 Dose: 50 mg Morphine Sulfate (Morphine Sulfate 4 Mg/Ml Cartridge) 3 mg IVPUSH Q3H PRN; Protocol PRN Reason: Pain, Severe (Pain Scale 7-10) Ondansetron HCl (Ondansetron Hcl 4 Mg/2 Ml Vial) 4 mg IVPUSH Q8H PRN PRN Reason: Nausea and Vomiting Sodium Chloride (0.9 % Sodium Chloride Flush 3 Ml Syringe) 3 ml IVFLUSH QSHIFT [facility] Last Admin: 09/10/23 07:28 Dose: 3 ml Home Medications ?Medication ?Instructions ?Recorded ?Confirmed ?Last Taken ?Type acetaminophen 650 mg 650 mg PO Q8H PRN Pain 09/09/23 09/09/23 09/09/23 History tablet,extended release (Tylenol 8 Hour) albuterol sulfate 2.5 mg/3 mL 2.5 mg inhalation Q6H PRN 09/09/23 09/09/23 Unknown History (0.083 %) solution for nebulization shortness of breath or wheezing albuterol sulfate 90 mcg/actuation 2 puff inhalation Q6H PRN for 09/09/23 09/09/23 Unknown History aerosol inhaler wheezing calcium carbonate 600 mg-vitamin 1 tab PO MOFR@0900 09/09/23 09/09/23 Unknown History D3 10 mcg (400 unit) tablet fluticasone 250 mcg-salmeterol 50 1 inh inhalation BID 09/09/23 09/09/23 Unknown History mcg/dose blistr powdr for inhalation (Wixela Inhub) fluticasone propionate 50 1 spray intranasal DAILY 09/09/23 09/09/23 Unknown History mcg/actuation nasal spray,suspension glucosamine sulfate 750 mg tablet 750 mg PO DAILY 09/09/23 09/09/23 Unknown History lidocaine 4 % topical patch 1 patch topical DAILY PRN Back Pain 09/09/23 09/09/23 Unknown History (Aspercreme (lidocaine)) magnesium oxide 400 mg (241.3 mg 400 mg PO BEDTIME PRN Constipation 09/09/23 09/09/23 Unknown History magnesium) tablet pantoprazole 40 mg tablet,delayed 40 mg PO DAILY@0630 PRN Acid Reflux 09/09/23 09/09/23 Unknown History release Exam Height,Weight and Vital Signs: Height 5 ft 4 in Weight 75.296 kg Last Vital Signs Temp 97.8 F 09/10/23 13:13 Pulse 69 09/10/23 13:13 Resp 20 09/10/23 13:13 BP 140/80 H 09/10/23 13:13 Pulse Ox 95 09/10/23 13:13 O2 Del Method Room Air 09/10/23 13:13 Pertinent Lab Results Pertinent Lab Results: Laboratory Tests 09/09/23 09/09/23 09/10/23 10:10 11:01 06:39 WBC 14.4 H 8.7 RBC 4.10 L 3.81 L Hgb 12.8 11.7 L Hct 37.7 35.9 L MCV 92.0 94.2 MCH 31.2 30.7 MCHC 34.0 32.6 RDW 19.1 H 19.3 H Plt Count 303 265 MPV 11.4 11.6 Immature Gran % (Auto) 0.5 H Neut % (Auto) 84.4 H Lymph % (Auto) 8.4 L [place] % (Auto) 5.3 Eos % (Auto) 0.8 Baso % (Auto) 0.6 Lymph # (Auto) 1.2 [place] # (Auto) 0.8 Eos # (Auto) 0.1 Baso # (Auto) 0.1 Abs Immat Gran (auto) 0.07 H Absolute Neuts (auto) 12.2 H Absolute Nucleated RBC 0.020 H 0.000 Nucleated RBC % (auto) 0.1 0.0 Sodium 137 140 Potassium 3.8 3.6 Chloride 104 105 Carbon Dioxide 23 26 Anion Gap 14 13 BUN 13 11 Creatinine 0.72 0.74 Estim Creat Clear Calc 79.4 77.3 Estimated GFR > 60 > 60 Random Glucose 151 H 94 Calcium 9.9 9.8 Total Bilirubin 0.9 AST 16 ALT 23 Alkaline Phosphatase 111 Total Protein 7.9 Albumin 4.6 Urine Color Dark Yellow Urine Appearance Clear Urine pH 5.5 Ur Specific [place] >= 1.030 H Urine Protein 30 (1+) H Urine Glucose (UA) Negative Urine Ketones Trace Urine Blood Negative Urine Nitrite Negative Ur Leukocyte Esterase Trace H Urine RBC 0-2 Urine WBC 0-5 Ur Squamous Epith Cells 0-2 Urine Bacteria None Seen Hyaline Casts 6-10 Airway Mallampati Class: III TM Dist: >3cm Neck ROM: Limited Loose/Missing/Broken Teeth: Yes (Missing teeth back. Denies broken or loose teeth) Heart: RRR ?murmur Lungs: CTAB Assessment and Plan Assessment Anesthesia Assessment: Anesthesia Plan Discussed and Chart Reviewed Final Anesthetic Review Family History of Problems with Anesthesia: No History of Problems with Anesthesia: No NPO: Yes ASA Class: III and Emergency Final Preanesthetic Review: No Changes in Pt Med Stat, Meds/Allgs Chart Reviewed, Consent Obtained/Reviewed and Anes Risks/Benef Reviewed Patient Risk: Intermediate Procedure Risk: Intermediate Assessment/Block/Sedation in SS: Assess/Block/Sedation- Anesthetic Plan Anesthetic Plan: GA Disposition: Standard PACU and Inp. Admit - Standard Bed
--- NOTE | 2023-09-10 15:16 | P.OP_ITS ---
Operative Note Operative Note Date of Service: 09/10/23 Narrative: Preop diagnosis: Acute appendicitis Postop diagnosis: Acute appendicitis, with suppurated, markedly inflamed and thickened appendix at the distal 2/3, surrounded by inflamed fatty tissue Procedure: Laparoscopic appendectomy Surgeon: Fernando Fernandez MD 1st assistant branch operations manager: COREEN Julian The patient is a 62 year female admitted yesterday for acute appendicitis. She initially had wanted to just do IV antibiotics. However, this morning, she said that she wanted to proceed with the appendectomy. She did feel better and her WBC was down. She says that she did not want another recurrence. She understood the technique of the planned procedure as well as the risks, benefits, and alternatives. She was brought to the operating room. She was placed supine under general anesthesia via endotracheal tube. A Escalante catheter was inserted. The abdomen was prepped and draped in the usual sterile fashion. A surgical time-out was done. The was receiving IV Zosyn as scheduled . I made a short supraumbilical incision using a blade 15. This was carried down through the full-thickness of the skin and subcutaneous fat. The fascia was grasped with Tin clamps. The fascia was incised. The peritoneum was entered. Through this incision a [place] port was introduced. Pneumoperitoneum was introduced to a pressure of 15 mm Hg. From here on the rest of the procedure was done under vision with a 10 mm laparoscope eventually switched to a 5 mm laparoscope. With laparoscopic visualization I inserted another 5 mm port in the left lower quadrant as well as the suprapubic margin. The patient was placed in a head down and [id number] position. Graspers were placed through the working ports. The small bowel and omentum were retracted away from the right lower quadrant. The appendix was therefore visualized and well exposed. This was markedly adherent to the sidewall on the right side so we had to do careful dissection with the [place] dissector to release this. The appendix was very thickened, indurated and markedly inflamed at the distal 2/3. I applied a grasper towards the distal 2/3rd of the appendix to put this on stretch. I serially divided the attached indurated mesoappendix using LigaSure to divide the mesoappendix. I then defined the base of the appendix. The base was noninflamed and appeared to be very viable. I positioned an Endo-ASIA 30 mm stapler across the base of the appendix and this was fired. The appendix was transected. The appendix was retrieved through an endobag through the umbilical incision. We were using a 5 mm port at this time through the left lower quadrant With laparoscopic visualization, I then visualized all 4 quadrants. There was no other pathology. There was no evidence of any bowel injury. There was no bleeding from the staple line was intact I pulled the omentum to overlie the area of dissection Once hemostasis was confirmed, I desufflated through the port sites. I removed all ports under vision with the laparoscope with the umbilical port removed last. The fascia of the umbilical incision was closed with a [id number] Polysorb 0 stitch. Skin closure was achieved on all incisions using Polysorb 4-0 sub cuticular sutures All incisions were infiltrated with Marcaine 0.5% for postop analgesia. Dressings were applied. The procedure was then completed. The patient tolerated procedure well. There were no immediate complications. Initial and final counts of sponges and instruments were correct. Estimated blood loss was less than 25 cc. The patient was extubated without difficulty and transferred to the recovery room with stable vital signs.
[2023-09-10] MEDS: fentaNYL citrate/PF 100 MCG/2 ML VIAL 25 MCG IVPUSH ×2 (15:57→16:10)
--- NOTE | 2023-09-10 16:16 | PM.EVENT ---
Event Note Date of Service: 09/10/23 Event Note: Seen postop Drowsy but answering questions Lap appendectomy uneventful Stable vital signs Abdomen soft Pain management Family updated Likely home tomorrow Time Spent With Patient Time: Total time managing care of this patient today ____ minutes.
[2023-09-10] MEDS: Lactated Ringers 1,000 ML 100 ML IVCONT (17:37)
[2023-09-10] MEDS: oxyCODONE HCl Immed Release 5 MG TABLET PO (17:43)
[2023-09-10] MEDS: Famotidine 20 MG TABLET 40 MG PO (20:26)
[2023-09-10] MEDS: Acetaminophen 325 MG TABLET 650 MG PO (23:06)
[2023-09-11] MEDS: Lactated Ringers 1,000 ML 100 ML IVCONT (05:13)
--- NOTE | 2023-09-11 07:24 | P.PNGS_ITS ---
Subjective Subjective Date of Service: 09/11/23 [facility] Last Filed: 09/11/23 07:38> 09/11/23 <Serina Julian PA-C - Last Filed: 09/11/23 07:41> 09/11/23 <Fernando Fernandez MD - Last Filed: 09/11/23 10:21> Interval history: Pt states she is feeling okay this morning. Pain is 6/10 soreness and controlled with PO tylenol as she is tolerating PO intake. Denies any N/V this AM, does feel some bloating. Urinarting normally, passing gas but no BM, states she feels she could go soon. <[facility] Last Filed: 09/11/23 07:38> Pt states she is feeling okay this morning. Pain is 6/10 soreness and controlled with PO tylenol as she is tolerating PO intake. Denies any N/V this AM, does feel some bloating. Urinarting normally, passing gas but no BM, states she feels she could go soon. OOB and ambulating to bathroom without difficulty. <Serina Julian PA-C - Last Filed: 09/11/23 07:41> Physical Exam 2 Vital Signs: Vital Signs: Last Vital Signs Temp 97.7 F 09/10/23 16:12 Pulse 63 09/10/23 16:12 Resp 13 09/10/23 16:12 BP 148/82 H 09/10/23 16:12 Pulse Ox 95 09/10/23 16:12 O2 Del Method Room Air 09/10/23 16:12 O2 Flow Rate 2 09/10/23 16:12 FiO2 42 09/10/23 16:12 BMI result Body Mass Index 28.5 <[facility] Last Filed: 09/11/23 07:38> Const: General: comfortable, no acute distress, alert and awake <[facility] Last Filed: 09/11/23 07:38> Orientation/consciousness: patient oriented x3 <[facility] Last Filed: 09/11/23 07:38> Resp: Effort & Inspection: normal respiratory effort and able to speak in complete sentences <[facility] Last Filed: 09/11/23 07:38> GI: Other: 3 small incisions on abdomen, dressings clean, dry, and intact. No ecchymosis or erythema noted. Mildly tender to palpation. <Karenamanda Encinas - Last Filed: 09/11/23 07:38> Inspection: No distended <Serina Julian PA-C - Last Filed: 09/11/23 07:41> Palpation (GI): Soft to palpation and no guarding <Serina Julian PA-C - Last Filed: 09/11/23 07:41> Skin: General skin exam: no rashes or lesions noted <Serina Julian PA-C - Last Filed: 09/11/23 07:41> Neuro: General: patient oriented x3 <Karen Ortizzoe - Last Filed: 09/11/23 07:38> Objective Data Active Medications Acetaminophen (Acetaminophen 325 Mg Tablet) 650 mg PO Q6H PRN PRN Reason: Pain, Mild (Pain Scale 1-3), fever or headache Last Admin: 09/10/23 23:06 Dose: 650 mg Documented By: JEANNE Albuterol Sulfate (Albuterol Sulfate (0.083%) 2.5 Mg/3 Ml Vial.Neb) 2.5 mg INHALE Q6H PRN PRN Reason: shortness of breath or wheezing Albuterol Sulfate (Albuterol Sulfate 90 Mcg 8 Gm Inhaler) 2 puff INHALE Q6H PRN PRN Reason: for wheezing Famotidine (Famotidine 20 Mg Tablet) 40 mg PO BEDTIME [facility] Last Admin: 09/10/23 20:26 Dose: 40 mg Documented By: JEANNE Fluticasone Propionate (Fluticasone Propionate Nasal 16 Gm [place]) 1 spray NOSTRIL-B DAILY [facility] Last Admin: 09/10/23 07:28 Dose: 1 spray Documented By: ANGELA Fluticasone/Vilanterol (Fluticasone/Vilanterol 100/25 Blst.W.Dev) 1 puff INHALE RDAILY [facility] Last Admin: 09/11/23 07:09 Dose: Not Given Documented By: NGHIA Non-Admin Reason: Patient Refused Lactated Ringer's (Lr) 1,000 mls @ 100 mls/hr IVCONT .Q10H [facility] Last Admin: 09/11/23 05:13 Dose: 100 mls/hr Documented By: JEANNE Magnesium Hydroxide (Milk Of Magnesia 30 Ml Oral.Susp) 30 ml PO DAILY PRN PRN Reason: Constipation Melatonin (Melatonin 3 Mg Tablet) 6 mg PO BEDTIME PRN PRN Reason: Insomnia Metoprolol Succinate (Metoprolol Succinate Er 50 Mg Tab.Er.24h) 50 mg PO DAILY [facility]; Protocol Last Admin: 09/10/23 07:28 Dose: 50 mg Documented By: ANGELA Morphine Sulfate (Morphine Sulfate 4 Mg/Ml Cartridge) 3 mg IVPUSH Q3H PRN; Protocol PRN Reason: Pain, Severe (Pain Scale 7-10) Ondansetron HCl (Ondansetron Hcl 4 Mg/2 Ml Vial) 4 mg IVPUSH Q8H PRN PRN Reason: Nausea and Vomiting Oxycodone HCl (Oxycodone Hcl Immed Release 5 Mg Tablet) 5 mg PO Q4H PRN PRN Reason: Pain, Moderate(Pain Scale 4-6) Last Admin: 09/10/23 17:43 Dose: 5 mg Documented By: ANGELA Sodium Chloride (0.9 % Sodium Chloride Flush 3 Ml Syringe) [facility] Last Admin: 09/10/23 20:27 Dose: 3 ml Documented By: JEANNE <[facility] - Last Filed: 09/11/23 07:38> Labs CBC & Chem 7: 09/10/23 06:39 09/10/23 06:39 <[facility] - Last Filed: 09/11/23 07:38> Microbiology Microbiology Results: Microbiology 09/09/23 13:08 Blood Culture - Preliminary Blood - Venous No growth after 24 hours. 09/09/23 13:08 Blood Culture - Preliminary Blood - Venous <[facility] - Last Filed: 09/11/23 07:38> Procedures Date of Service Date of Service: 09/11/23 <[facility] - Last Filed: 09/11/23 07:38> 09/11/23 <Serina Julian PA-C - Last Filed: 09/11/23 07:41> 09/11/23 <Fernando Fernandez MD - Last Filed: 09/11/23 10:21> Progress Note: A&P Assessment and plan (1) Acute appendicitis: Status: Acute <Karen Pena - Last Filed: 09/11/23 07:38> Assessment and Plan: looks well good pain comtrol tolerating diet no events overnight abd soft ok to dc home dc instructions reinforced seen and examined independently <Fernando Fernandez MD - Last Filed: 09/11/23 10:21> (2) S/P laparoscopic appendectomy: Status: Acute <Karen Pena - Last Filed: 09/11/23 07:38> Assessment and Plan: Continue PO diet and continue to monitor for bowel movement Once BM is passed, discharge Pt with PO Tylenol for pain control <Karen Pena - Last Filed: 09/11/23 07:38> Seen independently, agree with Ce ESCOBAR. POD #1 s/p lap appy, doing well post operatively. VSS. Abd benign with appropriate post op tenderness, dressings intact and clean. Stable for dc to home today. F/u in office in 2 weeks. Patient comfortable with plan. <Serina Julian PA-C - Last Filed: 09/11/23 07:41> Time Spent With Patient Time: Total time managing care of this patient today ____ minutes. <Karen Pena - Last Filed: 09/11/23 07:38> Quality Stroke Does the patient have a stroke diagnosis?: No <[facility] Last Filed: 09/11/23 07:38> VTE Prior VTE?: No <[facility] - Last Filed: 09/11/23 07:38> VTE Risk Level:: Medical - moderate - high <[facility] - Last Filed: 09/11/23 07:38> VTE Device Contraindication: N/A - Device Ordered <Karen Pena - Last Filed: 09/11/23 07:38> VTE Drug Contraindication: N/A - Med Ordered <[facility] - Last Filed: 09/11/23 07:38>
[2023-09-11 07:35] VITALS: BP 132/67; PULSE 57; RESP 20; TEMP 36.2; O2SAT 93
[2023-09-11] MEDS: Fluticasone Propionate Nasal 16 GM SPRAY 1 SPRAY NOSTRIL-B (07:48)
[2023-09-11 07:49] VITALS: PULSE 65
[2023-09-11] MEDS: Metoprolol Succinate ER 50 MG TAB.ER.24H PO (07:49)
[2023-09-11] MEDS: 0.9 % Sodium Chloride Flush 3 ML SYRINGE IVFLUSH (07:49)
--- NOTE | 2023-09-11 09:29 | HO.POSTANES ---
Post Anesthesia Evaluation Post Anesthesia Evaluation Date of Service: 09/10/23 Vital Signs: Vital Signs Temp Pulse Resp BP Pulse Ox O2 Del Method 09/11/23 07:49 65 09/11/23 07:35 97.2 F 57 20 132/67 93 Room Air Anesthesia: General Endotracheal-GETA Mental Status: Awake Pain Control: Satisfactory Nausea/Vomiting: None Hydration: Adequate Anesthesia-Related Issues: No Anes. Related Issues
--- NOTE | 2023-09-11 10:25 | P.DS_ITS ---
DS: Providers Provider Date of Service: 09/11/23 Date of admission: 09/09/23 12:58 Date of discharge: 09/11/23 Primary care physician: Nora Julian MD Attending physician on admission: Fernando Fernandez Consults: 09/09/23 13:03 Consult to Hospitalist Routine Comment: Consulting Provider: Hospitalist Reason For Exam: CAD, HTN, poss. need for appendectomy Attending physician on discharge: Fernando Fernandez DS: Diagnosis Discharge Diagnosis (1) Acute appendicitis: Status: Acute (2) S/P laparoscopic appendectomy: Status: Acute DS: Summary Hospital Course Hospital Course: HPI AT ADMISSION: Mckenzie Montgomery is a 62 year old female here in the ED for abdominal pain. She says this started yesterday at noon. She describes this as on the lower abdomen, right more than the left. She says this had persisted through the night so she decided to come to the ED this morning. She has baseline frequency of urination from hyperactive bladder. She describes some nausea but no vomitting. She has had no fever. She has other medical problems including MAXIMILIANO, CAD and had stents done in 2021. She says she had been following Dr. Chacon for this. She is not on anticoagulation. She had hysterectomy 20 years ago for uterine bleeding. CT scan was reviewed and the appendix appeared to be thickened at the tip with inflammatory changes c/w appendicitis. HOSPITAL COURSE: The patient was admitted to the surgical service for further treatment of the acute appendicitis. Treatment options were discussed and she elected to proceed with nonoperative management. She was kept NPO, on IVF and started on IV zosyn. The following day her leukocytosis resolved however she had no symptomatic improvement in her pain and tenderness. She wanted to proceed with surgery. She was added onto the OR schedule for that day for laparoscopic appendectomy, possible open. On 09/10/23, a laparoscopic appendectomy was performed by Dr. Fernandez without complication. The patient tolerated the procedure well. She had an uncomplicated recovery course. On POD #1, she felt well and was tolerating a solid diet without nausea or vomiting, had good pain control and was ambulating without difficulty. She was hemodynamically stable. Her abdomen was benign with appropriate post op tenderness and clean and intact dressings. She felt ready for discharge. She was discharged to home on 09/11/23 in stable condition. She is to follow up in the office in 2 weeks. Status at Discharge Functional status at discharge: independent ambulation Overall status at discharge: patient is progressing back to baseline Time Attestation Discharge Coordination Time (in mins): 30 Quality: Safe Use of Opioids Does Pt have an Active Cancer Diagnosis on the Problem List?: No Quality: Stroke Does the patient have a stroke diagnosis?: No Physical Exam Vital Signs: Vital Signs: Last Vital Signs Temp 97.2 F 09/11/23 07:35 Pulse 65 09/11/23 07:49 Resp 20 09/11/23 07:35 BP 132/67 09/11/23 07:35 Pulse Ox 93 09/11/23 07:35 O2 Del Method Room Air 09/11/23 07:35 O2 Flow Rate 2 09/10/23 16:12 FiO2 42 09/10/23 16:12 BMI result Body Mass Index 28.5 Const: General: comfortable, no acute distress and alert Orientation/consciousness: patient oriented x3 Resp: Effort & Inspection: normal respiratory effort GI: Inspection: No distended and Yes incision (dressings c/d/i) Palpation (GI): Soft to palpation, Tenderness to palpation present (GI) and no guarding Skin: General skin exam: no rashes or lesions noted Neuro: General: patient oriented x3 and moves all extremities DS: Data Data Completed and Pending Pending studies at discharge: Pending at discharge 09/10/23 15:03 Surgical [PTH] Routine Labs on day of discharge: Preliminary micro results at discharge 09/09/23 13:08 Blood Culture - Preliminary Blood - Venous No growth after 24 hours. 09/09/23 13:08 Blood Culture - Preliminary Blood - Venous Discharge Plan Discharge Anticipated Discharge Date/Time: 09/11/23 09:04 Patient Disposition: Home, Self-Care Discharge Diagnosis: acute appendicitis s/p laparoscopic appendectomy Referrals: Fernando Fernandez MD [Physician] - 2 Weeks Nora Anderson MD [Primary Care Provider] - 1 Week Discharge Medications: New docusate sodium [Colace] 100 mg capsule 100 mg PO BID Qty: 30 0RF oxycodone 5 mg tablet 5 mg PO Q4H PRN (Reason: pain (scale score 7-10)) Qty: 24 0RF Rx Instructions: Partial Fill upon patient request. Continued (DME) blood pressure monitor Kit See Rx Instructions .Route Qty: 1 0RF Rx Instructions: As directed metoprolol succinate 50 mg tablet extended release 24 hr 50 mg PO DAILY Qty: 90 3RF meclizine 25 mg tablet 25 mg PO TID PRN (Reason: dizziness) 30 Days Qty: 90 0RF loratadine 10 mg tablet 10 mg PO DAILY Qty: 90 0RF fluticasone propion-salmeterol [Wixela Inhub] 250-50 mcg/dose blister with device 1 inh inhalation BID acetaminophen [Tylenol 8 Hour] 650 mg Tablet Extended Release 650 mg PO Q8H PRN (Reason: Pain) glucosamine sulfate 750 mg Tablet 750 mg PO DAILY Rx Instructions: administer with a meal lidocaine [Aspercreme (lidocaine)] 4 % adhesive patch,medicated 1 patch topical DAILY PRN (Reason: Back Pain) albuterol sulfate 2.5 mg /3 mL (0.083 %) solution for nebulization 2.5 mg inhalation Q6H PRN (Reason: shortness of breath or wheezing) magnesium oxide 400 mg (241.3 mg magnesium) tablet 400 mg PO BEDTIME PRN (Reason: Constipation) Rx Instructions: may hold for loose stools pantoprazole 40 mg tablet,delayed release (DR/EC) 40 mg PO DAILY@0630 PRN (Reason: Acid Reflux) Rx Instructions: take one tablet half an hour before breakfast albuterol sulfate 90 mcg/actuation HFA aerosol inhaler 2 puff inhalation Q6H PRN (Reason: for wheezing) fluticasone propionate 50 mcg/actuation spray,suspension 1 spray intranasal DAILY calcium carbonate-vitamin D3 600 mg-10 mcg (400 unit) tablet 1 tab PO MOFR@0900 diclofenac sodium 1 % gel 2 g topical BID PRN (Reason: pain) Qty: 100 3RF famotidine 40 mg tablet 40 mg PO BEDTIME Qty: 30 3RF riboflavin (vitamin B2) 400 mg tablet 400 mg PO DAILY 30 Days Qty: 30 6RF Discharge Orders: Discharge Order (Routine); Ordered 09/11/23 Ordered By: Fernando Fernandez Diet: Advance to usual diet Activity on Discharge: No heavy lifting Stand Alone Forms: Patient Portal Discharge page Print Language: Citizen Of [place] Activity Restrictions/Additional Instructions: If the incision area is tender, you may apply an ice pack for short intervals (No more than 20 minutes on, followed by at least 20 minutes off). Do not apply heat. Do not use creams, lotions, or topical antibiotics. These can cause infection or allergic reaction. Ok to shower 24 hours after your surgery. Remove bandaids in 2 days and replace. You have steri strips (small white cloth strips) covering your incision- these will fall off ~1 week. Follow up in office with Dr. Fernandez in 2 weeks. ([phone]) No heavy lifting (>10-20lbs) or strenuous activity! Call Your Doctor If: -Your temperature exceeds 101.5? F -You experience excessive pain or swelling -You have an unexpected reaction to medication -You have excessive bleeding -You experience continued vomiting/nausea -Your incision begins to separate -Your incision shows signs of infection such as increased redness, swelling, excessive pain, drainage (light blood or clear fluid is normal) or heat Care Plan Goals: Return to baseline health and resume normal activities following recovery period. Health Concerns: acute appendicitis Plan of Treatment: s/p laparoscopic appendectomy F/u in office in 2 weeks Assessment: Doing well post op.
--- NOTE | 2023-09-11 10:31 | MHC.CM.PN ---
Patient has been medically cleared for dc to home today, self care. Last IMM addressed yesterday.
== END 2023-09-11 11:56 | disposition home or self-care (01) | DRG 399 ==
LOC: HO.ED 12:52 → HO.EDOVER 13:03 → HO.IMC 17:09
PROVIDERS: Physician Assistant Medical; Admitting Provider Surgery; Emergency Provider Emergency Medicine; PCP Internal Medicine; Visit Provider Surgery
PROC: 0DTJ4ZZ Resection of Appendix, Percutaneous Endoscopic Approach (ICD-10-PCS; CPT 44970; principal; 2023-09-10 14:10)
DX: K35.80 Unspecified acute appendicitis (principal); G47.33 Obstructive sleep apnea (adult) (pediatric); I25.10 Atherosclerotic heart disease of native coronary artery without angina pectoris; J45.909 Unspecified asthma, uncomplicated; R00.2 Palpitations; I10 Essential (primary) hypertension; Z95.5 Presence of coronary angioplasty implant and graft; Z91.041 Radiographic dye allergy status; Z79.51 Long term (current) use of inhaled steroids; Z79.899 Other long term (current) drug therapy
CPT/HCPCS: 36415; 74176; 80048; 80053; 81001; 85025; 85027; 87040; 88304; 93005; 99285; J0665; J1100; J1885; J2250; J2270; J2405; J2543; J2704; J3010; J7120

== ENCOUNTER 2023-09-09 12:58 | Outpatient (BNV) | payer OTHER, SELFPAY | END 2023-09-09 16:06 | PROVIDERS: Admitting Provider Surgery; Emergency Provider Emergency Medicine; PCP Internal Medicine; Visit Provider Internal Medicine Cardiovascular Disease | DX: R94.31 Abnormal electrocardiogram [ECG] [EKG] (principal) | CPT/HCPCS: 93010 ==

== ENCOUNTER → 2023-09-09 12:58 | Outpatient (BNV) | payer OTHER, SELFPAY | PROVIDERS: Admitting Provider Surgery; Emergency Provider Emergency Medicine; PCP Internal Medicine; Visit Provider Student in an Organized Health Care Education/Training Program | DX: K35.80 Unspecified acute appendicitis (principal) | CPT/HCPCS: 99222 ==

== ENCOUNTER → 2023-09-09 12:58 | Outpatient (BNV) | payer OTHER, SELFPAY | PROVIDERS: Admitting Provider Surgery; Emergency Provider Emergency Medicine; PCP Internal Medicine; Visit Provider Surgery | DX: K35.80 Unspecified acute appendicitis (principal) | CPT/HCPCS: 44970; 99024; 99222; 99499 ==

== ENCOUNTER 2023-09-21 12:53 | Outpatient (AMB) | payer OTHER, SELFPAY ==
--- NOTE | 2023-09-21 12:58 | A.OFFPC_ITS ---
Vital Signs 09/21/23 12:59 Height 5 ft 4 in Weight 168 lb 4 oz BMI 28.9 BP 110/62 Blood Pressure Location Lt brachial Position Sitting Pulse 73 Pulse Source Pulse Oximeter Pulse Oximetry (%) 94 Oxygen Delivery Method Room Air Intake Visit Reasons: HDF 09/10 Acute Appendicitis Intake Note: Patient is here for hospital discharge follow up. [place] [facility] [place] Flight/Transport Nurse Required: No Master Craftsman: Not Required per policy Accompanied by: Self / Same As Patient Allergies Iodinated Contrast Media [IV DYE, IODINE CONTAINING] Allergy (Severe, Verified 09/21/23 12:58) ITCH/RASH clams Allergy (Intermediate, Verified 09/21/23 12:58) ITCHING docusate [From COLACE] Allergy (Intermediate, Verified 09/21/23 12:58) ITCHING lansoprazole [Prevacid] Allergy (Intermediate, Verified 09/21/23 12:58) hives oxybutynin Allergy (Intermediate, Verified 09/21/23 12:58) bladder pain pistachio nut Allergy (Intermediate, Verified 09/21/23 12:58) ITCHING walnut Allergy (Intermediate, Verified 09/21/23 12:58) ITCH/RASH SEASONAL ALLERGIES Allergy (Intermediate, Uncoded 09/21/23 12:58) ITCHY EYES Tobacco use date assessed: 09/21/23 Dental Screening Dental Screen Date: 05/01/23 HPI HPI Comments History of Present Illness Details 62 y/o female patient who presents to [facility] for HDF. Pt was admitted at [facility] on 09/09/23 for Acute Appendicitis. She had Lap Appendectomy done and was discharged home on 09/11/23. She has a Post-Op visit with the surgical Team on 09/27/23. Today Pt reports some mild tenderness on the abdomen around the incision sites. Denies Fevers, chills, nausea or vomiting. She does endorse Constipation, but takes Fiber. She does report mouth and throat soreness. She does experience pain and burning in the mouth with food (Sagar hot and spicy foods). [facility] Medical History MAXIMILIANO (obstructive sleep apnea) Bronchitis PONV (postoperative nausea and vomiting) Helicobacter pylori (H. pylori) Physical exam UTI (urinary tract infection) Scoliosis Restrictive lung disease Dysphagia Mild major depression, single episode Right shoulder pain COPD (chronic obstructive pulmonary disease) Allergic rhinosinusitis Acute bronchitis Asthma Anemia Primary osteoarthritis involving multiple joints Essential hypertension Right ankle pain Allergic rhinitis Surgical History History of esophagogastroduodenoscopy (EGD) Hx of colonoscopy Hx of cardiac cath History of total left knee replacement History of arthroscopy of right knee History of hemorrhoidectomy History of total right knee replacement History of total abdominal hysterectomy History of tonsillectomy Family History Father Alcoholism Arthritis Mother Diabetes Acute CVA (cerebrovascular accident) Sister Breast cancer Family/Other FH: mental illness Brother Diabetes Myocardial infarct Daughter In good health Daughter In good health Daughter In good health Social History Household Members: Family Housing: House Alcohol intake: never Patient Tobacco Use Status: Never used Tobacco e-Cigarette/Vaping Use: Never Used Second Hand Smoke Exposure: No Advance Directives Date on File: 11/28/19 service: No 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al status: disabled 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 Lake Douglass, Kristina Millard, Umang Rome and colleagues, with an educational telma from [employer]. Review of Systems Const All systems reviewed & are unremarkable except as noted in HPI and below Physical exam (Primary Care) Vital Signs: Last Vital Signs Pulse 73 09/21/23 12:59 BP 110/62 09/21/23 12:59 Pulse Ox 94 09/21/23 12:59 Oxygen Delivery Method Room Air 09/21/23 12:59 BMI result Body Mass Index 28.9 Tobacco/Smoking Status: Tobacco use Status Tobacco use date assessed 09/21/23 09/21/23 13:03 Patient Tobacco Use Status Never used Tobacco 09/21/23 13:03 e-Cigarette/Vaping Use Never Used 09/21/23 13:03 Thrive Assessment: Date of Thrive Assessment Date Thrive assessed 09/10/23 09/21/23 13:03 Const General: comfortable and no acute distress Nutritional Appearance: well nourished Orientation/consciousness: patient oriented x3 Resp Effort & Inspection: normal respiratory effort Auscultation: clear to auscultation bilaterally Cardio Heart sounds: S1 normal heart sound present and S2 normal heart sound present GI Inspection: Yes incision (Well healed scars umbilical and lower abdomen. Small bruising noted) and Yes Abdominal panniculus present Palpation (GI): Soft to palpation, Tenderness to palpation present (GI) periumbilically and No hepatosplenomegaly present Auscultation: normal bowel sounds Skin General skin exam: ecchymosis (Incision site) Neuro General: patient oriented x3, gait normal and moves all extremities Psych Speech and movement: Normal speech and movement present Vital Signs: Last Vital Signs Pulse 73 09/21/23 12:59 BP 110/62 09/21/23 12:59 Pulse Ox 94 09/21/23 12:59 Oxygen Delivery Method Room Air 09/21/23 12:59 BMI result Body Mass Index 28.9 Const General: comfortable and no acute distress Nutritional Appearance: well nourished Orientation/consciousness: patient oriented x3 Resp Effort & Inspection: normal respiratory effort Auscultation: clear to auscultation bilaterally Cardio Heart sounds: S1 normal heart sound present and S2 normal heart sound present GI Inspection: Yes incision (Well healed scars umbilical and lower abdomen. Small bruising noted) and Yes Abdominal panniculus present Palpation (GI): Soft to palpation, Tenderness to palpation present (GI) periumbilically and No hepatosplenomegaly present Auscultation: normal bowel sounds Skin General skin exam: ecchymosis (Incision site) Neuro General: patient oriented x3, gait normal and moves all extremities Psych Speech and movement: Normal speech and movement present Assessment and Plan Assessment & Plan (1) S/P laparoscopic appendectomy: Comment: Stable. Recovering at home. F/U with Surgical team as scheduled Code(s): Z90.49 - Acquired absence of other specified parts of digestive tract (2) Acute appendicitis: Code(s): K35.80 - Unspecified acute appendicitis Qualifiers: Acute appendicitis type: with generalized peritonitis Appendicitis gangrene presence: without gangrene Appendicitis perforation presence: without perforation Appendicitis abscess presence: without abscess Qualified Code(s): K35.200 - Acute appendicitis with generalized peritonitis, without perforation or abscess Plan: Resolved. Hard Surgical Appendectomy done Coding Level of Care Code Est Pt Level 4 (93956) Diagnoses S/P laparoscopic appendectomy Z90.49 Acute appendicitis with generalized peritonitis without gangrene, perforation, or abscess K35.200 Acute appendicitis type: with generalized peritonitis Appendicitis gangrene presence: without gangrene Appendicitis perforation presence: without perforation Appendicitis abscess presence: without abscess Comment Spent 20 minutes reviewing hospital notes.
[2023-09-21 12:59] VITALS: BP 110/62; PULSE 73; O2SAT 94; BMI 28.9
== END 2023-09-21 14:02 | disposition home or self-care (01) ==
PROVIDERS: PCP Internal Medicine; Visit Provider Nurse Practitioner Family
DX: Z90.49 Acquired absence of other specified parts of digestive tract (principal); K35.200 Acute appendicitis with generalized peritonitis, without perforation or abscess
CPT/HCPCS: 99214

== ENCOUNTER 2023-09-27 12:45 | Outpatient (AMB) | payer OTHER, SELFPAY ==
--- NOTE | 2023-09-27 12:47 | MHC.OFFVIS ---
Vital Signs 09/27/23 12:50 Height 5 ft 4 in Weight 168 lb 6 oz BMI 28.9 BP 122/64 Blood Pressure Location Rt brachial Position Sitting Pulse 76 Intake Visit Reasons: s/p appendectomy Intake Note: This patient presents for a post-op assessment status post Laparoscopic appendectomy. Patient c/o; reports no complaints pertaining to surgery. Front Worker Required: Yes Front Worker Language: Bengali Accompanied by: Self / Same As Patient Allergies Iodinated Contrast Media [IV DYE, IODINE CONTAINING] Allergy (Severe, Verified 09/27/23 12:58) ITCH/RASH clams Allergy (Intermediate, Verified 09/27/23 12:58) ITCHING docusate [From COLACE] Allergy (Intermediate, Verified 09/27/23 12:58) ITCHING lansoprazole [Prevacid] Allergy (Intermediate, Verified 09/27/23 12:58) hives oxybutynin Allergy (Intermediate, Verified 09/27/23 12:58) bladder pain pistachio nut Allergy (Intermediate, Verified 09/27/23 12:58) ITCHING walnut Allergy (Intermediate, Verified 09/27/23 12:58) ITCH/RASH SEASONAL ALLERGIES Allergy (Intermediate, Uncoded 09/27/23 12:58) ITCHY EYES HPI HPI s/p appendectomy: Details: [age] year old female here for follow-up postop. She had undergone laparoscopic appendectomy for acute appendicitis last 09/10/2023. She tolerated the procedure well. She says she is doing well at home. She has good oral intake. [facility] Medical History MAXIMILIANO (obstructive sleep apnea) Bronchitis PONV (postoperative nausea and vomiting) Helicobacter pylori (H. pylori) Physical exam UTI (urinary tract infection) Scoliosis Restrictive lung disease Dysphagia Mild major depression, single episode Right shoulder pain COPD (chronic obstructive pulmonary disease) Allergic rhinosinusitis Acute bronchitis Asthma Anemia Primary osteoarthritis involving multiple joints Essential hypertension Right ankle pain Allergic rhinitis Surgical History History of laparoscopic appendectomy (~09/10/23) History of esophagogastroduodenoscopy (EGD) Hx of colonoscopy Hx of cardiac cath History of total left knee replacement History of arthroscopy of right knee History of hemorrhoidectomy History of total right knee replacement History of total abdominal hysterectomy History of tonsillectomy Family History Father Alcoholism Arthritis Mother Diabetes Acute CVA (cerebrovascular accident) Sister Breast cancer Family/Other FH: mental illness Brother Diabetes Myocardial infarct Daughter In good health Daughter In good health Daughter In good health Social History Household Members: Family Housing: House Alcohol intake: never Patient Tobacco Use Status: Never used Tobacco e-Cigarette/Vaping Use: Never Used Second Hand Smoke Exposure: No Advance Directives Date on File: 11/28/19 service: No 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al status: disabled 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 Cognitive needs: No Hearing needs: No Vision needs: Yes Review of Systems Const Denies chills and Denies fever(s) Card Denies chest pain, Denies dyspnea and Denies dyspnea on exertion Resp Denies cough, Denies dyspnea and Denies dyspnea on exertion GI Denies hematochezia and Denies change in bowel habits Denies hematuria Musc Denies back pain and Denies limited range of motion Neuro Denies focal weakness and Denies convulsions Psych Denies depression and Denies mood swings Physical Exam Vital Signs: Last Vital Signs Pulse 76 09/27/23 12:50 BP 122/64 09/27/23 12:50 BMI result Body Mass Index 28.9 Const General: comfortable and no acute distress Resp Effort & Inspection: normal respiratory effort GI Other: All incisions are well healed Palpation (GI): Soft to palpation, not firm, nontender and no guarding Assessment & Plan Assessment & Plan (1) S/P laparoscopic appendectomy: Comment: Stable. Recovering at home. F/U with Surgical team as scheduled Code(s): Z90.49 - Acquired absence of other specified parts of digestive tract Category: Surgical Plan: She is doing very well at home. All incisions are well healed. I advised her to avoid lifting anything more than 20 lb for at least 2 more weeks She her path report shows acute appendicitis She can follow up on a p.r.n. basis. Coding Level of Care Code Global (52001) Diagnoses S/P laparoscopic appendectomy Z90.49
[2023-09-27 12:50] VITALS: BP 122/64; PULSE 76; BMI 28.9
== END 2023-09-27 13:13 | disposition home or self-care (01) ==
PROVIDERS: PCP Internal Medicine; Visit Provider Surgery
DX: Z90.49 Acquired absence of other specified parts of digestive tract (principal)
CPT/HCPCS: 99024

== ENCOUNTER → 2023-09-27 12:45 | Outpatient (BNVA) | payer OTHER, SELFPAY | PROVIDERS: PCP Internal Medicine; Visit Provider Surgery | DX: Z90.49 Acquired absence of other specified parts of digestive tract (principal) | CPT/HCPCS: 99212 ==

== ENCOUNTER 2023-10-15 10:42 | Outpatient (AMB) | payer OTHER, SELFPAY ==
[2023-10-15 11:20] VITALS: BP 136/74; PULSE 86; TEMP 37; O2SAT 94; BMI 28.7
--- NOTE | 2023-10-15 11:20 | MHC.OFFWIV ---
Intake Vital Signs 10/15/23 11:20 Height 5 ft 4 in Weight 167 lb BMI 28.7 BP 136/74 Blood Pressure Location Rt brachial Position Sitting Pulse 86 Pulse Source Pulse Oximeter Temp 98.6 F Temp Source Oral Pulse Oximetry (%) 94 Oxygen Delivery Method Room Air Intake Visit Reasons: EP fever, asthma, cough Intake Note: Pt is here today c/o fever,asthma and cough x1week Patient Tobacco Use Status: Never used Tobacco Allergies Iodinated Contrast Media [IV DYE, IODINE CONTAINING] Allergy (Severe, Verified 10/15/23 11:26) ITCH/RASH clams Allergy (Intermediate, Verified 10/15/23 11:26) ITCHING docusate [From COLACE] Allergy (Intermediate, Verified 10/15/23 11:26) ITCHING lansoprazole [Prevacid] Allergy (Intermediate, Verified 10/15/23 11:26) hives oxybutynin Allergy (Intermediate, Verified 10/15/23 11:26) bladder pain pistachio nut Allergy (Intermediate, Verified 10/15/23 11:26) ITCHING walnut Allergy (Intermediate, Verified 10/15/23 11:26) ITCH/RASH SEASONAL ALLERGIES Allergy (Intermediate, Uncoded 10/15/23 11:26) ITCHY EYES HPI EP fever, asthma, cough HPI Details This note is constructed using voice recognition software. While every effort has been made to ensure accuracy, adoption specialist errors may have been included. The patient is a 62 year old female who presents to the clinic today with multiple complaints. She is a poor historian in terms of timeline of onset of symptoms, initially reporting symptoms have been for one-week starting last Sunday, then reporting that symptoms started 4 or 5 days ago in terms of her respiratory symptoms. She reports that she has had cough, shortness of breath requiring her to use her nebulizer machine which she started using last night and reports that shortness of breath has nearly completely resolved though she is still coughing. She reports she had a fever of 101 yesterday, and took 1 Tylenol and this completely resolved. She has widespread body aches. She reports that she is taking COVID test x2 at some point since symptom onset both being negative at home. She denies any sick contacts. She also notes that she has urinary tract symptoms, which she has reported started since she had surgery in August, but also reported that it was more frequent last night with voiding 10 times overnight. She reports that she is voiding more frequently, but denies burning, urgency, or any change in color or volume of urine. [facility] Medical History MAXIMILIANO (obstructive sleep apnea) Bronchitis PONV (postoperative nausea and vomiting) Helicobacter pylori (H. pylori) Physical exam UTI (urinary tract infection) Scoliosis Restrictive lung disease Dysphagia Mild major depression, single episode Right shoulder pain COPD (chronic obstructive pulmonary disease) Allergic rhinosinusitis Acute bronchitis Asthma Anemia Primary osteoarthritis involving multiple joints Essential hypertension Right ankle pain Allergic rhinitis Surgical History History of laparoscopic appendectomy (~09/10/23) History of esophagogastroduodenoscopy (EGD) Hx of colonoscopy Hx of cardiac cath History of total left knee replacement History of arthroscopy of right knee History of hemorrhoidectomy History of total right knee replacement History of total abdominal hysterectomy History of tonsillectomy Family History Father Alcoholism Arthritis Mother Diabetes Acute CVA (cerebrovascular accident) Sister Breast cancer Family/Other FH: mental illness Brother Diabetes Myocardial infarct Daughter In good health Daughter In good health Daughter In good health Social History Household Members: Family Housing: House Alcohol intake: never Patient Tobacco Use Status: Never used Tobacco e-Cigarette/Vaping Use: Never Used Second Hand Smoke Exposure: No Advance Directives Date on File: 11/28/19 service: No 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al status: disabled 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 Cognitive needs: No Hearing needs: No Vision needs: Yes Review of Systems Const All systems reviewed & are unremarkable except as noted in HPI and below Physical Exam Vital Signs: Last Vital Signs Temp 98.6 F 10/15/23 11:20 Pulse 86 10/15/23 11:20 BP 136/74 10/15/23 11:20 Pulse Ox 94 10/15/23 11:20 Oxygen Delivery Method Room Air 10/15/23 11:20 BMI result Body Mass Index 28.7 Const General: cooperative, healthy appearing, comfortable and no acute distress Orientation/consciousness: patient oriented x3 Limitations: no limitations HEENT Head: Yes normal to inspection Ears: hearing grossly normal bilaterally, external ears normal and TM's normal bilaterally General nose exam: Normal external nose present, Normal nares present and No nasal discharge present Face and sinus: Yes normal facial exam and Yes sinuses nontender Mouth: Normal oral and palatal mucosa present and moist mucous membranes Throat: Yes tonsils normal, Yes uvula midline and Yes posterior oropharynx abnormal (Erythema) Eyes General: appearance normal, both eyes and all related structures Neck Neck: Yes normal visual inspection Resp Effort & Inspection: normal respiratory effort, able to speak in complete sentences, Actively coughing, no respiratory distress, not tachypneic, no tripod positioning and no use of accessory muscles Auscultation: clear to auscultation bilaterally Cardio Jugular venous distension: no JVD Rate: regular rate Rhythm: regular rhythm Heart sounds: S1 normal heart sound present, S2 normal heart sound present, no click, no gallops, no murmurs and no rubs Skin General skin exam: no rashes or lesions noted, elasticity normal and turgor normal Neuro General: patient oriented x3 Extrem General: Yes normal to inspection and Yes no clubbing, cyanosis or edema Results AMB Urinalysis, Automated UA Leukoctes 15 Ethan/uL Last Edit by Elizabeth Walker CMA on 10/15/23 12:01 UA Nitrite Negative Last Edit by Elizabeth Walker CMA on 10/15/23 12:01 UA Urobilinogen 0.2 mg/dL Last Edit by Elizabeth Walker CMA on 10/15/23 12:01 UA Protein 0 mg/dL Last Edit by Elizabeth Walker CMA on 10/15/23 12:01 UA pH 6.0 Last Edit by Elizabeth Walker CMA on 10/15/23 12:01 UA Blood 10 Gabe/uL Last Edit by Elizabeth Walker CMA on 10/15/23 12:01 UA Specific [place] 1.030 Last Edit by Elizabeth Walker CMA on 10/15/23 12:01 UA Ketone Negative Last Edit by Elizabeth Walker CMA on 10/15/23 12:01 UA Bilirubin 0 mg/dL Last Edit by Elizabeth Walker CMA on 10/15/23 12:01 UA Glucose 0 mg/dL Last Edit by Elizabeth Walker CMA on 10/15/23 12:01 Results Reviewed Results Reviewed: Laboratory Last Values Urine pH (Auto) 6.0 10/15/23 11:54 [place] (Auto) 1.030 10/15/23 11:54 Urine Protein (Auto) 0 mg/dL 10/15/23 11:54 Glucose (UA)(Auto) 0 mg/dL 10/15/23 11:54 Urine Ketones (Auto) Negative 10/15/23 11:54 Urine Blood (Auto) 10 Gabe/uL 10/15/23 11:54 Urine Nitrite (Auto) Negative 10/15/23 11:54 Urine Bilirubin (Auto) 0 mg/dL 10/15/23 11:54 Urine Urobilinogen (Auto) 0.2 mg/dL 10/15/23 11:54 Leukocyte Esterase (Auto) 15 Ethan/uL 10/15/23 11:54 Assessment & Plan Assessment & Plan (1) URI (upper respiratory infection): Code(s): J06.9 - Acute upper respiratory infection, unspecified Qualifiers: URI type: unspecified URI Qualified Code(s): J06.9 - Acute upper respiratory infection, unspecified Plan: Supportive measures encouraged and reviewed. Viral swab obtained today, however given inability to determine exact timeline, she would not be a good candidate for antiviral therapy with something such as Paxlovid should she but positive for coronavirus. Advised continuing use of nebulizer as needed for asthma. Prednisone burst sent for symptomatic management. Advised follow up with worsening or failure to resolve. (2) Dysuria: Code(s): R30.0 - Dysuria Plan: In office urine inconsistent with likely urinary tract infection, given that symptoms have been ongoing since surgery in August, I advised her that to follow up with her primary care provider should symptoms persist. Plan See above for full details and plan. Orders: Orders AMB Urinalysis Automated Today Z13.9 - Encounter for screening, unspecified SARS-CoV2/FLU/RSV Today J06.9 - Acute upper respiratory infection, unspecified Medications: New prednisone 40 mg (2 x 20 mg) PO DAILY 5 days 10 tabs 0RF Coding Level of Care Code Est Pt Level 3 (79958) Diagnoses Upper respiratory tract infection, unspecified type J06.9 URI type: unspecified URI Dysuria R30.0
== END 2023-10-15 12:06 | disposition home or self-care (01) ==
PROVIDERS: PCP Internal Medicine; Visit Provider Registered Nurse
DX: J06.9 Acute upper respiratory infection, unspecified (principal); R03.0 Elevated blood-pressure reading, without diagnosis of hypertension
CPT/HCPCS: 81003; 99213

== ENCOUNTER 2023-10-15 11:53 | Outpatient (REF) | payer OTHER, SELFPAY ==
[2023-10-15 14:19] LABS: Influenza A PCR NEGATIVE (Negative); Influenza B PCR NEGATIVE (Negative); Resp Syncy Virus RNA Qual PCR NEGATIVE (Negative); SARS COV2 PCR INHOUSE NEGATIVE (Negative)
== END 2023-10-15 11:54 | disposition home or self-care (01) ==
LOC: HO.LNP 11:53
PROVIDERS: Visit Provider Registered Nurse
DX: J06.9 Acute upper respiratory infection, unspecified (principal)
CPT/HCPCS: 0241U

== ENCOUNTER 2023-10-22 13:41 | Outpatient (REF) | payer OTHER, SELFPAY ==
--- NOTE | ~2023-10-22 | XR_ITS ---
EXAMINATION: XR CHEST CLINICAL INFORMATION: Bronchitis. COMPARISON: Most recent chest radiograph dated 12/27/2022. TECHNIQUE: 2 views of the chest were obtained. FINDINGS: Dextrocurvature of the thoracic spine and hypoinflation of the left lung is unchanged. No new focal airspace consolidation. No pleural effusion or pneumothorax. Stable cardiomediastinal silhouette. XR/XR chest 2V IMPRESSION: No acute cardiopulmonary findings. Electronically signed by: Urbano Kunz MD 11/12/2023 08:56 PM EDT
== END 2023-10-22 13:42 | disposition home or self-care (01) ==
LOC: HO.XRAY 13:41
PROVIDERS: PCP Internal Medicine; Visit Provider Internal Medicine
DX: J44.9 Chronic obstructive pulmonary disease, unspecified (principal); J20.9 Acute bronchitis, unspecified; R05.9 Cough, unspecified
CPT/HCPCS: 71046; 99212

== ENCOUNTER 2023-10-22 13:41 | Outpatient (AMB) | payer OTHER, SELFPAY ==
[2023-10-22 13:45] VITALS: BP 140/70; PULSE 80; O2SAT 95; BMI 28.7
--- NOTE | 2023-10-22 13:45 | A.OFFVIS_ITS ---
Vital Signs 10/22/23 13:45 Height 5 ft 4 in Weight 167 lb BMI 28.7 BP 140/70 H Blood Pressure Location Lt brachial Position Sitting Pulse 80 Pulse Source Pulse Oximeter Pulse Oximetry (%) 95 Oxygen Delivery Method Room Air Intake Visit Reasons: Unrelenting cough/ Covid negative Intake Note: pt is here for a sick visit, she has a very bad cough, had fever x4 days, using nebulizer with no relief, wheezing, cough very bad night, tried mucinex, theraflu was given prednisone for 5 days but no antibiotic at urgent care. 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 Allergies Iodinated Contrast Media [IV DYE, IODINE CONTAINING] Allergy (Severe, Verified 10/22/23 14:00) ITCH/RASH clams Allergy (Intermediate, Verified 10/22/23 14:00) ITCHING docusate [From COLACE] Allergy (Intermediate, Verified 10/22/23 14:00) ITCHING lansoprazole [Prevacid] Allergy (Intermediate, Verified 10/22/23 14:00) hives oxybutynin Allergy (Intermediate, Verified 10/22/23 14:00) bladder pain pistachio nut Allergy (Intermediate, Verified 10/22/23 14:00) ITCHING walnut Allergy (Intermediate, Verified 10/22/23 14:00) ITCH/RASH SEASONAL ALLERGIES Allergy (Intermediate, Uncoded 10/22/23 14:00) ITCHY EYES Medication List - Last Reconciled 10/22/23 by Chelly Navarro MD acetaminophen ER (Tylenol 8 Hour) 650 mg PO Q8H PRN albuterol sulfate 2.5 mg (3 mL) inhalation Q6H PRN 30 days albuterol sulfate 90 mcg/actuation 2 puffs inhalation Q6H PRN 30 days NS blood pressure monitor As directed calcium carbonate-vitamin D3 600 mg-10 mcg (400 unit) 1 tab PO MOFR@0900 diclofenac sodium 1% 2 grams topical BID PRN docusate sodium (Colace) 100 mg PO BID famotidine 40 mg PO BEDTIME fluticasone propion-salmeterol 250-50 mcg/dose (Wixela Inhub) 1 inh inhalation BID fluticasone propionate 50 mcg/actuation 1 spray intranasal DAILY glucosamine sulfate 750 mg PO DAILY lidocaine 4% (Aspercreme (lidocaine)) 1 patch topical DAILY PRN loratadine 10 mg PO DAILY magnesium oxide 400 mg PO BEDTIME PRN meclizine 25 mg PO TID PRN 30 days metoprolol succinate ER 50 mg PO DAILY pantoprazole 40 mg PO DAILY@0630 PRN riboflavin (vitamin B2) 400 mg PO DAILY 30 days Do you need a note to return to daycare/school/sports/work: No HPI HPI Unrelenting cough/ Covid negative: Details: This 62 years old female does have history of chronic allergic rhinosinusitis and bronchial asthma. She underwent appendicectomy about 3 weeks ago . For the past 2 weeks she is having increased cough with shortness of breath. Cough is frequent and un-relenting . Feels warm but no fever. Complains of chest discomfort especially in front due to cough. She was seen at urgent care clinic , given a course of prednisone without much improvement. She came for an urgent visit today worried about having pneumonia. [facility] Medical History (Updated 10/22/23 @ 16:30 by Chelly Navarro MD) Cough MAXIMILIANO (obstructive sleep apnea) Bronchitis PONV (postoperative nausea and vomiting) Helicobacter pylori (H. pylori) Physical exam UTI (urinary tract infection) Scoliosis Restrictive lung disease Dysphagia Mild major depression, single episode Right shoulder pain COPD (chronic obstructive pulmonary disease) Allergic rhinosinusitis Acute bronchitis Asthma Anemia Primary osteoarthritis involving multiple joints Essential hypertension Right ankle pain Allergic rhinitis Surgical History History of laparoscopic appendectomy (~09/10/23) History of esophagogastroduodenoscopy (EGD) Hx of colonoscopy Hx of cardiac cath History of total left knee replacement History of arthroscopy of right knee History of hemorrhoidectomy History of total right knee replacement History of total abdominal hysterectomy History of tonsillectomy Family History Father Alcoholism Arthritis Mother Diabetes Acute CVA (cerebrovascular accident) Sister Breast cancer Family/Other FH: mental illness Brother Diabetes Myocardial infarct Daughter In good health Daughter In good health Daughter In good health Social History Household Members: Family Housing: House Alcohol intake: never Patient Tobacco Use Status: Never used Tobacco e-Cigarette/Vaping Use: Never Used Second Hand Smoke Exposure: No Advance Directives Date on File: 11/28/19 service: No 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al status: disabled 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 Cognitive needs: No Hearing needs: No Vision needs: Yes Review of Systems Const All systems reviewed & are unremarkable except as noted in HPI and below Eyes Reports no additional complaints ENT Reports nasal congestion and Reports nasal discharge Card Denies chest pain, Denies irregular heart rhythm and Denies leg edema Resp Reports as per HPI and Reports cough (+++) GI Reports no additional complaints Reports no additional complaints Musc Reports back pain (Mild) Skin/Breast Reports system reviewed and no additional complaints, except as documented Neuro Reports no additional complaints Psych Reports no additional complaints Physical Exam Vital Signs: Last Vital Signs Pulse 80 10/22/23 13:45 BP 140/70 H 10/22/23 13:45 Pulse Ox 95 10/22/23 13:45 Oxygen Delivery Method Room Air 10/22/23 13:45 BMI result Body Mass Index 28.7 Const General: comfortable, no acute distress, alert and awake Orientation/consciousness: patient oriented x3 HEENT Head: Yes normal to inspection General nose exam: No nasal polyps present, No nasal discharge present and Other nasal findings present (Mild nasal congestion, chronic) Face and sinus: Yes sinuses nontender Mouth: oropharynx normal Throat: Yes posterior oropharynx normal Eyes General: appearance normal, both eyes and all related structures Neck Neck: Yes normal visual inspection, Yes no lymphadenopathy, Yes trachea midline and Yes no JVD Thyroid: Thyroid normal Chest Chest palpation & inspection: normal inspection of the chest, normal palpation of entire chest wall and no tenderness Resp Other: Percussion note resonant, breath sounds are slightly distant, Breath sounds are clear but has frequent cough on taking deep breaths . No audible wheezes or crepitations. Cardio Palpation: normal PMI Rate: regular rate Rhythm: regular rhythm Heart sounds: no gallops and no murmurs Peripheral pulses: Peripheral pulses 2+ throughout GI Palpation (GI): Soft to palpation, nontender, No hepatosplenomegaly present and no masses Auscultation: normal bowel sounds Back/Spine/Pelvis Thoracic/Lumbar Spine: thoracic and lumbar spine normal to inspection and Thoracic/lumbar scoliosis (Patient has moderately severe size dextroscoliosis of the thoracic spine.) Skin General skin exam: no rashes or lesions noted Neuro General: patient oriented x3 and no focal motor deficits Cranial nerves: Yes CN's II-XII intact bilaterally Extrem General: Yes normal to inspection, Yes no clubbing, cyanosis or edema and Yes no calf tenderness Psych Appearance: grossly normal and well kempt Speech and movement: Normal speech and movement present Assessment & Plan Assessment & Plan (1) Allergic rhinosinusitis: Comment: SHE HAS ONGOING CHRONIC RHINITIS AND SINUSITIS. I THINK THIS IS THE BASIC CAUSE OF HER ONGOING CHRONIC COUGH, WITH FREQUENT FLARE UPS DUE TO CHANGE IN CLIMATE OR INFECTION Code(s): J30.9 - Allergic rhinitis, unspecified Category: Medical Plan: CONTINUE USING FLONASE -50 2 SPRAY IN EACH NOSTRIL DAILY. LORATADINE 10 MG ONCE A DAY P.R.N. (2) Acute bronchitis: Comment: SYMPTOMS OF ACUTE RONCHITIS, SINCE LAST WEEK. WITH UNREMITTING COUGH, WHICH LINGERS ON. Code(s): J20.9 - Acute bronchitis, unspecified Category: Medical Plan: A CHEST X-RAY IS ORDERED TO RULE OUT PNEUMONIA EMPIRICALLY STARTED ON DOXYCYCLINE 100 B.I.D. FOR 10 DAYS (3) Asthma: Comment: SHE HAS CHRONIC BRONCHIAL ASTHMA IN ADDITION TO CHRONIC ALLERGIC RH INOSINUSITIS. Code(s): J45.909 - Unspecified asthma, uncomplicated Category: Medical Plan: CONT. WIXELA , 250-50 ONE INH BID GARGLE AND RINSE MOUTH WELL AFTER USING WIXELA AND USE VENTOLIN 2 PUFFS Q 6 HRS PRN (4) Cough: Comment: PATIENT IS HAVING ON REMITTING COUGH SINCE LAST 1-2 WEEKS. IT SEEMS TO BE POSTINFECTIOUS COUGH AND ALSO DUE TO AGGRAVATED RHINOSINUSITIS, Code(s): R05.9 - Cough, unspecified Category: Medical Plan: COURSE OF ANTIBIOTIC WITH DOXYCYCLINE 100 B.I.D. AND FOR CONTROL OF COUGH GUAIFENESIN-CODEINE 100-10 MG PER 5 ML. 1 TSP Q.6 HOURS P.R.N. FOR COUGH DURING THE DAYTIME . MAY TAKE 2 TSP AT NIGHT. Orders: Orders XR chest 2V Today J30.9 - Allergic rhinitis, unspecified, J40 - Bronchitis, not specified as acute or chronic, J44.9 - Chronic obstructive pulmonary disease, unspecified Medications: New doxycycline hyclate 100 mg PO BID 20 tabs 0RF bronchitis 10 days codeine-guaifenesin 10-100 mg/5 mL 5 mL PO Q6H PRN 200 mL 2RF cold symptoms 7 days Coding Level of Care Code Est Pt Level 3 (05121) Diagnoses Allergic rhinosinusitis J30.9 Acute bronchitis J20.9 Asthma J45.909 Cough R05.9
== END 2023-10-22 14:20 | disposition home or self-care (01) ==
PROVIDERS: PCP Internal Medicine; Visit Provider Internal Medicine
DX: J30.9 Allergic rhinitis, unspecified (principal); J20.9 Acute bronchitis, unspecified; J45.909 Unspecified asthma, uncomplicated; R05.9 Cough, unspecified
CPT/HCPCS: 99213

== ENCOUNTER 2023-11-01 13:22 | Outpatient (AMB) | payer OTHER, SELFPAY ==
--- NOTE | 2023-11-01 13:25 | A.OFFPC_ITS ---
Vital Signs 11/01/23 13:26 Height 5 ft 4 in Weight 169 lb BMI 29.0 BP 126/68 Blood Pressure Location Lt brachial Position Sitting Intake Visit Reasons: depression,asthma Welder Repair Required: No Accompanied by: Self / Same As Patient Allergies Iodinated Contrast Media [IV DYE, IODINE CONTAINING] Allergy (Severe, Verified 11/01/23 13:53) ITCH/RASH clams Allergy (Intermediate, Verified 11/01/23 13:53) ITCHING docusate [From COLACE] Allergy (Intermediate, Verified 11/01/23 13:53) ITCHING lansoprazole [Prevacid] Allergy (Intermediate, Verified 11/01/23 13:53) hives oxybutynin Allergy (Intermediate, Verified 11/01/23 13:53) bladder pain pistachio nut Allergy (Intermediate, Verified 11/01/23 13:53) ITCHING walnut Allergy (Intermediate, Verified 11/01/23 13:53) ITCH/RASH SEASONAL ALLERGIES Allergy (Intermediate, Uncoded 11/01/23 13:53) ITCHY EYES Medication List - Last Reconciled 11/01/23 by Nora Julian MD acetaminophen ER (Tylenol 8 Hour) 650 mg PO Q8H PRN albuterol sulfate 2.5 mg (3 mL) inhalation Q6H PRN 30 days albuterol sulfate 90 mcg/actuation 2 puffs inhalation Q6H PRN 30 days NS blood pressure monitor As directed calcium carbonate-vitamin D3 600 mg-10 mcg (400 unit) 1 tab PO MOFR@0900 codeine-guaifenesin 10-100 mg/5 mL 5 mL PO Q6H PRN 7 days diclofenac sodium 1% 2 grams topical BID PRN docusate sodium (Colace) 100 mg PO BID doxycycline hyclate 100 mg PO BID 10 days famotidine 40 mg PO BEDTIME fluticasone propion-salmeterol 250-50 mcg/dose (Wixela Inhub) 1 inh inhalation BID fluticasone propionate 50 mcg/actuation 1 spray intranasal DAILY glucosamine sulfate 750 mg PO DAILY lidocaine 4% (Aspercreme (lidocaine)) 1 patch topical DAILY PRN loratadine 10 mg PO DAILY magnesium oxide 400 mg PO BEDTIME PRN meclizine 25 mg PO TID PRN 30 days metoprolol succinate ER 50 mg PO DAILY pantoprazole 40 mg PO DAILY@0630 PRN riboflavin (vitamin B2) 400 mg PO DAILY 30 days Tobacco use date assessed: 09/21/23 Dental Screening Dental Screen Date: 11/01/23 Did you have a dental visit in the last 12 months?: No Did you have a dental problem in the last 6 months where you did not have access to dental care?: No Was dental information given to patient?: Patient has dentist HPI HPI Comments History of Present Illness Details This is a 62-year-old female with COPD, GERD, constipation and osteoarthritis in multiple joints that comes today complaining of diffuse joint pain mildly relieved by Tylenol. COPD has been stable with Wixela and follow by pulmonology. She use rescue inhaler once a month or less. GERD stable with PPIs and famotidine. Constipation well control with medication. Advised to have a high-fiber diet. No chest pain or shortness on breath. [facility] Medical History Cough MAXIMILIANO (obstructive sleep apnea) Bronchitis PONV (postoperative nausea and vomiting) Helicobacter pylori (H. pylori) Physical exam UTI (urinary tract infection) Scoliosis Restrictive lung disease Dysphagia Mild major depression, single episode Right shoulder pain COPD (chronic obstructive pulmonary disease) Allergic rhinosinusitis Acute bronchitis Asthma Anemia Primary osteoarthritis involving multiple joints Essential hypertension Right ankle pain Allergic rhinitis Surgical History History of laparoscopic appendectomy (~09/10/23) History of esophagogastroduodenoscopy (EGD) Hx of colonoscopy Hx of cardiac cath History of total left knee replacement History of arthroscopy of right knee History of hemorrhoidectomy History of total right knee replacement History of total abdominal hysterectomy History of tonsillectomy Family History Father Alcoholism Arthritis Mother Diabetes Acute CVA (cerebrovascular accident) Sister Breast cancer Family/Other FH: mental illness Brother Diabetes Myocardial infarct Daughter In good health Daughter In good health Daughter In good health Social History Household Members: Family Housing: House Alcohol intake: never Patient Tobacco Use Status: Never used Tobacco e-Cigarette/Vaping Use: Never Used Second Hand Smoke Exposure: No Advance Directives Date on File: 11/28/19 service: No 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al status: disabled 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 Lake Douglass, Kristina Millard, Umang Rome and colleagues, with an educational telma from [employer]. Review of Systems Const All systems reviewed & are unremarkable except as noted in HPI and below Card Denies chest pain at rest, Denies chest pain with activity, Denies edema, Denies irregular heart rhythm, Denies claudication, Denies dyspnea, Denies dyspnea on exertion, Denies orthopnea, Denies paroxysmal nocturnal dyspnea and Denies slow heart rate Resp Denies cough, Denies dyspnea and Denies dyspnea on exertion GI Denies abdominal pain, Denies change in bowel habits, Denies excessive flatus, Denies nausea and Denies vomiting Denies urinary incontinence, Denies urinary hesitancy and Denies urinary urgency Musc Denies atrophy, Denies deformity and Denies limited range of motion Skin/Breast Denies bleeding lesions, Denies changing lesions and Denies rash Physical exam (Primary Care) Vital Signs: Last Vital Signs BP 126/68 11/01/23 13:26 BMI result Body Mass Index 29.0 Tobacco/Smoking Status: Tobacco use Status Tobacco use date assessed 09/21/23 11/01/23 13:29 Patient Tobacco Use Status Never used Tobacco 11/01/23 13:29 e-Cigarette/Vaping Use Never Used 11/01/23 13:29 Thrive Assessment: Date of Thrive Assessment Date Thrive assessed 09/10/23 11/01/23 13:29 Resp Effort & Inspection: normal respiratory effort Auscultation: clear to auscultation bilaterally Cardio Jugular venous distension: no JVD Rate: regular rate Rhythm: regular rhythm Heart sounds: S1 normal heart sound present and S2 normal heart sound present Extrem General: Yes full ROM Assessment and Plan Assessment & Plan (1) GERD (gastroesophageal reflux disease): Code(s): K21.9 - Gastro-esophageal reflux disease without esophagitis Plan: Continue famotidine and PPIs. (2) Constipation by delayed colonic transit: Code(s): K59.01 - Slow transit constipation Plan: Continue Colace as needed. (3) COPD (chronic obstructive pulmonary disease): Comment: PER PFT. DID NOT HAVE EVIDENCE OF COPD ,, But clinically patient does have symptoms of bronchial Asthma/COPD She is doing well with WIXELA 250-50 1 INHALATION B.I.D. Code(s): J44.9 - Chronic obstructive pulmonary disease, unspecified Plan: Continue weeks Jenny. Use rescue inhaler as needed. Follow-up with pulmonology. (4) Primary osteoarthritis involving multiple joints: Code(s): M89.49 - Other hypertrophic osteoarthropathy, multiple sites Plan: Continue Tylenol as needed. Coding Level of Care Code Est Pt Level 4 (85735) Complex EM visit Add On G2211 Diagnoses GERD (gastroesophageal reflux disease) K21.9 Constipation by delayed colonic transit K59.01 COPD (chronic obstructive pulmonary disease) J44.9 Primary osteoarthritis involving multiple joints M89.49 Time Spent (min) 21
[2023-11-01 13:26] VITALS: BP 126/68; BMI 29.0
== END 2023-11-01 14:03 | disposition home or self-care (01) ==
PROVIDERS: PCP Internal Medicine; Visit Provider Internal Medicine
DX: K21.9 Gastro-esophageal reflux disease without esophagitis (principal); K59.01 Slow transit constipation; J44.9 Chronic obstructive pulmonary disease, unspecified; M89.49 Other hypertrophic osteoarthropathy, multiple sites
CPT/HCPCS: 99214; G2211

== ENCOUNTER 2023-11-16 13:24 | Outpatient (AMB) | payer OTHER, SELFPAY ==
--- NOTE | 2023-11-16 13:31 | A.OFFVIS_ITS ---
Vital Signs 11/16/23 13:36 Height 5 ft 4 in Weight 168 lb BMI 28.8 BP 122/70 Blood Pressure Location Rt brachial Position Sitting Pulse 70 Pulse Source Pulse Oximeter Pulse Oximetry (%) 94 Oxygen Delivery Method Room Air Intake Visit Reasons: 4 mo f/u Intake Note: Patient resents for a 4 mo fu -Dizziness Email Marketing Executive Required: Yes Email Marketing Executive Services: Email Marketing Executive Offered & Declined (Email Marketing Executive services refused, refusal form signed and scanned into chart.) Accompanied by: Self / Same As Patient Allergies Iodinated Contrast Media [IV DYE, IODINE CONTAINING] Allergy (Severe, Verified 11/16/23 13:33) ITCH/RASH clams Allergy (Intermediate, Verified 11/16/23 13:33) ITCHING docusate [From COLACE] Allergy (Intermediate, Verified 11/16/23 13:33) ITCHING lansoprazole [Prevacid] Allergy (Intermediate, Verified 11/16/23 13:33) hives oxybutynin Allergy (Intermediate, Verified 11/16/23 13:33) bladder pain pistachio nut Allergy (Intermediate, Verified 11/16/23 13:33) ITCHING walnut Allergy (Intermediate, Verified 11/16/23 13:33) ITCH/RASH SEASONAL ALLERGIES Allergy (Intermediate, Uncoded 11/01/23 13:53) ITCHY EYES Medication List - Last Reconciled 11/16/23 by FIFI Ga acetaminophen ER (Tylenol 8 Hour) 650 mg PO Q8H PRN albuterol sulfate 2.5 mg (3 mL) inhalation Q6H PRN 30 days albuterol sulfate 90 mcg/actuation 2 puffs inhalation Q6H PRN 30 days NS blood pressure monitor As directed calcium carbonate-vitamin D3 600 mg-10 mcg (400 unit) 1 tab PO MOFR@0900 codeine-guaifenesin 10-100 mg/5 mL 5 mL PO Q6H PRN 7 days diclofenac sodium 1% 2 grams topical BID PRN docusate sodium (Colace) 100 mg PO BID fluticasone propion-salmeterol 250-50 mcg/dose (Wixela Inhub) 1 inh inhalation BID fluticasone propionate 50 mcg/actuation 1 spray intranasal DAILY glucosamine sulfate 750 mg PO DAILY lidocaine 4% (Aspercreme (lidocaine)) 1 patch topical DAILY PRN loratadine 10 mg PO DAILY magnesium oxide 400 mg PO BEDTIME PRN meclizine 25 mg PO TID PRN 30 days metoprolol succinate ER 50 mg PO DAILY pantoprazole 40 mg PO DAILY@0630 PRN riboflavin (vitamin B2) 400 mg PO DAILY 30 days HPI Comments Details: 62-yr-old female presents for f/u visit. Pt reports she was hospitalized x's 1 week for appendicitis in late August. Pt reports the week prior to the appendectomy, she had increased headaches and dizziness. She is now feeling better, but still has some residual decreased appetite and nausea when eating. The headaches have slowed down since the surgery. She can still be dizzy and mild tinnitus triggered by moving her eyes, turning her head, or moving quickly. Usually tries to not move too quickly. But when she has urinary urgency, she has to get up quickly- so now has a commode at her bedside. Her bedroom is on 2nd floor which does not have bathroom. She previously did vestibular PT eval at [facility]- was told no vestibular s/s. She still has falls- she relates this to her back pain- has had for a long time - has scoliosis. Wearing sneaker s helps. Avoids wearing heels. Walking with a cane helps when the pain is stronger and walking outside. Baseline headache characteristics: Unilateral, possibly right-sided pulling sensation (like hair is being pulled) a/w photophobia, phonophobia, osmophobia, some nausea, can be dizzy (different than her vertigo). MR/MR head/brain wo/w con IMPRESSION: 1. There are no acute bleeds or territorial infarcts. No masses aredemonstrated. There is no abnormal enhancement. 2. There are chronic microvascular ischemic changes and there is milddiffuse volume loss. [facility] Medical History (Updated 11/16/23 @ 14:06 by FIFI Ga) Migraine Cough MAXIMILIANO (obstructive sleep apnea) Bronchitis PONV (postoperative nausea and vomiting) Helicobacter pylori (H. pylori) Physical exam UTI (urinary tract infection) Scoliosis Restrictive lung disease Dysphagia Mild major depression, single episode Right shoulder pain COPD (chronic obstructive pulmonary disease) Allergic rhinosinusitis Acute bronchitis Asthma Anemia Primary osteoarthritis involving multiple joints Essential hypertension Right ankle pain Allergic rhinitis Surgical History History of laparoscopic appendectomy (~09/10/23) History of esophagogastroduodenoscopy (EGD) Hx of colonoscopy Hx of cardiac cath History of total left knee replacement History of arthroscopy of right knee History of hemorrhoidectomy History of total right knee replacement History of total abdominal hysterectomy History of tonsillectomy Family History Father Alcoholism Arthritis Mother Diabetes Acute CVA (cerebrovascular accident) Sister Breast cancer Family/Other FH: mental illness Brother Diabetes Myocardial infarct Daughter In good health Daughter In good health Daughter In good health Social History Household Members: Family Housing: House Alcohol intake: never Patient Tobacco Use Status: Never used Tobacco e-Cigarette/Vaping Use: Never Used Second Hand Smoke Exposure: No Advance Directives Date on File: 11/28/19 service: No 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al status: disabled 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 Cognitive needs: No Hearing needs: No Vision needs: Yes Physical Exam Vital Signs: Last Vital Signs Pulse 70 11/16/23 13:36 BP 122/70 11/16/23 13:36 Pulse Ox 94 11/16/23 13:36 Oxygen Delivery Method Room Air 11/16/23 13:36 BMI result Body Mass Index 28.8 Const General: cooperative and no acute distress Orientation/consciousness: patient oriented x3 Resp Effort & Inspection: normal respiratory effort and able to speak in complete sentences Neuro General: patient oriented x3 Cranial nerves: Yes CN's II-XII intact bilaterally Cognition (Neuro): normal cognition Psych Appearance: grossly normal Mental Status: mental status grossly normal Speech and movement: Normal speech and movement present Affect: normal affect Attitude: cooperative Assessment & Plan Assessment & Plan (1) Migraine without aura: Code(s): G43.009 - Migraine without aura, not intractable, without status migrainosus Category: Medical (2) Vertigo: Comment: ? BPPV, ? vestibular migraine component Code(s): R42 - Dizziness and giddiness Category: Medical Plan Previous Brain MRI w/wo- chronic microvascular ischemic changes and mild diffuse volume loss. ? MAXIMILIANO: HST results mild MAXIMILIANO 12/hr and O2 kieran 75%. Pt was started on APAP, unfortunately she did not tolerate it. Avoid sleeping supine. F/u w/ pulmonology. ? For migraine and dizziness: Continue Riboflavin. Magnesium 400mg qhs. May use Meclizine sparingly. Vestibular eval- did not reveal BPPV. Consider referring back to PT who specializes in vestibular tx. Pt will let us know when she feels ready to do this. Pt would also benefit from optimizing her OAB tx regimen- she did not try myrbetriq was concerned about risks. she might be interested in botox. advised to discuss this w/ her urologist. Future considerations- gepant, SSRIs, TCAs, CCBs. ? f/u in 6 months or sooner prn. Coding Level of Care Code Est Pt Level 4 (69730) Diagnoses Migraine without aura G43.009 Vertigo R42
[2023-11-16 13:36] VITALS: BP 122/70; PULSE 70; O2SAT 94; BMI 28.8
== END 2023-11-16 14:17 | disposition home or self-care (01) ==
PROVIDERS: PCP Internal Medicine; Visit Provider Nurse Practitioner Family
DX: G43.009 Migraine without aura, not intractable, without status migrainosus (principal); R42 Dizziness and giddiness
CPT/HCPCS: 99214

== ENCOUNTER → 2023-11-16 13:24 | Outpatient (BNVA) | payer OTHER, SELFPAY | PROVIDERS: PCP Internal Medicine; Visit Provider Nurse Practitioner Family | DX: G43.009 Migraine without aura, not intractable, without status migrainosus (principal); R42 Dizziness and giddiness | CPT/HCPCS: 99212 ==

== ENCOUNTER 2024-02-06 11:26 | Outpatient (REF) | payer OTHER, SELFPAY | END 2024-02-06 11:27 | disposition home or self-care (01) | LOC: HO.LAB 11:26 | PROVIDERS: PCP Internal Medicine; Visit Provider Nurse Practitioner Family | DX: K21.9 Gastro-esophageal reflux disease without esophagitis (principal); J30.9 Allergic rhinitis, unspecified; R10.13 Epigastric pain; R13.10 Dysphagia, unspecified; K59.01 Slow transit constipation; K58.2 Mixed irritable bowel syndrome; K20.90 Esophagitis, unspecified without bleeding | CPT/HCPCS: 36415; 86003; 99212 ==

== ENCOUNTER 2024-02-06 11:26 | Outpatient (AMB) | payer OTHER, SELFPAY ==
--- NOTE | 2024-02-06 11:31 | A.OFFVIS_ITS ---
Vital Signs 02/06/24 11:32 Height 5 ft 4 in Weight 170 lb 3.15 oz BMI 29.2 BP 142/88 H Blood Pressure Location Rt brachial Position Sitting Pulse 70 Pulse Source Pulse Oximeter Pulse Oximetry (%) 96 Oxygen Delivery Method Room Air Intake Visit Reasons: 6 mnth follow up r/s from 11/08 Intake Note: ESTABLISHED PATIENT Mckenzie presents in office today for a scheduled ~ 8 mos FUV Meds and Allergies reviewed? Y No recent or relevant surgeries? Pt states they recently had their appendix removed via emergency appendectomy. Any significant concerns or new changes? Pt is experiencing nausea. Constipation. Still taking pantoprazole. Pharmacy verified? [facility] Direct Customer Service Representative Required: Yes Direct Customer Service Representative Services: Direct Customer Service Representative Present Direct Customer Service Representative Name: Radha [id number] Information Interpreted: non-clinical & clinical Allergies Iodinated Contrast Media [IV DYE, IODINE CONTAINING] Allergy (Severe, Verified 02/06/24 11:44) ITCH/RASH clams Allergy (Intermediate, Verified 02/06/24 11:44) ITCHING docusate [From COLACE] Allergy (Intermediate, Verified 02/06/24 11:44) ITCHING lansoprazole [Prevacid] Allergy (Intermediate, Verified 02/06/24 11:44) hives oxybutynin Allergy (Intermediate, Verified 02/06/24 11:44) bladder pain pistachio nut Allergy (Intermediate, Verified 02/06/24 11:44) ITCHING walnut Allergy (Intermediate, Verified 02/06/24 11:44) ITCH/RASH SEASONAL ALLERGIES Allergy (Intermediate, Uncoded 11/01/23 13:53) ITCHY EYES HPI HPI 6 mnth follow up r/s from 11/08: Details: LAST VISIT: Dysphagia Abdominal pain Constipation by delayed colonic transit GERD (gastroesophageal reflux disease) IBS (irritable bowel syndrome) Plan Continue pantoprazole every morning. Patient was encouraged to avoid dietary triggers and late night snacking. Staying upright for minimal 3 hours after meals discussed with patient. Patient will start taking famotidine at bedtime. We will refer her to ENT patient can continue taking fiber supplements. I will see her in 6 months, sooner on as needed basis. Patient is agreeable to this plan and verbalizes understanding of instructions. She was given the opportunity to ask questions and all questions answered. ? Thank you for allowing me to participate in her care Orders Referrals Ear/Nose/Throat Referral R13.10 Medications New famotidine 40 mg PO BEDTIME 30 tabs 3RF K21.9 TODAY'S VISIT Patient is here today for follow-up. Patient reports that she has been feeling better, however she continues to have oropharyngeal dysphagia. Patient saw ENT and was found to have no issues. Modified barium swallow did not show any dysphagia, patient had no symptoms during the study and when she got home she had. Looks like patient has more issues when she eats food that is sticky like bread, rice as well as solid food. Patient does admit that she has allergies. Tested in the past several years ago for different allergies, does not remember the actual results. Patient denies ever choking. She does reports that now in the winter she will have increase in mucus production. Frequent postnasal drip specially when she is lying down. Patient denies dyspepsia. Reports that her symptoms of acid reflux are suppressed with pantoprazole, however if she forgets her symptoms are back. Patient reports that she is moving her bowels, however she needs to take fiber in order to have a bowel movements sometimes she uses MiraLax. Denies any melena, hematochezia, unintentional weight loss or ribbon like stools. Patient had appendicitis back in August and had to undergo appendectomy. Patient has seen a surgeon for follow-up. Denies any abdominal pain or discomfort [facility] History Migraine Cough MAXIMILIANO (obstructive sleep apnea) Bronchitis PONV (postoperative nausea and vomiting) Helicobacter pylori (H. pylori) Physical exam UTI (urinary tract infection) Scoliosis Restrictive lung disease Dysphagia Mild major depression, single episode Right shoulder pain COPD (chronic obstructive pulmonary disease) Allergic rhinosinusitis Acute bronchitis Asthma Anemia Primary osteoarthritis involving multiple joints Essential hypertension Right ankle pain Allergic rhinitis Surgical History History of laparoscopic appendectomy (~09/10/23) History of esophagogastroduodenoscopy (EGD) Hx of colonoscopy Hx of cardiac cath History of total left knee replacement History of arthroscopy of right knee History of hemorrhoidectomy History of total right knee replacement History of total abdominal hysterectomy History of tonsillectomy Family History Father Alcoholism Arthritis Mother Diabetes Acute CVA (cerebrovascular accident) Sister Breast cancer Family/Other FH: mental illness Brother Diabetes Myocardial infarct Daughter In good health Daughter In good health Daughter In good health Social History Household Members: Family Housing: House Alcohol intake: never Patient Tobacco Use Status: Never used Tobacco e-Cigarette/Vaping Use: Never Used Second Hand Smoke Exposure: No Advance Directives Date on File: 11/28/19 service: No 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al status: disabled 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 Cognitive needs: No Hearing needs: No Vision needs: Yes Review of Systems Const Denies weight gain and Denies weight loss ENT Reports no additional complaints, Reports dysphagia and Denies odynophagia Card Reports no additional complaints Resp Reports no additional complaints GI Denies abdominal pain, Denies belching, Denies melena, Reports bloating, Denies change in bowel habits, Reports dysphagia, Denies excessive flatus, Reports dyspepsia, Reports heartburn, Denies diarrhea, Denies loose stools, Denies nausea, Denies odynophagia and Denies vomiting Reports no additional complaints Musc Reports no additional complaints Neuro Reports no additional complaints Psych Reports no additional complaints Endo Reports no additional complaints Physical Exam Vital Signs: Last Vital Signs Pulse 70 02/06/24 11:32 BP 142/88 H 02/06/24 11:32 Pulse Ox 96 02/06/24 11:32 Oxygen Delivery Method Room Air 02/06/24 11:32 BMI result Body Mass Index 29.2 Const General: healthy appearing and no acute distress Nutritional Appearance: obese Orientation/consciousness: patient oriented x3 Resp Effort & Inspection: normal respiratory effort, able to speak in complete sentences, no tracheal deviation and symmetric chest movement Auscultation: clear to auscultation bilaterally Cardio Rate: regular rate GI Inspection: Yes normal to inspection, No distended and Yes obesity Palpation (GI): Soft to palpation, not firm, nontender and No hepatosplenomegaly present Auscultation: normal bowel sounds General: Yes no CVA tenderness Back/Spine/Pelvis Back: no CVA tenderness Skin General skin exam: elasticity normal, turgor normal and dry skin Neuro General: patient oriented x3 Psych Appearance: grossly normal Mental Status: mental status grossly normal Assessment & Plan Assessment & Plan (1) Abdominal pain: Code(s): R10.9 - Unspecified abdominal pain Category: Medical Qualifiers: Abdominal location: epigastric Qualified Code(s): R10.13 - Epigastric pain (2) Dysphagia: Code(s): R13.10 - Dysphagia, unspecified Category: Medical Qualifiers: Dysphagia type: unspecified Qualified Code(s): R13.10 - Dysphagia, unspecified (3) Constipation by delayed colonic transit: Code(s): K59.01 - Slow transit constipation Category: Medical (4) GERD (gastroesophageal reflux disease): Code(s): K21.9 - Gastro-esophageal reflux disease without esophagitis Qualifiers: Esophagitis presence: esophagitis presence not specified Qualified Code(s): K21.9 - Gastro-esophageal reflux disease without esophagitis (5) IBS (irritable bowel syndrome): Code(s): K58.9 - Irritable bowel syndrome, unspecified Qualifiers: Irritable bowel syndrome type: with both diarrhea and constipation Qualified Code(s): K58.2 - Mixed irritable bowel syndrome Plan Patient continues to have trouble swallowing food like rice and solids. Patient had upper endoscopy last year did not showed eosinophilic esophagitis. Continue pantoprazole. Continue avoiding dietary triggers and late night snacking. Staying upright for minimum 3 hours after meals discussed with patient. Continue MiraLax as needed. Increase fluid intake and activity to promote better bowel motility. RAST allergen test ordered. Referral to allergy/immunology. Patient will follow-up in our office in 6 months, sooner on as needed basis. She is agreeable to this plan and verbalizes understanding of instructions. She was given the opportunity to ask questions and all questions answered. Thank you for allowing me to participate in her care Orders: Orders Rast Allergen Today K21.9 - Gastro-esophageal reflux disease without esophagitis Referrals Allergy & Immunology Referral J30.9 - Allergic rhinitis, unspecified Coding Level of Care Code Est Pt Level 4 (21043) Diagnoses Epigastric pain R10.13 Abdominal location: epigastric Dysphagia, unspecified type R13.10 Dysphagia type: unspecified Constipation by delayed colonic transit K59.01 Gastroesophageal reflux disease, unspecified whether esophagitis present K21.9 Esophagitis presence: esophagitis presence not specified Irritable bowel syndrome with both constipation and diarrhea K58.2 Irritable bowel syndrome type: with both diarrhea and constipation Time Spent (min) 40 Comment 25 minutes spent with patient and additional 10 minutes spent reviewing her records
[2024-02-06 11:32] VITALS: BP 142/88; PULSE 70; O2SAT 96; BMI 29.2
--- OUTSIDE RECORDS SUMMARY | 2024-02-07 01:38 | XMS_ITS | Continuity of Care Document ---
Author Organization [facility] Address [address] [place] [address]- Care Team Providers Care Firesetter Name Role Phone Dale Julian MD, Nora Castanon Primary Care Physician [phone] Encounter [facility] [place] Date(s): 01/01/24 - 01/31/[address] [address]- Attending Physician: Anjelica Rosales Admitting Physician: Anjelica Rosales Referring Physician: Admtr ArNathaniel Encounter Type: Triage Allergies, Adverse Reactions, Alerts Substance Criticality Severity Reaction Reaction Severity Status oxybutynin Active Prevacid Active Nuts Active Colace Active Contrast Dye RASH Active Medications albuterol CFC free 90 mcg/inh inhalation aerosol 2 puffs, Inhalation, 4 times a day, PRN for wheezing, # 25 Gm, 0 Refills, Maintenance, 10/30/10 12:59:29 PM EDT, Aerosol Start Date: 10/30/10 Status: Ordered Quantity: 25.0 Unit: g Repeat number: 1 amLODIPine 5 mg oral tablet 5 mg, 1, tablet, By Mouth, Daily, # 30 tablet, Refills 0, Maintenance, 03/01/21 9:16:00 AM EST, Partial fill upon patient request if the prescription is for a schedule II opioid drug. Start Date: 03/01/21 Status: Ordered Quantity: 30.0 Unit: tablet Repeat number: 1 aspirin 81 mg oral delayed release tablet 81 mg, 1, tablet, By Mouth, Daily, Refills 0, Maintenance, 04/29/21 8:44:00 AM EST, Partial fill uponpatient request if the prescription is for a schedule II opioid drug. Start Date: 04/29/21 Status: Ordered Repeat number: 1 Claritin 10 mg oral tablet 10 mg, 1, tablet, By Mouth, Daily, # 30 tablet, Refills 0, Maintenance, 03/01/21 9:16:00 AM EST, Partial fill upon patient request if the prescription is for a schedule II opioid drug. Start Date: 03/01/21 Status: Ordered Quantity: 30.0 Unit: tablet Repeat number: 1 Flonase 50 mcg/inh nasal spray Daily, 0 Refills, Maintenance, 03/01/21 9:16:00 AM EST, Partial fill upon patient request if the prescription is for a schedule II opioid drug. Start Date: 03/01/21 Status: Ordered Repeat number: 1 ibuprofen 600 mg oral tablet See Instructions, 1 tablet By Mouth Every 8 hours, 0 Refills, Maintenance, 06/23/13 7:17:10 AM EDT, Tablet Start Date: 06/23/13 Status: Ordered Repeat number: 1 metoprolol 25 mg oral tablet, extended release 25 mg, 1, tablet, By Mouth, Daily, Maintenance, 04/29/21 8:44:00 AM EST, Partial fill upon patient request if the prescription is for a schedule II opioid drug. Start Date: 04/29/21 Status: Ordered Repeat number: 1 pyridoxine 100 mg oral tablet 1 tablet = 100 mg, By Mouth, Daily, 0 Refills, Maintenance, 04/29/21 8:45:00 AM EST, Partial fill upon patient request if the prescription is for a schedule II opioid drug. Start Date: 04/29/21 Status: Ordered Repeat number: 1 Patient Care team information Care Team Personnel Name: Oscar Magana RN Position: S RN Member Role: Primary Care Nurse Name: Dale Julian MD , Nora Castanon Position: Reference Physician Member Role: PCP Address: [address] [place] [address] [address] [place] [address]- Telecom: Care Team Related Persons Name: TITA RODRÍGUEZ Name: JOSUÉ RODRÍGUEZ Insurance Providers Guarantor name: TIFFANIE Health Plan Information #: 1 Payer: [employer]/ONE CARE Member Number: TIFFANIE Policy Number: NA Group Number: [id number]
--- OUTSIDE RECORDS SUMMARY | 2024-02-07 01:38 | XMS_ITS | Data Portability ---
Author Organization [place] - [facility], Allergy Address [address] [place] [address] Care Team Providers Care Hot Blast Worker Name Role Phone ELIZABETH RAMOS Primary Care Provider Assessment Encounter Date Assessment Date Assessment LastModified by Organization Details LastModified Time 12/19/2023 12/19/2023 63-year-old female presents for evaluation of dysphagia. Flexible laryngoscopy was obtained today and was most consistent with reflux. Base of tongue soft to palpation. She does notice significant improvement when using her pantoprazole daily which I have instructed her to make a habit of. I have recommended a modified barium swallow as well for further evaluation. If this is unremarkable consider referring back to GI for reevaluation. She understands and agrees to this plan and has no further questions. [email or web address] Not available 12/19/2023 12:27:30 Plan of Treatment Reminders Order Date Submit Date Provider Last Modified By Organization Details Last Modified Time Details Appointments None recorded. Lab None recorded. Referral None recorded. Procedures None recorded. Surgeries None recorded. Imaging [place], modified barium swallow study 2023 024 [facility], [address] [place] [address], [facility] [address], [place], [address], 12:05:11 Medication Orders None recorded. Patient TargetsNo targets recorded. Patient InstructionsNo instructions recorded. Reason for Referral None Reported. Results Created Date Observation Date Name Description Value Unit Range Abnormal Flag Note LastModifiedBy Organization Detail LastModifiedTime 01/01/20 24 01/01/2024 [place], modif ied randall dunn ow study No observ ation record ed. [email or web address] [facility] [address], [address], 01/01/2024 15:09:03 Result Notes None recorded. Problems Name Problem SNOMED Code Status Onset Date Resolution Date Notes Provider Name and Address Organization Details Recorded Time Vertigo of central origin 40950584 Active 2020 Vertigo of central origin; Note: Date Diagnosed : 1 3:44 PM (H81.4) Not Available [facility] 4 02:35:45 Insomnia 657655767 Active 2020 Insomnia, unspecifi ed; Note: Date Diagnosed : 1 3:42 PM (G47.00) Not Available [facility] 4 02:35:48 Vertigo of central origin NOS Active 2017 Vertigo of central origin, unspecifi ed ear; Note: Date Diagnosed : 8 10:52 AM (H81.49) Not Available [facility] 4 02:35:40 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 Other migraine, intractab le, without status migrainos us; Note: Date Diagnosed : 08/23/2021 1:47 PM (G43.819) Not Available [facility] 4 02:35:41 Bilateral tinnitus 33959789403 02 Active 2017 Tinnitus, bilateral ; Note: Date Diagnosed : 8 10:35 AM (H93.13) Not Available [facility] 4 02:35:45 Dizziness and giddiness 709011119 Active 2017 Dizziness and giddiness ; Note: Date Diagnosed : 8 10:35 AM (R42) Not Available [facility] 4 02:35:44 Migraine 15935731 Active 2017 Other migraine, not intractab le, without status migrainos us; Note: Date Diagnosed : 8 10:52 AM (G43.809) Not Available [facility] 4 02:35:48 Gastroeso phageal reflux disease without esophagit is 617924063 Active 2023 JACKSON JIMÉNEZ PA-C [address] [facility],[place] [address], [place], [address] , [place] - [facility] 12:27:43 Dysphagia 72152585 Active 2023 JACKSON JIMÉNEZ PA-C [address] [address], [place], [address] , [place] [facility] 12:27:57 Problem Notes None recorded. Procedures Surgical History Date Name Laterality Status Provider Name and Address Organization Details Recorded Time 12/19/2023 FOL_Reflux _JMS completed JACKSON JIMÉNEZ PA-C [address] [place] [address], [place], [address], [facility] 12/19/2023 12:26:26 Imaging Results Imaging Date Name Status LastModified by Organiz ation Details LastModified Time 01/01/2024 [place], modified barium swallow [place] [address], [place], [address], 01/01/2024 15:09:03 Procedure Notes None recorded. Medical Equipment None Reported. Medications Name Sig Start Date Stop Date Status Note LastModified by Organization Details LastModified Time albuterol sulfate 2.5 mg/3 mL (0.083 %) solution for nebulizati on INHALE 3 ML EVERY 6 HOURS NEEDED FOR SHORTNESS OF BREATH OR WHEEZING active Not Available Not Available No t Available azithromyc in 250 mg tablet TAKE 2 TABLETS BY MOUTH TODAY, THEN TAKE 1 TABLET DAILY FOR 4 DAYS DIRECTED active Not Available Not Available No t Available metoprolol succinate ER 50 mg tablet,ext ended release 24 hr TAKE 1 TABLET BY MOUTH EVERY DAY active Not Available Not Available No t Available valacyclov ir 1 gram tablet TAKE 1 TABLET BY MOUTH EVERY 8 HOURS FOR 5 DAYS active Not Available Not Available No t Available famotidine 40 mg tablet TAKE 1 TABLET BY MOUTH AT BEDTIME active Not Available Not Available No t Available prednisone 20 mg tablet TAKE 2 TABLETS BY MOUTH EVERY DAY FOR 5 DAYS active Not Available Not Available No t Available magnesium oxide 400 mg (241.3 mg magnesium) tablet TAKE 1 TABLET ORALLY AT BEDTIME FOR 30 DAYS, MAY HOLD FOR LOOSE STOOLS active Not Available Not Available No t Available meclizine 25 mg tablet TAKE 1 TABLET BY MOUTH 3 TIMES A DAY NEEDED FOR DIZZINESS active Not Available Not Available No t Available pantoprazo le 40 mg tablet,del ayed release TAKE 1 TABLET ORALLY DAILY. TAKE HALF AN HOUR BEFORE BREAKFAST active Not Available Not Available No t Available nortriptyl ine 10 mg capsule Take 1 capsule by mouth at bedtime 2021 active Medicatio n ID: [id number] Pr escribed By Name: Alma Zeng Name: nortriptthiago line Send Method: E-Prescri bed Subs Allowed: subs OK Medica tionGener icName: nortripty line Not Available Not Available Not Available tobramycin 0.3 % eye drops PLACE 1 DROP INTO THE EYE(S) EVERY 4 HOURS FOR 7 DAYS active Not Available Not Available No t Available polymyxin B sulfate 10,000 unit-trime thoprim 1 mg/mL eye drops INSTILL 1 DROP INTO THE EYES 4 TIMES A DAY FOR 5 DAYS WHILE AWAKE DO NOT EXCEED 6 DOSES IN 24 HOURS active Not Available Not Available No t Available Advair Diskus 500 mcg-50 mcg/dose powder for inhalation 2017 active Medicatio n ID: [id number] Du ration Value: 90 Brand Name: Advair Diskus Se nd Method: E-Prescri bed Subs Allowed: subs OK Specia l Instructi on: INHALE 1 PUFF BY MOUTH TWICE A DAY Medic ationGene ricName: Advair Diskus Not Available Not Available Not Available docusate sodium 100 mg capsule TAKE 1 CAPSULE BY MOUTH TWICE A DAY active Not Available Not Available No t Available montelukas t 10 mg tablet TAKE 1 TABLET BY MOUTH EVERY DAY FOR ALLERGIC RHINITIS active Not Available Not Available No t Available albuterol sulfate HFA 90 mcg/actuat ion aerosol inhaler TAKE 2 PUFF INHALED EVERY 6 HOURS NEEDED FOR FOR WHEEZING FOR 30 DAYS active Not Available Not Available No t Available fluticason e propionate 50 mcg/actuat ion nasal spray,susp ension USE 1 SPRAY INTRANASA LLY DAILY active Not Available Not Available No t Available doxycyclin e hyclate 100 mg tablet TAKE 1 TABLET ORALLY 2 TIMES A DAY FOR BRONCHITI S FOR 10 DAYS active Not Available Not Available No t Available loratadine 10 mg tablet TAKE 1 TABLET BY MOUTH EVERY DAY active Not Available Not Available No t Available tobramycin 0.3 %-dexameth asone 0.1 % eye drops,susp ension INSTILL 1 DROP INTO BOTH EYES 4 TIMES A DAY active Not Available Not Available No t Available oxycodone 5 mg tablet TAKE 1 TABLET BY MOUTH EVERY 4 HOURS NEEDED FOR PAIN (7-10) active Not Available Not Available No t Available calcium 600 mg (as carbonate) -vitamin D3 10 mcg (400 unit) tablet TAKE 1 TABLET BY MOUTH TWICE A DAY active Not Available Not Available No t Available Myrbetriq 25 mg tablet,ext ended release TAKE 1 TABLET BY MOUTH EVERY DAY active Not Available Not Available No t Available riboflavin (vitamin B2) 400 mg tablet TAKE 1 TABLET BY MOUTH EVERY DAY active Not Available Not Available No t Available Tylenol 325 mg capsule 2017 active Medicatio n ID: [id number] Br and Name: Tylenol S end Method: E-Prescri bed Subs Allowed: subs OK Medica tionGener icName: Tylenol Not Available Not Available Not Available Wixela Inhub 250 mcg-50 mcg/dose powder for inhalation TAKE 1 PUFF BY MOUTH TWICE A DAY active Not Available Not Available No t Available Vitals Date Recorded Body height Body mass index (BMI) Body weight Provider Name and Address Organization Details Last Updated DateTime 12/19/2023 162.56 cm 28 kg/m2 64982.56 g Sulema Patel [place] - [facility] 12/19/2023 11:38:41 Social History None recorded. Functional Status None recorded. Mental Status None recorded. Family History Nothing Reported. Medical History No medical history recorded. Gynecological HistoryNo gynecological history recorded. Obstetrics History GPAL:G 0 P 0 0 0 0 Past Encounters Encounter ID Performer Location Encounter Start Date Encounter Closed Date Diagnosis/Indication Diagnosis SNOMED-CT Code Diagnosis ICD10 Code [id number] JACOB TERRAZAS MD [facility] [address] [address] 12/19/2023 11:26:21 12/19/2023 12:08:20 Gastroesophageal reflux disease without esophagitis 934024287 K21.9 Dysphagia 39925489 R13.1 0 Health Concerns Section Related Observation LastModified by Organization Caren delcid LastModified Time None Recorded Concern Status LastModified by Organization Details LastModified Time None Recorded Advance Directives Directive None Recorded Payers Encounter Date Sequence Insurance Name Policy Number Policy Sena Covered Member ID Sena Member ID Guarantor Name 12/19/2023 1 [facility] - DOS ON OR AFTER 2022 - ONE CARE (MEDICARE REPLACEMENT/ADV ANTAGE - HMO) Mckenzie Montgomery [id number] Mckenzie Montogmery Notes Date Note Type Note Provider Name and Address Organization Details Recorded Time 12/19/2023 text/html 63-year-old tevin hall presents for evaluation of dysphagia. Patient states for the last 3 years she has had difficulty swallowing and feels as though food becomes stuck at the bottom of her throat. She often has to gag it up. This happens with solids and liquids. No history of smoking or other red flag symptoms. Had a barium esophagram which was normal according to patient but I do not have results for review today. She does have significant gastritis and is on pantoprazole. She notices when she takes her pantoprazole regularly her swallowing becomes much better. JACOB TERRAZAS MD [address] [place] [address], [phone] [place] - [facility] 12/19/2023 16:55:57 OBGyn Episode No OBEpisode recorded.
--- OUTSIDE RECORDS SUMMARY | 2024-02-07 01:39 | XMS_ITS | Continuity of Care Document ---
Author Organization [place] - [facility], [facility] Address [address] [place] [address] Care Team Providers Care Respiratory Tech Name Role Phone ELIZABETH RAMOS Primary Care [...] [place], modified barium swallow study 2023 024 [email or web address] [facility], [address] [facility] [address], [place], [address], 12:05:11 Medication Orders None recorded. Patient TargetsNo targets recorded. Patient InstructionsNo instructions recorded. Reason for Referral None Reported. Results Created Date Observation Date Name Description Value Unit Range Abnormal Flag Note LastModifiedBy Organization Detail LastModifiedTime 01/01/20 24 01/01/2024 [place], modif ied randall clark study No observ ation record ed. [email or web address] [facility] [address], [address], 01/01/2024 15:09:03 Result Notes None recorded. Problems Name Problem SNOMED Code Status Onset Date Resolution Date Notes Provider Name and Address Organization Details Recorded Time Vertigo of central origin 44478287 Active 2020 Vertigo of central origin; Note: Date Diagnosed : 1 3:44 PM (H81.4) Not Available [facility] 4 02:35:45 Insomnia 102311395 Active 2020 Insomnia, unspecifi ed; Note: Date Diagnosed : 1 3:42 PM (G47.00) Not Available [facility] 4 02:35:48 Vertigo of central origin NOS Active 2017 Vertigo of central origin, unspecifi ed ear; Note: Date Diagnosed : 8 10:52 AM (H81.49) Not Available [facility] 4 02:35:40 Refractor y migraine 190203726 Active 2021 Other migraine, intractab le, without status migrainos us; Note: Date Diagnosed : 08/23/2021 1:47 PM (G43.819) Not Available [facility] 4 02:35:41 Bilateral tinnitus 18034034534 02 Active 2017 Tinnitus, bilateral ; Note: Date Diagnosed : 8 10:35 AM (H93.13) Not Available [facility] 4 02:35:45 Dizziness and giddiness 264244416 Active 2017 Dizziness and giddiness ; Note: Date Diagnosed : 8 10:35 AM (R42) Not Available [facility] 4 02:35:44 Migraine 29303614 Active 2017 Other migraine, not intractab le, without status migrainos us; Note: Date Diagnosed : 8 10:52 AM (G43.809) Not Available [facility] 4 02:35:48 Gastroeso phageal reflux disease without esophagit is 058417772 Active 2023 JACKSON JIMÉNEZ PA-C [address] [facility],[place] [address], [place], [address] , [facility] 12:27:43 Dysphagia 77518879 Active 2023 JACKSON JIMÉNEZ PA-C [address] [facility] [place] [address], [place], [address] , [facility] 12:27:57 Problem Notes None recorded. Procedures Surgical History Date Name Laterality Status Provider Name and Address Organization Details Recorded Time 12/19/2023 FOL_Reflux _JMS completed JACKSON JIMÉNEZ PA-C [address] [facility],[place] [address], [place], [address], [facility] 12/19/2023 12:26:26 Imaging Results None recorded. Procedure Notes None recorded. Medical Equipment None [...] at bedtime 2021 active Medicatio n ID: [id number] Pr escribed By Name: Alma Zeng Name: sharyn paiz Send Method: E-Prescri bed Subs Allowed: subs [...] for inhalation 2017 active Medicatio n ID: [id number] Du ration Value: 90 Brand Name: Advair [...] mg capsule 2017 active Medicatio n ID: [id number] Br and Name: Tylenol S end Method: [...] Updated DateTime 12/19/2023 162.56 cm 28 kg/m2 54343.56 g Sulema Patel [place] - [facility] 12/19/2023 11:38:41 Social History None recorded. Functional Status None recorded. Mental Status None recorded. Family History Nothing Reported. Medical History No medical history recorded. Gynecological HistoryNo gynecological history recorded. Obstetrics History GPAL:G 0 P 0 0 0 0 Past Encounters Encounter ID Performer Location Encounter Start Date Encounter Closed Date Diagnosis/Indication Diagnosis SNOMED-CT Code Diagnosis ICD10 Code [id number] JACOB TERRAZAS MD [facility] [address] [address] 12/19/2023 11:26:21 12/19/2023 12:08:20 Gastroesophageal reflux disease without esophagitis 358900444 K21.9 Dysphagia 46018714 R13.1 0 Health Concerns Section Related Observation LastModified by Organization Detai ls LastModified Time None Recorded Concern Status LastModified by Organization Details LastModified Time None Recorded Payers Encounter Date Sequence Insurance Name Policy Number Policy Sena Covered Member ID Sena Member ID Guarantor Name 12/19/2023 1 [facility] - DOS ON OR AFTER 2022 - ONE CARE (MEDICARE REPLACEMENT/ADV ANTAGE - HMO) Mckenzie Montgomery [id number] Mckenzie Montgomery Notes Date Note Type Note Provider Name [...] swallowing becomes much better. JACOB TERRAZAS MD [address] [place] [address], [place], [address], [place] - [facility] 12/19/2023 16:55:57 OBGyn Episode No OBEpisode recorded.
== END 2024-02-06 12:52 | disposition home or self-care (01) ==
PROVIDERS: PCP Internal Medicine; Visit Provider Nurse Practitioner Family
DX: R10.13 Epigastric pain (principal); R13.10 Dysphagia, unspecified; K59.01 Slow transit constipation; K21.9 Gastro-esophageal reflux disease without esophagitis; K58.2 Mixed irritable bowel syndrome
CPT/HCPCS: 99214

== ENCOUNTER 2024-02-17 15:06 | Inpatient (IN) | payer OTHER, SELFPAY ==
[2024-02-17] VITALS (8 sets, daily range): BP systolic 130–155; BP diastolic 61–86; PULSE 72–99; RESP 15–28; TEMP 36–36.6; O2SAT 92–96; BMI 28.0; BMI 29.0
--- NOTE | ~2024-02-17 | XR_ITS ---
EXAMINATION: XR CHEST CLINICAL INFORMATION: cough x 4 weeks COMPARISON: 10/22/2023 TECHNIQUE: 2 views of the chest were obtained. FINDINGS: No focal consolidation, pulmonary edema, or pleural effusion. Stable cardiomediastinal silhouette. Marked thoracic scoliosis. XR/XR chest 2V IMPRESSION: No acute cardiopulmonary findings. Electronically signed by: Michael Chong MD 02/17/2024 04:55 PM EST
--- NOTE | 2024-02-17 15:27 | ED_ITS ---
HPI - General Adult General Chief complaint: Upper Respiratory Symptoms Stated complaint: wheezing, asthma acting up, trouble breathing Time Seen by Provider: 02/17/24 15:34 Source: patient and family (Daughter) Mode of arrival: ambulatory Limitations: no limitations History of Present Illness ED Provider: COREEN Hart HPI narrative: 63-year-old female history of PVCs, hypertension, migraine, BPV, coronary artery disease status post cardiac catheterization, H pylori, COPD, asthma, presenting to the emergency department fatigue, malaise, myalgias, nausea, shortness of breath, productive cough ongoing for the past 4 weeks. Patient reports with bothering her most is the productive cough. She reports shortness of breath is worse with exertion and better at rest. Denies sick contacts. She denies chest pain, fevers, chills, vomiting, abdominal pain, headache, vision changes, dizziness and weakness. Related Data Home Medications ?Medication ?Instructions ?Recorded ?Confirmed acetaminophen 650 mg 650 mg PO Q8H PRN Pain 09/09/23 11/16/23 tablet,extended release (Tylenol 8 Hour) calcium 600 mg (as 1 tab PO MOFR@0900 09/09/23 11/16/23 carbonate)-vitamin D3 10 mcg (400 unit) tablet fluticasone 250 mcg-salmeterol 50 1 inh inhalation BID 09/09/23 11/16/23 mcg/dose blistr powdr for inhalation (Wixela Inhub) glucosamine sulfate 750 mg tablet 750 mg PO DAILY 09/09/23 11/16/23 lidocaine 4 % topical patch 1 patch topical DAILY PRN Back Pain 09/09/23 11/16/23 (Aspercreme (lidocaine)) magnesium oxide 400 mg (241.3 mg 400 mg PO BEDTIME PRN Constipation 09/09/23 11/16/23 magnesium) tablet pantoprazole 40 mg tablet,delayed 40 mg PO DAILY@0630 PRN Acid Reflux 09/09/23 11/16/23 release Previous Rx's ?Medication ?Instructions ?Recorded blood pressure monitor #1 ea 04/19/21 diclofenac sodium 1 % topical gel 2 g topical BID PRN pain #100 grams 12/08/21 metoprolol succinate 50 mg 50 mg PO DAILY #90 tabs 02/27/23 tablet,extended release 24 hr riboflavin (vitamin B2) 400 mg 400 mg PO DAILY 30 days #30 tabs 05/04/23 tablet docusate sodium 100 mg capsule 100 mg PO BID #30 caps 09/10/23 (Colace) albuterol sulfate 2.5 mg/3 mL 2.5 mg (3 mL) inhalation Q6H PRN 10/17/23 (0.083 %) solution for nebulization shortness of breath or wheezing 30 days #75 mL albuterol sulfate 90 mcg/actuation 2 puff inhalation Q6H PRN for 10/17/23 aerosol inhaler wheezing 30 days #8.5 grams codeine 10 mg-guaifenesin 100 mg/5 5 ml PO Q6H PRN cold symptoms 7 10/22/23 mL oral liquid days #200 mL fluticasone propionate 50 1 spray intranasal DAILY #16 grams 12/08/23 mcg/actuation nasal spray,suspension meclizine 25 mg tablet 25 mg PO TID PRN dizziness 30 days 12/08/23 #90 tabs loratadine 10 mg tablet 10 mg PO DAILY #90 tabs 02/01/24 Allergies Allergy/AdvReac Type Severity Reaction Status Date / Time Iodinated Contrast Media Allergy Severe ITCH/RASH Verified 02/17/24 15:29 [IV DYE, IODINE CONTAINING] clams Allergy Intermediate ITCHING Verified 02/17/24 15:29 docusate [From COLACE] Allergy Intermediate ITCHING Verified 02/17/24 15:29 lansoprazole [Prevacid] Allergy Intermediate hives Verified 02/17/24 15:29 oxybutynin Allergy Intermediate bladder Verified 02/17/24 15:29 pain pistachio nut Allergy Intermediate ITCHING Verified 02/17/24 15:29 walnut Allergy Intermediate ITCH/RASH Verified 02/17/24 15:29 SEASONAL ALLERGIES Allergy Intermediate ITCHY EYES Uncoded 02/17/24 15:29 Review of Systems 2 Review of Systems: Yes all other systems are reviewed and are negative PMFSH Past Medical History Attestation statement: The following information was validated with the patient. Source: old records reviewed and nursing notes reviewed Medical History Migraine Cough MAXIMILIANO (obstructive sleep apnea) Bronchitis PONV (postoperative nausea and vomiting) Helicobacter pylori (H. pylori) Physical exam UTI (urinary tract infection) Scoliosis Restrictive lung disease Dysphagia Mild major depression, single episode Right shoulder pain COPD (chronic obstructive pulmonary disease) Allergic rhinosinusitis Acute bronchitis Asthma Anemia Primary osteoarthritis involving multiple joints Essential hypertension Right ankle pain Allergic rhinitis Surgical History History of laparoscopic appendectomy (~09/10/23) History of esophagogastroduodenoscopy (EGD) Hx of colonoscopy Hx of cardiac cath History of total left knee replacement History of arthroscopy of right knee History of hemorrhoidectomy History of total right knee replacement History of total abdominal hysterectomy History of tonsillectomy Family History Family History Father Alcoholism Arthritis Mother Diabetes Acute CVA (cerebrovascular accident) Sister Breast cancer Family/Other FH: mental illness Brother Diabetes Myocardial infarct Daughter In good health Daughter In good health Daughter In good health Social History Social History Household Members: Family Housing: House Alcohol intake: never Patient Tobacco Use Status: Never used Tobacco e-Cigarette/Vaping Use: Never Used Second Hand Smoke Exposure: No Advance Directives: Yes Advance Directives on File: Yes Advance Directives Date on File: 11/28/19 Do you have a plan to hurt others: No Plan service: No 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al status: disabled 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 Oriented X3.? No acute distress.? Head: Normocephalic, atraumatic, no step-offs or deformities Eyes: Pupils equal, round and reactive to light.? ENT: Pharynx normal.? Neck: Normal inspection.? Neck supple.? CVS: Normal heart rate and rhythm.? Pulses normal.? Respiratory: No respiratory distress.? Breath sounds normal.? Abdomen: Soft and nontender.? Skin: Skin warm and dry.? Normal skin color.? Normal skin turgor.? Extremities: No lower extremity edema.? No calf ttp. 5/5 strength to bilateral upper and lower extremities Neuro: Oriented X 3.? No motor deficit.? No sensory deficit. CN 2-12 intact Course Course Course Narrative: This is a rapid medical exam performed by Mounika Mendoza NP: Additional HPI, ROS, PE not included below will be deferred to primary provider. Patient is a 63-year-old female with history of HTN, anemia, asthma, COPD, restrictive lung disease, MAXIMILIANO presenting with complaint of shortness of breath and wheezing for the past 4 weeks. Denies fevers. Plan: viral serology, labs, cxr Reevaluation(s) Reevaluation #1: CBC with no acute findings needing intervention. Chemistry unremarkable. Chest x-ray with no acute cardiopulmonary findings. I added a BNP as well as a troponin and EKG on this patient. Will also obtain an ambulatory O2. Time: 17:01 Reevaluation #2: Troponin negative, BNP within normal range. Chest x-ray no acute cardiopulmonary findings. Ambulatory O2 patient 86 87% on room air. I did order ceftriaxone, azithromycin as well as magnesium at this time as patient is still having significant wheezing. At this time infection suspected. Blood cultures lactic acid obtained. Plan hospital admission Dr. Roosevelt [place]. Time: 19:19 Medications Administered Discontinued Medications Generic Name Dose Route Start Last Admin Trade Name Freq PRN Reason Stop Dose Admin Albuterol Sulfate 2.5 mg/ 0 mg 02/17/24 16:02 02/17/24 16:10 Albuterol/Ipratropium 3 ml INHALE 02/17/24 16:03 5 dose ONCE ONE Administration Albuterol Sulfate 5 mg/ 0 mg 02/17/24 17:24 02/17/24 17:34 Albuterol/Ipratropium 3 ml INHALE 02/17/24 17:25 7.5 each ONCE ONE Administration Methylprednisolone Sodium Succinate 125 mg 02/17/24 16:13 02/17/24 16:51 Methylprednisolone Sod Succ 125 Mg/2 Ml Vial IVPUSH 02/17/24 16:14 125 mg ONCE ONE Administration Medical Decision Making Medical Decision Making [facility] Narrative: 1614 63-year-old female presents with fatigue, malaise, myalgias, cough, shortness of breath ongoing for the past 4 weeks. Denies sick contacts. Denies chest pain. Physical exam patient has bilateral expiratory wheezing and faint crackles to bilateral lower lobes. History and physical exam concerning for pneumonia versus bronchitis. Unlikely PE, ACS, acute respiratory distress, tuberculosis. Plan-labs, imaging, viral testing Differential Diagnosis Differential Diagnoses: The differential diagnosis associated with the presentation includes ( History and physical exam concerning for pneumonia versus bronchitis. Unlikely PE, ACS, acute respiratory distress, tuberculosis. a) Admission/Observation Consideration of admission/observation: Escalation of care including admission/observation considered Lab Data MDM Lab Attestation statement: I reviewed the patient's lab results. 02/17/24 15:57 02/17/24 15:57 Labs: Lab Results 02/17/24 02/17/24 Range/Units 15:54 15:57 WBC 7.2 (4.8-10.8) X10*3/uL RBC 3.90 L (4.20-5.50) X10*6/uL Hgb 12.1 (12.0-16.0) g/dl Hct 36.4 L (37.0-47.0) % MCV 93.3 (80.0-98.0) fL MCH 31.0 (27.0-33.0) pg MCHC 33.2 (31.0-35.0) g/dl RDW 19.5 H (11.0-16.0) % Plt Count 280 (160-400) X10*3/uL MPV 11.0 (9.4-12.3) fL Immature Gran % (Auto) 0.6 H (0.0-0.4) % Neut % (Auto) 58.2 (45-73) % Lymph % (Auto) 27.8 (20-40) % [place] % (Auto) 9.2 (2-11) % Eos % (Auto) 2.9 (0-4) % Baso % (Auto) 1.3 (0-2) % Lymph # (Auto) 2.0 (1.2-4.9) X10*3/uL [place] # (Auto) 0.7 (0.1-1.2) X10*3/uL Eos # (Auto) 0.2 (0.0-0.4) X10*3/uL Baso # (Auto) 0.1 (0.0-0.2) X10*3/uL Abs Immat Gran (auto) 0.04 H (0.00-0.03) X10*3/uL Absolute Neuts (auto) 4.2 (2.0-8.3) x10*3/uL Absolute Nucleated RBC 0.020 H (0.0-0.012) X10*3/uL Nucleated RBC % (auto) 0.3 H (0.0-0.2) /100WBC Sodium 142 (135-145) mmol/L Potassium 3.7 (3.3-5.1) mmol/L Chloride 107 (96-108) mmol/L Carbon Dioxide 27 (22-29) mmol/L Anion Gap 12 (12-20) BUN 16 (9-16) mg/dL Creatinine 0.65 (0.5-1.4) mg/dL Estim Creat Clear Calc 86.1 Estimated GFR > 60 Random Glucose 98 (60-115) mg/dL Calcium 9.7 (8.4-10.2) mg/dL Total Bilirubin 0.4 (0.0-1.0) mg/dL AST 19 (5-31) U/L ALT 28 (0-31) U/L Alkaline Phosphatase 112 (39-117) U/L Troponin I High Sens < 2.7 (<3.5-17.0) ng/L B-Natriuretic Peptide 44 (<100) pg/mL Total Protein 7.8 (6.5-8.0) g/dL Albumin 4.4 (3.5-5.0) g/dL Influenza Type A (PCR) NEGATIVE (Negative) Influenza Type B (PCR) NEGATIVE (Negative) RSV RNA Qual (PCR) NEGATIVE (Negative) SARS-CoV-2 RNA (RT-PCR) NEGATIVE (Negative) Independent Interpretation I performed an independent interpretation of an: Plain X-Ray Radiology Impression Discussion of test interpretation with radiology: I have reviewed the radiologist's reading. External Record Review External record reviewed: Inpatient record, Office record, Outpatient record, Prior outpatient labs, Prior outpatient radiology, Primary care record and Outside ED record Chronic Conditions Patient?s care impacted by: Other (see hpi ) Critical Care Time Critical Care Time Critical Care Time: Yes Total Critical Care Time: 35 Attestation: I attest to this time spent taking care of the patient, obtaining history, physical, reviewing labs, imaging, treatment of patients condition +/- specialist/hospitalist consult Discharge Plan Discharge Clinical Impression: Acute bronchitis Patient Disposition: Admitted As Inpatient Additional Instructions: Take your medications as prescribed. If you were prescribed antibiotics today, it is important that you take your medication to their entirety, do not skip any doses, do not finish them early. Follow-up with your primary care provider this week. Return to the emergency department with new or worsening symptoms. Such as fevers, chills, chest pain, shortness of breath, nausea, vomiting, dizziness, headache, vision changes, lethargy In case of emergency call 911 Print Language: Filipino
--- NOTE | 2024-02-17 15:40 | MHC.EDTECH ---
Unable to perform phlebotomy. Patient currently at x-ray
--- OUTSIDE RECORDS SUMMARY | 2024-02-17 15:52 | XMS_ITS | Continuity of Care Document ---
Author Organization [place] - [facility], [facility] Address [address] [place] [address] Care Team Providers Care Tunnel Worker Name Role Phone ELIZABETH RAMOS Primary Care Provider [phone] Assessment Encounter Date Assessment Date Assessment LastModified [...] [place], modified barium swallow study 2023 024 [email or web address] [facility], [address], [place], [address], 12:05:11 Medication Orders None recorded. Patient TargetsNo targets recorded. Patient InstructionsNo instructions recorded. Reason for Referral None Reported. Results Created Date Observation Date Name Description Value Unit Range Abnormal Flag Note LastModifiedBy Organization Detail LastModifiedTime 01/01/20 24 01/01/2024 [place], modif ied randall clark study No observ ation record ed. [email or web address] [facility] Of [address], [address], 01/01/2024 15:09:03 Result Notes None recorded. Problems Name Problem SNOMED Code Status Onset Date Resolution Date Notes Provider Name and Address Organization Details Recorded Time Vertigo of central origin 66780253 Active 2020 Vertigo of central origin; Note: Date Diagnosed : 1 3:44 PM (H81.4) Not Available [facility] 4 02:35:45 Insomnia 343197384 Active 2020 Insomnia, unspecifi ed; Note: Date Diagnosed : 1 3:42 PM (G47.00) Not Available [facility] 4 02:35:48 Vertigo of central origin NOS Active 2017 Vertigo of central origin, unspecifi ed ear; Note: Date Diagnosed : 8 10:52 AM (H81.49) Not Available [facility] 4 02:35:40 Refractor y migraine 092031088 Active 2021 Other migraine, intractab le, without status migrainos us; Note: Date Diagnosed : 08/23/2021 1:47 PM (G43.819) Not Available [facility] 4 02:35:41 Bilateral tinnitus 08120365984 02 Active 2017 Tinnitus, bilateral ; Note: Date Diagnosed : 8 10:35 AM (H93.13) Not Available [facility] 4 02:35:45 Dizziness and giddiness 882824388 Active 2017 Dizziness and giddiness ; Note: Date Diagnosed : 8 10:35 AM (R42) Not Available [facility] 4 02:35:44 Migraine 29157028 Active 2017 Other migraine, not intractab le, without status migrainos us; Note: Date Diagnosed : 8 10:52 AM (G43.809) Not Available [facility] 4 02:35:48 Gastroeso phageal reflux disease without esophagit is 445792919 Active 2023 JACKSON JIMÉNEZ PA-C [address] [facility],[place] [address], [place], [address] , [facility] 12:27:43 Dysphagia 44943917 Active 2023 JACKSON JIMÉNEZ PA-C [address] [facility] [address], [place], [address] , [facility] 12:27:57 Problem Notes None recorded. Procedures Surgical History Date Name Laterality Status Provider Name and Address Organization Details Recorded Time 12/19/2023 FOL_Reflux _JMS completed JACKSON JIMÉNEZ PA-C [address] [facility],[place] [address], [place], [address], [facility] 12/19/2023 12:26:26 Imaging Results None recorded. Procedure [...] at bedtime 2021 active Medicatio n ID: [id number] Pr escribed By Name: Alma Zeng Name: [...] for inhalation 2017 active Medicatio n ID: [id number] Du ration Value: 90 Brand Name: Advair [...] mg capsule 2017 active Medicatio n ID: [id number] Br and Name: Tylenol S end Method: [...] Updated DateTime 12/19/2023 162.56 cm 28 kg/m2 29030.56 g Sulema Patel [place] - [facility] 12/19/2023 11:38:41 Social History None recorded. Functional Status None recorded. Mental Status None recorded. Family History Nothing Reported. Medical History No medical history recorded. Gynecological HistoryNo gynecological history recorded. Obstetrics History GPAL:G 0 P 0 0 0 0 Past Encounters Encounter ID Performer Location Encounter Start Date Encounter Closed Date Diagnosis/Indication Diagnosis SNOMED-CT Code Diagnosis ICD10 Code [id number] JACOB TERRAZAS MD [facility] [address] [address] 12/19/2023 11:26:21 12/19/2023 12:08:20 Gastroesophageal reflux disease without esophagitis 176468880 K21.9 Dysphagia 93367606 R13.1 0 Health Concerns Section Related Observation LastModified by Organization Detai ls LastModified Time None Recorded Concern Status LastModified by Organization Details LastModified Time None Recorded Payers Encounter Date Sequence Insurance Name Policy Number Policy Sena Covered Member ID Sena Member ID Guarantor Name 12/19/2023 1 [facility] - DOS ON OR AFTER 2022 - ONE CARE (MEDICARE REPLACEMENT/ADV ANTAGE - HMO) Mckenzie Montgomery [id number] Mckenzie Montgomery Notes Date Note Type Note [...] swallowing becomes much better. JACOB TERRAZAS MD [address] [place] [address], [place], [address], [place] - [facility] 12/19/2023 16:55:57 OBGyn Episode No OBEpisode recorded.
--- OUTSIDE RECORDS SUMMARY | 2024-02-17 15:52 | XMS_ITS | Data Portability ---
Author Organization [place] - [facility], Allergy Address [address] [place] [address] Care Team Providers Care Emergency Medical Technician Name Role Phone ELIZABETH RAMOS Primary Care [...] [place], modified barium swallow study 2023 024 [email or web address] [facility], [address] [place] [address], [facility] [address], [place], [address], 12:05:11 Medication Orders None recorded. Patient TargetsNo targets recorded. Patient InstructionsNo instructions recorded. Reason for Referral None Reported. Results Created Date Observation Date Name Description Value Unit Range Abnormal Flag Note LastModifiedBy Organization Detail LastModifiedTime 01/01/20 24 01/01/2024 [place], modif ied randall dunn ow study No observ ation record ed. [email or web address] [facility] Of [address], [address], 01/01/2024 15:09:03 Result Notes None recorded. Problems Name Problem SNOMED Code Status Onset Date Resolution Date Notes Provider Name and Address Organization Details Recorded Time Vertigo of central origin 73288375 Active 2020 Vertigo of central origin; Note: Date Diagnosed : 1 3:44 PM (H81.4) Not Available [facility] 4 02:35:45 Insomnia 393526302 Active 2020 Insomnia, unspecifi ed; Note: Date Diagnosed : 1 3:42 PM (G47.00) Not Available [facility] 4 02:35:48 Vertigo of central origin NOS Active 2017 Vertigo of central origin, unspecifi ed ear; Note: Date Diagnosed : 8 10:52 AM (H81.49) Not Available [facility] 4 02:35:40 Refractor y migraine 850213981 Active 2021 Other migraine, intractab le, without status migrainos us; Note: Date Diagnosed : 08/23/2021 1:47 PM (G43.819) Not Available [facility] 4 02:35:41 Bilateral tinnitus 27522544064 02 Active 2017 Tinnitus, bilateral ; Note: Date Diagnosed : 8 10:35 AM (H93.13) Not Available [facility] 4 02:35:45 Dizziness and giddiness 987484117 Active 2017 Dizziness and giddiness ; Note: Date Diagnosed : 8 10:35 AM (R42) Not Available [facility] 4 02:35:44 Migraine 52100455 Active 2017 Other migraine, not intractab le, without status migrainos us; Note: Date Diagnosed : 8 10:52 AM (G43.809) Not Available [facility] 4 02:35:48 Gastroeso phageal reflux disease without esophagit is 292663087 Active 2023 JACKSON JIMÉNEZ PA-C [address] [facility],[place] [address], [place], [address] , [place] - [facility] 12:27:43 Dysphagia 16711236 Active 2023 JACKSON JIMÉNEZ PA-C [address] [place] [address] [address], [place], [address] , [place] - [facility] 12:27:57 Problem Notes None recorded. Procedures Surgical History Date Name Laterality Status Provider Name and Address Organization Details Recorded Time 12/19/2023 FOL_Reflux _JMS completed JACKSON JIMÉNEZ PA-C [address] [place] [address], [place], [address], [facility] 12/19/2023 12:26:26 Imaging Results Imaging Date Name Status LastModified by Organiz ation Details LastModified Time 01/01/2024 [place], modified barium swallow study [place] [id number], [place], [address], 01/01/2024 15:09:03 Procedure Notes None recorded. Medical [...] at bedtime 2021 active Medicatio n ID: [id number] Pr escribed By Name: Alma Zeng Name: [...] for inhalation 2017 active Medicatio n ID: [id number] Du ration Value: 90 Brand Name: Advair [...] mg capsule 2017 active Medicatio n ID: [id number] Br and Name: Tylenol S end Method: [...] Updated DateTime 12/19/2023 162.56 cm 28 kg/m2 08787.56 g Sulema Patel [place] - [facility] 12/19/2023 11:38:41 Social History None recorded. Functional Status None recorded. Mental Status None recorded. Family History Nothing Reported. Medical History No medical history recorded. Gynecological HistoryNo gynecological history recorded. Obstetrics History GPAL:G 0 P 0 0 0 0 Past Encounters Encounter ID Performer Location Encounter Start Date Encounter Closed Date Diagnosis/Indication Diagnosis SNOMED-CT Code Diagnosis ICD10 Code [id number] JACOB TERRAZAS MD [facility] [address] [address] 12/19/2023 11:26:21 12/19/2023 12:08:20 Gastroesophageal reflux disease without esophagitis 904306450 K21.9 Dysphagia 53624954 R13.1 0 Health Concerns Section Related Observation LastModified by Organization Caren delcid LastModified Time None Recorded Concern Status LastModified by Organization Details LastModified Time None Recorded Advance Directives Directive None Recorded Payers Encounter Date Sequence Insurance Name Policy Number Policy Sena Covered Member ID Sena Member ID Guarantor Name 12/19/2023 1 [facility] - DOS ON OR AFTER 2022 - ONE CARE (MEDICARE REPLACEMENT/ADV ANTAGE - HMO) Mckenzie Montgomery [id number] Mckenzie Montgomery Notes Date Note Type Note [...] swallowing becomes much better. JACOB TERRAZAS MD [address] [place] [address], [address] [place] - [facility] 12/19/2023 16:55:57 OBGyn Episode No OBEpisode recorded.
[2024-02-17 16:05] LABS: MANUAL DIFF FLAG NO
[2024-02-17 16:07] LABS: Basophils Absolute Auto 0.1 X10*3/uL (0.0-0.2); Basophils Percent Auto 1.3 % (0-2); Eosinophils Absolute Auto 0.2 X10*3/uL (0.0-0.4); Eosinophils Percent Auto 2.9 % (0-4); Hematocrit 36.4 % (37.0-47.0); Hemoglobin 12.1 g/dl (12.0-16.0); Imm Gran Abs Auto 0.04 X10*3/uL (0.00-0.03); Imm Gran Pct Auto 0.6 % (0.0-0.4); Lymphocytes Percent Auto 27.8 % (20-40); Mean Corpuscular HGB Conc 33.2 g/dl (31.0-35.0); Mean Corpuscular Volume 93.3 fL (80.0-98.0); Monocytes Absolute Auto 0.7 X10*3/uL (0.1-1.2); Monocytes Percent Auto 9.2 % (2-11); NRBC Pct Auto 0.3 /100WBC (0.0-0.2); Neutrophils Absolute Auto 4.2 x10*3/uL (2.0-8.3); Neutrophils Percent Auto 58.2 % (45-73); Platelet Count 280 X10*3/uL (160-400); Red Cell Distribution Width 19.5 % (11.0-16.0); White Blood Count 7.2 X10*3/uL (4.8-10.8)
[2024-02-17] MEDS: Albuterol Sulfate 2.5 MG, Albuterol/Iprat 2.5/0.5MG 3 ML 3 ML INHALE (16:10)
[2024-02-17 16:29] LABS: Albumin Level 4.4 g/dL (3.5-5.0); Anion Gap 12 (12-20); Aspartate Amino Transferase 19 U/L (5-31); Bilirubin Total 0.4 mg/dL (0.0-1.0); Blood Urea Nitrogen 16 mg/dL (9-16); Calcium 9.7 mg/dL (8.4-10.2); Carbon Dioxide 27 mmol/L (22-29); Chloride 107 mmol/L (96-108); Creatinine Clr Calc Pharmacy 86.1; Estimated Glomerular Filt Rate > 60; Glucose Random 98 mg/dL (60-115); Potassium 3.7 mmol/L (3.3-5.1); Sodium 142 mmol/L (135-145); Total Protein 7.8 g/dL (6.5-8.0)
[2024-02-17 16:48] LABS: Influenza A PCR NEGATIVE (Negative); Influenza B PCR NEGATIVE (Negative); Resp Syncy Virus RNA Qual PCR NEGATIVE (Negative); SARS COV2 PCR INHOUSE NEGATIVE (Negative)
[2024-02-17] MEDS: methylPREDNISolone Sod Succ 125 MG/2 ML VIAL IVPUSH (16:51)
--- NOTE | 2024-02-17 16:58 | ECG_ITS ---
Test Reason : SOB Blood Pressure : / mmHG Vent. Rate : 075 BPM Atrial Rate : 075 BPM P-R Int : 160 ms QRS Dur : 110 ms QT Int : 390 ms P-R-T Axes : 012 -38 018 degrees QTc Int : 435 ms Normal sinus rhythm Left axis deviation Moderate voltage criteria for LVH, may be normal variant ( R in aVL , Blanchard product ) Nonspecific ST abnormality Abnormal ECG When compared with ECG of 09-SEP-2023 16:06, No significant change was found Referred By: Delmi Hart Electronically Signed By:Praful Queen
[2024-02-17 17:15] LABS: Alanine Aminotransferase 28 U/L (0-31); Alkaline Phosphatase 112 U/L (39-117)
[2024-02-17 17:28] LABS: Troponin-I High Sensitivity < 2.7 ng/L (<3.5-17.0)
[2024-02-17] MEDS: Albuterol Sulfate 5 MG, Albuterol/Iprat 2.5/0.5MG 3 ML 3 ML INHALE (17:34)
[2024-02-17 17:39] LABS: B Type Natriuretic Peptide 44 pg/mL (<100)
--- NOTE | 2024-02-17 19:44 | P.HPHOSP_ITS ---
History of Present Illness Date of Service: 02/17/24 Chief Complaint: Wheezing and cough This is a 63 year old female with pertinent history of hypertension, asthma, MAXIMILIANO intolerant of CPAP, gastroesophageal reflux disease, overactive bladder, arthritis, PVCs who presents to the emergency department for evaluation of dyspnea. Patient states her symptoms started 4 weeks prior to presentation. She has been having dyspnea which was worse with exertion. Also has been having cough. The symptoms have been progressive over the last 4 weeks. Also has associated wheezing. No sick contacts. Tried her home inhaler without any relief. No history of smoking tobacco. No fever, chills, chest pain, palpitations, abdominal pain, changes in urinary or bowel habits. In the emergency department, patient was found to be satting 87% with ambulation. Patient wheezing despite multiple DuoNeb treatments Review of Systems 2 Constitutional: Constitutional: Reports fatigue and Reports malaise Cardiovascular: Cardiovascular: Reports dyspnea on exertion Respiratory: Respiratory: Reports cough, Reports dyspnea on exertion and Reports wheezing Gastrointestinal: Gastrointestinal: Reports no additional gastrointestinal complaints Genitourinary: Genitourinary: Reports no additional female genitourinary complaints Endocrine: Endocrine: Reports fatigue Allergic/Immunologic: Allergic/Immunologic: Reports wheezing [facility] Medical History Migraine Cough MAXIMILIANO (obstructive sleep apnea) Bronchitis PONV (postoperative nausea and vomiting) Helicobacter pylori (H. pylori) Physical exam UTI (urinary tract infection) Scoliosis Restrictive lung disease Dysphagia Mild major depression, single episode Right shoulder pain COPD (chronic obstructive pulmonary disease) Allergic rhinosinusitis Acute bronchitis Asthma Anemia Primary osteoarthritis involving multiple joints Essential hypertension Right ankle pain Allergic rhinitis Family History Father Alcoholism Arthritis Mother Diabetes Acute CVA (cerebrovascular accident) Sister Breast cancer Family/Other FH: mental illness Brother Diabetes Myocardial infarct Daughter In good health Daughter In good health Daughter In good health Surgical History History of laparoscopic appendectomy (~09/10/23) History of esophagogastroduodenoscopy (EGD) Hx of colonoscopy Hx of cardiac cath History of total left knee replacement History of arthroscopy of right knee History of hemorrhoidectomy History of total right knee replacement History of total abdominal hysterectomy History of tonsillectomy Social History Household Members: Family Housing: House Alcohol intake: never Patient Tobacco Use Status: Never used Tobacco e-Cigarette/Vaping Use: Never Used Second Hand Smoke Exposure: No Advance Directives: Yes Advance Directives on File: Yes Advance Directives Date on File: 11/28/19 Do you have a plan to hurt others: No Plan service: No 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al status: disabled 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 Cognitive needs: No Hearing needs: No Vision needs: Yes Meds Allergies Allergy/AdvReac Type Severity Reaction Status Date / Time Iodinated Contrast Media Allergy Severe ITCH/RASH Verified 02/17/24 15:29 [IV DYE, IODINE CONTAINING] clams Allergy Intermediate ITCHING Verified 02/17/24 15:29 docusate [From COLACE] Allergy Intermediate ITCHING Verified 02/17/24 15:29 lansoprazole [Prevacid] Allergy Intermediate hives Verified 02/17/24 15:29 oxybutynin Allergy Intermediate bladder Verified 02/17/24 15:29 pain pistachio nut Allergy Intermediate ITCHING Verified 02/17/24 15:29 walnut Allergy Intermediate ITCH/RASH Verified 02/17/24 15:29 SEASONAL ALLERGIES Allergy Intermediate ITCHY EYES Uncoded 02/17/24 15:29 Active Medications: Current Medications Azithromycin 500 mg/ Sodium (Chloride) 250 mls @ 125 mls/hr IV ONCE ONE Stop: 02/17/24 21:16 Magnesium Sulfate (Magnesium Sulfate/H2o) 2 gm in 50 mls @ 25 mls/hr IV ONCE ONE Stop: 02/17/24 21:16 Home Medications ?Medication ?Instructions ?Recorded ?Confirmed ?Last Taken ?Type acetaminophen 650 mg 650 mg PO Q8H PRN Pain 09/09/23 11/16/23 09/09/23 History tablet,extended release (Tylenol 8 Hour) calcium 600 mg (as 1 tab PO MOFR@0900 09/09/23 11/16/23 Unknown History carbonate)-vitamin D3 10 mcg (400 unit) tablet fluticasone 250 mcg-salmeterol 50 1 inh inhalation BID 09/09/23 11/16/23 Unknown History mcg/dose blistr powdr for inhalation (Wixela Inhub) glucosamine sulfate 750 mg tablet 750 mg PO DAILY 09/09/23 11/16/23 Unknown History lidocaine 4 % topical patch 1 patch topical DAILY PRN Back Pain 09/09/23 11/16/23 Unknown History (Aspercreme (lidocaine)) magnesium oxide 400 mg (241.3 mg 400 mg PO BEDTIME PRN Constipation 09/09/23 11/16/23 Unknown History magnesium) tablet pantoprazole 40 mg tablet,delayed 40 mg PO DAILY@0630 PRN Acid Reflux 09/09/23 11/16/23 Unknown History release Physical Exam 2 Vital Signs and Narrative: Vital Signs: Last Vital Signs Temp 97.8 F 02/17/24 18:00 Pulse 88 02/17/24 18:00 Resp 16 02/17/24 18:00 BP 150/61 H 02/17/24 18:00 Pulse Ox 95 02/17/24 18:00 O2 Del Method Room Air 02/17/24 18:00 BMI result Body Mass Index 28.0 Middle-aged female lying in bed in mild distress Neck supple, no JVD Regular rate and rhythm, S1-S2 heard Tachypnea with bilateral wheezing Abdomen soft nontender, no guarding, no rigidity Patient is awake, alert and oriented to self, place, time and person ; no focal motor deficit Psych: Normal mood No pedal edema Results Labs 02/17/24 15:57 02/17/24 15:57 Labs: Laboratory Results - last 24 hr 02/17/24 02/17/24 15:54 15:57 MCV 93.3 MCH 31.0 MCHC 33.2 RDW 19.5 H Plt Count 280 MPV 11.0 Immature Gran % (Auto) 0.6 H Neut % (Auto) 58.2 Lymph % (Auto) 27.8 [facility] % (Auto) 9.2 Eos % (Auto) 2.9 Baso % (Auto) 1.3 Lymph # (Auto) 2.0 [facility] # (Auto) 0.7 Eos # (Auto) 0.2 Baso # (Auto) 0.1 Abs Immat Gran (auto) 0.04 H Absolute Neuts (auto) 4.2 Absolute Nucleated RBC 0.020 H Nucleated RBC % (auto) 0.3 H Anion Gap 12 Estim Creat Clear Calc 86.1 Estimated GFR > 60 Random Glucose 98 Calcium 9.7 Total Bilirubin 0.4 AST 19 ALT 28 Alkaline Phosphatase 112 Troponin I High Sens < 2.7 B-Natriuretic Peptide 44 Total Protein 7.8 Albumin 4.4 Influenza Type A (PCR) NEGATIVE Influenza Type B (PCR) NEGATIVE RSV RNA Qual (PCR) NEGATIVE SARS-CoV-2 RNA (RT-PCR) NEGATIVE Imaging Radiologist's Impressions: Impressions Chest X-Ray 02/17/24 15:29 IMPRESSION: No acute cardiopulmonary findings. Electronically signed by: Michael Chong MD 02/17/2024 04:55 PM [facility] Assessment and Plan (1) Asthma exacerbation: Status: Acute Plan This is a 63 year old female with pertinent history of hypertension, asthma, MAXIMILIANO intolerant of CPAP, gastroesophageal reflux disease, overactive bladder, arthritis, PVCs who presents to the emergency department for evaluation of dyspnea. #. Ambulatory hypoxia due to exacerbation of asthma: Will admit patient with scheduled and p.r.n. DuoNebs. Continue home inhaler. Initiating systemic steroids. Monitor O2 saturation with ambulation #. Hypertension: Continue home antihypertensives #. Gastroesophageal reflux disease: On PPI Med rec pending DVT prophylaxis: Lovenox Full code Admit as inpatient and will require two night minimum hospital stay for close monitoring of respiratory status, ambulatory O2 requirement (as above), which is not possible in a lesser acute setting. Quality Stroke Does the patient have a stroke diagnosis?: No VTE Prior VTE?: No VTE Risk Level:: Medical - moderate - high VTE Device Contraindication: Treatment Not Indicated VTE Drug Contraindication: N/A - Med Ordered
[2024-02-17] MEDS: Albuterol/Iprat 2.5/0.5MG 3 ML AMPUL.NEB INHALE (19:56)
[2024-02-17] MEDS: Magnesium Sulfate/H2O 2 GM/50 ML PIGGYBACK IV (20:05)
[2024-02-17] MEDS: Azithromycin 500 MG in 0.9 % Sodium Chloride 250 ML 125 MG IV (20:12)
[2024-02-17] MEDS: cefTRIAXone sodium 1 GM VIAL IVPUSH (20:13)
[2024-02-17 20:32] LABS: Lactic Acid 2.2 mmol/L (0.5-2.0)
[2024-02-17] MEDS: Enoxaparin Sodium 40 MG/0.4 ML SYRINGE SUBCUT (21:31)
[2024-02-17 22:07] LABS: Reflex Lactate? Lactic Acid Added
--- NOTE | 2024-02-17 22:20 | PC.NURSE ---
second NS bolus running, BP still 80s/50s, patient denies any symptoms. call tang in reach
[2024-02-17 22:57] LABS: ~Lactic Acid-LAB USE ONLY 3.5 mmol/L (0.5-2.0)
[2024-02-17 23:03] LABS: Cancel Lactic Acid Canceled
[2024-02-17] MEDS: Lactated Ringers 1,000 ML 999 ML IV (23:43)
[2024-02-17] MEDS: 0.9 % Sodium Chloride Flush 3 ML SYRINGE IVFLUSH (23:51)
[2024-02-18] MEDS: Benzonatate 100 MG CAPSULE PO (01:02)
[2024-02-18 03:35] VITALS: BP 148/78; PULSE 95; RESP 18; TEMP 37.1; O2SAT 96
[2024-02-18 06:24] LABS: MANUAL DIFF FLAG NO
[2024-02-18 06:37] LABS: Anion Gap 14 (12-20); Blood Urea Nitrogen 10 mg/dL (9-16); Calcium 9.6 mg/dL (8.4-10.2); Carbon Dioxide 22 mmol/L (22-29); Chloride 108 mmol/L (96-108); Creatinine Clr Calc Pharmacy 86.2; Estimated Glomerular Filt Rate > 60; Glucose Random 230 mg/dL (60-115); Potassium 3.8 mmol/L (3.3-5.1); Sodium 140 mmol/L (135-145)
[2024-02-18 06:48] LABS: Basophils Percent Auto 0.3 % (0-2); Hematocrit 35.1 % (37.0-47.0); Hemoglobin 11.4 g/dl (12.0-16.0); Imm Gran Pct Auto 0.9 % (0.0-0.4); Lymphocytes Absolute Auto 0.9 X10*3/uL (1.2-4.9); Lymphocytes Percent Auto 7.9 % (20-40); Mean Corpuscular HGB Conc 32.5 g/dl (31.0-35.0); Mean Corpuscular Hemoglobin 30.3 pg (27.0-33.0); Mean Corpuscular Volume 93.4 fL (80.0-98.0); Mean Platelet Volume 11.5 fL (9.4-12.3); Monocytes Absolute Auto 0.3 X10*3/uL (0.1-1.2); Monocytes Percent Auto 2.5 % (2-11); Neutrophils Absolute Auto 9.8 x10*3/uL (2.0-8.3); Neutrophils Percent Auto 88.4 % (45-73); Platelet Count 285 X10*3/uL (160-400); Red Blood Count 3.76 X10*6/uL (4.20-5.50); Red Cell Distribution Width 19.9 % (11.0-16.0); White Blood Count 11.1 X10*3/uL (4.8-10.8)
[2024-02-18 06:58] VITALS: BP 132/68; PULSE 80; RESP 16; TEMP 36.4; O2SAT 93
[2024-02-18] MEDS: Albuterol/Iprat 2.5/0.5MG 3 ML AMPUL.NEB INHALE (07:35)
[2024-02-18 07:36] VITALS: PULSE 77; RESP 16; O2SAT 98
[2024-02-18 08:46] LABS: Estimated Average Glucose 131 mg/dL; Hemoglobin A1C 129.6367 umol/L; Hemoglobin A1c % 6.2 % (<6.0); Total Hemoglobin (HGBA1C) 2929.2444 umol/L
--- NOTE | 2024-02-18 08:53 | MHC.CM.PN ---
Addendum entered by Kristyn Pfeiffer 02/18/24 09:39: Patient is discharged to home selfcare. She has arranged for transport home. Original Note: IMM 02/18/24 Female 63 DX dyspnea lives w spouse. Uses a cane PRN. Independent with ADLs. DP home self care. Patient's spouse will provide transportation home.
--- NOTE | 2024-02-18 09:19 | P.DS_ITS ---
DS: Providers Provider Date of Service: 02/18/24 Date of admission: 02/17/24 19:42 Date of discharge: 02/18/24 Primary care physician: Nora Julian MD DS: Diagnosis Discharge Diagnosis (1) Moderate persistent asthma with (acute) exacerbation: Status: Acute (2) Prediabetes: Status: Acute (3) Acute respiratory failure with hypoxia: Status: Acute DS: Summary Hospital Course Hospital Course: From the history and physical by the admitting hospitalist, Eveline Albert MD, 02/17/24: This is a 63 year old female with pertinent history of hypertension, asthma, MAXIMILIANO intolerant of CPAP, gastroesophageal reflux disease, overactive bladder, arthritis, PVCs who presents to the emergency department for evaluation of dyspnea. Patient states her symptoms started 4 weeks prior to presentation. She has been having dyspnea which was worse with exertion. Also has been having cough. The symptoms have been progressive over the last 4 weeks. Also has associated wheezing. No sick contacts. Tried her home inhaler without any relief. No history of smoking tobacco. No fever, chills, chest pain, palpitations, abdominal pain, changes in urinary or bowel habits. In the emergency department, patient was found to be satting 87% with ambulation. Patient wheezing despite multiple DuoNeb treatments She was admitted to the medical-surgical floor, treated with IV steroids and nebulized bronchodilators, and weaned off oxygen. She improved symptomatically and was discharged home on 4 days of PO prednisone. A1c 6.2 and she was advised to treat prediabetes with diet and exercise. Time Attestation Discharge Coordination Time (in mins): 35 Quality: Safe Use of Opioids Does Pt have an Active Cancer Diagnosis on the Problem List?: No Quality: Stroke Does the patient have a stroke diagnosis?: No Physical Exam Vital Signs: Vital Signs: Last Vital Signs Temp 97.5 F 02/18/24 06:58 Pulse 77 02/18/24 07:36 Resp 16 02/18/24 07:36 BP 132/68 02/18/24 06:58 Pulse Ox 93 02/18/24 06:58 O2 Del Method Room Air 02/18/24 06:58 O2 Flow Rate 4 02/18/24 03:35 Oxygen Flow Rate 2 02/17/24 20:19 BMI result Body Mass Index 29.0 Gen: in no acute distress HEENT: sclera anicteric, moist mucus membranes Neck: supple Lungs: clear to auscultation bilaterally Heart: regular rate and rhythm, no murmurs Abd: soft, non-tender, non-distended Ext: no edema Skin: warm/well-perfused Neuro: alert and oriented x3, no focal findings Psych: appropriate affect DS: Data Data Completed and Pending Completed studies during hospitalization [Text1]: Laboratory Results WBC 11.1 X10*3/uL (4.8-10.8) H 02/18/24 05:22 RBC 3.76 X10*6/uL (4.20-5.50) L 02/18/24 05:22 Hgb 11.4 g/dl (12.0-16.0) L 02/18/24 05:22 Hct 35.1 % (37.0-47.0) L 02/18/24 05:22 MCV 93.4 fL (80.0-98.0) 02/18/24 05:22 MCH 30.3 pg (27.0-33.0) 02/18/24 05:22 MCHC 32.5 g/dl (31.0-35.0) 02/18/24 05:22 RDW 19.9 % (11.0-16.0) H 02/18/24 05:22 Plt Count 285 X10*3/uL (160-400) 02/18/24 05:22 MPV 11.5 fL (9.4-12.3) 02/18/24 05:22 Immature Gran % (Auto) 0.9 % (0.0-0.4) H 02/18/24 05:22 Neut % (Auto) 88.4 % (45-73) H 02/18/24 05:22 Lymph % (Auto) 7.9 % (20-40) L 02/18/24 05:22 [place] % (Auto) 2.5 % (2-11) 02/18/24 05:22 Eos % (Auto) 0.0 % (0-4) 02/18/24 05:22 Baso % (Auto) 0.3 % (0-2) 02/18/24 05:22 Lymph # (Auto) 0.9 X10*3/uL (1.2-4.9) L 02/18/24 05:22 [place] # (Auto) 0.3 X10*3/uL (0.1-1.2) 02/18/24 05:22 Eos # (Auto) 0.0 X10*3/uL (0.0-0.4) 02/18/24 05:22 Baso # (Auto) 0.0 X10*3/uL (0.0-0.2) 02/18/24 05:22 Abs Immat Gran (auto) 0.10 X10*3/uL (0.00-0.03) H 02/18/24 05:22 Absolute Neuts (auto) 9.8 x10*3/uL (2.0-8.3) H 02/18/24 05:22 Absolute Nucleated RBC 0.000 X10*3/uL (0.0-0.012) 02/18/24 05:22 Nucleated RBC % (auto) 0.0 /100WBC (0.0-0.2) 02/18/24 05:22 Sodium 140 mmol/L (135-145) 02/18/24 05:21 Potassium 3.8 mmol/L (3.3-5.1) 02/18/24 05:21 Chloride 108 mmol/L (96-108) 02/18/24 05:21 Carbon Dioxide 22 mmol/L (22-29) 02/18/24 05:21 Anion Gap 14 (12-20) 02/18/24 05:21 BUN 10 mg/dL (9-16) 02/18/24 05:21 Creatinine 0.66 mg/dL (0.5-1.4) 02/18/24 05:21 Estim Creat Clear Calc 86.2 02/18/24 05:21 Estimated GFR > 60 02/18/24 05:21 Random Glucose 230 mg/dL (60-115) H 02/18/24 05:21 Estimat Average Glucose 131 mg/dL 02/18/24 05:22 Hemoglobin A1c % 6.2 % (<6.0) H 02/18/24 05:22 Lactic Acid 2.2 mmol/L (0.5-2.0) H* 02/17/24 20:03 Lactic Acid F/U @ 2Hr 3.5 mmol/L (0.5-2.0) H* 02/17/24 22:25 Calcium 9.6 mg/dL (8.4-10.2) 02/18/24 05:21 Total Bilirubin 0.4 mg/dL (0.0-1.0) 02/17/24 15:57 AST 19 U/L (5-31) 02/17/24 15:57 ALT 28 U/L (0-31) 02/17/24 15:57 Alkaline Phosphatase 112 U/L (39-117) 02/17/24 15:57 Troponin I High Sens < 2.7 ng/L (<3.5-17.0) 02/17/24 15:57 B-Natriuretic Peptide 44 pg/mL (<100) 02/17/24 15:57 Total Protein 7.8 g/dL (6.5-8.0) 02/17/24 15:57 Albumin 4.4 g/dL (3.5-5.0) 02/17/24 15:57 Influenza Type A (PCR) NEGATIVE (Negative) 02/17/24 15:54 Influenza Type B (PCR) NEGATIVE (Negative) 02/17/24 15:54 RSV RNA Qual (PCR) NEGATIVE (Negative) 02/17/24 15:54 SARS-CoV-2 RNA (RT-PCR) NEGATIVE (Negative) 02/17/24 15:54 Impressions Chest X-Ray 02/17/24 15:29 IMPRESSION: No acute cardiopulmonary findings. Electronically signed by: Michael Chong MD 02/17/2024 04:55 PM [facility] Discharge Plan Discharge Anticipated Discharge Date/Time: 02/18/24 09:21 Patient Disposition: Home, Self-Care Discharge Diagnosis: acute asthma exacerbation prediabetes Referrals: Nora Anderson MD [Primary Care Provider] - 1 Week Discharge Medications: New prednisone 20 mg tablet 40 mg PO DAILY 4 Days Qty: 8 0RF Continued (DME) blood pressure monitor Kit See Rx Instructions .Route Qty: 1 0RF Rx Instructions: As directed metoprolol succinate 50 mg tablet extended release 24 hr 50 mg PO DAILY Qty: 90 3RF albuterol sulfate 2.5 mg /3 mL (0.083 %) solution for nebulization 2.5 mg inhalation Q6H PRN (Reason: shortness of breath or wheezing) 30 Days Qty: 75 6RF albuterol sulfate 90 mcg/actuation HFA aerosol inhaler 2 puff inhalation Q6H PRN (Reason: for wheezing) 30 Days Qty: 8.5 3RF fluticasone propionate 50 mcg/actuation spray,suspension 1 spray intranasal DAILY Qty: 16 1RF meclizine 25 mg tablet 25 mg PO TID PRN (Reason: dizziness) 30 Days Qty: 90 0RF loratadine 10 mg tablet 10 mg PO DAILY Qty: 90 0RF fluticasone propion-salmeterol [Wixela Inhub] 250-50 mcg/dose blister with device 1 inh inhalation BID acetaminophen [Tylenol 8 Hour] 650 mg Tablet Extended Release 650 mg PO Q8H PRN (Reason: Pain) glucosamine sulfate 750 mg Tablet 750 mg PO DAILY Rx Instructions: administer with a meal lidocaine [Aspercreme (lidocaine)] 4 % adhesive patch,medicated 1 patch topical DAILY PRN (Reason: Back Pain) magnesium oxide 400 mg (241.3 mg magnesium) tablet 400 mg PO BEDTIME PRN (Reason: Constipation) Rx Instructions: may hold for loose stools pantoprazole 40 mg tablet,delayed release (DR/EC) 40 mg PO DAILY@0630 PRN (Reason: Acid Reflux) Rx Instructions: take one tablet half an hour before breakfast calcium carbonate-vitamin D3 600 mg-10 mcg (400 unit) tablet 1 tab PO MOFR@0900 docusate sodium [Colace] 100 mg capsule 100 mg PO BID Qty: 30 0RF diclofenac sodium 1 % gel 2 g topical BID PRN (Reason: pain) Qty: 100 3RF codeine-guaifenesin 10-100 mg/5 mL liquid 5 ml PO Q6H PRN (Reason: cold symptoms) 7 Days Qty: 200 2RF riboflavin (vitamin B2) 400 mg tablet 400 mg PO DAILY 30 Days Qty: 30 6RF Discharge Orders: Discharge Order (Routine); Ordered 02/18/24 Ordered By: Nathalie Langford Diet: Diabetic diet Activity on Discharge: As tolerated Stand Alone Forms: Patient Portal Discharge page Print Language: Albanian Activity Restrictions/Additional Instructions: Take your medications as prescribed. If you were prescribed antibiotics today, it is important that you take your medication to their entirety, do not skip any doses, do not finish them early. Follow-up with your primary care provider this week. Return to the emergency department with new or worsening symptoms. Such as fevers, chills, chest pain, shortness of breath, nausea, vomiting, dizziness, headache, vision changes, lethargy In case of emergency call 911 Care Plan Goals: See Discharge Summary. Health Concerns: acute asthma exacerbation prediabetes Plan of Treatment: prednisone 40 mg daily for 4 days Please follow up with your primary care doctor within 1 week. Return to the hospital if you experience recurrent or worsening symptoms. Avoid simple sugars and limit simple starches. Exercise at least 30 daily. Assessment: See Discharge Summary. Patient Instructions: Acute Bronchitis (ED), Wheezing (ED)
[2024-02-18] MEDS: methylPREDNISolone Sod Succ 40 MG/ML VIAL IVPUSH (09:36)
[2024-02-18] MEDS: 0.9 % Sodium Chloride Flush 3 ML SYRINGE IVFLUSH (09:36)
== END 2024-02-18 10:08 | disposition home or self-care (01) | DRG 202 ==
LOC: HO.ED 19:17 → HO.EDOVER 20:19 → HO.S3 21:17
PROVIDERS: Physician Assistant; Registered Nurse Emergency; Admitting Provider Student in an Organized Health Care Education/Training Program; Emergency Provider Emergency Medicine Emergency Medical Services; PCP Internal Medicine; Visit Provider Family Medicine
DX: J45.41 Moderate persistent asthma with (acute) exacerbation (principal); J96.01 Acute respiratory failure with hypoxia; J44.0 Chronic obstructive pulmonary disease with (acute) lower respiratory infection; R73.03 Prediabetes; I10 Essential (primary) hypertension; J02.9 Acute pharyngitis, unspecified; I25.10 Atherosclerotic heart disease of native coronary artery without angina pectoris; G47.33 Obstructive sleep apnea (adult) (pediatric); K21.9 Gastro-esophageal reflux disease without esophagitis; Z20.822 Contact with and (suspected) exposure to COVID-19; Z79.51 Long term (current) use of inhaled steroids; Z79.899 Other long term (current) drug therapy
CPT/HCPCS: 0241U; 36415; 71046; 80048; 80053; 83036; 83605; 83880; 84484; 85025; 87040; 93005; 94640; 99285; J0456; J0696; J1650; J2919; J3475; J7120

== ENCOUNTER → 2024-02-17 15:46 | Outpatient (BNV) | payer OTHER, SELFPAY | PROVIDERS: Emergency Provider Emergency Medicine Emergency Medical Services; PCP Internal Medicine; Visit Provider Student in an Organized Health Care Education/Training Program | DX: J96.01 Acute respiratory failure with hypoxia (principal); J45.41 Moderate persistent asthma with (acute) exacerbation; R73.03 Prediabetes | CPT/HCPCS: 99222; 99239 ==

== ENCOUNTER → 2024-02-17 16:58 | Outpatient (BNV) | payer OTHER, SELFPAY | PROVIDERS: Admitting Provider Student in an Organized Health Care Education/Training Program; Emergency Provider Emergency Medicine Emergency Medical Services; PCP Internal Medicine; Visit Provider Internal Medicine Cardiovascular Disease | DX: R94.31 Abnormal electrocardiogram [ECG] [EKG] (principal) | CPT/HCPCS: 93010 ==

== ENCOUNTER 2024-02-28 08:10 | Outpatient (AMB) | payer OTHER, SELFPAY ==
--- NOTE | 2024-02-28 08:11 | A.OFFPC_ITS ---
Vital Signs 02/28/24 08:12 Height 5 ft 4 in Weight 173 lb 6 oz BMI 29.8 BP 136/80 Blood Pressure Location Lt brachial Position Sitting Pulse 78 Pulse Source Pulse Oximeter Pulse Oximetry (%) 95 Oxygen Delivery Method Room Air Intake Visit Reasons: dyspnea Show Design Supervisor Required: No Accompanied by: Self / Same As Patient Allergies Iodinated Contrast Media [IV DYE, IODINE CONTAINING] Allergy (Severe, Verified 02/28/24 08:24) ITCH/RASH clams Allergy (Intermediate, Verified 02/28/24 08:24) ITCHING docusate [From COLACE] Allergy (Intermediate, Verified 02/28/24 08:24) ITCHING lansoprazole [Prevacid] Allergy (Intermediate, Verified 02/28/24 08:24) hives oxybutynin Allergy (Intermediate, Verified 02/28/24 08:24) bladder pain pistachio nut Allergy (Intermediate, Verified 02/28/24 08:24) ITCHING walnut Allergy (Intermediate, Verified 02/28/24 08:24) ITCH/RASH SEASONAL ALLERGIES Allergy (Intermediate, Uncoded 02/28/24 08:24) ITCHY EYES Medication List - Last Reconciled 02/28/24 by Nora Julian MD acetaminophen ER (Tylenol 8 Hour) 650 mg PO Q8H PRN albuterol sulfate 2.5 mg (3 mL) inhalation Q6H PRN 30 days albuterol sulfate 90 mcg/actuation 2 puffs inhalation Q6H PRN 30 days NS blood pressure monitor As directed calcium carbonate-vitamin D3 600 mg-10 mcg (400 unit) 1 tab PO MOFR@0900 codeine-guaifenesin 10-100 mg/5 mL 5 mL PO Q6H PRN 7 days diclofenac sodium 1% 2 grams topical BID PRN docusate sodium (Colace) 100 mg PO BID fluticasone propion-salmeterol 250-50 mcg/dose (Wixela Inhub) 1 inh inhalation BID fluticasone propionate 50 mcg/actuation 1 spray intranasal DAILY glucosamine sulfate 750 mg PO DAILY lidocaine 4% (Aspercreme (lidocaine)) 1 patch topical DAILY PRN loratadine 10 mg PO DAILY magnesium oxide 400 mg PO BEDTIME PRN meclizine 25 mg PO TID PRN 30 days metoprolol succinate ER 50 mg PO DAILY pantoprazole 40 mg PO DAILY@0630 PRN prednisone 40 mg (2 x 20 mg) PO DAILY 4 days riboflavin (vitamin B2) 400 mg PO DAILY 30 days Tobacco use date assessed: 02/28/24 Fall risk assessment: No Falls in past year Last assessed Fall Risk: 02/28/24 Dental Screening Dental Screen Date: 11/01/23 HPI TCM TCM Information Date of Discharge 02/18/24 Discharged From [facility] Interactive Contact Date (Reference documentation from this date) 02/19/24 HPI Comments History of Present Illness Details The patient is a 63-year-old female presenting with a follow-up for moderate persistent asthma exacerbation. The exacerbation was acute, leading to hospital admission on February 17, 2024, and discharge on February 18, 2024. She was admitted due to shortness of breath and wheezing, alongside a dry cough, which began approximately one month prior without any identified sick contacts. During hospitalization, she was treated with intravenous steroids and nebulized bronchodilators. She was eventually weaned off oxygen therapy. Notably, imaging during hospitalization revealed no pneumonia. The patient has a history of asthma, obstructive sleep apnea (intolerant to CPAP), hypertension, GERD, arthritis, and also has hyperglycemia with an A1c reading of 6.2%. The patient experienced an increase in shortness of breath during exertion, leading oxygen saturation to decrease, prompting adjustments in oxygen therapy. She reports managing these conditions alongside current medications such as metoprolol and pantoprazole, and took loratadine as needed. [facility] Medical History (Updated 02/28/24 @ 09:53 by Nora Julian MD) Acute respiratory failure with hypoxia Migraine Cough MAXIMILIANO (obstructive sleep apnea) Bronchitis PONV (postoperative nausea and vomiting) Helicobacter pylori (H. pylori) Physical exam UTI (urinary tract infection) Scoliosis Restrictive lung disease Dysphagia Mild major depression, single episode Right shoulder pain COPD (chronic obstructive pulmonary disease) Allergic rhinosinusitis Acute bronchitis Asthma Anemia Primary osteoarthritis involving multiple joints Essential hypertension Right ankle pain Allergic rhinitis Surgical History History of laparoscopic appendectomy (~09/10/23) History of esophagogastroduodenoscopy (EGD) Hx of colonoscopy Hx of cardiac cath History of total left knee replacement History of arthroscopy of right knee History of hemorrhoidectomy History of total right knee replacement History of total abdominal hysterectomy History of tonsillectomy Family History Father Alcoholism Arthritis Mother Diabetes Acute CVA (cerebrovascular accident) Sister Breast cancer Family/Other FH: mental illness Brother Diabetes Myocardial infarct Daughter In good health Daughter In good health Daughter In good health Social History Household Members: Spouse Housing: House Alcohol intake: never Patient Tobacco Use Status: Never used Tobacco e-Cigarette/Vaping Use: Never Used Second Hand Smoke Exposure: No Advance Directives Date on File: 11/28/19 service: No 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al status: disabled 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 1. Little interest or pleasure in doing things: not at all 2. Feeling down, depressed, or hopeless: not at all 3. Trouble falling or staying asleep, or sleeping too much: not at all 4. Feeling tired or having little energy: not at all 5. Poor appetite or overeating: not at all 6. Feeling bad about yourself - or that you are a failure or have let yourself or your family down: not at all 7. Trouble concentrating on things, such as reading the newspaper or watching television: not at all 8. Moving or speaking so slowly that other people could have noticed. Or the opposite - being so fidgety or restless that you have been moving around a lot more than usual: not at all 9. Thoughts that you would be better off or of hurting yourself in some way: not at all Total score: 0 Depression Screening Interpretation: Negative Depression Screening Done: Yes 22050 - PHQ-9 Billing: Yes Source: Developed by Drs. Lake Douglass, Kristina Millard, Umang Rome and colleagues, with an educational telma from [employer]. Thrive Questionnaire Date Thrive assessed: 02/28/24 I am a: Patient What is your living situation today?: I have a steady place to live Within the past 12 months, did the food you bought not last and you didn't have the money to get more?: Never true Within the past 12 months, did you worry whether your food would run out before you got money to buy more?: Never true Do you have trouble paying for medicines?: No Do you have trouble getting transportation to medical appointments?: No Do you have trouble paying your heating and electricity bill?: No Do you have trouble taking care of your child, family member or friend?: No Do you have trouble with day-to-day activities such as bathing, preparing meals, shopping, managing finances, etc.?: No Are you currently unemployed and looking for a job?: No Are you interested in more education?: No Please select the resources that you would like help with: None Currently or been in a relationship where the following occur: No concerns reported THRIVE Score: 0 AUDIT C Alcohol Use Questionnaire (AUDIT-C) 1. How often do you have a drink containing alcohol?: Never 3. How often do you have six or more drinks on one occasion?: Never Total Score: 0 Score Reviewed/Action Taken: No HELEN-7 AMB Questionnaire HELEN-7 Date HELEN - 7 assessed: 02/28/24 Feeling nervous, anxious, or on edge: 0 = Not at all Not being able to stop or control worryin = Not at all Worrying too much about different things: 0 = Not at all Trouble relaxin = Not at all Being so restless that it is hard to sit still: 0 = Not at all Becoming easily annoyed or irritable: 0 = Not at all Feeling afraid as if something awful might happen: 0 = Not at all Total HELEN-7 score (0-4 normal; 5-9 mild; 10-14 moderate; 15-21 severe): 0 Source: Developed by Drs. Lake Douglass, Kristina Millard, Umang Rome and colleagues, with an educational telma from [employer]. HELEN-7 Assessment Billing HELEN-7 Assessment Tool: HELEN-7 Assessment 01001 Review of Systems Const Details: - Respiratory: Reports shortness of breath, wheezing, and dry cough. - Cardiovascular: Denies chest pain; reports ?heart is beating very lightly? occasionally. Physical exam (Primary Care) Vital Signs: Last Vital Signs Pulse 78 02/28/24 08:12 BP 136/80 02/28/24 08:12 Pulse Ox 95 02/28/24 08:12 Oxygen Delivery Method Room Air 02/28/24 08:12 BMI result Body Mass Index 29.8 BMI Assessment/Plan discussion: High BMI High, discussed plan: lifestyle, weight reduction, dietary and physical activity Tobacco/Smoking Status: Tobacco use Status Tobacco use date assessed 02/28/24 02/28/24 08:18 Patient Tobacco Use Status Never used Tobacco 02/28/24 08:13 e-Cigarette/Vaping Use Never Used 02/28/24 08:13 PHQ-9: PHQ-9 Score PHQ-9: Total score 0 02/28/24 08:36 Depression Screening Interpretation: Negative Thrive Assessment: Date of Thrive Assessment Date Thrive assessed 02/28/24 02/28/24 08:18 Currently or been in a relationship where the following occur: No concerns reported Const Other: General: No confusion Respiratory: Normal respiratory effort, clear to auscultation bilaterally, but patient has history of asthma and recent bronchitis Cardiovascular: No jugular venous distension, regular rate, regular rhythm, S1 normal heart sound present and S2 normal heart sound present Extremities: Full ROM Limitations: ambulation with cane Immunizations pneumoc 20-emeterio conj-dip cr(PF) 0.5 mL IM syringe Performing Provider: Nora Julian MD Performing Location: [facility] [place] [facility] Administered by: CLIFTON Oh on 02/28/24 08:40 Dose Route Admin Location Dispensed Lot Number Expiration Date NDC Rotary Adjuster 0.5 mL IM Left Deltoid 0.5 mL [id number] 05/27/25 [id number] WYETH/PFIZER VIS Given Date VIS Provided VIS Publication Date 02/28/24 Single Vaccine 21 Eligibility Eligibility Date Funding Source Not [facility] Eligible 02/28/24 Private Coding Level of Care Code TCM Mod MDM <= 14 Days Diagnoses Moderate persistent asthma with (acute) exacerbation J45.41 Prediabetes R73.03 GERD (gastroesophageal reflux disease) K21.9 Anemia, unspecified type D64.9 Anemia type: unspecified type Essential hypertension I10 Additional Codes HELEN-7 Assessment Billing - HELEN-7 Assessment Tool: HELEN-7 Assessment 20459 ([id number]) PHQ-9 - 46289 - PHQ-9 Billing: Yes ([id number]) Time Spent (min) 25 Assessment & Plan Assessment & Plan (1) Moderate persistent asthma with (acute) exacerbation: Code(s): J45.41 - Moderate persistent asthma with (acute) exacerbation Category: Medical (2) Prediabetes: Code(s): R73.03 - Prediabetes Category: Medical (3) GERD (gastroesophageal reflux disease): Code(s): K21.9 - Gastro-esophageal reflux disease without esophagitis Category: Medical (4) Anemia: Code(s): D64.9 - Anemia, unspecified Category: Medical Qualifiers: Anemia type: unspecified type Qualified Code(s): D64.9 - Anemia, unspecified (5) Essential hypertension: Code(s): I10 - Essential (primary) hypertension Category: Medical Plan - Monitor asthma and ensure adherence to prescribed inhaler therapy. - Address allergy symptoms with prescribed loratadine. - Continue current antihypertensive metoprolol) and GERD management pantoprazole). - Evaluate glucose levels and manage hyperglycemia accordingly, with attention to diet and exercise. Patient was informed and verbally consented to the use of an ambient scribe for clinic note documentation during this visit. I discussed with the patient the importance of regular follow-ups for asthma management to prevent exacerbations. We reviewed her medication regimen, including the continuation of current asthma inhalers and loratadine for allergies. I advised on the potential need for possible adjustments in her antihypertensive and GERD medications if symptoms persist. Monitoring blood glucose levels was emphasized, with dietary and physical activity recommendations provided to manage her hyperglycemia. The patient seemed to understand the plan and expressed willingness to adhere to treatment recommen dations. Orders: Orders Complete Blood Count Auto Diff 4 Months D64.9 - Anemia, unspecified Lipid Panel 4 Months E78.5 - Hyperlipidemia, unspecified IRON PROFILE 4 Months D64.9 - Anemia, unspecified Comprehensive [place]. Panel Fast 4 Months J45.41 - Moderate persistent asthma with (acute) exacerbation Pneumococcal 20 Immunization Today Z23 - Encounter for immunization Medications: New guaifenesin ER (Mucinex) 600 mg PO BID 5 days 10 tabs 0RF Patient Instructions: - Use inhalers as prescribed for asthma management. - Take loratadine for allergy symptoms as needed. - Continue taking metoprolol and pantoprazole as directed. - Monitor blood glucose levels regularly and follow dietary advice. - Report any increase in respiratory symptoms or decrease in oxygen saturation. - Schedule and attend follow-up appointments to reassess treatment efficacy.
[2024-02-28 08:12] VITALS: BP 136/80; PULSE 78; O2SAT 95; BMI 29.8
== END 2024-02-28 08:47 | disposition home or self-care (01) ==
PROVIDERS: PCP Internal Medicine; Visit Provider Internal Medicine
DX: J45.41 Moderate persistent asthma with (acute) exacerbation (principal); R73.03 Prediabetes; K21.9 Gastro-esophageal reflux disease without esophagitis; D64.9 Anemia, unspecified; I10 Essential (primary) hypertension; Z23 Encounter for immunization

== ENCOUNTER → 2024-02-28 08:10 | Outpatient (BNVA) | payer OTHER, SELFPAY | PROVIDERS: PCP Internal Medicine; Visit Provider Internal Medicine | DX: Z23 Encounter for immunization (principal); J45.41 Moderate persistent asthma with (acute) exacerbation; R73.03 Prediabetes; K21.9 Gastro-esophageal reflux disease without esophagitis; D64.9 Anemia, unspecified; I10 Essential (primary) hypertension | CPT/HCPCS: 90471; 90677; 96127; 99495 ==

== ENCOUNTER 2024-05-26 09:15 | Outpatient (REF) | payer OTHER, SELFPAY ==
[2024-05-26 09:30] LABS: MANUAL DIFF FLAG NO
[2024-05-26 09:58] LABS: Basophils Absolute Auto 0.1 X10*3/uL (0.0-0.2); Basophils Percent Auto 1.1 % (0-2); Eosinophils Absolute Auto 0.2 X10*3/uL (0.0-0.4); Eosinophils Percent Auto 2.9 % (0-4); Hematocrit 38.5 % (37.0-47.0); Hemoglobin 12.4 g/dl (12.0-16.0); Imm Gran Abs Auto 0.02 X10*3/uL (0.00-0.03); Imm Gran Pct Auto 0.4 % (0.0-0.4); Lymphocytes Absolute Auto 1.9 X10*3/uL (1.2-4.9); Lymphocytes Percent Auto 35.4 % (20-40); Mean Corpuscular HGB Conc 32.2 g/dl (31.0-35.0); Mean Corpuscular Hemoglobin 30.3 pg (27.0-33.0); Mean Corpuscular Volume 94.1 fL (80.0-98.0); Mean Platelet Volume 11.7 fL (9.4-12.3); Monocytes Absolute Auto 0.4 X10*3/uL (0.1-1.2); Monocytes Percent Auto 8.4 % (2-11); Neutrophils Absolute Auto 2.7 x10*3/uL (2.0-8.3); Neutrophils Percent Auto 51.8 % (45-73); Platelet Count 288 X10*3/uL (160-400); Red Blood Count 4.09 X10*6/uL (4.20-5.50); Red Cell Distribution Width 19.4 % (11.0-16.0); White Blood Count 5.3 X10*3/uL (4.8-10.8)
[2024-05-26 11:00] LABS: Alanine Aminotransferase 26 U/L (0-31); Albumin Level 4.4 g/dL (3.5-5.0); Alkaline Phosphatase 116 U/L (39-117); Anion Gap 10 (12-20); Aspartate Amino Transferase 18 U/L (5-31); Bilirubin Total 0.7 mg/dL (0.0-1.0); Blood Urea Nitrogen 13 mg/dL (9-16); Calcium 9.6 mg/dL (8.4-10.2); Carbon Dioxide 29 mmol/L (22-29); Chloride 107 mmol/L (96-108); Cholesterol 172 mg/dL (<200); Estimated Glomerular Filt Rate > 60; Glucose Fasting 98 mg/dL (60-99); HDL Cholesterol 52 mg/dL (>40); Iron 90 mcg/dL (30-160); LDL Cholesterol Calculated 99 mg/dL (<100); Percent Iron Saturation 30 % (15-50); Potassium 3.9 mmol/L (3.3-5.1); Sodium 142 mmol/L (135-145); Total Iron Binding Capacity 304 mcg/dL (228-428); Total Protein 7.6 g/dL (6.5-8.0); Triglycerides 109 mg/dL (<150); Unsaturated Iron Binding 214 ug/dL
== END 2024-05-26 09:16 | disposition home or self-care (01) ==
LOC: HO.LAB 09:15
PROVIDERS: PCP Internal Medicine; Visit Provider Internal Medicine
DX: J45.41 Moderate persistent asthma with (acute) exacerbation (principal); D64.9 Anemia, unspecified; E78.5 Hyperlipidemia, unspecified
CPT/HCPCS: 36415; 80053; 80061; 83540; 85025

== ENCOUNTER 2024-05-30 11:13 | Outpatient (AMB) | payer OTHER, SELFPAY ==
--- NOTE | 2024-05-30 11:21 | A.OFFVIS_ITS ---
Vital Signs 05/30/24 11:22 Height 5 ft 4 in Weight 175 lb BMI 30.0 Pulse 78 Pulse Source Pulse Oximeter Pulse Oximetry (%) 97 Oxygen Delivery Method Room Air Intake Visit Reasons: Follow up Intake Note: Patient presents follow up Migraine Allergies Iodinated Contrast Media [IV DYE, IODINE CONTAINING] Allergy (Severe, Verified 05/30/24 11:23) ITCH/RASH clams Allergy (Intermediate, Verified 05/30/24 11:23) ITCHING docusate [From COLACE] Allergy (Intermediate, Verified 05/30/24 11:23) ITCHING lansoprazole [Prevacid] Allergy (Intermediate, Verified 05/30/24 11:23) hives oxybutynin Allergy (Intermediate, Verified 05/30/24 11:23) bladder pain pistachio nut Allergy (Intermediate, Verified 05/30/24 11:23) ITCHING walnut Allergy (Intermediate, Verified 05/30/24 11:23) ITCH/RASH SEASONAL ALLERGIES Allergy (Intermediate, Uncoded 05/30/24 11:23) ITCHY EYES Medication List - Last Reconciled 05/30/24 by FIFI Ga acetaminophen ER (Tylenol 8 Hour) 650 mg PO Q8H PRN albuterol sulfate 2.5 mg (3 mL) inhalation Q6H PRN 30 days albuterol sulfate 90 mcg/actuation 2 puffs inhalation Q6H PRN 30 days NS blood pressure monitor As directed calcium carbonate-vitamin D3 600 mg-10 mcg (400 unit) 1 tab PO MOFR@0900 codeine-guaifenesin 10-100 mg/5 mL 5 mL PO Q6H PRN 7 days diclofenac sodium 1% 2 grams topical BID PRN docusate sodium (Colace) 100 mg PO BID fluticasone propion-salmeterol 250-50 mcg/dose (Wixela Inhub) 1 inh inhalation BID fluticasone propionate 50 mcg/actuation 1 spray intranasal DAILY glucosamine sulfate 750 mg PO DAILY guaifenesin ER (Mucinex) 600 mg PO BID 5 days lidocaine 4% (Aspercreme (lidocaine)) 1 patch topical DAILY PRN loratadine 10 mg PO DAILY magnesium oxide 400 mg PO BEDTIME PRN meclizine 25 mg PO TID PRN 30 days metoprolol succinate ER 50 mg PO DAILY pantoprazole 40 mg PO QAM prednisone 40 mg (2 x 20 mg) PO DAILY 4 days riboflavin (vitamin B2) 400 mg PO DAILY 30 days tobramycin 0.3% 1 drp ophthalmic (eye) Q4H 7 days HPI Comments Details: 63-yr-old female presents for f/u visit for migraine and dizziness. The headaches have been better. Baseline headache characteristics: Unilateral, possibly right-sided pulling sensation (like hair is being pulled) a/w photophobia, phonophobia, osmophobia, some nausea, can be dizzy (different than her vertigo). She notes bilateral foot pain started 2 weeks ago. States had this before but resolved after her knee surgery. However, her knee is bothering her again, and she thinks this is why she is ahving the foot pain. States she goes to bed feeling ok, but then wakes up unable to move. Describes the foot pain as burning whole foot pain, worse when standing, trying to use more cushioned shoes. Denies numbness in the feet. States her low back can be bothersome, her right leg feels heavy. Using her cane as needed. She can also have a creeping crawling sensation or stabbing insect sensation in her legs. She is not sure if she has restlessness in her legs. She uses the riboflavin and magnesium intermittently, states the magnesium helps her leg symptoms. Her recent hemoglobin A1c was 6.2% Has not seen Dermatology and in a couple of years years, states she was hesitant to try the medications they had offered- as these were for mood disorders Has not seen podiatry before.. She also has been having LUQ abd pain- wonders if she is having another kidney stone. Patient offers no complaints of dizziness or tinnitus. Her baseline dizzy and mild tinnitus symptoms are triggered by moving her eyes, turning her head, or moving quickly. She previously did vestibular PT eval [place] [facility] was told no vestibular s/s. 12/13/2022 MR/MR head/brain wo/w con IMPRESSION: 1. There are no acute bleeds or territorial infarcts. No masses aredemonstrated. There is no abnormal enhancement. 2. There are chronic microvascular ischemic changes and there is milddiffuse volume loss. [facility] Medical History Acute respiratory failure with hypoxia Migraine Cough MAXIMILIANO (obstructive sleep apnea) Bronchitis PONV (postoperative nausea and vomiting) Helicobacter pylori (H. pylori) Physical exam UTI (urinary tract infection) Scoliosis Restrictive lung disease Dysphagia Mild major depression, single episode Right shoulder pain COPD (chronic obstructive pulmonary disease) Allergic rhinosinusitis Acute bronchitis Asthma Anemia Primary osteoarthritis involving multiple joints Essential hypertension Right ankle pain Allergic rhinitis Surgical History History of laparoscopic appendectomy (~09/10/23) History of esophagogastroduodenoscopy (EGD) Hx of colonoscopy Hx of cardiac cath History of total left knee replacement History of arthroscopy of right knee History of hemorrhoidectomy History of total right knee replacement History of total abdominal hysterectomy History of tonsillectomy Family History Father Alcoholism Arthritis Mother Diabetes Acute CVA (cerebrovascular accident) Sister Breast cancer Family/Other FH: mental illness Brother Diabetes Myocardial infarct Daughter In good health Daughter In good health Daughter In good health Social History Household Members: Spouse Housing: House Alcohol intake: never Patient Tobacco Use Status: Never used Tobacco e-Cigarette/Vaping Use: Never Used Second Hand Smoke Exposure: No Advance Directives Date on File: 11/28/19 service: No 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al status: disabled 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 Decreased RLE strength on hip flexor testing, question due to pain versus actual weakness. Without prompting, patient is able to elevate RLE against gravity without difficulty. Bilateral patellar DTRs dulled. Stand slowly, antalgic gait without cane, no obvious unsteadiness. General: patient oriented x3 Cranial nerves: Yes CN's II-XII intact bilaterally Cognition (Neuro): normal cognition Psych Appearance: grossly normal Mental Status: mental status grossly normal Speech and movement: Normal speech and movement present Affect: normal affect Attitude: cooperative Assessment & Plan Assessment & Plan (1) Paresthesia of both lower extremities: Code(s): R20.2 - Paresthesia of skin Category: Medical (2) Anemia: Code(s): D64.9 - Anemia, unspecified Category: Medical Qualifiers: Anemia type: unspecified type Qualified Code(s): D64.9 - Anemia, unspecified (3) Migraine without aura: Code(s): G43.009 - Migraine without aura, not intractable, without status migrainosus Category: Medical (4) Vertigo: Comment: ? BPPV, ? vestibular migraine component Code(s): R42 - Dizziness and giddiness Category: Medical Plan Previous Brain MRI w/wo- chronic microvascular ischemic changes and mild diffuse volume loss. ? For bilateral foot burning pain in setting of history of anemia, osteoarthritis, dry eye: Check fasting labs for common underlying etiologie- patient states we will do them tomorrow at [facility] Patient has follow-up with PCP next week. Continue magnesium. Future consideration: BLE EMG/NCS. ? For migraine and dizziness: Continue Riboflavin. Continue Magnesium 400mg qhs. May use Meclizine sparingly. Vestibular eval- did not reveal BPPV. Consider referring back to PT who specializes in vestibular tx. Pt will let us know when she feels ready to do this. Pt would also benefit from optimizing her OAB tx regimen- she did not try myrbetriq was concerned about risks. she might be interested in botox. advised to discuss this w/ her urologist. Future considerations- gepant, SSRIs, TCAs, CCBs. MAXIMILIANO: HST results mild MAXIMILIANO 12/hr and O2 kieran 75%. Pt was started on APAP, unfortunately she did not tolerate it. Avoid sleeping supine. F/u w/ pulmonology as scheduled. ? f/u in 6 months or sooner prn. Orders: Orders Vitamin B6 Today D64.9 - Anemia, unspecified, I10 - Essential (primary) hypertension, M19.90 - Unspecified osteoarthritis, unspecified site, R20.2 - Paresthesia of skin, R73.03 - Prediabetes Vitamin B1 Today D64.9 - Anemia, unspecified, I10 - Essential (primary) hypertension, M19.90 - Unspecified osteoarthritis, unspecified site, R20.2 - Paresthesia of skin, R73.03 - Prediabetes Ferritin Today D64.9 - Anemia, unspecified, I10 - Essential (primary) hypertension, M19.90 - Unspecified osteoarthritis, unspecified site, R20.2 - Paresthesia of skin, R73.03 - Prediabetes Homocysteine Today D64.9 - Anemia, unspecified, I10 - Essential (primary) hypertension, M19.90 - Unspecified osteoarthritis, unspecified site, R20.2 - Paresthesia of skin, R73.03 - Prediabetes Rheumatoid Factor Today D64.9 - Anemia, unspecified, I10 - Essential (primary) hypertension, M19.90 - Unspecified osteoarthritis, unspecified site, R20.2 - Paresthesia of skin, R73.03 - Prediabetes Lyme IgG/IgM w/reflex to WB Today D64.9 - Anemia, unspecified, I10 - Essential (primary) hypertension, M19.90 - Unspecified osteoarthritis, unspecified site, R20.2 - Paresthesia of skin, R73.03 - Prediabetes Vitamin B12 and Folate Today D64.9 - Anemia, unspecified, I10 - Essential (primary) hypertension, M19.90 - Unspecified osteoarthritis, unspecified site, R20.2 - Paresthesia of skin, R73.03 - Prediabetes Vitamin D 25-OH (D2 and D3) Today D64.9 - Anemia, unspecified, I10 - Essential (primary) hypertension, M19.90 - Unspecified osteoarthritis, unspecified site, R20.2 - Paresthesia of skin, R73.03 - Prediabetes TSH reflex Free T4 Today D64.9 - Anemia, unspecified, I10 - Essential (primary) hypertension, M19.90 - Unspecified osteoarthritis, unspecified site, R20.2 - Paresthesia of skin, R73.03 - Prediabetes IRON PROFILE Today D64.9 - Anemia, unspecified, I10 - Essential (primary) hypertension, M19.90 - Unspecified osteoarthritis, unspecified site, R20.2 - Paresthesia of skin, R73.03 - Prediabetes Methylmalonic Acid Today D64.9 - Anemia, unspecified, I10 - Essential (primary) hypertension, M19.90 - Unspecified osteoarthritis, unspecified site, R20.2 - Paresthesia of skin, R73.03 - Prediabetes ELIZABETH Reflex Titer and Pattern Today D64.9 - Anemia, unspecified, I10 - Essential (primary) hypertension, M19.90 - Unspecified osteoarthritis, unspecified site, R20.2 - Paresthesia of skin, R73.03 - Prediabetes Erythrocyte Sedimentation Rate Today D64.9 - Anemia, unspecified, I10 - Essential (primary) hypertension, M19.90 - Unspecified osteoarthritis, unspecified site, R20.2 - Paresthesia of skin, R73.03 - Prediabetes CRP High Sensitivity Today D64.9 - Anemia, unspecified, I10 - Essential (primary) hypertension, M19.90 - Unspecified osteoarthritis, unspecified site, R20.2 - Paresthesia of skin, R73.03 - Prediabetes Coding Level of Care Code Est Pt Level 4 (93695) Diagnoses Paresthesia of both lower extremities R20.2 Anemia, unspecified type D64.9 Anemia type: unspecified type Migraine without aura G43.009 Vertigo R42
[2024-05-30 11:22] VITALS: PULSE 78; O2SAT 97
--- OUTSIDE RECORDS SUMMARY | 2024-05-30 13:08 | XMS_ITS | Data Portability ---
Author Organization [place] - [facility], Allergy Address [address] [place] [id number] Care Team Providers Care Acid Etch Operator Name Role Phone ELIZABETH RAMOS Primary Care [...] [place], modified barium swallow study 2023 024 [email or web address] [facility], [address] [place] [address], [facility] [address], [place], [address], 12:05:11 Medication Orders None recorded. Patient TargetsNo targets recorded. Patient InstructionsNo instructions recorded. Reason for Referral None Reported. Results Created Date Observation Date Name Description Value Unit Range Abnormal Flag Note LastModifiedBy Organization Detail LastModifiedTime 01/01/20 24 01/01/2024 [place], modif ied randall dunn ow study No observ ation record ed. [email or web address] [facility] [address], [address], 01/01/2024 15:09:03 Result Notes None recorded. Problems Name Problem SNOMED Code Status Onset Date Resolution Date Notes Provider Name and Address Organization Details Recorded Time Vertigo of central origin 37556829 Active 2020 Vertigo of central origin; Note: Date Diagnosed : 1 3:44 PM (H81.4) Not Available [facility] 02:35:45 Insomnia 953545094 Active 2020 Insomnia, unspecifi ed; Note: Date Diagnosed : 1 3:42 PM (G47.00) [facility] 4 02:35:48 Vertigo of central origin NOS Active 2017 Vertigo of central origin, unspecifi ed ear; Note: Date Diagnosed : 8 10:52 AM (H81.49) Not Available [facility] 4 02:35:40 Refractor y migraine 346660053 Active 2021 Other migraine, intractab le, without status migrainos us; Note: Date Diagnosed : 08/23/2021 1:47 PM (G43.819) Not Available [facility] 4 02:35:41 Bilateral tinnitus 99356367444 02 Active 2017 Tinnitus, bilateral ; Note: Date Diagnosed : 8 10:35 AM (H93.13) Not Available [facility] 4 02:35:45 Dizziness and giddiness 294373074 Active 2017 Dizziness and giddiness ; Note: Date Diagnosed : 8 10:35 AM (R42) Not Available [facility] 4 02:35:44 Migraine 33196209 Active 2017 Other migraine, not intractab le, without status migrainos us; Note: Date Diagnosed : 8 10:52 AM (G43.809) [facility] 4 02:35:48 Gastroeso phageal reflux disease without esophagit is 908071010 Active 2023 JACKSON JIMÉNEZ PA-C [address] [facility] [address], [place], [address] , [place] - [facility] 12:27:43 Dysphagia 52835569 Active 2023 JACKSON JIMÉNEZ PA-C [address] [address], [place], [address] , [place] - [facility] 12:27:57 Problem Notes None recorded. Procedures Surgical History Date Name Laterality Status Provider Name and Address Organization Details Recorded Time 12/19/2023 FOL_Reflux _JMS completed JACKSON JIMÉNEZ PA-C [address] [place] [address], [place], [address], [facility] 12/19/2023 12:26:26 Imaging Results Imaging Date Name Status LastModified by Organiz ation Details LastModified Time 01/01/2024 [place], modified barium swallow study [place] [id number], [place], [address], 01/01/2024 15:09:03 Procedure Notes None recorded. Medical [...] at bedtime 2021 active Medicatio n ID: [id number] Pr escribed By Name: Alma Zeng Name: [...] for inhalation 2017 active Medicatio n ID: [id number] Du ration Value: 90 Brand Name: Advair [...] mg capsule 2017 active Medicatio n ID: [id number] Br and Name: Tylenol S end Method: [...] Updated DateTime 12/19/2023 162.56 cm 28 kg/m2 65177.56 g Sulema Patel [place] - [facility] 12/19/2023 11:38:41 Social History None recorded. Functional Status None recorded. Mental Status None recorded. Family History Nothing Reported. Medical History No medical history recorded. Gynecological HistoryNo gynecological history recorded. Obstetrics History GPAL:G 0 P 0 0 0 0 Past Encounters Encounter ID Performer Location Encounter Start Date Encounter Closed Date Diagnosis/Indication Diagnosis SNOMED-CT Code Diagnosis ICD10 Code Diagnosis Note [id number] JACOB TERRAZAS MD [facility] [address] [address] 12/19/2023 11:26:21 12/19/2023 12:08:20 Gastroesophageal reflux disease without esophagitis 623209362 K21.9 Dysphagia 43319181 R13.1 0 Health Concerns Section Related Observation LastModified by Organization Caren delcid LastModified Time None Recorded Concern Status LastModified by Organization Details LastModified Time None Recorded Advance Directives Directive None Recorded Payers Encounter Date Sequence Insurance Name Policy Number Policy Sena Covered Member ID Sena Member ID Guarantor Name 12/19/2023 1 [facility] - DOS ON OR AFTER 2022 - ONE CARE (MEDICARE REPLACEMENT/ADV ANTAGE - HMO) Mckenzie Montgomery [id number] Mckenzie Montgomery Notes Date Note Type Note [...] swallowing becomes much better. JACOB TERRAZAS MD [address] [place] [address], [phone] [place] - [facility] 12/19/2023 16:55:57 OBGyn Episode No OBEpisode recorded.
== END 2024-05-30 12:11 | disposition home or self-care (01) ==
LOC: HO.HSMS 11:14
PROVIDERS: PCP Internal Medicine; Visit Provider Nurse Practitioner Family
DX: R20.2 Paresthesia of skin (principal); D64.9 Anemia, unspecified; G43.009 Migraine without aura, not intractable, without status migrainosus; R42 Dizziness and giddiness
CPT/HCPCS: 99214

== ENCOUNTER → 2024-05-30 11:13 | Outpatient (BNVA) | payer OTHER, SELFPAY | PROVIDERS: PCP Internal Medicine; Visit Provider Nurse Practitioner Family | DX: G43.009 Migraine without aura, not intractable, without status migrainosus (principal); R20.2 Paresthesia of skin; D64.9 Anemia, unspecified; R42 Dizziness and giddiness; I10 Essential (primary) hypertension; M19.90 Unspecified osteoarthritis, unspecified site; R73.03 Prediabetes | CPT/HCPCS: 99212 ==

== ENCOUNTER 2024-05-31 08:23 | Outpatient (REF) | payer OTHER, SELFPAY ==
[2024-05-31 09:30] LABS: Erythrocyte Sedimentation Rate 14 MM/HR (0-20)
[2024-05-31 09:54] LABS: Iron 114 mcg/dL (30-160); Percent Iron Saturation 36 % (15-50); Total Iron Binding Capacity 320 mcg/dL (228-428); Unsaturated Iron Binding 206 ug/dL
[2024-05-31 09:58] LABS: Ferritin 348 ng/mL (10-250); TSH reflex Free T4 1.34 uIU/mL (0.32-4.0)
[2024-05-31 10:09] LABS: Rheumatoid Factor 24.6 IU/mL (<15.0)
[2024-05-31 10:15] LABS: Folate 13.6 ng/mL (> or = 4.0); Vitamin B12 1027 pg/mL (200-900)
[2024-06-02 17:43] LABS: CRP High Sensitivity 5.3 mg/L
[2024-06-02 19:44] LABS: Homocysteine 5.6 umol/L (<10.4)
[2024-06-03 18:03] LABS: Lyme Abs Screen <0.90 index
[2024-06-04 01:28] LABS: Methylmalonic Acid 124 nmol/L (69-390)
[2024-06-04 10:38] LABS: Anti Nuclear Antibody Screen NEGATIVE (NEGATIVE)
[2024-06-05 13:27] LABS: Vitamin D 25-OH, D2 <4 ng/mL; Vitamin D 25-OH, D3 35 ng/mL; Vitamin D 25-OH, Total 35 ng/mL (30-100)
[2024-06-20 18:09] LABS: Vitamin B1 17 nmol/L (8-30)
== END 2024-05-31 08:24 | disposition home or self-care (01) ==
LOC: HO.LAB 08:23
PROVIDERS: PCP Internal Medicine; Visit Provider Nurse Practitioner Family
DX: R20.2 Paresthesia of skin (principal); R73.03 Prediabetes; D64.9 Anemia, unspecified; I10 Essential (primary) hypertension; M19.90 Unspecified osteoarthritis, unspecified site
CPT/HCPCS: 36415; 82306; 82607; 82728; 82746; 83090; 83540; 83921; 84207; 84425; 84443; 85652; 86038; 86141; 86431; 86617; 86618

== ENCOUNTER 2024-06-02 15:08 | Outpatient (AMB) | payer OTHER, SELFPAY ==
--- NOTE | 2024-06-02 15:28 | A.OFFPC_ITS ---
Vital Signs 06/02/24 15:29 Height 5 ft 4 in Weight 174 lb BMI 29.9 BP 142/84 H Blood Pressure Location Lt brachial Position Sitting Intake Visit Reasons: Annual Exam Intake Note: Patient here for an annual physical exam Nurse Healthcare Manager Required: Yes Nurse Healthcare Manager Language: Fire Officer Name: Nora Julian MD Information Interpreted: non-clinical & clinical Accompanied by: Self / Same As Patient Allergies Iodinated Contrast Media [IV DYE, IODINE CONTAINING] Allergy (Severe, Verified 06/02/24 15:40) ITCH/RASH clams Allergy (Intermediate, Verified 06/02/24 15:40) ITCHING docusate [From COLACE] Allergy (Intermediate, Verified 06/02/24 15:40) ITCHING lansoprazole [Prevacid] Allergy (Intermediate, Verified 06/02/24 15:40) hives oxybutynin Allergy (Intermediate, Verified 06/02/24 15:40) bladder pain pistachio nut Allergy (Intermediate, Verified 06/02/24 15:40) ITCHING walnut Allergy (Intermediate, Verified 06/02/24 15:40) ITCH/RASH SEASONAL ALLERGIES Allergy (Intermediate, Uncoded 06/02/24 15:40) ITCHY EYES Medication List - Last Reconciled 06/02/24 by Nora Julian MD acetaminophen ER (Tylenol 8 Hour) 650 mg PO Q8H PRN albuterol sulfate 2.5 mg (3 mL) inhalation Q6H PRN 30 days albuterol sulfate 90 mcg/actuation 2 puffs inhalation Q6H PRN 30 days NS blood pressure monitor As directed calcium carbonate-vitamin D3 600 mg-10 mcg (400 unit) 1 tab PO MOFR@0900 diclofenac sodium 1% 2 grams topical BID PRN docusate sodium (Colace) 100 mg PO BID fluticasone propion-salmeterol 250-50 mcg/dose (Wixela Inhub) 1 inh inhalation BID fluticasone propionate 50 mcg/actuation 1 spray intranasal DAILY glucosamine sulfate 750 mg PO DAILY lidocaine 4% (Aspercreme (lidocaine)) 1 patch topical DAILY PRN loratadine 10 mg PO DAILY magnesium oxide 400 mg PO BEDTIME PRN meclizine 25 mg PO TID PRN 30 days metoprolol succinate ER 50 mg PO DAILY pantoprazole 40 mg PO QAM riboflavin (vitamin B2) 400 mg PO DAILY 30 days tobramycin 0.3% 1 drp ophthalmic (eye) Q4H 7 days Tobacco use date assessed: 02/28/24 Fall risk assessment: No Falls in past year Last assessed Fall Risk: 06/02/24 Dental Screening Dental Screen Date: 06/02/24 Did you have a dental visit in the last 12 months?: No Did you have a dental problem in the last 6 months where you did not have access to dental care?: No Was dental information given to patient?: Patient has dentist HPI HPI Comments History of Present Illness Details The patient is a 63-year-old female presenting with an annual physical examination. Her comprehensive examination indicates that she is managing several chronic conditions, including slight depression, hypertension, and gastrointestinal reflux disease, the latter necessitating pantoprazole use. The patient has noted allergies to specific medications and nuts, causing varied reactions like itchiness or hives. Family history outlines specific risks with diabetes, stroke, breast cancer, and alcohol-related conditions mentioned in relatives. Musculoskeletal concerns were discussed, especially noting long-lasting pain in both knees, with the right side causing significant distress. Neuropathy symptoms with sciatic involvement and potential cramped sensations in her legs are noted, possibly derived from prior disc issues or nerve involvement. From a preventive health standpoint, her immunizations are updated, except for tetanus, which is due next year. While she has remained compliant with mammograms and colonoscopy guidelines, osteoporosis checks are overdue. Blood tests indicate normal ranges, although further updating and evaluation of her vitamins are pending. Current medications taken for various conditions underscore an attention to her cardiovascular health and allergic reactions. - Vaccination: Up to date with pneumonia vaccine (February), tetanus booster due next year. - Mammography: Current with screenings. - Colonoscopy: Performed in 2022. - Osteoporosis Screening: Overdue, bone densitometry needed. - Blood Work: Normal cholesterol and waldo al function, fasting glucose 98, HbA1c 6.2% indicating prediabetic range. - Medications: Metoprolol for hypertensi on, pantoprazole for acid reflux, loratadine for allergies, meclizine for dizziness, glucosamine, vitamin B2, and magnesium for migraines. [facility] Medical History (Updated 06/02/24 @ 15:53 by Nora Julian MD) Acute respiratory failure with hypoxia Migraine Cough MAXIMILIANO (obstructive sleep apnea) Bronchitis PONV (postoperative nausea and vomiting) Helicobacter pylori (H. pylori) Physical exam UTI (urinary tract infection) Scoliosis Restrictive lung disease Dysphagia Mild major depression, single episode Right shoulder pain COPD (chronic obstructive pulmonary disease) Allergic rhinosinusitis Acute bronchitis Asthma Anemia Primary osteoarthritis involving multiple joints Essential hypertension Right ankle pain Allergic rhinitis Surgical History History of laparoscopic appendectomy (~09/10/23) History of esophagogastroduodenoscopy (EGD) Hx of colonoscopy Hx of cardiac cath History of total left knee replacement History of arthroscopy of right knee History of hemorrhoidectomy History of total right knee replacement History of total abdominal hysterectomy History of tonsillectomy Family History Father Alcoholism Arthritis Mother Diabetes Acute CVA (cerebrovascular accident) Sister Breast cancer Family/Other FH: mental illness Brother Diabetes Myocardial infarct Daughter In good health Daughter In good health Daughter In good health Social History Household Members: Spouse Housing: House Alcohol intake: never Patient Tobacco Use Status: Never used Tobacco e-Cigarette/Vaping Use: Never Used Second Hand Smoke Exposure: No Advance Directives Date on File: 11/28/19 service: No 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al status: disabled 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 1. Little interest or pleasure in doing things: several days 2. Feeling down, depressed, or hopeless: not at all 3. Trouble falling or staying asleep, or sleeping too much: not at all 4. Feeling tired or having little energy: several days 5. Poor appetite or overeating: not at all 6. Feeling bad about yourself - or that you are a failure or have let yourself or your family down: several days 7. Trouble concentrating on things, such as reading the newspaper or watching television: not at all 8. Moving or speaking so slowly that other people could have noticed. Or the opposite - being so fidgety or restless that you have been moving around a lot more than usual: not at all 9. Thoughts that you would be better off or of hurting yourself in some way: not at all Total score: 3 Depression Screening Interpretation: Positive Depression Screening Follow-up: Existing condition and Follow-up Visit Requested Depression Screening Done: Yes 93749 - PHQ-9 Billing: Yes Source: Developed by Drs. Lake Douglass, Kristina Millard, Umang Rome and colleagues, with an educational telma from [employer]. Thrive Questionnaire Date Thrive assessed: 06/02/24 I am a: Patient What is your living situation today?: I have a steady place to live Within the past 12 months, did the food you bought not last and you didn't have the money to get more?: Sometimes True Within the past 12 months, did you worry whether your food would run out before you got money to buy more?: Sometimes True Do you have trouble paying for medicines?: Yes Do you have trouble getting transportation to medical appointments?: No Do you have trouble paying your heating and electricity bill?: Yes Do you have trouble taking care of your child, family member or friend?: No Do you have trouble with day-to-day activities such as bathing, preparing meals, shopping, managing finances, etc.?: No Are you currently unemployed and looking for a job?: Yes Are you interested in more education?: No Currently or been in a relationship where the following occur: No concerns reported THRIVE Score: 3 HELEN-7 AMB Questionnaire HELEN-7 Date HELEN - 7 assessed: 02/28/24 Source: Developed by Drs. Lake Douglass, Kristina Millard, Umang Rome and colleagues, with an educational telma from [employer]. Review of Systems Const All systems reviewed & are unremarkable except as noted in HPI and below Card Denies chest pain at rest, Denies chest pain with activity, Denies edema, Denies irregular heart rhythm, Denies claudication, Denies dyspnea, Denies dyspnea on exertion, Denies orthopnea, Denies paroxysmal nocturnal dyspnea and Denies slow heart rate Resp Denies cough, Denies dyspnea and Denies dyspnea on exertion GI Denies abdominal pain, Denies change in bowel habits, Denies excessive flatus, Denies nausea and Denies vomiting Denies urinary incontinence, Denies urinary hesitancy and Denies urinary urgency Musc Denies abnormal gait, Denies atrophy, Denies deformity and Denies limited range of motion Skin/Breast Denies bleeding lesions, Denies changing lesions and Denies rash Neuro Denies abnormal gait and Denies lack of coordination Physical exam (Primary Care) Vital Signs: Last Vital Signs BP 142/84 H 06/02/24 15:29 BMI result Body Mass Index 29.9 Tobacco/Smoking Status: Tobacco use Status Tobacco use date assessed 02/28/24 06/02/24 15:34 Patient Tobacco Use Status Never used Tobacco 06/02/24 15:34 e-Cigarette/Vaping Use Never Used 06/02/24 15:34 PHQ-9: PHQ-9 Score PHQ-9: Total score 3 06/02/24 15:34 Depression Screening Interpretation: Positive Depression Screening Follow-up: Existing condition and Follow-up Visit Requested Thrive Assessment: Date of Thrive Assessment Date Thrive assessed 06/02/24 06/02/24 15:34 Currently or been in a relationship where the following occur: No concerns reported [facility] Head: Yes normal to inspection, Yes normocephalic and Yes atraumatic Ears: external ears normal Eyes General: appearance normal, both eyes and all related structures Eyelids: Yes eyelids normal Conjunctivae: conjunctivae normal Neck Neck: Yes normal visual inspection and Yes supple Resp Effort & Inspection: normal respiratory effort Auscultation: clear to auscultation bilaterally Cardio Jugular venous distension: no JVD Rate: regular rate Rhythm: regular rhythm Heart sounds: S1 normal heart sound present and S2 normal heart sound present GI Inspection: Yes normal to inspection Palpation (GI): Soft to palpation and nontender Auscultation: normal bowel sounds Skin General skin exam: no rashes or lesions noted Neuro General: no focal motor deficits Extrem General: Yes full ROM Psych Appearance: grossly normal Coding Level of Care Code Est Pt Level 3 (81452) Est Pt Prev Care 40-64y(05796) Diagnoses Physical exam Z00.00 Right sciatic nerve pain M54.31 Additional Codes PHQ-9 - 75154 - PHQ-9 Billing: Yes ([id number]) Time Spent (min) 34 Assessment & Plan Assessment & Plan (1) Physical exam: Code(s): Z00.00 - Encounter for general adult medical examination without abnormal findings Category: Medical (2) Right sciatic nerve pain: Code(s): M54.31 - Sciatica, right side Category: Medical Plan During this annual review, I discussed the importance of routine health maintenance visits, particularly emphasizing the completion of her bone densitometry to screen for osteoporosis given her age and family history. It was noted she is up to date on other health screenings like colonoscopy and mammogram, which are excellent preventive measures. Addressed intermittent pain in her knees, likely aggravated by neuropathy and potential sciatica; a multidisciplinary approach involving physiotherapy could be explored should the condition worsen. Her hypertension is managed with metoprolol, which she is tolerating well, and pantoprazole is effectively controlling her acid reflux. I advised caution with dietary magnesium to ensure her levels are maintained, as this could help with her migraines and avoid deficiency from long-term pantoprazole use. The allergies to prescription medications and nuts should be monitored, and she should avoid known triggers. The patient was informed to continue her current medication regimen, focusing on managing her migraines, allergies, and hypertension. Explaining that her prediabetic status necessitates dietary vigilance, regular exercise, and weight control to reduce progression risk, especially cardiovascular risk, is crucial. We've agreed to follow up on any outstanding lab results, particularly those related to her vitamins, which might influence her overall well-being. Patient was informed and verbally consented to the use of an ambient scribe for clinic note documentation during this visit. I emphasized the necessity of scheduling a bone density test to evaluate her osteoporosis risk, considering family history and her previous lapse in screening. Her medication regimen addresses multiple aspects of her health, and we discussed ensuring adherence to reduce the risk of exacerbating hypertension and acid reflux. Given her family history of diabetes and her prediabetic status, we reviewed lifestyle modifications to prevent diabetes onset, focusing on balanced nutrition and consistent physical activity. Reassured her about managing her mild depressive symptoms with non-pharmacologic interventions, particularly in managing her mobility issues which affect her quality of life; physiotherapy or support mechanisms might be explored if needed. Orders: Orders XR DEXA axial skeleton Today Z78.0 - Asymptomatic menopausal state Referrals Pain Management Referral M54.31 - Sciatica, right side Patient Instructions: - Schedule a bone densitometry test. - Continue current medications as prescribed. - Maintain dietary management and regular exercise to manage weight and reduce prediabetes risk. - Avoid allergens, including pistachios and walnuts. - Monitor knee pain, report worsening symptoms, and consider physical therapy. - Follow up on any pending lab results. - Return to office for annual check-up or if new symptoms occur.
[2024-06-02 15:29] VITALS: BP 142/84; BMI 29.9
--- OUTSIDE RECORDS SUMMARY | 2024-06-02 17:59 | XMS_ITS | Data Portability ---
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 Patient TargetsNo targets recorded. Patient InstructionsNo instructions recorded. Reason for Referral None Reported. Results Created Date Observation Date Name Description Value Unit Range Abnormal Flag Note LastModifiedBy Organization Detail LastModifiedTime 01/01/20 24 01/01/2024 [place], modif ied randall dunn ow study No observ ation record ed. [email or web address] [facility] [address], [address], 01/01/2024 15:09:03 Result Notes None recorded. Problems Name Problem SNOMED Code Status Onset Date Resolution Date Notes Provider Name and Address Organization Details Recorded Time Vertigo of central origin 76794533 Active 2020 Vertigo of central origin; Note: Date Diagnosed : 1 3:44 PM (H81.4) Not Available [facility] 4 02:35:45 Insomnia 309672079 Active 2020 Insomnia, unspecifi ed; Note: Date Diagnosed : 1 3:42 PM (G47.00) Not Available [facility] 4 02:35:48 Vertigo of central origin NOS Active 2017 Vertigo of central origin, unspecifi ed ear; Note: Date Diagnosed : 8 10:52 AM (H81.49) Not Available [facility] 4 02:35:40 Refractor y migraine 234407462 Active 2021 Other migraine, intractab le, without status migrainos us; Note: Date Diagnosed : 08/23/2021 1:47 PM (G43.819) Not Available [facility] 4 02:35:41 Bilateral tinnitus 42615504086 02 Active 2017 Tinnitus, bilateral ; Note: Date Diagnosed : 8 10:35 AM (H93.13) Not Available [facility] 4 02:35:45 Dizziness and giddiness 876894915 Active 2017 Dizziness and giddiness ; Note: Date Diagnosed : 8 10:35 AM (R42) Not Available [facility] 4 02:35:44 Migraine 61367829 Active 2017 Other migraine, not intractab le, without status migrainos us; Note: Date Diagnosed : 8 10:52 AM (G43.809) Not Available [facility] 4 02:35:48 Gastroeso phageal reflux disease without esophagit is 526468858 Active 2023 JACKSON JIMÉNEZ PA-C [address] [facility],[place] [address], [place], [address] , [place] [facility] 12:27:43 Dysphagia 80097258 Active 2023 JACKSON JIMÉNEZ PA-C [address] [address], [place], [address] , [place] [facility] 12:27:57 Problem Notes None recorded. Procedures Surgical History Date Name Laterality Status Provider Name and Address Organization Details Recorded Time 12/19/2023 FOL_Reflux _JMS completed JACKSON JIMÉNEZ PA-C [address] [place] [address], [place], [address], [facility] 12/19/2023 12:26:26 Imaging Results Imaging Date Name Status LastModified by Organiz ation Details LastModified Time 01/01/2024 [place], modified barium swallow study [place] [id number], [place], [address], 01/01/2024 15:09:03 Procedure Notes None recorded. Medical [...] at bedtime 2021 active Medicatio n ID: [id number] Pr escribed By Name: Alma Zeng Name: [...] for inhalation 2017 active Medicatio n ID: [id number] Du ration Value: 90 Brand Name: Advair [...] mg capsule 2017 active Medicatio n ID: [id number] Br and Name: Tylenol S end Method: [...] Updated DateTime 12/19/2023 162.56 cm 28 kg/m2 04141.56 g Sulema Patel [place] - [facility] 12/19/2023 11:38:41 Social History None recorded. Functional Status None recorded. Mental Status None recorded. Family History Nothing Reported. Medical History No medical history recorded. Gynecological HistoryNo gynecological history recorded. Obstetrics History GPAL:G 0 P 0 0 0 0 Past Encounters Encounter ID Performer Location Encounter Start Date Encounter Closed Date Diagnosis/Indication Diagnosis SNOMED-CT Code Diagnosis ICD10 Code Diagnosis Note [id number] JACOB TERRAZAS MD [facility] [address] [address] 12/19/2023 11:26:21 12/19/2023 12:08:20 Gastroesophageal reflux disease without esophagitis 342190320 K21.9 Dysphagia 81866469 R13.1 0 Health Concerns Section Related Observation LastModified by Organization Caren delcid LastModified Time None Recorded Concern Status LastModified by Organization Details LastModified Time None Recorded Advance Directives Directive None Recorded Payers Encounter Date Sequence Insurance Name Policy Number Policy Sena Covered Member ID Sena Member ID Guarantor Name 12/19/2023 1 [facility] - DOS ON OR AFTER 2022 - ONE CARE (MEDICARE REPLACEMENT/ADV ANTAGE - HMO) Mckenzie Montgomery [id number] Mckenzie Montgomery Notes Date Note Type Note [...] swallowing becomes much better. JACOB TERRAZAS MD [address] [place] [address], [id number] [place] - [facility] 12/19/2023 16:55:57 OBGyn Episode No OBEpisode recorded.
== END 2024-06-02 15:52 | disposition home or self-care (01) ==
LOC: HO.HMCH 15:10
PROVIDERS: PCP Internal Medicine; Visit Provider Internal Medicine
DX: Z00.00 Encounter for general adult medical examination without abnormal findings (principal); M54.31 Sciatica, right side

== ENCOUNTER → 2024-06-02 15:08 | Outpatient (BNVA) | payer OTHER, SELFPAY | PROVIDERS: PCP Internal Medicine; Visit Provider Internal Medicine | DX: Z00.01 Encounter for general adult medical examination with abnormal findings (principal); M54.31 Sciatica, right side; I10 Essential (primary) hypertension; K21.9 Gastro-esophageal reflux disease without esophagitis; Z79.899 Other long term (current) drug therapy | CPT/HCPCS: 96127; 99212; 99396 ==

== ENCOUNTER 2024-06-18 10:02 | Outpatient (AMB) | payer OTHER, SELFPAY ==
[2024-06-18 10:04] VITALS: BP 140/72; PULSE 90; O2SAT 93; BMI 29.9
--- NOTE | 2024-06-18 10:04 | A.OFFVIS_ITS ---
Vital Signs 06/18/24 10:04 Height 5 ft 4 in Weight 174 lb 2.643 oz BMI 29.9 BP 140/72 H Blood Pressure Location Rt brachial Position Sitting Pulse 90 Pulse Source Pulse Oximeter Pulse Oximetry (%) 93 Oxygen Delivery Method Room Air Intake Visit Reasons: cough Intake Note: pt thinks she has a sinus infection she has a cough and runny nose and body aches and fever Allergies Iodinated Contrast Media [IV DYE, IODINE CONTAINING] Allergy (Severe, Verified 06/18/24 10:28) ITCH/RASH clams Allergy (Intermediate, Verified 06/18/24 10:28) ITCHING docusate [From COLACE] Allergy (Intermediate, Verified 06/18/24 10:28) ITCHING lansoprazole [Prevacid] Allergy (Intermediate, Verified 06/18/24 10:28) hives oxybutynin Allergy (Intermediate, Verified 06/18/24 10:28) bladder pain pistachio nut Allergy (Intermediate, Verified 06/18/24 10:28) ITCHING walnut Allergy (Intermediate, Verified 06/18/24 10:28) ITCH/RASH SEASONAL ALLERGIES Allergy (Intermediate, Uncoded 06/18/24 10:28) ITCHY EYES Medication List - Last Reconciled 06/18/24 by Chelly Navarro MD acetaminophen ER (Tylenol 8 Hour) 650 mg PO Q8H PRN albuterol sulfate 2.5 mg (3 mL) inhalation Q6H PRN 30 days albuterol sulfate 90 mcg/actuation 2 puffs inhalation Q6H PRN 30 days NS blood pressure monitor As directed calcium carbonate-vitamin D3 600 mg-10 mcg (400 unit) 1 tab PO MOFR@0900 diclofenac sodium 1% 2 grams topical BID PRN docusate sodium (Colace) 100 mg PO BID fluticasone propion-salmeterol 250-50 mcg/dose (Wixela Inhub) 1 inh inhalation BID fluticasone propionate 50 mcg/actuation 1 spray intranasal DAILY glucosamine sulfate 750 mg PO DAILY guaifenesin ER (Mucinex) 600 mg PO BID 5 days lidocaine 4% (Aspercreme (lidocaine)) 1 patch topical DAILY PRN loratadine 10 mg PO DAILY magnesium oxide 400 mg PO BEDTIME PRN meclizine 25 mg PO TID PRN 30 days metoprolol succinate ER 50 mg PO DAILY pantoprazole 40 mg PO QAM riboflavin (vitamin B2) 400 mg PO DAILY 30 days tobramycin 0.3% 1 drp ophthalmic (eye) Q4H 7 days Do you need a note to return to daycare/school/sports/work: No HPI HPI cough: Details: This 63 years old female who has chronic obstructive pulmonary disease as well as ongoing chronic rhinosinusitis, Is here for her follow-up. He is complaining of increased nasal congestion, feverish feeling, body aches and chills for about 3-4 days. She also has frontal headache. She has more frequent cough becomes tired. For the past few weeks she has had feeling of dizziness and she has seen the neurology service for that. [facility] Medical History (Updated 06/18/24 @ 10:37 by Chelly Navarro MD) Rhinosinusitis Acute respiratory failure with hypoxia Migraine Cough MAXIMILIANO (obstructive sleep apnea) Bronchitis PONV (postoperative nausea and vomiting) Helicobacter pylori (H. pylori) Physical exam UTI (urinary tract infection) Scoliosis Restrictive lung disease Dysphagia Mild major depression, single episode Right shoulder pain COPD (chronic obstructive pulmonary disease) Allergic rhinosinusitis Acute bronchitis Asthma Anemia Primary osteoarthritis involving multiple joints Essential hypertension Right ankle pain Allergic rhinitis Surgical History History of laparoscopic appendectomy (~09/10/23) History of esophagogastroduodenoscopy (EGD) Hx of colonoscopy Hx of cardiac cath History of total left knee replacement History of arthroscopy of right knee History of hemorrhoidectomy History of total right knee replacement History of total abdominal hysterectomy History of tonsillectomy Family History Father Alcoholism Arthritis Mother Diabetes Acute CVA (cerebrovascular accident) Sister Breast cancer Family/Other FH: mental illness Brother Diabetes Myocardial infarct Daughter In good health Daughter In good health Daughter In good health Social History Household Members: Spouse Housing: House Alcohol intake: never Patient Tobacco Use Status: Never used Tobacco e-Cigarette/Vaping Use: Never Used Second Hand Smoke Exposure: No Advance Directives Date on File: 11/28/19 service: No 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al status: disabled 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 Cognitive needs: No Hearing needs: No Vision needs: Yes Review of Systems Const All systems reviewed & are unremarkable except as noted in HPI and below Eyes Reports no additional complaints ENT Reports nasal congestion and Reports nasal discharge Card Denies chest pain, Denies irregular heart rhythm and Denies leg edema Resp Reports as per HPI and Reports cough (+++) GI Reports no additional complaints Reports no additional complaints Musc Reports back pain (Mild) Skin/Breast Reports system reviewed and no additional complaints, except as documented Neuro Reports no additional complaints Psych Reports no additional complaints Physical Exam Vital Signs: Last Vital Signs Pulse 90 06/18/24 10:04 BP 140/72 H 06/18/24 10:04 Pulse Ox 93 06/18/24 10:04 Oxygen Delivery Method Room Air 06/18/24 10:04 BMI result Body Mass Index 29.9 Const General: comfortable, no acute distress, alert and awake Orientation/consciousness: patient oriented x3 HEENT Head: Yes normal to inspection General nose exam: No nasal polyps present, No nasal discharge present and Other nasal findings present (Mild nasal congestion, chronic) Face and sinus: Yes sinus tenderness (She does have mild to moderate tenderness over the maxillary /frontal sinus) Mouth: oropharynx normal Throat: Yes posterior oropharynx normal Eyes General: appearance normal, both eyes and all related structures Neck Neck: Yes normal visual inspection, Yes no lymphadenopathy, Yes trachea midline and Yes no JVD Thyroid: Thyroid normal Chest Chest palpation & inspection: normal inspection of the chest, normal palpation of entire chest wall and no tenderness Resp Other: Percussion note resonant, breath sounds are slightly distant, Breath sounds are distant but clear . No audible wheezes or crepitations. Cardio Palpation: normal PMI Rate: regular rate Rhythm: regular rhythm Heart sounds: no gallops and no murmurs Peripheral pulses: Peripheral pulses 2+ throughout GI Palpation (GI): Soft to palpation, nontender, No hepatosplenomegaly present and no masses Auscultation: normal bowel sounds Back/Spine/Pelvis Thoracic/Lumbar Spine: thoracic and lumbar spine normal to inspection and Thoracic/lumbar scoliosis (Patient has moderately severe size dextroscoliosis of the thoracic spine.) Skin General skin exam: no rashes or lesions noted Neuro General: patient oriented x3 and no focal motor deficits Cranial nerves: Yes CN's II-XII intact bilaterally Extrem General: Yes normal to inspection, Yes no clubbing, cyanosis or edema and Yes no calf tenderness Psych Appearance: grossly normal and well kempt Speech and movement: Normal speech and movement present Assessment & Plan Assessment & Plan (1) Asthma: Comment: SHE HAS CHRONIC BRONCHIAL ASTHMA IN ADDITION TO CHRONIC ALLERGIC RHINOSINUSITIS. Code(s): J45.909 - Unspecified asthma, uncomplicated Category: Medical Plan: Continue using Wixela 250-51 inhalation b.i.d. Albuterol solution in the nebulizer Q 4-6 hours p.r.n., Alternatively use albuterol HFA 2 puffs Q 6 hours p.r.n. when outdoors (2) Restrictive lung disease: Comment: THIS IS MAINLY BECAUSE OF DEXTROSCOLIOSIS OF THE THORACO -LUMBAR SPINE Code(s): J98.4 - Other disorders of lung Category: Medical Plan: No special treatment needed (3) Rhinosinusitis: Comment: Patient seems to have acute rhinosinusitis at this time. Code(s): J32.9 - Chronic sinusitis, unspecified Category: Medical Plan: Augmentin 500 mg t.i.d. for 10 days. Steam inhalations 3 times a day. May use a warm cloth over the face q.2 hours p.r.n. for discomfort and pain. Medications: New amoxicillin-pot clavulanate 500-125 mg (Augmentin) 1 tab PO TID 30 tabs 0RF rhinosinusitis Coding Level of Care Code Est Pt Level 3 (54054) Diagnoses Asthma J45.909 Restrictive lung disease J98.4 Rhinosinusitis J32.9
--- OUTSIDE RECORDS SUMMARY | 2024-06-18 11:32 | XMS_ITS | Data Portability ---
Author Organization [place] - [facility], Allergy Address [address] [place] [phone] Care Team Providers Care Package Collector Name Role Phone ELIZABETH RAMOS Primary Care [...] [place], modified barium swallow study 2023 024 [email or web address] [facility], [address] [place] [address], [facility] [address], [place], [address], 12:05:11 Medication Orders None recorded. Patient TargetsNo targets recorded. Patient InstructionsNo instructions recorded. Reason for Referral None Reported. Results Created Date Observation Date Name Description Value Unit Range Abnormal Flag Note LastModifiedBy Organization Detail LastModifiedTime 01/01/20 24 01/01/2024 [place], modif ied randall dunn ow study No observ ation record ed. [facility] [address], [address], 01/01/2024 15:09:03 Result Notes None recorded. Problems Name Problem SNOMED Code Status Onset Date Resolution Date Notes Provider Name and Address Organization Details Recorded Time Vertigo of central origin 03107715 Active 2020 Vertigo of central origin; Note: Date Diagnosed : 1 3:44 PM (H81.4) Not Available [facility] 4 02:35:45 Insomnia 926026204 Active 2020 Insomnia, unspecifi ed; Note: Date Diagnosed : 1 3:42 PM (G47.00) Not Available [facility] 4 02:35:48 Vertigo of central origin NOS Active 2017 Vertigo of central origin, unspecifi ed ear; Note: Date Diagnosed : 8 10:52 AM (H81.49) Not Available [facility] 4 02:35:40 Refractor y migraine 561469119 Active 2021 Other migraine, intractab le, without status migrainos us; Note: Date Diagnosed : 08/23/2021 1:47 PM (G43.819) Not Available [facility] 4 02:35:41 Bilateral tinnitus 25672208233 02 Active 2017 Tinnitus, bilateral ; Note: Date Diagnosed : 8 10:35 AM (H93.13) Not Available [facility] 4 02:35:45 Dizziness and giddiness 660886781 Active 2017 Dizziness and giddiness ; Note: Date Diagnosed : 8 10:35 AM (R42) Not Available [facility] 4 02:35:44 Migraine 69030539 Active 2017 Other migraine, not intractab le, without status migrainos us; Note: Date Diagnosed : 8 10:52 AM (G43.809) Not Available [facility] 4 02:35:48 Gastroeso phageal reflux disease without esophagit is 971893103 Active 2023 JACKSON JIMÉNEZ PA-C [address] [facility],[place] [address], [place], [address] , [place] - [facility] 12:27:43 Dysphagia 59771882 Active 2023 JACKSON JIMÉNEZ PA-C [address] [address], [place], [address] , [place] - [facility] 12:27:57 Problem Notes None recorded. Procedures Surgical History Date Name Laterality Status Provider Name and Address Organization Details Recorded Time 12/19/2023 FOL_Reflux _JMS completed JACKSON JIMÉENZ PA-C [address] [place] [address], [place], [address], [facility] 12/19/2023 12:26:26 Imaging Results Imaging Date Name Status LastModified by Organiz ation Details LastModified Time 01/01/2024 [place], modified barium swallow study completed [place] [id number], [place], [address], 01/01/2024 15:09:03 Procedure Notes None recorded. Medical [...] at bedtime 2021 active Medicatio n ID: [id number] Pr escribed By Name: Alma Zeng Name: [...] for inhalation 2017 active Medicatio n ID: [id number] Du ration Value: 90 Brand Name: Advair [...] mg capsule 2017 active Medicatio n ID: [id number] Br and Name: Tylenol S end Method: [...] Updated DateTime 12/19/2023 162.56 cm 28 kg/m2 16295.56 g Sulema Patel [place] - [facility] 12/19/2023 11:38:41 Social History None recorded. Functional Status None recorded. Mental Status None recorded. Family History Nothing Reported. Medical History No medical history recorded. Gynecological HistoryNo gynecological history recorded. Obstetrics History GPAL:G 0 P 0 0 0 0 Past Encounters Encounter ID Performer Location Encounter Start Date Encounter Closed Date Diagnosis/Indication Diagnosis SNOMED-CT Code Diagnosis ICD10 Code Diagnosis Note [id number] JACOB TERRAZAS MD [facility] [address] [address] 12/19/2023 11:26:21 12/19/2023 12:08:20 Gastroesophageal reflux disease without esophagitis 799774681 K21.9 Dysphagia 47710716 R13.1 0 Health Concerns Section Related Observation LastModified by Organization Caren delcid LastModified Time None Recorded Concern Status LastModified by Organization Details LastModified Time None Recorded Advance Directives Directive None Recorded Payers Encounter Date Sequence Insurance Name Policy Number Policy Sena Covered Member ID Sena Member ID Guarantor Name 12/19/2023 1 [facility] - DOS ON OR AFTER 2022 - ONE CARE (MEDICARE REPLACEMENT/ADV ANTAGE - HMO) Mckenzie Montgomery [id number] Mckenzie Montgomery Notes Date Note Type Note [...] swallowing becomes much better. JACOB TERRAZAS MD [address] [place] [address], [id number] [place] [facility] 12/19/2023 16:55:57 OBGyn Episode No OBEpisode recorded.
== END 2024-06-18 10:29 | disposition home or self-care (01) ==
LOC: HO.HPS 10:03
PROVIDERS: PCP Internal Medicine; Visit Provider Internal Medicine
DX: J45.909 Unspecified asthma, uncomplicated (principal); J98.4 Other disorders of lung; J32.9 Chronic sinusitis, unspecified
CPT/HCPCS: 99213

== ENCOUNTER → 2024-06-18 10:02 | Outpatient (BNVA) | payer OTHER, SELFPAY | PROVIDERS: PCP Internal Medicine; Visit Provider Internal Medicine | DX: J45.909 Unspecified asthma, uncomplicated (principal); J98.4 Other disorders of lung; J32.9 Chronic sinusitis, unspecified | CPT/HCPCS: 99212 ==

== ENCOUNTER 2024-06-26 12:33 | Outpatient (AMB) | payer OTHER, SELFPAY ==
--- NOTE | 2024-06-26 12:43 | MHC.OFFVIS ---
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 Operator Language: Perioperative Tech Name: brenda/toya/William [id number] Accompanied by: Self / Same As Patient Allergies Iodinated Contrast Media [IV DYE, IODINE CONTAINING] Allergy (Severe, Verified 06/18/24 10:28) ITCH/RASH clams Allergy (Intermediate, Verified 06/18/24 10:28) ITCHING docusate [From COLACE] Allergy (Intermediate, Verified 06/18/24 10:28) ITCHING lansoprazole [Prevacid] Allergy (Intermediate, Verified 06/18/24 10:28) hives oxybutynin Allergy (Intermediate, Verified 06/18/24 10:28) bladder pain pistachio nut Allergy (Intermediate, Verified 06/18/24 10:28) ITCHING walnut Allergy (Intermediate, Verified 06/18/24 10:28) ITCH/RASH SEASONAL ALLERGIES Allergy (Intermediate, Uncoded 06/18/24 10:28) ITCHY EYES Medication List - Last Reconciled 06/26/24 by Sarthak Chacon MD acetaminophen ER (Tylenol 8 Hour) 650 mg PO Q8H PRN albuterol sulfate 2.5 mg (3 mL) inhalation Q6H PRN 30 days albuterol sulfate 90 mcg/actuation 2 puffs inhalation Q6H PRN 30 days NS amoxicillin-pot clavulanate 500-125 mg (Augmentin) 1 tab PO TID blood pressure monitor As directed calcium carbonate-vitamin D3 600 mg-10 mcg (400 unit) 1 tab PO MOFR@0900 diclofenac sodium 1% 2 grams topical BID PRN docusate sodium (Colace) 100 mg PO BID fluticasone propion-salmeterol 250-50 mcg/dose (Wixela Inhub) 1 inh inhalation BID fluticasone propionate 50 mcg/actuation 1 spray intranasal DAILY glucosamine sulfate 750 mg PO DAILY guaifenesin ER (Mucinex) 600 mg PO BID 5 days lidocaine 4% (Aspercreme (lidocaine)) 1 patch topical DAILY PRN loratadine 10 mg PO DAILY magnesium oxide 400 mg PO BEDTIME PRN meclizine 25 mg PO TID PRN 30 days metoprolol succinate ER 50 mg PO DAILY pantoprazole 40 mg PO QAM riboflavin (vitamin B2) 400 mg PO DAILY 30 days tobramycin 0.3% 1 drp ophthalmic (eye) Q4H 7 days HPI Comments Details: Mckenzie returns for follow-up. Originally, seen regarding hypertension. She checked home blood pressures because of dizziness and detected hypertension. She was on hydrochlorothiazide and then we added amlodipine. Over time, she stopped both medications. Then she was complaining of some other symptoms like palpitations, chest pressure extra which led to further workup. She underwent coronary CTA that showed LAD stenosis but then cardiac catheterization did not show any evidence of the same. Unclear reason for discrepancy. Since last seen, she states that she feels like gas in her chest and after the gas comes out, she feels better. Nothing clearly exertional. Rare palpitations. [facility] Medical History (Updated 06/18/24 @ 10:37 by Chelly Navarro MD) Rhinosinusitis Acute respiratory failure with hypoxia Migraine Cough MAXIMILIANO (obstructive sleep apnea) Bronchitis PONV (postoperative nausea and vomiting) Helicobacter pylori (H. pylori) Physical exam UTI (urinary tract infection) Scoliosis Restrictive lung disease Dysphagia Mild major depression, single episode Right shoulder pain COPD (chronic obstructive pulmonary disease) Allergic rhinosinusitis Acute bronchitis Asthma Anemia Primary osteoarthritis involving multiple joints Essential hypertension Right ankle pain Allergic rhinitis Surgical History History of laparoscopic appendectomy (~09/10/23) History of esophagogastroduodenoscopy (EGD) Hx of colonoscopy Hx of cardiac cath History of total left knee replacement History of arthroscopy of right knee History of hemorrhoidectomy History of total right knee replacement History of total abdominal hysterectomy History of tonsillectomy Family History Father Alcoholism Arthritis Mother Diabetes Acute CVA (cerebrovascular accident) Sister Breast cancer Family/Other FH: mental illness Brother Diabetes Myocardial infarct Daughter In good health Daughter In good health Daughter In good health Social History Household Members: Spouse Housing: House Alcohol intake: never Patient Tobacco Use Status: Never used Tobacco e-Cigarette/Vaping Use: Never Used Second Hand Smoke Exposure: No Advance Directives Date on File: 11/28/19 service: No 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al status: disabled 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 Cognitive needs: No Hearing needs: No Vision needs: Yes Review of Systems Const Denies chills, Denies fatigue, Denies fever(s), Denies frequent falls, Denies weakness, Denies weight gain and Denies weight loss ENT Denies dizziness Card Denies chest pain, Denies leg edema, Denies lightheadedness, Denies palpitations, Denies dyspnea and Denies dyspnea on exertion Resp Denies cough, Denies dyspnea and Denies dyspnea on exertion GI Denies hematochezia Musc Denies abnormal gait, Denies muscle weakness, Denies numbness, Denies radiating pain into limb and Denies tingling Neuro Denies abnormal gait, Denies dizziness, Denies frequent falls, Denies numbness, Denies tingling and Denies weakness Endo Denies fatigue and Denies palpitations Physical Exam Vital Signs: Last Vital Signs Pulse 79 06/26/24 12:45 BP 130/72 06/26/24 12:45 BMI result Body Mass Index 29.9 Const General: comfortable and no acute distress Orientation/consciousness: patient oriented x3 HEENT Other: Unremarkable Head: Yes normal to inspection Neck Neck: Yes normal visual inspection Chest Chest palpation & inspection: normal inspection of the chest Resp Auscultation: clear to auscultation bilaterally Cardio Palpation: normal PMI Heart sounds: S1 normal heart sound present, S2 normal heart sound present, no gallops, no murmurs and no rubs GI Palpation (GI): Soft to palpation Back/Spine/Pelvis Other: unremarkable Skin General skin exam: no rashes or lesions noted Neuro General: patient oriented x3 Extrem General: Yes normal to inspection Psych Mental Status: mental status grossly normal Office Procedures EKG Details: EKG with underlying sinus rhythm at 79/Min; voltage criteria for LVH; normal MD/corrected QT. Overall, unchanged from prior. [id number], Complete Assessment & Plan Assessment & Plan (1) Chest pain: Code(s): R07.9 - Chest pain, unspecified Category: Medical (2) Essential hypertension: Code(s): I10 - Essential (primary) hypertension Category: Medical (3) LVH (left ventricular hypertrophy): Code(s): I51.7 - Cardiomegaly Category: Medical (4) PAC (premature atrial contraction): Code(s): I49.1 - Atrial premature depolarization Category: Medical (5) PVC (premature ventricular contraction): Code(s): I49.3 - Ventricular premature depolarization Category: Medical Plan Cardiac studies reviewed. EKG with sinus rhythm, LVH; nonspecific changes in the inferior leads. Echocardiogram with LVEF 60-65% and basal inferior hypokinesis. Myocardial perfusion imaging study without any significant findings. Coronary CTA had reported severe narrowing in the proximal subsequent of distal LAD with evidence of myocardial bridging. Otherwise normal coronaries. Cardiac catheterization 2021-LAD with a small proximal LAD bridge but otherwise normal coronary arteries. Overall, atypical symptoms and discrepant findings in the about testing. From the catheterization standpoint, no clear obstructive disease at all. Unclear if she had a small inferior NSTEMI at some point which could possibly explain EKG/echo findings. Vasospasm is also not completely excluded. She has been on amlodipine in the past but not anymore. With regard to palpitations, prior Holter had shown supraventricular and ventricular ectopy. She feels better with beta-blockers and that can be continued. Overall, no changes in her cardiovascular care. We will see her back in one year. She will call us with any concerns. Discussed using healthcare interpreter. Coding Level of Care Code Est Pt Level 3 (88802) Diagnoses Chest pain R07.9 Essential hypertension I10 LVH (left ventricular hypertrophy) I51.7 PAC (premature atrial contraction) I49.1 PVC (premature ventricular contraction) I49.3 CPT Codes EKG - CPT: [id number], Complete ([id number])
[2024-06-26 12:45] VITALS: BP 130/72; PULSE 79; BMI 29.9
--- OUTSIDE RECORDS SUMMARY | 2024-06-26 14:54 | XMS_ITS | Data Portability ---
Author Organization [place] - [facility], Allergy Address [address] [place] [address] Care Team Providers Care User Experience Lead Name Role Phone ELIZABETH RAMOS Primary Care [...] [place], modified barium swallow study 2023 024 [email or web address] [facility], [address] [place] [address], [facility] [address], [place], [address], 12:05:11 Medication Orders None recorded. Patient TargetsNo targets recorded. Patient InstructionsNo instructions recorded. Reason for Referral None Reported. Results Created Date Observation Date Name Description Value Unit Range Abnormal Flag Note LastModifiedBy Organization Detail LastModifiedTime 01/01/20 24 01/01/2024 [place], modif ied randall dunn ow study No observ ation record ed. [email or web address] [facility] [address], [address], 01/01/2024 15:09:03 Result Notes None recorded. Problems Name Problem SNOMED Code Status Onset Date Resolution Date Notes Provider Name and Address Organization Details Recorded Time Vertigo of central origin 83754512 Active 2020 Vertigo of central origin; Note: Date Diagnosed : 1 3:44 PM (H81.4) Not Available [facility] 4 02:35:45 Insomnia 740349161 Active 2020 Insomnia, unspecifi ed; Note: Date Diagnosed : 1 3:42 PM (G47.00) Not Available [facility] 4 02:35:48 Vertigo of central origin NOS Active 2017 Vertigo of central origin, unspecifi ed ear; Note: Date Diagnosed : 8 10:52 AM (H81.49) Not Available [facility] 4 02:35:40 Refractor y migraine 054691403 Active 2021 Other migraine, intractab le, without status migrainos us; Note: Date Diagnosed : 08/23/2021 1:47 PM (G43.819) Not Available [facility] 4 02:35:41 Bilateral tinnitus 96551444279 02 Active 2017 Tinnitus, bilateral ; Note: Date Diagnosed : 8 10:35 AM (H93.13) Not Available [facility] 4 02:35:45 Dizziness and giddiness 856598729 Active 2017 Dizziness and giddiness ; Note: Date Diagnosed : 8 10:35 AM (R42) Not Available [facility] 4 02:35:44 Migraine 30670253 Active 2017 Other migraine, not intractab le, without status migrainos us; Note: Date Diagnosed : 8 10:52 AM (G43.809) Not Available [facility] 4 02:35:48 Gastroeso phageal reflux disease without esophagit is 950505294 Active 2023 JACKSON JIMÉNEZ PA-C [address] [facility],[place] [address], [place], [address] , [place] - [facility] 12:27:43 Dysphagia 01281474 Active 2023 JACKSON JIMÉNEZ PA-C [address] [address], [place], [address] , [place] - [facility] 12:27:57 Problem Notes None recorded. Procedures Surgical History Date Name Laterality Status Provider Name and Address Organization Details Recorded Time 12/19/2023 FOL_Reflux _JMS completed JACKSON JIMÉNEZ PA-C [address] [place] [address], [place], [address], [facility] 12/19/2023 12:26:26 Imaging Results Imaging Date Name Status LastModified by Organiz ation Details LastModified Time 01/01/2024 [place], modified barium [email or web address] [id number], [place], [address], 01/01/2024 15:09:03 Procedure Notes None recorded. Medical [...] at bedtime 2021 active Medicatio n ID: [id number] Pr escribed By Name: Alma Zeng Name: [...] for inhalation 2017 active Medicatio n ID: [id number] Du ration Value: 90 Brand Name: Advair [...] mg capsule 2017 active Medicatio n ID: [id number] Br and Name: Tylenol S end Method: [...] Updated DateTime 12/19/2023 162.56 cm 28 kg/m2 24213.56 g Sulema Patel [place] - [facility] 12/19/2023 11:38:41 Social History None recorded. Functional Status None recorded. Mental Status None recorded. Family History Nothing Reported. Medical History No medical history recorded. Gynecological HistoryNo gynecological history recorded. Obstetrics History GPAL:G 0 P 0 0 0 0 Past Encounters Encounter ID Performer Location Encounter Start Date Encounter Closed Date Diagnosis/Indication Diagnosis SNOMED-CT Code Diagnosis ICD10 Code Diagnosis Note [id number] JACKSON JIMÉNEZ PA-C [facility] [address] [address] 12/19/2023 11:26:21 12/19/2023 12:08:20 Gastroesophageal reflux disease without esophagitis 664472375 K21.9 Dysphagia 26727357 R13.1 0 Health Concerns Section Related Observation LastModified by Organization Caren delcid LastModified Time None Recorded Concern Status LastModified by Organization Details LastModified Time None Recorded Advance Directives Directive None Recorded Payers Encounter Date Sequence Insurance Name Policy Number Policy Sena Covered Member ID Sena Member ID Guarantor Name 12/19/2023 1 [facility] - DOS ON OR AFTER 2022 - ONE CARE (MEDICARE REPLACEMENT/ADV ANTAGE - HMO) Mckenzie Montgomery [id number] Mckenzie Montgomery Notes Date Note Type Note [...] swallowing becomes much better. JACOB TERRAZAS MD [address] [place] [address], [address], [place] - [facility] 12/19/2023 16:55:57 OBGyn Episode No OBEpisode recorded.
== END 2024-06-26 13:05 | disposition home or self-care (01) ==
LOC: HO.HCS 12:35
PROVIDERS: PCP Internal Medicine; Visit Provider Internal Medicine
DX: R07.9 Chest pain, unspecified (principal); I10 Essential (primary) hypertension; I51.7 Cardiomegaly; I49.1 Atrial premature depolarization; I49.3 Ventricular premature depolarization
CPT/HCPCS: 93010; 99213

== ENCOUNTER → 2024-06-26 12:33 | Outpatient (BNVA) | payer OTHER, SELFPAY | PROVIDERS: PCP Internal Medicine; Visit Provider Internal Medicine | DX: I51.7 Cardiomegaly (principal); I49.1 Atrial premature depolarization; I49.3 Ventricular premature depolarization; I10 Essential (primary) hypertension; R07.9 Chest pain, unspecified | CPT/HCPCS: 93005; 99212 ==

== ENCOUNTER 2024-07-03 09:09 | Outpatient (AMB) | payer OTHER, SELFPAY ==
--- NOTE | 2024-07-03 09:19 | A.OFFVIS_ITS ---
Vital Signs 07/03/24 09:20 Height 5 ft 4 in Weight 174 lb 2.643 oz BMI 29.9 BP 120/68 Blood Pressure Location Lt brachial Position Sitting Pulse 84 Pulse Source Pulse Oximeter Pulse Oximetry (%) 95 Oxygen Delivery Method Room Air Intake Visit Reasons: Cough/2 week follow up Intake Note: pt is here for follow up and states she is still coughing and using inhaler every 6 hours, and fatigued Allergies Iodinated Contrast Media [IV DYE, IODINE CONTAINING] Allergy (Severe, Verified 07/03/24 09:30) ITCH/RASH clams Allergy (Intermediate, Verified 07/03/24 09:30) ITCHING docusate [From COLACE] Allergy (Intermediate, Verified 07/03/24 09:30) ITCHING lansoprazole [Prevacid] Allergy (Intermediate, Verified 07/03/24 09:30) hives oxybutynin Allergy (Intermediate, Verified 07/03/24 09:30) bladder pain pistachio nut Allergy (Intermediate, Verified 07/03/24 09:30) ITCHING walnut Allergy (Intermediate, Verified 07/03/24 09:30) ITCH/RASH SEASONAL ALLERGIES Allergy (Intermediate, Uncoded 07/03/24 09:22) ITCHY EYES Medication List - Last Reconciled 07/03/24 by Chelly Navarro MD acetaminophen ER (Tylenol 8 Hour) 650 mg PO Q8H PRN albuterol sulfate 2.5 mg (3 mL) inhalation Q6H PRN 30 days albuterol sulfate 90 mcg/actuation 2 puffs inhalation Q6H PRN 30 days NS blood pressure monitor As directed calcium carbonate-vitamin D3 600 mg-10 mcg (400 unit) 1 tab PO MOFR@0900 diclofenac sodium 1% 2 grams topical BID PRN docusate sodium (Colace) 100 mg PO BID fluticasone propion-salmeterol 250-50 mcg/dose (Wixela Inhub) 1 inh inhalation BID fluticasone propionate 50 mcg/actuation 1 spray intranasal DAILY glucosamine sulfate 750 mg PO DAILY guaifenesin ER (Mucinex) 600 mg PO BID 5 days lidocaine 4% (Aspercreme (lidocaine)) 1 patch topical DAILY PRN loratadine 10 mg PO DAILY magnesium oxide 400 mg PO BEDTIME PRN meclizine 25 mg PO TID PRN 30 days metoprolol succinate ER 50 mg PO DAILY pantoprazole 40 mg PO QAM riboflavin (vitamin B2) 400 mg PO DAILY 30 days tobramycin 0.3% 1 drp ophthalmic (eye) Q4H 7 days Do you need a note to return to daycare/school/sports/work: No HPI HPI Cough/2 week follow up: Details: 63 years old very pleasant female comes after 2 weeks. Has been treated with a course of Augmentin for acute on chronic rhinosinusitis. Claims that her cough is decreased. However she still has nasal congestion, with heaviness in the frontal areas. She still has frequent bouts of cough, and then she gets somewhat short of breath. The symptoms are relatively chronic due to her ongoing perirenal rhinosinusitis . She feels tired. [facility] Medical History Rhinosinusitis Acute respiratory failure with hypoxia Migraine Cough MAXIMILIANO (obstructive sleep apnea) Bronchitis PONV (postoperative nausea and vomiting) Helicobacter pylori (H. pylori) Physical exam UTI (urinary tract infection) Scoliosis Restrictive lung disease Dysphagia Mild major depression, single episode Right shoulder pain COPD (chronic obstructive pulmonary disease) Allergic rhinosinusitis Acute bronchitis Asthma Anemia Primary osteoarthritis involving multiple joints Essential hypertension Right ankle pain Allergic rhinitis Surgical History History of laparoscopic appendectomy (~09/10/23) History of esophagogastroduodenoscopy (EGD) Hx of colonoscopy Hx of cardiac cath History of total left knee replacement History of arthroscopy of right knee History of hemorrhoidectomy History of total right knee replacement History of total abdominal hysterectomy History of tonsillectomy Family History Father Alcoholism Arthritis Mother Diabetes Acute CVA (cerebrovascular accident) Sister Breast cancer Family/Other FH: mental illness Brother Diabetes Myocardial infarct Daughter In good health Daughter In good health Daughter In good health Social History Household Members: Spouse Housing: House Alcohol intake: never Patient Tobacco Use Status: Never used Tobacco e-Cigarette/Vaping Use: Never Used Second Hand Smoke Exposure: No Advance Directives Date on File: 11/28/19 service: No 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al status: disabled 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 Cognitive needs: No Hearing needs: No Vision needs: Yes Physical Exam Vital Signs: Last Vital Signs Pulse 84 07/03/24 09:20 BP 120/68 07/03/24 09:20 Pulse Ox 95 07/03/24 09:20 Oxygen Delivery Method Room Air 07/03/24 09:20 BMI result Body Mass Index 29.9 Const General: comfortable, no acute distress, alert and awake Orientation/consciousness: patient oriented x3 HEENT Head: Yes normal to inspection General nose exam: No nasal polyps present, No nasal discharge present and Other nasal findings present (Mild nasal congestion, chronic) Face and sinus: Yes sinuses nontender Mouth: oropharynx normal Throat: Yes posterior oropharynx normal Eyes General: appearance normal, both eyes and all related structures Neck Neck: Yes normal visual inspection, Yes no lymphadenopathy, Yes trachea midline and Yes no JVD Thyroid: Thyroid normal Chest Chest palpation & inspection: normal inspection of the chest, normal palpation of entire chest wall and no tenderness Resp Other: Percussion note resonant, breath sounds are slightly distant, Breath sounds are distant but clear . No audible wheezes or crepitations. Cardio Palpation: normal PMI Rate: regular rate Rhythm: regular rhythm Heart sounds: no gallops and no murmurs Peripheral pulses: Peripheral pulses 2+ throughout GI Palpation (GI): Soft to palpation, nontender, No hepatosplenomegaly present and no masses Auscultation: normal bowel sounds Back/Spine/Pelvis Thoracic/Lumbar Spine: thoracic and lumbar spine normal to inspection and Thoracic/lumbar scoliosis (Patient has moderately severe size dextroscoliosis of the thoracic spine.) Skin General skin exam: no rashes or lesions noted Neuro General: patient oriented x3 and no focal motor deficits Cranial nerves: Yes CN's II-XII intact bilaterally Extrem General: Yes normal to inspection, Yes no clubbing, cyanosis or edema and Yes no calf tenderness Psych Appearance: grossly normal and well kempt Speech and movement: Normal speech and movement present Assessment & Plan Assessment & Plan (1) Asthma: Comment: SHE HAS CHRONIC BRONCHIAL ASTHMA IN ADDITION TO CHRONIC ALLERGIC RHINOSINUSITIS. IT SEEMS TO BE STABLE AT THIS TIME. Code(s): J45.909 - Unspecified asthma, uncomplicated Category: Medical Plan: WIXELA 250-51 INHALATION B.I.D.. VENTOLIN 2 PUFFS Q 4-6 HOURS P.R.N.. ALBUTEROL SOLUTION IN THE NEBULIZER Q 6 HOURS P.R.N. WHEN AT HOME (2) Restrictive lung disease: Comment: THIS IS MAINLY BECAUSE OF DEXTROSCOLIOSIS OF THE THORACO -LUMBAR SPINE Code(s): J98.4 - Other disorders of lung Category: Medical Plan: PATIENT AWARE OF THIS AND SHE IS ADVISED TO DO DEEP BREATHING EXERCISES 2 OR 3 TIMES A DAY (3) MAXIMILIANO (obstructive sleep apnea): Comment: Patient was recently diagnosed to have obstructive sleep apnea, mild,. She was being followed by [place] neurology/sleep medicine service. She could not tolerate the CPAP so she returned the CPAP device. Now she is sleeping fairly well as long as she can sleep in lateral position. Code(s): G47.33 - Obstructive sleep apnea (adult) (pediatric) Category: Medical Plan: Reinforced that she should try to sleep in lateral position (4) Cough: Comment: PATIENT WAS HAVING UNREMITTING COUGH FOR AFEW WEEKS. SEEN 2 WEEKS AGO AND WAS TREATED WITH A COURSE OF AUGMENTIN . NOW HER COUGH PATTERN IS BACK TO BASELINE. SHE STILL HAS FREQUENT COUGH WHICH IS MOSTLY NONPRODUCTIVE. HER ONGOING COUGH IS DUE TO CHRONIC RHINO SINUSITIS, WHICH IS AROUND THE YEAR Code(s): R05.9 - Cough, unspecified Category: Medical Plan: EXPLAINED TO THE PATIENT THAT SHE WOULD NOT BE ABLE TO GET COMPLETE RID OF COUGH. CONTINUE MUCINEX 600 MG B.I.D. USE LORATADINE 10 MG ONCE A DAY Coding Level of Care Code Est Pt Level 3 (85502) Diagnoses Asthma J45.909 Restrictive lung disease J98.4 MAXIMILIANO (obstructive sleep apnea) G47.33 Cough R05.9
[2024-07-03 09:20] VITALS: BP 120/68; PULSE 84; O2SAT 95; BMI 29.9
--- OUTSIDE RECORDS SUMMARY | 2024-07-03 09:41 | XMS_ITS | Data Portability ---
Author Organization [place] - [facility], Allergy Address [address] [place] [address] Care Team Providers Care Health Care Aide Name Role Phone ELIZABETH RAMOS Primary Care [...] [place], modified barium swallow study 2023 024 [facility], [address] [place] [address], [facility] [address], [place], [address], 12:05:11 Medication Orders None recorded. Patient TargetsNo targets recorded. Patient InstructionsNo instructions recorded. Reason for Referral None Reported. Results Created Date Observation Date Name Description Value Unit Range Abnormal Flag Note LastModifiedBy Organization Detail LastModifiedTime 01/01/20 24 01/01/2024 [place], modif ied randall dunn ow study No observ ation record ed. [email or web address] [facility] [address], [address], 01/01/2024 15:09:03 Result Notes None recorded. Problems Name Problem SNOMED Code Status Onset Date Resolution Date Notes Provider Name and Address Organization Details Recorded Time Vertigo of central origin 71877615 Active 2020 Vertigo of central origin; Note: Date Diagnosed : 1 3:44 PM (H81.4) Not Available [facility] 4 02:35:45 Insomnia 263953617 Active 2020 Insomnia, unspecifi ed; Note: Date Diagnosed : 1 3:42 PM (G47.00) Not Available [facility] 4 02:35:48 Vertigo of central origin NOS Active 2017 Vertigo of central origin, unspecifi ed ear; Note: Date Diagnosed : 8 10:52 AM (H81.49) Not Available [facility] 4 02:35:40 Refractor y migraine 786530385 Active 2021 Other migraine, intractab le, without status migrainos us; Note: Date Diagnosed : 08/23/2021 1:47 PM (G43.819) Not Available [facility] 4 02:35:41 Bilateral tinnitus 11914952568 02 Active 2017 Tinnitus, bilateral ; Note: Date Diagnosed : 8 10:35 AM (H93.13) Not Available [facility] 4 02:35:45 Dizziness and giddiness 380736481 Active 2017 Dizziness and giddiness ; Note: Date Diagnosed : 8 10:35 AM (R42) Not Available [facility] 4 02:35:44 Migraine 66919598 Active 2017 Other migraine, not intractab le, without status migrainos us; Note: Date Diagnosed : 8 10:52 AM (G43.809) Not Available [facility] 4 02:35:48 Gastroeso phageal reflux disease without esophagit is 423995695 Active 2023 JACKSON JIMÉNEZ PA-C [address] [facility],[place] [address], [place], [address] , [place] - [facility] 12:27:43 Dysphagia 26496616 Active 2023 JACKSON JIMÉNEZ PA-C [address] [address], [place], [address] , [place] [facility] 12:27:57 Problem Notes None recorded. Procedures Surgical History Date Name Laterality Status Provider Name and Address Organization Details Recorded Time 12/19/2023 FOL_Reflux _JMS completed JACKSON JIMÉNEZ PA-C [address] [place] [address], [place], [address], [facility] 12/19/2023 12:26:26 Imaging Results Imaging Date Name Status LastModified by Organiz ation Details LastModified Time 01/01/2024 [place], modified barium [email or web address] [id number], [place], [address], 01/01/2024 15:09:03 Procedure Notes None recorded. Medical [...] at bedtime 2021 active Medicatio n ID: [id number] Pr escribed By Name: Alma Zeng Name: [...] for inhalation 2017 active Medicatio n ID: [id number] Du ration Value: 90 Brand Name: Advair [...] mg capsule 2017 active Medicatio n ID: [id number] Br and Name: Tylenol S end Method: [...] Updated DateTime 12/19/2023 162.56 cm 28 kg/m2 98933.56 g Sulema Patel [place] - [facility] 12/19/2023 11:38:41 Social History None recorded. Functional Status None recorded. Mental Status None recorded. Family History Nothing Reported. Medical History No medical history recorded. Gynecological HistoryNo gynecological history recorded. Obstetrics History GPAL:G 0 P 0 0 0 0 Past Encounters Encounter ID Performer Location Encounter Start Date Encounter Closed Date Diagnosis/Indication Diagnosis SNOMED-CT Code Diagnosis ICD10 Code Diagnosis Note [id number] JACKSON JIMÉNEZ PA-C [facility] [address] [address] 12/19/2023 11:26:21 12/19/2023 12:08:20 Gastroesophageal reflux disease without esophagitis 599527157 K21.9 Dysphagia 76431233 R13.1 0 Health Concerns Section Related Observation LastModified by Organization Caren delcid LastModified Time None Recorded Concern Status LastModified by Organization Details LastModified Time None Recorded Advance Directives Directive None Recorded Payers Insurance Date Sequence Insurance Name Policy Number Policy Sena Covered Member ID Sena Member ID Guarantor Name 12/19/2023 1 [facility] - DOS ON OR AFTER 2022 - MEDICARE [place]VANTAGE [place] (MEDICARE REPLACEMENT/ADV ANTAGE - PPO) Mckenzie Montgomery [id number] Mckenzie Montgomery 12/19/2023 1 [facility] - DOS ON OR AFTER 2022 - ONE CARE (MEDICARE REPLACEMENT/ADV ANTAGE - HMO) Mckenzie Montgomery [id number] Mckenzie Montgomery Notes Date Note Type Note [...] swallowing becomes much better. JACOB TERRAZAS MD [address] [place] [address], [address], [place] - [facility] 12/19/2023 16:55:57 OBGyn Episode No OBEpisode recorded.
== END 2024-07-03 09:40 | disposition home or self-care (01) ==
LOC: HO.HPS 09:10
PROVIDERS: PCP Internal Medicine; Visit Provider Internal Medicine
DX: J45.909 Unspecified asthma, uncomplicated (principal); J98.4 Other disorders of lung; G47.33 Obstructive sleep apnea (adult) (pediatric); R05.9 Cough, unspecified
CPT/HCPCS: 99213

== ENCOUNTER → 2024-07-03 09:09 | Outpatient (BNVA) | payer OTHER, SELFPAY | PROVIDERS: PCP Internal Medicine; Visit Provider Internal Medicine | DX: J45.909 Unspecified asthma, uncomplicated (principal); J98.4 Other disorders of lung; G47.33 Obstructive sleep apnea (adult) (pediatric) | CPT/HCPCS: 99212 ==

== ENCOUNTER 2024-07-04 10:17 | Outpatient (REF) | payer OTHER, SELFPAY ==
--- NOTE | ~2024-07-04 | MM_ITS ---
EXAMINATION: DXA BONE DENSITY AXIAL HISTORY: Z78.0 - Asymptomatic menopausal state TECHNIQUE: [employer] Dual energy absorptiometry (DEXA) of the lumbar spine, total left hip, and femoral neck was performed. COMPARISON: Comparison is made with the prior examination dated 09/20/2017. FINDINGS: The bone mineral density of the lumbar spine is 1.158 with a T-score of -0.2, and a Z-score of 1.1. This is indicative of normal bone mineral density. This represents a BMD change of -13.8% compared to the prior exam. This is statistically significant. The bone mineral density of the left total hip is 1.087 with a T-score of 0.6, and a Z-score of 1.6. This is indicative of normal bone mineral density. This represents a BMD change of -3.5% compared to the prior exam. This is statistically significant. The bone mineral density of the left femoral neck is 0.958 with a T-score of -0.6, and a Z-score of 0.7. This is indicative of normal bone mineral density. This represents a BMD change of 0.2% compared to the prior exam. MM/XR DEXA axial skeleton IMPRESSION: Based on bone mineral density, and according to World Health Organization (WHO) criteria, the diagnosis is consistent with normal bone mineral density. All bone density values are in grams per centimeter squared (g/cm2). Statistically, 68% of repeat scans fall within 1 SD (+/- 0.010 g/cm2 for AP spine L1-L4) and 1 SD (+/- 0.012 g/cm2 for femur total) FRAX is a trademark of the [employer]'s [place] for Metabolic Bone Disease, a World Health Organization (WHO) Collaborating Center. Electronically signed by: Lake Villanueva MD 07/04/2024 11:45 AM EDT
--- OUTSIDE RECORDS SUMMARY | 2024-07-04 10:45 | XMS_ITS | Data Portability ---
Author Organization MD - [facility], Allergy Address [address] [place] [id number] Care Team Providers Care Wind Energy Mechanic Name Role Phone ELIZABETH RAMOS Primary Care Provider [phone] Assessment Encounter Date Assessment Date Assessment LastModified [...] modified barium swallow study 2023 024 [facility], [address] [place] [address], [facility] [address], [place], [address], 12:05:11 Medication Orders None recorded. Patient TargetsNo targets recorded. Patient InstructionsNo instructions recorded. Reason for Referral None Reported. Results Created Date Observation Date Name Description Value Unit Range Abnormal Flag Note LastModifiedBy Organization Detail LastModifiedTime 01/01/20 24 01/01/2024 [place], modif ied randall dunn ow study No observ ation record ed. [email or web address] [facility] [address], [address], 01/01/2024 15:09:03 Result Notes None recorded. Problems Name Problem SNOMED Code Status Onset Date Resolution Date Notes Provider Name and Address Organization Details Recorded Time Vertigo of central origin 03875287 Active 2020 Vertigo of central origin; Note: Date Diagnosed : 1 3:44 PM (H81.4) Not Available [facility] 4 02:35:45 Insomnia 593629500 Active 2020 Insomnia, unspecifi ed; Note: Date Diagnosed : 1 3:42 PM (G47.00) Not Available [facility] 4 02:35:48 Vertigo of central origin NOS Active 2017 Vertigo of central origin, unspecifi ed ear; Note: Date Diagnosed : 8 10:52 AM (H81.49) Not Available [facility] 4 02:35:40 Refractor y migraine 557346034 Active 2021 Other migraine, intractab le, without status migrainos us; Note: Date Diagnosed : 08/23/2021 1:47 PM (G43.819) Not Available [facility] 4 02:35:41 Bilateral tinnitus 05573960502 02 Active 2017 Tinnitus, bilateral ; Note: Date Diagnosed : 8 10:35 AM (H93.13) Not Available [facility] 4 02:35:45 Dizziness and giddiness 321089458 Active 2017 Dizziness and giddiness ; Note: Date Diagnosed : 8 10:35 AM (R42) Not Available [facility] 4 02:35:44 Migraine 21011754 Active 2017 Other migraine, not intractab le, without status migrainos us; Note: Date Diagnosed : 8 10:52 AM (G43.809) Not Available [facility] 4 02:35:48 Gastroeso phageal reflux disease without esophagit is 880951275 Active 2023 JACKSON JIMÉNEZ PA-C [address] [facility],[place] [address], [place], [address] , [place] - [facility] 12:27:43 Dysphagia 29581758 Active 2023 JACKSON JIMÉNEZ PA-C [address] [address], [place], [address] , [place] - [facility] 12:27:57 Problem Notes None recorded. Procedures Surgical History Date Name Laterality Status Provider Name and Address Organization Details Recorded Time 12/19/2023 FOL_Reflux _JMS completed JACKSON JIMÉNEZ PA-C [address] [place] [address], [place], [phone], [facility] 12/19/2023 12:26:26 Imaging Results Imaging Date Name Status LastModified by Organiz ation Details LastModified Time 01/01/2024 [place], modified barium swallow study [place] [id number], [place], [address], 01/01/2024 15:09:03 Procedure Notes None recorded. Medical [...] at bedtime 2021 active Medicatio n ID: [id number] Pr escribed By Name: Alma Zeng Name: [...] for inhalation 2017 active Medicatio n ID: [id number] Du ration Value: 90 Brand Name: Advair [...] mg capsule 2017 active Medicatio n ID: [id number] Br and Name: Tylenol S end Method: [...] Updated DateTime 12/19/2023 162.56 cm 28 kg/m2 09611.56 g Sulema Patel [place] - [facility] 12/19/2023 11:38:41 Social History None recorded. Functional Status None recorded. Mental Status None recorded. Family History Nothing Reported. Medical History No medical history recorded. Gynecological HistoryNo gynecological history recorded. Obstetrics History GPAL:G 0 P 0 0 0 0 Past Encounters Encounter ID Performer Location Encounter Start Date Encounter Closed Date Diagnosis/Indication Diagnosis SNOMED-CT Code Diagnosis ICD10 Code Diagnosis Note [id number] JACKSON JIMÉNEZ PA-C [facility] [address] [address] 12/19/2023 11:26:21 12/19/2023 12:08:20 Gastroesophageal reflux disease without esophagitis 174955897 K21.9 Dysphagia 29733419 R13.1 0 Health Concerns Section Related Observation LastModified by Organization Caren delcid LastModified Time None Recorded Concern Status LastModified by Organization Details LastModified Time None Recorded Advance Directives Directive None Recorded Payers Insurance Date Sequence Insurance Name Policy Number Policy Sena Covered Member ID Sena Member ID Guarantor Name 12/19/2023 1 [facility] - DOS ON OR AFTER 2022 - MEDICARE [place]VANTAGE [place]MEDICARE REPLACEMENT/ADV ANTAGE - PPO) Mckenzie Montgomery [id number] Mckenzie Montgomery 12/19/2023 1 [facility] - DOS ON OR AFTER 2022 - ONE [employer] (MEDICARE REPLACEMENT/ADV ANTAGE - HMO) Mckenzie Montgomery [id number] Mckenzie Montgomery Notes Date Note Type Note [...] swallowing becomes much better. JACOB TERRAZAS MD [address] [place] [address], [phone], [place] - [facility] 12/19/2023 16:55:57 OBGyn Episode No OBEpisode recorded.
== END 2024-07-04 10:18 | disposition home or self-care (01) ==
LOC: HO.MAMMO 10:17
PROVIDERS: PCP Internal Medicine; Visit Provider Internal Medicine
DX: Z13.820 Encounter for screening for osteoporosis (principal); Z78.0 Asymptomatic menopausal state
CPT/HCPCS: 77080

== ENCOUNTER → 2024-07-04 10:30 | Outpatient (BNV) | payer OTHER, SELFPAY | PROVIDERS: PCP Internal Medicine; Visit Provider Radiology Diagnostic Radiology | DX: E28.39 Other primary ovarian failure (principal) | CPT/HCPCS: 77080 ==

== ENCOUNTER 2024-07-14 11:13 | Outpatient (AMB) | payer OTHER, SELFPAY ==
--- NOTE | 2024-07-14 11:23 | MHC.OFFVIS ---
Vital Signs 07/14/24 11:24 Height 5 ft 4 in Weight 172 lb BMI 29.5 BP 130/89 Blood Pressure Location Lt brachial Position Sitting Pulse 74 Pulse Source Pulse Oximeter Pulse Oximetry (%) 94 Oxygen Delivery Method Room Air Intake Visit Reasons: Sciatica, right side/ashely 06/20 Dry Cure Worker Required: No Allergies Iodinated Contrast Media [IV DYE, IODINE CONTAINING] Allergy (Severe, Verified 07/14/24 11:24) ITCH/RASH clams Allergy (Intermediate, Verified 07/14/24 11:24) ITCHING docusate [From COLACE] Allergy (Intermediate, Verified 07/14/24 11:24) ITCHING lansoprazole [Prevacid] Allergy (Intermediate, Verified 07/14/24 11:24) hives oxybutynin Allergy (Intermediate, Verified 07/14/24 11:24) bladder pain pistachio nut Allergy (Intermediate, Verified 07/14/24 11:24) ITCHING walnut Allergy (Intermediate, Verified 07/14/24 11:24) ITCH/RASH SEASONAL ALLERGIES Allergy (Intermediate, Uncoded 07/14/24 11:24) ITCHY EYES Medication List - Last Reconciled 07/14/24 by Rafaela Arteaga, EDITORIAL SPECIALIST acetaminophen ER (Tylenol 8 Hour) 650 mg PO Q8H PRN albuterol sulfate 2.5 mg (3 mL) inhalation Q6H PRN 30 days albuterol sulfate 90 mcg/actuation 2 puffs inhalation Q6H PRN 30 days NS blood pressure monitor As directed calcium carbonate-vitamin D3 600 mg-10 mcg (400 unit) 1 tab PO MOFR@0900 diclofenac sodium 1% 2 grams topical BID PRN docusate sodium (Colace) 100 mg PO BID fluticasone propion-salmeterol 250-50 mcg/dose (Wixela Inhub) 1 inh inhalation BID fluticasone propionate 50 mcg/actuation 1 spray intranasal DAILY glucosamine sulfate 750 mg PO DAILY guaifenesin ER (Mucinex) 600 mg PO BID 5 days lidocaine 4% (Aspercreme (lidocaine)) 1 patch topical DAILY PRN loratadine 10 mg PO DAILY magnesium oxide 400 mg PO BEDTIME PRN meclizine 25 mg PO TID PRN 30 days metoprolol succinate ER 50 mg PO DAILY pantoprazole 40 mg PO QAM riboflavin (vitamin B2) 400 mg PO DAILY 30 days tobramycin 0.3% 1 drp ophthalmic (eye) Q4H 7 days HPI Comments Details: The patient is a 63-year-old female presenting with chronic low back pain and right sciatic nerve pain. The pain is characterized by severe intensity, a rating of 10/10, and worsens with cold weather and nighttime. Accompanying symptoms include cramping and burning sensations in both feet, stiffness in the right leg, and concomitant pain in both knees despite prior replacements. The patient's significant medical history features severe thoracolumbar scoliosis and mild left sacroiliac joint sclerosis. She experiences episodes of vertigo and manages it with meclizine. Her past management included epidural injections, physical therapy, heat therapy, activity modifications, rest and reliance on a walker. Despite treatment efforts, pain persists, leading to functional impairment and difficulty ambulating. Analgesic use includes Tylenol, with noted side effects to ibuprofen precluding its use. - Onset: Chronic, with history of thoracolumbar scoliosis, left SI sclerosis - Quality: Severe aching, stabbing, burning and cramping (both feet), pinching, sharp - Primary Location: Low back and right sciatica - Areas of Radiation: Into the right leg, lateral and posterior of the legs, feet - Exacerbating Factors: Cold weather, movements, evenings, and nighttime - Relieving Factors: Tylenol and Aleve provide mild relief - Interference: Limits mobility, requires walker use, difficulty in bending, impacts sleep - Affect: Pain contributes to significant distress and impacts psychological well-being - Analgesia: Currently using Tylenol and Aleve with partial relief; does not use muscle relaxants - Adverse Effects: Dizziness and vertigo from certain medications; bruising from ibuprofen; avoids non-steroidal anti-inflammatory drugs due to bruising, but for severe pain will take Aleve - Activities of Daily Living: [place] on walker; unable to perform certain movements without pain; pain limits sleep - Aberrant Drug Related Behaviors: None reported [facility] Medical History Rhinosinusitis Acute respiratory failure with hypoxia Migraine Cough MAXIMILIANO (obstructive sleep apnea) Bronchitis PONV (postoperative nausea and vomiting) Helicobacter pylori (H. pylori) Physical exam UTI (urinary tract infection) Scoliosis Restrictive lung disease Dysphagia Mild major depression, single episode Right shoulder pain COPD (chronic obstructive pulmonary disease) Allergic rhinosinusitis Acute bronchitis Asthma Anemia Primary osteoarthritis involving multiple joints Essential hypertension Right ankle pain Allergic rhinitis Surgical History History of laparoscopic appendectomy (~09/10/23) History of esophagogastroduodenoscopy (EGD) Hx of colonoscopy Hx of cardiac cath History of total left knee replacement History of arthroscopy of right knee History of hemorrhoidectomy History of total right knee replacement History of total abdominal hysterectomy History of tonsillectomy Family History Father Alcoholism Arthritis Mother Diabetes Acute CVA (cerebrovascular accident) Sister Breast cancer Family/Other FH: mental illness Brother Diabetes Myocardial infarct Daughter In good health Daughter In good health Daughter In good health Social History Household Members: Spouse Housing: House Alcohol intake: never Patient Tobacco Use Status: Never used Tobacco e-Cigarette/Vaping Use: Never Used Second Hand Smoke Exposure: No Advance Directives Date on File: 11/28/19 service: No 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al status: disabled 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 Cognitive needs: No Hearing needs: No Vision needs: Yes Review of Systems Const Details: - Musculoskeletal: Reports low back pain, knee pain, leg cramping; denies buttock involvement - Neurological: Reports vertigo; denies diabetes - Integumentary: Reports burning and tingling of feet - Musculoskeletal: Denies significant benefit from prior knee replacements All systems reviewed & are unremarkable except as noted in HPI and below Physical Exam Vital Signs: Last Vital Signs Pulse 74 07/14/24 11:24 BP 130/89 07/14/24 11:24 Pulse Ox 94 07/14/24 11:24 Oxygen Delivery Method Room Air 07/14/24 11:24 BMI result Body Mass Index 29.5 General: Appears afebrile. Alert and oriented. Mood and affect appropriate. Follows and participates in conversation appropriately. Respiratory effort is unlabored. No cough. Able to transition from sit to stand unassisted. Ambulates with bilaterally normal heel strike and toe off. General: Yes no CVA tenderness Back/Spine/Pelvis Other: Patient is able to walk and stand on heels and tip toes with no difficulties demonstrating good motor tone. Normal gait, no limping. Can flex forward to 70-75 degrees and extend to 5-10 degrees before experiencing lumbar pain. Demonstrates 5/5 left and 4/5 right strength of quadriceps bilaterally as well as flexion/dorsiflexion of bilateral feet against resistance. 2+ pedal pulses bilaterally. Straight leg rise with dorsiflexion negative bilaterally. +1 patellar and diminished achilles reflexes bilaterally. Facet loading test positive bilaterally. Corazon sign, Ady?s, [place], Pelvic compression and Stinchfield tests are positive bilaterally, left>right. No groin pain with I/E hip rotations. TTP to right GTB. Significant paraspinals tenderness mostly on the right side of thoracic and lower back. Valsalva maneuver is negative. Back: no CVA tenderness Cervical Spine: cervical ROM normal, cervical muscular tenderness, No Cervical spine scars present and No Cervical spine tenderness Thoracic/Lumbar Spine: thoracic and lumbar spine normal to inspection, No Thoracic/lumbar spine scar(s), Lasegue's sign negative, straight leg raise negative bilaterally, kyphosis, pain with thoraco-lumbar ROM, paraspinal muscle tenderness on the right greater than left, thoraco-lumbar ROM limited, Thoracic/lumbar scoliosis, No thoracic spinal tenderness and lumbar spinal tenderness at L4 and at L5 Pelvis: buttock tenderness on the right Sacroiliac joints: bilaterally tender to palpation Extrem General: Yes normal to inspection, Yes capillary refill normal, Yes no clubbing, cyanosis or edema and Yes no calf tenderness Results Reviewed Results Reviewed: CT abdomen pelvis wo IV con 09/09/23 OSSEOUS STRUCTURES: Severe thoracolumbar scoliosis. Mild left inferior SI sclerosis. Assessment & Plan Assessment & Plan (1) Scoliosis: Comment: MODERATELY SEVERE DEXTROSCOLIOSIS OF THORACOLUMBAR SPINE. Code(s): M41.9 - Scoliosis, unspecified Category: Medical (2) Right sciatic nerve pain: Code(s): M54.31 - Sciatica, right side Category: Medical (3) Thoracic spondylosis: Code(s): M47.814 - Spondylosis without myelopathy or radiculopathy, thoracic region Category: Medical (4) Lumbosacral spondylosis: Code(s): M47.817 - Spondylosis without myelopathy or radiculopathy, lumbosacral region Category: Medical (5) Chronic low back pain: Code(s): M54.50 - Low back pain, unspecified; G89.29 - Other chronic pain Category: Medical (6) Paresthesia of both lower extremities: Code(s): R20.2 - Paresthesia of skin Category: Medical Plan I will obtain a lumbar and thoracic spine x-rays and an EMG study of bilateral lower extremities to determine the underlying cause of the patient's chronic pain symptoms, particularly assessing for neuropathy or nerve involvement. Lidocaine 5% patches will be prescribed for local pain management. The patient will continue taking Tylenol but will avoid NSAIDs due to previous bruising. She does tolerate Aleve with rare use for moderate-severe pain. A decision on potential MRI follow-up will be contingent upon initial findings. I advised the patient to utilize conservative self-care measures and outlined the necessary follow-up steps, including potential discussion of physical therapy benefits after imaging evaluation. All questions and concerns have been answered and patient agreed with the plan. Follow up for xrays/EMG results and sooner as needed. Patient was informed and verbally consented to the use of an ambient scribe for clinic note documentation during this visit. Orders: Orders XR thoracic spine 3V 07/14/24 M41.9 - Scoliosis, unspecified, M47.814 - Spondylosis without myelopathy or radiculopathy, thoracic region XR lumbar spine 4V min 07/14/24 M41.9 - Scoliosis, unspecified, M47.817 - Spondylosis without myelopathy or radiculopathy, lumbosacral region, M54.31 - Sciatica, right side NE electromyogram (EMG) Today G89.29 - Other chronic pain, M41.9 - Scoliosis, unspecified, M54.31 - Sciatica, right side, M54.50 - Low back pain, unspecified, R20.2 - Paresthesia of skin NE nerve conduction velocity Today G89.29 - Other chronic pain, M41.9 - Scoliosis, unspecified, M54.31 - Sciatica, right side, M54.50 - Low back pain, unspecified, R20.2 - Paresthesia of skin Medications: New lidocaine 5% leave on most painful area for up to 12 hrs topically daily; 30 days 30 ea 0RF back pain G89.29 - Other chronic pain, M41.9 - Scoliosis, unspecified, M47.814 - Spondylosis without myelopathy or radiculopathy, thoracic region, M47.817 - Spondylosis without myelopathy or radiculopathy, lumbosacral region, M54.50 - Low back pain, unspecified Patient Instructions: - Continue taking Tylenol as instructed for pain relief. - Avoid using ibuprofen to prevent bruising. - Apply the lidocaine patches as prescribed to the painful areas. - Attend the scheduled x-ray and EMG appointments for further evaluation. - Avoid straining activities and follow any physical exercises or therapy suggestions from previous sessions that may help manage the pain. - Contact the clinic if new symptoms arise or if the pain worsens. - Follow up with the depilatory painter as advised to discuss test results and future management steps. Coding Level of Care Code New Pt Level 4 (64763) Diagnoses Scoliosis M41.9 Right sciatic nerve pain M54.31 Thoracic spondylosis M47.814 Lumbosacral spondylosis M47.817 Chronic low back pain M54.50; G89.29 Paresthesia of both lower extremities R20.2
[2024-07-14 11:24] VITALS: BP 130/89; PULSE 74; O2SAT 94; BMI 29.5
--- OUTSIDE RECORDS SUMMARY | 2024-07-14 11:56 | XMS_ITS | Data Portability ---
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 Patient TargetsNo targets recorded. Patient InstructionsNo instructions recorded. Reason for Referral None Reported. Results Created Date Observation Date Name Description Value Unit Range Abnormal Flag Note LastModifiedBy Organization Detail LastModifiedTime 01/01/20 24 01/01/2024 [place], modif ied randall dunn ow study No observ ation record ed. [email or web address] [facility] Of [address], [address], 01/01/2024 15:09:03 Result Notes None recorded. Problems Name Problem SNOMED Code Status Onset Date Resolution Date Notes Provider Name and Address Organization Details Recorded Time Vertigo of central origin 80457241 Active 2020 Vertigo of central origin; Note: Date Diagnosed : 1 3:44 PM (H81.4) Not Available [facility] 4 02:35:45 Insomnia 059041669 Active 2020 Insomnia, unspecifi ed; Note: Date Diagnosed : 1 3:42 PM (G47.00) Not Available [facility] 4 02:35:48 Vertigo of central origin NOS Active 2017 Vertigo of central origin, unspecifi ed ear; Note: Date Diagnosed : 8 10:52 AM (H81.49) Not Available [facility] 4 02:35:40 Refractor y migraine 931233009 Active 2021 Other migraine, intractab le, without status migrainos us; Note: Date Diagnosed : 08/23/2021 1:47 PM (G43.819) Not Available [facility] 4 02:35:41 Bilateral tinnitus 45709215982 02 Active 2017 Tinnitus, bilateral ; Note: Date Diagnosed : 8 10:35 AM (H93.13) Not Available [facility] 4 02:35:45 Dizziness and giddiness 351383433 Active 2017 Dizziness and giddiness ; Note: Date Diagnosed : 8 10:35 AM (R42) Not Available [facility] 4 02:35:44 Migraine 89358592 Active 2017 Other migraine, not intractab le, without status migrainos us; Note: Date Diagnosed : 8 10:52 AM (G43.809) Not Available [facility] 4 02:35:48 Gastroeso phageal reflux disease without esophagit is 023448819 Active 2023 JACKSON JIMÉNEZ PA-C [address] [facility],[address] [address] [address], [place], [address] , [place] - [facility] 12:27:43 Dysphagia 31308196 Active 2023 JACKSON JIMÉNEZ PA-C [address] [address], [place], [address] , [place] - [facility] 12:27:57 Problem Notes None recorded. Procedures Surgical History Date Name Laterality Status Provider Name and Address Organization Details Recorded Time 12/19/2023 FOL_Reflux _JMS completed JACKSON JIMÉNEZ PA-C [address] [place] [address], [place], [address], [facility] 12/19/2023 12:26:26 Imaging Results Imaging Date Name Status LastModified by Organiz ation Details LastModified Time 01/01/2024 [place], modified bar[place] [id number], [place], [address], 01/01/2024 15:09:03 Procedure Notes None recorded. Medical [...] at bedtime 2021 active Medicatio n ID: [id number] Pr escribed By Name: Alma Zeng Name: [...] for inhalation 2017 active Medicatio n ID: [id number] Du ration Value: 90 Brand Name: Advair [...] mg capsule 2017 active Medicatio n ID: [id number] Br and Name: Tylenol S end Method: [...] Updated DateTime 12/19/2023 162.56 cm 28 kg/m2 79822.56 g Sulema Patel [place] - [facility] 12/19/2023 11:38:41 Social History None recorded. Functional Status None recorded. Mental Status None recorded. Family History Nothing Reported. Medical History No medical history recorded. Gynecological HistoryNo gynecological history recorded. Obstetrics History GPAL:G 0 P 0 0 0 0 Past Encounters Encounter ID Performer Location Encounter Start Date Encounter Closed Date Diagnosis/Indication Diagnosis SNOMED-CT Code Diagnosis ICD10 Code Diagnosis Note [id number] JACKSON JIMÉNEZ PA-C [facility] [address] [address] 12/19/2023 11:26:21 12/19/2023 12:08:20 Gastroesophageal reflux disease without esophagitis 379464822 K21.9 Dysphagia 91624058 R13.1 0 Health Concerns Section Related Observation LastModified by Organization Caren delcid LastModified Time None Recorded Concern Status LastModified by Organization Details LastModified Time None Recorded Advance Directives Directive None Recorded Payers Insurance Date Sequence Insurance Name Policy Number Policy Sena Covered Member ID Sena Member ID Guarantor Name 12/19/2023 1 [facility] - DOS ON OR AFTER 2022 - MEDICARE [place]VANTAGE [place]PLACEMENT/ADV ANTAGE - PPO) Mckenzie Montgomery [id number] Mckenzie Montgomery 12/19/2023 1 [facility] - DOS ON OR AFTER 2022 - ONE CARE (MEDICARE REPLACEMENT/ADV ANTAGE - HMO) Mckenzie Montgomery [id number] Mckenzie Montgomery Notes Date Note Type Note [...] swallowing becomes much better. JACOB TERRAZAS MD [address] [place] [address], [address], [place] - [facility] 12/19/2023 16:55:57 OBGyn Episode No OBEpisode recorded.
== END 2024-07-14 11:50 | disposition home or self-care (01) ==
LOC: HO.PMC 11:14
PROVIDERS: PCP Internal Medicine; Referring Provider Internal Medicine; Visit Provider Nurse Practitioner Family
DX: M41.9 Scoliosis, unspecified (principal); M54.31 Sciatica, right side; M47.814 Spondylosis without myelopathy or radiculopathy, thoracic region; M47.817 Spondylosis without myelopathy or radiculopathy, lumbosacral region; M54.50 Low back pain, unspecified; G89.29 Other chronic pain; R20.2 Paresthesia of skin
CPT/HCPCS: 99204

== ENCOUNTER 2024-07-14 11:13 | Outpatient (REF) | payer OTHER, SELFPAY ==
--- NOTE | ~2024-07-14 | XR_ITS ---
CLINICAL HISTORY: M41.9 - Scoliosis, unspecified Exam: AP and lateral views of the thoracic spine. Comparison: Chest x-ray February 17, 2024. Findings: Severe S curvature scoliosis. This is convex left within the upper thoracic spine, convex right within the mid to lower thoracic spine, convex left in the lumbar spine. This is not appreciably changed compared to the patient's prior study. No acute fracture. There is degenerative change along the concave portions of the curvature. Impression: Severe scoliosis. This document has been electronically signed by: Malcolm Wharton MD on 07/15/2024 07:49:23
--- NOTE | ~2024-07-14 | XR_ITS ---
CLINICAL HISTORY: M41.9 - Scoliosis, unspecified Exam: AP, lateral, spot lateral, bilateral oblique views of the lumbar spine. Comparison: None. Findings: Moderate convex left mid lumbar curvature with apex at L3. Alignment is anatomic on the lateral view. No fracture. Mild disc space narrowing within the mid to upper lumbar spine with ypuh-[id number]-[id number] facet joint degenerative change along the con cave portion of the curvature. Bilateral sacroiliac joint DJD. Impression: Spinal curvature with predominantly facet joint degenerative change along the concave portion of the curvature. This document has been electronically signed by: Malcolm Wharton MD on 07/15/2024 08:07:55
== END 2024-07-14 11:14 | disposition home or self-care (01) ==
LOC: HO.XRAY 11:13
PROVIDERS: PCP Internal Medicine; Referring Provider Internal Medicine; Visit Provider Nurse Practitioner Family
DX: M41.9 Scoliosis, unspecified (principal); M47.814 Spondylosis without myelopathy or radiculopathy, thoracic region; M54.31 Sciatica, right side; M47.817 Spondylosis without myelopathy or radiculopathy, lumbosacral region; G89.29 Other chronic pain
CPT/HCPCS: 72072; 72110; 99202

== ENCOUNTER → 2024-07-14 12:05 | Outpatient (BNV) | payer OTHER, SELFPAY | PROVIDERS: PCP Internal Medicine; Referring Provider Internal Medicine; Visit Provider Radiology Diagnostic Radiology | DX: M51.369 Other intervertebral disc degeneration, lumbar region without mention of lumbar back pain or lower extremity pain (principal); M41.34 Thoracogenic scoliosis, thoracic region | CPT/HCPCS: 72072; 72110 ==

== ENCOUNTER 2024-07-29 14:22 | Outpatient (REF) | payer OTHER, SELFPAY ==
--- OUTSIDE RECORDS SUMMARY | 2024-07-29 16:13 | XMS_ITS | Data Portability ---
Author Organization [place] - [facility], Allergy Address [address] [place] [address] Care Team Providers Care Maintenance Pipefitter Name Role Phone ELIZABETH RAMOS Primary Care [...] [place], modified barium swallow study 2023 024 [email or web address], [address] [place] [address], [facility] [address], [place], [address], 12:05:11 Medication Orders None recorded. Patient TargetsNo targets recorded. Patient InstructionsNo instructions recorded. Reason for Referral None Reported. Results Created Date Observation Date Name Description Value Unit Range Abnormal Flag Note LastModifiedBy Organization Detail LastModifiedTime 01/01/20 24 01/01/2024 [place], modif ied randall dunn ow study No observ ation record ed. [facility] Of [address], [address], 01/01/2024 15:09:03 Result Notes None recorded. Problems Name Problem SNOMED Code Status Onset Date Resolution Date Notes Provider Name and Address Organization Details Recorded Time Vertigo of central origin 76285088 Active 2020 Vertigo of central origin; Note: Date Diagnosed : 1 3:44 PM (H81.4) Not Available [facility] 4 02:35:45 Insomnia 957126469 Active 2020 Insomnia, unspecifi ed; Note: Date Diagnosed : 1 3:42 PM (G47.00) Not Available [facility] 4 02:35:48 Vertigo of central origin NOS Active 2017 Vertigo of central origin, unspecifi ed ear; Note: Date Diagnosed : 8 10:52 AM (H81.49) Not Available [facility] 4 02:35:40 Refractor y migraine 104543591 Active 2021 Other migraine, intractab le, without status migrainos us; Note: Date Diagnosed : 08/23/2021 1:47 PM (G43.819) Not Available [facility] 4 02:35:41 Bilateral tinnitus 35116413830 02 Active 2017 Tinnitus, bilateral ; Note: Date Diagnosed : 8 10:35 AM (H93.13) Not Available [facility] 4 02:35:45 Dizziness and giddiness 145800729 Active 2017 Dizziness and giddiness ; Note: Date Diagnosed : 8 10:35 AM (R42) Not Available [facility] 4 02:35:44 Migraine 96850437 Active 2017 Other migraine, not intractab le, without status migrainos us; Note: Date Diagnosed : 8 10:52 AM (G43.809) Not Available [facility] 4 02:35:48 Gastroeso phageal reflux disease without esophagit is 789608592 Active 2023 JACKSON JIMÉNEZ PA-C [address] [facility] [address] [address], [place], [address] , [facility] - [facility] 12:27:43 Dysphagia 91825543 Active 2023 JACKSON JIMÉNEZ PA-C [address] [facility] [address],[facility] [address], [place], [address] , [facility] - [facility] 12:27:57 Problem Notes None recorded. Procedures Surgical History Date Name Laterality Status Provider Name and Address Organization Details Recorded Time 12/19/2023 FOL_Reflux _JMS completed JACKSON JIMÉNEZ PA-C [address] [facility],[place] [address], [place], [address], [facility] 12/19/2023 12:26:26 Imaging Results None recorded. [...] at bedtime 2021 active Medicatio n ID: [id number] Pr escribed By Name: Alma Zeng Name: [...] for inhalation 2017 active Medicatio n ID: [id number] Du ration Value: 90 Brand Name: Advair [...] mg capsule 2017 active Medicatio n ID: [id number] Br and Name: Tylenol S end Method: [...] Updated DateTime 12/19/2023 162.56 cm 28 kg/m2 55264.56 g Sulema Patel [place] - [facility] 12/19/2023 11:38:41 Social History None recorded. Functional Status None recorded. Mental Status None recorded. Family History Nothing Reported. Medical History No medical history recorded. Gynecological HistoryNo gynecological history recorded. Obstetrics History GPAL:G 0 P 0 0 0 0 Past Encounters Encounter ID Performer Location Encounter Start Date Encounter Closed Date Diagnosis/Indication Diagnosis SNOMED-CT Code Diagnosis ICD10 Code Diagnosis Note [id number] JACKSON JIMÉNEZ PA-C [facility] [address] [address] 12/19/2023 11:26:21 12/19/2023 12:08:20 Gastroesophageal reflux disease without esophagitis 983668964 K21.9 Dysphagia 11817291 R13.1 0 Health Concerns Section Related Observation LastModified by Organization Detai ls LastModified Time None Recorded Concern Status LastModified by Organization Details LastModified Time None Recorded Advance Directives Directive None Recorded Payers Insurance Date Sequence Insurance Name Policy Number Policy Sena Covered Member ID Sena Member ID Guarantor Name 12/19/2023 1 [facility] - DOS ON OR AFTER 2022 - MEDICARE [place]AGE [place]ADV ANTAGE - PPO) Mckenzie Montgomery [id number] Mckenzie Montgomery 12/19/2023 1 [facility] - DOS ON OR AFTER 2022 - ONE CARE (MEDICARE REPLACEMENT/ADV ANTAGE - HMO) Mckenzie Montgomery [id number] Mckenzie Montgomery Notes Date Note Type Note [...] becomes much better. JACOB TERRAZAS MD [address] [place] [address], [place], [address], [place] - [facility] 12/19/2023 16:55:57 OBGyn Episode No OBEpisode recorded.
== END 2024-07-29 14:23 | disposition home or self-care (01) ==
LOC: HO.MAMMO 14:22
PROVIDERS: PCP Internal Medicine; Visit Provider Internal Medicine
DX: Z12.31 Encounter for screening mammogram for malignant neoplasm of breast (principal)
CPT/HCPCS: 77063; 77067

== ENCOUNTER → 2024-07-29 14:30 | Outpatient (BNV) | payer OTHER, SELFPAY | PROVIDERS: PCP Internal Medicine; Visit Provider Internal Medicine | DX: Z12.31 Encounter for screening mammogram for malignant neoplasm of breast (principal) | CPT/HCPCS: 77063; 77067 ==

== ENCOUNTER 2024-09-12 11:32 | Outpatient (AMB) | payer OTHER, SELFPAY ==
--- NOTE | 2024-09-12 11:35 | MHC.OFFVIS ---
Vital Signs 09/12/24 11:39 Height 5 ft 4 in Weight 171 lb BMI 29.3 BP 114/66 Blood Pressure Location Lt brachial Position Sitting Pulse 75 Pulse Oximetry (%) 96 Oxygen Delivery Method Room Air Intake Visit Reasons: Epigastric Pain, Follow Up r/s 07/25/24 Intake Note: Patient follow up for Epigastric Pain. Patient cc: nauseas, abdominal pain with bloating and discomfort, constipation with some bloody hemorrhoids, and swallowing difficulties/sticky food and soda acid. Extermination Supervisor Required: No Accompanied by: Self / Same As Patient Allergies Iodinated Contrast Media (IV DYE, IODINE CONTAINING) Allergy (Severe, Verified 09/12/24 11:34) ITCH/RASH clams Allergy (Intermediate, Verified 09/12/24 11:34) ITCHING docusate (From COLACE) Allergy (Intermediate, Verified 09/12/24 11:34) ITCHING lansoprazole (Prevacid) Allergy (Intermediate, Verified 09/12/24 11:34) hives oxybutynin Allergy (Intermediate, Verified 09/12/24 11:34) bladder pain pistachio nut Allergy (Intermediate, Verified 09/12/24 11:34) ITCHING walnut Allergy (Intermediate, Verified 09/12/24 11:34) ITCH/RASH SEASONAL ALLERGIES Allergy (Intermediate, Uncoded 07/14/24 11:24) ITCHY EYES HPI HPI Epigastric Pain, Follow Up r/s 07/25/24: Details: LAST VISIT Abdominal pain Dysphagia Constipation by delayed colonic transit GERD (gastroesophageal reflux disease) IBS (irritable bowel syndrome) Plan Patient continues to have trouble swallowing food like rice and solids. Patient had upper endoscopy last year did not showed eosinophilic esophagitis. Continue pantoprazole. Continue avoiding dietary triggers and late night snacking. Staying upright for minimum 3 hours after meals discussed with patient. Continue MiraLax as needed. Increase fluid intake and activity to promote better bowel motility. RAST allergen test ordered. Referral to allergy/immunology. Patient will follow-up in our office in 6 months, sooner on as needed basis. She is agreeable to this plan and verbalizes understanding of instructions. She was given the opportunity to ask questions and all questions answered. ? Thank you for allowing me to participate in her care Orders Rast Allergen Today K21.9 Referrals Allergy & Immunology Referral J30.9 TODAY'S VISIT: Patient is here today for follow-up. Patient reports that she continues to have trouble swallowing depending on what she eats. Usually happens with food like bread or rice. Sometimes when she drinks soda she is burping afterwards quite a bit. Reports occasional dyspepsia denies odynophagia. Patient also reports abdominal bloating. States that she gets bloated so much that she feels like she was . Having trouble passing gas. Moving her bowels, however frequently feeling like she is not emptying her bowels completely. Patient reports occasional nausea without vomiting. Epigastric pain as well as generalized pain throughout the whole abdomen. Pain feels more like cramping. Patient denies melena, hematochezia, unintentional weight loss or ribbon like stools [facility] Medical History Rhinosinusitis Acute respiratory failure with hypoxia Migraine Cough MAXIMILIANO (obstructive sleep apnea) Bronchitis PONV (postoperative nausea and vomiting) Helicobacter pylori (H. pylori) Physical exam UTI (urinary tract infection) Scoliosis Restrictive lung disease Dysphagia Mild major depression, single episode Right shoulder pain COPD (chronic obstructive pulmonary disease) Allergic rhinosinusitis Acute bronchitis Asthma Anemia Primary osteoarthritis involving multiple joints Essential hypertension Right ankle pain Allergic rhinitis Surgical History History of laparoscopic appendectomy (~09/10/23) History of esophagogastroduodenoscopy (EGD) Hx of colonoscopy Hx of cardiac cath History of total left knee replacement History of arthroscopy of right knee History of hemorrhoidectomy History of total right knee replacement History of total abdominal hysterectomy History of tonsillectomy Family History Father Alcoholism Arthritis Mother Diabetes Acute CVA (cerebrovascular accident) Sister Breast cancer Family/Other FH: mental illness Brother Diabetes Myocardial infarct Daughter In good health Daughter In good health Daughter In good health Social History Household Members: Spouse Housing: House Alcohol intake: never Patient Tobacco Use Status: Never used Tobacco e-Cigarette/Vaping Use: Never Used Second Hand Smoke Exposure: No Advance Directives Date on File: 11/28/19 service: No 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al status: disabled 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 Cognitive needs: No Hearing needs: No Vision needs: Yes Review of Systems Const Denies weight gain and Denies weight loss ENT Reports no additional complaints, Reports dysphagia and Denies odynophagia Card Reports no additional complaints Resp Reports no additional complaints GI Denies abdominal pain, Denies belching, Denies melena, Reports bloating, Denies change in bowel habits, Reports dysphagia, Denies excessive flatus, Reports dyspepsia, Reports heartburn, Denies diarrhea, Denies loose stools, Denies nausea, Denies odynophagia and Denies vomiting Reports no additional complaints Musc Reports no additional complaints Neuro Reports no additional complaints Psych Reports no additional complaints Endo Reports no additional complaints Physical Exam Vital Signs: Last Vital Signs Pulse 75 09/12/24 11:39 BP 114/66 09/12/24 11:39 Pulse Ox 96 09/12/24 11:39 Oxygen Delivery Method Room Air 09/12/24 11:39 BMI result Body Mass Index 29.3 Const General: healthy appearing and no acute distress Nutritional Appearance: obese Orientation/consciousness: patient oriented x3 Resp Effort & Inspection: normal respiratory effort, able to speak in complete sentences, no tracheal deviation and symmetric chest movement Auscultation: clear to auscultation bilaterally Cardio Rate: regular rate GI Inspection: Yes normal to inspection, No distended and Yes obesity Palpation (GI): Soft to palpation, not firm, nontender and No hepatosplenomegaly present Auscultation: normal bowel sounds General: Yes no CVA tenderness Back/Spine/Pelvis Back: no CVA tenderness Skin General skin exam: elasticity normal, turgor normal and dry skin Neuro General: patient oriented x3 Psych Appearance: grossly normal Mental Status: mental status grossly normal Assessment & Plan Assessment & Plan (1) Dysphagia: Code(s): R13.10 - Dysphagia, unspecified Category: Medical Qualifiers: Dysphagia type: unspecified Qualified Code(s): R13.10 - Dysphagia, unspecified (2) GERD (gastroesophageal reflux disease): Code(s): K21.9 - Gastro-esophageal reflux disease without esophagitis Category: Medical Qualifiers: Esophagitis presence: esophagitis presence not specified Qualified Code(s): K21.9 - Gastro-esophageal reflux disease without esophagitis (3) Transaminitis: Code(s): R74.01 - Elevation of levels of liver transaminase levels Category: Medical (4) Constipation by delayed colonic transit: Code(s): K59.01 - Slow transit constipation Category: Medical (5) Abdominal pain: Code(s): R10.9 - Unspecified abdominal pain Category: Medical Qualifiers: Abdominal location: epigastric Qualified Code(s): R10.13 - Epigastric pain (6) Postprandial abdominal bloating: Code(s): R14.0 - Abdominal distension (gaseous) Plan Continue pantoprazole daily. Avoid dietary triggers and late night snacking. Staying upright for minimum 3 hours after meals discussed with patient. Patient will start taking senna in the evening. Increase fluid intake and activity to promote better bowel motility. Simethicone for excessive gas with meals. Discussed with patient low FODMAP diet. List of food recommended as well as list of food to avoid given to patient. Patient will return in 3 months. Patient will call if her symptoms will continue or will get worse. She is agreeable to current plan of care and verbalizes understanding of instructions. She was given the opportunity to ask questions and all questions answered. Thank you for allowing me to participate in her care Medications: New sennosides (Natural Senna Laxative) 17.2 mg (2 x 8.6 mg) PO BEDTIME 60 tabs 3RF constipation K59.00 - Constipation, unspecified simethicone (Gas Relief (simethicone)) 125 mg PO BID-TID PRN 90 tabs 3RF abdominal distention Refilled pantoprazole 40 mg PO QAM 90 tabs 2RF Coding Level of Care Code Est Pt Level 4 (43319) Complex EM visit Add On G2211 Diagnoses Dysphagia, unspecified type R13.10 Dysphagia type: unspecified Gastroesophageal reflux disease, unspecified whether esophagitis present K21.9 Esophagitis presence: esophagitis presence not specified Transaminitis R74.01 Constipation by delayed colonic transit K59.01 Epigastric pain R10.13 Abdominal location: epigastric Postprandial abdominal bloating R14.0 Time Spent (min) 35 Comment 25 minutes spent with patient and additional 10 minutes spent reviewing her records
[2024-09-12 11:39] VITALS: BP 114/66; PULSE 75; O2SAT 96; BMI 29.3
--- OUTSIDE RECORDS SUMMARY | 2024-09-12 11:56 | XMS_ITS | Patient Health Record ---
Author Organization [facility] Address [address] [place] [address] Care Team Providers Care Clinical Tech Name Role Phone Nora Anderson Primary Care Provider Unavailab Jorge A Hayden Jr Unavailable [phone] Allergies Allergen (clinical drug ingredient) Drug/Non Drug Allergy documented on EMR Reaction Allergy Type Onset Date Status esomeprazole Nexium rash Drug Allergy Acti ve food allergies (uncoded) Unknown Allergy Active IVP dye (uncoded) Unknown Allergy Ac tive Reason For Referral No Information Medications Medication SIG (Take, Route, Frequency, Duration) Notes Start Date End Date Status Tylenol 325 MG 1 tablets as needed Orally prn Active busPIRone HCl 5 MG 1 tablet Orally three x a day Active Anusol-HC 25 MG 1 suppository Rectal Two times a day for 14 days 05/07/2018 Active Famotidine 20 MG 1 tablet Orally Once a day Active Albuterol Sulfate (2.5 MG/3ML) 0.083% 3 ml as needed Inhalation Three times a day Active Calcium + D 600-200 MG-UNIT 1 tablet with food Orally Once a day Active MiraLax (colon prep) 8.3 ounce ((238) grams mixed with Gatorade or Crystal Light orally begin at 5:00 p.m. the day before the procedure for 1 day 01/30/2018 Active Famotidine 40 MG TAKE 1 TABLET BY MOUTH TWICE A DAY for 90 Advise pt to call and schedule appointment. Active Claritin 10 MG 1 tablet Orally Once a day Active Glucosamine Chondr 500 Complex - 1 Orally QD Active Opal Allergy 180 MG 1 tablet as needed Orally Once a day Active Flonase 50 MCG/ACT 2 spray in each nostril Nasally Once a day Active Ventolin HFA 108 (90 Base) MCG/ACT 2 puffs as needed Inhalation every 4 hrs Active Advair Diskus 500-50 MCG/DOSE 1 puff Inhalation Twice a day Active Problems Problem Type SNOMED Code ICD Code Onset Dates Problem Status W/U Status Risk Notes Problem 61048560 Rectal bleeding (K62.5) Active confirmed Problem 171621296 Gastro-esophagea l reflux disease without esophagitis (K21.9) Active confirmed Problem 691535852 Personal history of colonic polyps (Z86.010) Active confirmed Problem 66004713 Irritable bowel syndrome without diarrhea (K58.9) Active confirmed Problem 02685943 Dysphagia, unspecified type (R13.10) Active confirmed Plan Of Treatment Future Test Test Name Order Date COLONOSCOPY 11/04/2015 COLONOSCOPY 01/30/2018 Insurance Providers Payer Name Payer Address Payer Phone Subscriber Number Group Number Insured Name Patient Relationship to Insured Coverage Start Date Coverage End Date [facility] [address] [place] [address] [id number] ISMA RODRÍGUEZ Self - patient is the insured Medical (General) History Medical History History ICD Code colonoscopy 01/28/16. Hyperplastic polyps x2, prior history of adenomas. degenerative joint disease gerd Peptic Ulcer Disease Asthma interstitial cystitis migraines Surgical History Surgery Date(Month/Year) hysterectomy tonsillectomy right knee arthroplasty throat left knee arthroscopy cystoscopy right knee replacement 12/2015
--- OUTSIDE RECORDS SUMMARY | 2024-09-12 11:56 | XMS_ITS | Data Portability ---
Author Organization [place] - [facility], [facility] Address [address] [address] Care Team Providers Care Hand Etcher Helper Name Role Phone ELIZABETH RAMOS Primary Care Provider [phone] Assessment Encounter Date Assessment Date Assessment LastModified [...] [place], modified barium swallow study 2023 024 [email or web address] [facility], [address], [place], [address], 12:05:11 Medication Orders None recorded. Patient TargetsNo targets recorded. Patient InstructionsNo instructions recorded. Reason for Referral None Reported. Results Created Date Observation Date Name Description Value Unit Range Abnormal Flag Note LastModifiedBy Organization Detail LastModifiedTime 01/01/20 24 01/01/2024 [place], modif ied randall clark study No observ ation record ed. [email or web address] Ents Of [address], [address], 01/01/2024 15:09:03 Result Notes None recorded. Problems Name Problem SNOMED Code Status Onset Date Resolution Date Notes Provider Name and Address Organization Details Recorded Time Vertigo of central origin NOS Active 2017 Vertigo of central origin, unspecifi ed ear; Note: Date Diagnosed : 8 10:52 AM (H81.49) Not Available [facility] 4 02:35:40 Bilateral tinnitus 92433806586 02 Active 2017 Tinnitus, bilateral ; Note: Date Diagnosed : 8 10:35 AM (H93.13) Not Available [facility] 4 02:35:45 Dizziness and giddiness 430434732 Active 2017 Dizziness and giddiness ; Note: Date Diagnosed : 8 10:35 AM (R42) Not Available [facility] 4 02:35:44 Migraine 07860026 Active 2017 Other migraine, not intractab le, without status migrainos us; Note: Date Diagnosed : 8 10:52 AM (G43.809) Not Available [facility] 4 02:35:48 Vertigo of central origin 72060180 Active 2020 Vertigo of central origin; Note: Date Diagnosed : 1 3:44 PM (H81.4) Not Available [facility] 4 02:35:45 Insomnia 735491457 Active 2020 Insomnia, unspecifi ed; Note: Date Diagnosed : 1 3:42 PM (G47.00) Not Available [facility] 4 02:35:48 Refractor y migraine 360288003 Active 2021 Other migraine, intractab le, without status migrainos us; Note: Date Diagnosed : 08/23/2021 1:47 PM (G43.819) Not Available [facility] 4 02:35:41 Gastroeso phageal reflux disease without esophagit is 649584370 Active 2023 JACKSON JIMÉNEZ PA-C [address] [facility] [address] [address], [place], [address] , [facility] 12:27:43 Dysphagia 03739517 Active 2023 JACKSON JIMÉNEZ PA-C [address] [facility] [place],[facility] [address], [place], [address] , [facility] 12:27:57 Problem Notes None recorded. Procedures Surgical History Date Name Laterality Status Provider Name and Address Organization Details Recorded Time 12/19/2023 FOL_Reflux _JMS completed JACKSON JIMÉNEZ PA-C 100 [facility],[place] [address], [place], [address], [facility] 12/19/2023 12:26:26 Imaging Results None recorded. Procedure [...] at bedtime 2021 active Medicatio n ID: [id number] Pr escribed By Name: Alma Zeng Name: javaniptthiago line Send Method: E-Prescri bed Subs Allowed: [...] for inhalation 2017 active Medicatio n ID: [id number] Du ration Value: 90 Brand Name: Advair [...] mg capsule 2017 active Medicatio n ID: [id number] Br and Name: Tylenol S end Method: [...] Updated DateTime 12/19/2023 162.56 cm 28 kg/m2 75896.56 g Sulema Patel [place] - [facility] 12/19/2023 11:38:41 Social History None recorded. Functional Status None recorded. Mental Status None recorded. Family History Nothing Reported. Medical History No medical history recorded. Gynecological HistoryNo gynecological history recorded. Obstetrics History GPAL:G 0 P 0 0 0 0 Past Encounters Encounter ID Performer Location Encounter Start Date Encounter Closed Date Diagnosis/Indication Diagnosis SNOMED-CT Code Diagnosis ICD10 Code Diagnosis Note [id number] JACKSON JIMÉNEZ PA-C [facility] [address] [address] 12/19/2023 11:26:21 12/19/2023 12:08:20 Gastroesophageal reflux disease without esophagitis 028539017 K21.9 Dysphagia 57434310 R13.1 0 Health Concerns Section Related Observation LastModified by Organization Detai ls LastModified Time None Recorded Concern Status LastModified by Organization Details LastModified Time None Recorded Advance Directives Directive None Recorded Payers Insurance Date Sequence Insurance Name Policy Number Policy Sena Covered Member ID Sena Member ID Guarantor Name 12/19/2023 1 [facility] - DOS ON OR AFTER 2022 - MEDICARE [place]VANTAGE [place] (MEDICARE REPLACEMENT/ADV ANTAGE - PPO) Mckenzie Montgomery [id number] Mckenzie Montgomery 12/19/2023 1 [facility] - DOS ON OR AFTER 2022 - ONE CARE (MEDICARE REPLACEMENT/ADV ANTAGE - HMO) Mckenzie Montgomery [id number] Mckenzie Montgomery Notes Date Note Type Note [...] swallowing becomes much better. JACOB TERRAZAS MD [address] [place] [address], [place], [address], [place] - [facility] 12/19/2023 16:55:57 OBGyn Episode No OBEpisode recorded.
== END 2024-09-12 11:58 | disposition home or self-care (01) ==
LOC: HO.HGI 11:33
PROVIDERS: PCP Internal Medicine; Visit Provider Nurse Practitioner Family
DX: R13.10 Dysphagia, unspecified (principal); K21.9 Gastro-esophageal reflux disease without esophagitis; R74.01 Elevation of levels of liver transaminase levels; K59.01 Slow transit constipation; R10.13 Epigastric pain; R14.0 Abdominal distension (gaseous)
CPT/HCPCS: 99214; G2211

== ENCOUNTER → 2024-09-12 11:32 | Outpatient (BNVA) | payer OTHER, SELFPAY | PROVIDERS: PCP Internal Medicine; Visit Provider Nurse Practitioner Family | DX: Z71.2 Person consulting for explanation of examination or test findings (principal); R13.10 Dysphagia, unspecified; K21.9 Gastro-esophageal reflux disease without esophagitis; R74.01 Elevation of levels of liver transaminase levels; K59.01 Slow transit constipation; R10.13 Epigastric pain; R14.0 Abdominal distension (gaseous) | CPT/HCPCS: 99212 ==

== ENCOUNTER 2024-09-16 08:00 | Outpatient (REF) | payer OTHER, SELFPAY ==
--- NOTE | 2024-09-16 08:03 | EMG_ITS ---
Please see the attached neurophysiology report MTDD
--- OUTSIDE RECORDS SUMMARY | 2024-09-16 08:04 | XMS_ITS | Data Portability ---
Author Organization [place] - [facility], [facility] Address [address] [address] Care Team Providers Care Model Technician Name Role Phone ELIZABETH RAMOS Primary [...] [place], modified barium swallow study 2023 024 [email or web address] [facility], [address] [facility] [address], [place], [address], 12:05:11 Medication Orders None recorded. Patient TargetsNo targets recorded. Patient InstructionsNo instructions recorded. Reason for Referral None Reported. Results Created Date Observation Date Name Description Value Unit Range Abnormal Flag Note LastModifiedBy Organization Detail LastModifiedTime 01/01/20 24 01/01/2024 [place], modif ied randall clark study No observ ation record ed. [email or web address] Ents Of [address], [address], 01/01/2024 15:09:03 Result Notes None recorded. Problems Name Problem SNOMED Code Status Onset Date Resolution Date Notes Provider Name and Address Organization Details Recorded Time Vertigo of central origin NOS Active 2017 Vertigo of central origin, unspecifi ed ear; Note: Date Diagnosed : 8 10:52 AM (H81.49) Not Available [facility] 4 02:35:40 Bilateral tinnitus 59773796110 02 Active 2017 Tinnitus, bilateral ; Note: Date Diagnosed : 8 10:35 AM (H93.13) Not Available [facility] 4 02:35:45 Dizziness and giddiness 431387507 Active 2017 Dizziness and giddiness ; Note: Date Diagnosed : 8 10:35 AM (R42) Not Available [facility] 4 02:35:44 Migraine 94571479 Active 2017 Other migraine, not intractab le, without status migrainos us; Note: Date Diagnosed : 8 10:52 AM (G43.809) Not Available [facility] 4 02:35:48 Vertigo of central origin 87256778 Active 2020 Vertigo of central origin; Note: Date Diagnosed : 1 3:44 PM (H81.4) Not Available [facility] 4 02:35:45 Insomnia 466608600 Active 2020 Insomnia, unspecifi ed; Note: Date Diagnosed : 1 3:42 PM (G47.00) Not Available [facility] 4 02:35:48 Refractor y migraine 534822618 Active 2021 Other migraine, intractab le, without status migrainos us; Note: Date Diagnosed : 08/23/2021 1:47 PM (G43.819) Not Available [facility] 4 02:35:41 Gastroeso phageal reflux disease without esophagit is 158726724 Active 2023 JACKSON JIMÉNEZ PA-C [address] [facility] [place],[place] [address], [place], [address] , [facility] 12:27:43 Dysphagia 67321028 Active 2023 JACKSON JIMÉNEZ PA-C [address] [facility] [place],[facility] [address], [place], [address] , [facility] 12:27:57 Problem Notes None recorded. Procedures Surgical History Date Name Laterality Status Provider Name and Address Organization Details Recorded Time 12/19/2023 FOL_Reflux _JMS completed JACKSON JIMÉNEZ PA-C 100 [facility],[place] [address], [place], [address], [facility] 12/19/2023 12:26:26 Imaging Results None recorded. [...] at bedtime 2021 active Medicatio n ID: [id number] Pr escribed By Name: Alma Zeng Name: [...] for inhalation 2017 active Medicatio n ID: [id number] Du ration Value: 90 Brand Name: Advair [...] mg capsule 2017 active Medicatio n ID: [id number] Br and Name: Tylenol S end Method: [...] Updated DateTime 12/19/2023 162.56 cm 28 kg/m2 38053.56 g Sulema aPtel [place] - [facility] 12/19/2023 11:38:41 Social History None recorded. Functional Status None recorded. Mental Status None recorded. Family History Nothing Reported. Medical History No medical history recorded. Gynecological HistoryNo gynecological history recorded. Obstetrics History GPAL:G 0 P 0 0 0 0 Past Encounters Encounter ID Performer Location Encounter Start Date Encounter Closed Date Diagnosis/Indication Diagnosis SNOMED-CT Code Diagnosis ICD10 Code Diagnosis Note [id number] JACKSON JIMÉNEZ PA-C [facility] [address] [address] 12/19/2023 11:26:21 12/19/2023 12:08:20 Gastroesophageal reflux disease without esophagitis 857256332 K21.9 Dysphagia 97262428 R13.1 0 Health Concerns Section Related Observation LastModified by Organization Detai ls LastModified Time None Recorded Concern Status LastModified by Organization Details LastModified Time None Recorded Advance Directives Directive None Recorded Payers Insurance Date Sequence Insurance Name Policy Number Policy Sena Covered Member ID Sena Member ID Guarantor Name 12/19/2023 1 [facility] - DOS ON OR AFTER 2022 - MEDICARE [place]ANTAGE [place]EMENT/ADV ANTAGE - PPO) Mckenzie Montgomery [id number] Mckenzie Montgomery 12/19/2023 1 [facility] - DOS ON OR AFTER 2022 - ONE CARE (MEDICARE REPLACEMENT/ADV ANTAGE - HMO) Mckenzie Montgomery [id number] Mckenzie Montgomery Notes Date Note Type Note [...] swallowing becomes much better. JACOB TERRAZAS MD [address] [place] [address], [place], [address], [place] - [facility] 12/19/2023 16:55:57 OBGyn Episode No OBEpisode recorded.
--- OUTSIDE RECORDS SUMMARY | 2024-09-16 08:04 | XMS_ITS | Patient Health Record ---
Author Organization [facility] Address [address] [place] [address] Care Team Providers Care Travel Accommodations Rater Name Role Phone Nora Anderson Primary Care Provider Unavailab Jorg eA Hayden Jr Unavailable Allergies Allergen (clinical drug ingredient) Drug/Non Drug [...] Problem Status W/U Status Risk Notes Problem 00880394 Rectal bleeding (K62.5) Active confirmed Problem 815878267 Gastro-esophagea l reflux disease without esophagitis (K21.9) Active confirmed Problem 955539076 Personal history of colonic polyps (Z86.010) Active confirmed Problem 08073530 Irritable bowel syndrome without diarrhea (K58.9) Active confirmed Problem 38204464 Dysphagia, unspecified type (R13.10) Active confirmed Plan Of Treatment Future Test Test Name Order Date COLONOSCOPY 11/04/2015 COLONOSCOPY 01/30/2018 Insurance Providers Payer Name Payer Address Payer Phone Subscriber Number Group Number Insured Name Patient Relationship to Insured Coverage Start Date Coverage End Date [facility] [address] [place] [address] [id number] ISMA RODRÍGUEZ Self - patient is the insured Medical (General) History Medical History History ICD Code colonoscopy 01/28/16. Hyperplastic polyps x2, prior history of adenomas. degenerative joint disease gerd Peptic Ulcer Disease Asthma interstitial cystitis migraines Surgical History Surgery Date(Month/Year) hysterectomy tonsillectomy right knee arthroplasty throat left knee arthroscopy cystoscopy right knee replacement 12/2015
== END 2024-09-16 08:01 | disposition home or self-care (01) ==
LOC: HO.NEURO 08:00
PROVIDERS: PCP Internal Medicine; Visit Provider Nurse Practitioner Family
DX: M41.9 Scoliosis, unspecified (principal); R20.2 Paresthesia of skin; M54.50 Low back pain, unspecified; G89.29 Other chronic pain; M54.31 Sciatica, right side; Z53.8 Procedure and treatment not carried out for other reasons
CPT/HCPCS: 95885; 95911

== ENCOUNTER → 2024-09-16 08:03 | Outpatient (BNV) | payer OTHER, SELFPAY | PROVIDERS: PCP Internal Medicine; Visit Provider Psychiatry & Neurology Neurology | DX: M54.50 Low back pain, unspecified (principal); R20.2 Paresthesia of skin | CPT/HCPCS: 95885; 95911 ==

== ENCOUNTER 2024-09-22 14:15 | Outpatient (AMB) | payer OTHER, SELFPAY ==
--- NOTE | 2024-09-22 14:19 | A.OFFVIS_ITS ---
Vital Signs 3 09/22/24 14:23 Height 5 ft 8 in Weight 170 lb BMI 25.8 BP 132/75 Blood Pressure Location Rt brachial Position Sitting Pulse 75 Pulse Source Pulse Oximeter Pulse Oximetry (%) 99 Oxygen Delivery Method Room Air Intake Visit Reasons: EMG/ Xray results Allergies Iodinated Contrast Media (IV DYE, IODINE CONTAINING) Allergy (Severe, Verified 09/22/24 14:23) ITCH/RASH clams Allergy (Intermediate, Verified 09/22/24 14:23) ITCHING docusate (From COLACE) Allergy (Intermediate, Verified 09/22/24 14:23) ITCHING lansoprazole (Prevacid) Allergy (Intermediate, Verified 09/22/24 14:23) hives oxybutynin Allergy (Intermediate, Verified 09/22/24 14:23) bladder pain pistachio nut Allergy (Intermediate, Verified 09/22/24 14:23) ITCHING walnut Allergy (Intermediate, Verified 09/22/24 14:23) ITCH/RASH SEASONAL ALLERGIES Allergy (Intermediate, Uncoded 07/14/24 11:24) ITCHY EYES HPI Comments Details: The patient is a 63-year-old female presenting with follow-up for EMG and x-ray results. The EMG was a limited study due to intolerance, but nerve conduction studies suggested bilateral S1 radiculopathy, with a recommendation for clinical and imaging correlation by the Neurologist. The lumbar x-ray revealed significant thoracic and lumbar spinal curvature with predominantly facet joint degenerative change, and bilateral sacroiliac joint disease was noted. The patient reports that her back pain is worse in the lower back compared to the middle back, and she experiences pain radiating to the right leg posteriorly, which is exacerbated by climbing stairs, walking, or daily house chores. She denies taking aspirin or ibuprofen and reports minimal pain today, rated at 2/10, managed with Tylenol 650 mg. She reports severe back and right leg pain last week with difficulty urinating episodes last week and recently. She also reports constipation with mild relief with Senna. The patient has a history of dizziness with gabapentin use, leading to discontinuation, and she does not use muscle relaxants. She experiences numbness and tingling in her legs, particularly after standing for long periods, and reports that pain wakes her at night. Denies any recent cough, cold, infection, fever or any other significant changes in medical history since last office visit. PRIOR 07/14/24: The patient is a 63-year-old female presenting with chronic low back pain and right sciatic nerve pain. The pain is characterized by severe intensity, a rating of 10/10, and worsens with cold weather and nighttime. Accompanying symptoms include cramping and burning sensations in both feet, stiffness in the right leg, and concomitant pain in both knees despite prior replacements. The patient's significant medical history features severe thoracolumbar scoliosis and mild left sacroiliac joint sclerosis. She experiences episodes of vertigo and manages it with meclizine. Her past management included epidural injections, physical therapy, heat therapy, activity modifications, rest and reliance on a walker. Despite treatment efforts, pain persists, leading to functional impairment and difficulty ambulating. Analgesic use includes Tylenol, with noted side effects to ibuprofen precluding its use. - Onset: Chronic, with history of thoracolumbar scoliosis, left SI sclerosis - Quality: Severe aching, stabbing, burning and cramping (both feet), pinching, sharp - Primary Location: Low back and right sciatica - Areas of Radiation: Into the right leg, lateral and posterior of the legs, feet - Exacerbating Factors: Cold weather, movements, evenings, and nighttime - Relieving Factors: Tylenol and Aleve provide mild relief - Interference: Limits mobility, requires walker use, difficulty in bending, impacts sleep - Affect: Pain contributes to significant distress and impacts psychological well-being - Analgesia: Currently using Tylenol and Aleve with partial relief; does not use muscle relaxants - Adverse Effects: Dizziness and vertigo from certain medications; bruising from ibuprofen; avoids non-steroidal anti-inflammatory drugs due to bruising, but for severe pain will take Aleve - Activities of Daily Living: [place] on walker; unable to perform certain movements without pain; pain limits sleep - Aberrant Drug Related Behaviors: None reported [facility] Medical History Rhinosinusitis Acute respiratory failure with hypoxia Migraine Cough MAXIMILIANO (obstructive sleep apnea) Bronchitis PONV (postoperative nausea and vomiting) Helicobacter pylori (H. pylori) Physical exam UTI (urinary tract infection) Scoliosis Restrictive lung disease Dysphagia Mild major depression, single episode Right shoulder pain COPD (chronic obstructive pulmonary disease) Allergic rhinosinusitis Acute bronchitis Asthma Anemia Primary osteoarthritis involving multiple joints Essential hypertension Right ankle pain Allergic rhinitis Surgical History History of laparoscopic appendectomy (~09/10/23) History of esophagogastroduodenoscopy (EGD) Hx of colonoscopy Hx of cardiac cath History of total left knee replacement History of arthroscopy of right knee History of hemorrhoidectomy History of total right knee replacement History of total abdominal hysterectomy History of tonsillectomy Family History Father Alcoholism Arthritis Mother Diabetes Acute CVA (cerebrovascular accident) Sister Breast cancer Family/Other FH: mental illness Brother Diabetes Myocardial infarct Daughter In good health Daughter In good health Daughter In good health Social History Household Members: Spouse Housing: House Alcohol intake: never Patient Tobacco Use Status: Never used Tobacco e-Cigarette/Vaping Use: Never Used Second Hand Smoke Exposure: No Advance Directives Date on File: 11/28/19 service: No 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al status: disabled 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 - Sleep: Reports pain wakes her at night due to overactive bladder and pain. All systems reviewed & are unremarkable except as noted in HPI and below Physical Exam Vital Signs: Last Vital Signs Pulse 75 09/22/24 14:23 BP 132/75 09/22/24 14:23 Pulse Ox 99 09/22/24 14:23 Oxygen Delivery Method Room Air 09/22/24 14:23 BMI result Body Mass Index 25.8 General: Appears afebrile. Alert and oriented. Mood and affect appropriate. Follows and participates in conversation appropriately. Respiratory effort is unlabored. No cough. Able to transition from sit to stand unassisted. Ambulates with bilaterally normal heel strike and toe off. General: Yes no CVA tenderness Back/Spine/Pelvis Other: Limited lumbar ROM due to pain. Demonstrates 5/5 left and 4/5 right strength of quadriceps bilaterally as well as flexion/dorsiflexion of bilateral feet against resistance. 2+ pedal pulses bilaterally. Straight leg rise with dorsiflexion positive on the right in L5-S1 distribution. +1 patellar and diminished achilles reflexes bilaterally. Facet loading test positive bilaterally. Ady?s, Gaenslen, Pelvic compression and Stinchfield tests are positive bilaterally, left>right. No groin pain with I/E hip rotations. TTP to right GTB. Valsalva maneuver is negative. Back: no CVA tenderness Cervical Spine: cervical ROM normal, cervical muscular tenderness, No Cervical spine scars present, No Cervical spine tenderness and No step off deformity Thoracic/Lumbar Spine: thoracic and lumbar spine normal to inspection, No Thoracic/lumbar spine scar(s), Lasegue's sign negative, straight leg raise negative bilaterally, pain with thoraco-lumbar ROM, paraspinal muscle tenderness on the right greater than left, thoraco-lumbar ROM limited, Thoracic/lumbar scoliosis, No thoracic spinal tenderness and lumbar spinal tenderness at L4 and at L5 Pelvis: buttock tenderness on the right Sacroiliac joints: bilaterally (right>left) tender to palpation Extrem General: Yes capillary refill normal, Yes no clubbing, cyanosis or edema and Yes no calf tenderness Results Reviewed Results Reviewed: CT abdomen pelvis wo IV con 09/09/23 OSSEOUS STRUCTURES: Severe thoracolumbar scoliosis. Mild left inferior SI sclerosis. XR lumbar spine 4V min 07/14/24 CLINICAL HISTORY: M41.9 - Scoliosis, unspecified Findings: Moderate convex left mid lumbar curvature with apex at L3. Alignment is anatomic on the lateral view. No fracture. Mild disc space narrowing within the mid to upper lumbar spine with [id number] facet joint degenerative change along the con cave portion of the curvature. Bilateral sacroiliac joint DJD. Impression: Spinal curvature with predominantly facet joint degenerative change along the concave portion of the curvature. XR thoracic spine 3V 07/14/24 CLINICAL HISTORY: M41.9 - Scoliosis, unspecified Exam: AP and lateral views of the thoracic spine. Comparison: Chest x-ray February 17, 2024. Findings: Severe S curvature scoliosis. This is convex left within the upper thoracic spine, convex right within the mid to lower thoracic spine, convex left in the lumbar spine. This is not appreciably changed compared to the patient's prior study. No acute fracture. There is degenerative change along the concave portions of the curvature. Impression: Severe scoliosis. Assessment & Plan Assessment & Plan (1) Right sciatic nerve pain: Code(s): M54.31 - Sciatica, right side Category: Medical (2) Lumbosacral spondylosis: Code(s): M47.817 - Spondylosis without myelopathy or radiculopathy, lumbosacral region Category: Medical (3) Chronic low back pain: Code(s): M54.50 - Low back pain, unspecified; G89.29 - Other chronic pain Category: Medical (4) Lumbosacral radiculopathy at S1: Code(s): M54.17 - Radiculopathy, lumbosacral region Category: Medical Plan Patient is scheduled for lumbar MRI on 10/06/24 to further evaluate the lumbar spine, particularly to assess for L5-S1 nerve impingement and follow up on recent EMG/NVC study. We discussed therapeutic epidural steroidal injection vs neurosurgical evaluation to address persistent right sided radiculopathy. Script provided for Medrol Stephan and Lidocaine patches. Side effects and precautions were discussed with patient. Continue Tylenol and heat therapy as needed. Follow-up will occur after the MRI to discuss further management options based on the findings. Patient was informed and verbally consented to the use of an ambient scribe for clinic note documentation during this visit. Medications: New 2 methylprednisolone (Medrol (Stephan)) PO PER PKG DIR 21 ea 0RF pain G89.29 - Other chronic pain, M47.817 - Spondylosis without myelopathy or radiculopathy, lumbosacral region, M54.17 - Radiculopathy, lumbosacral region, M54.31 - Sciatica, right side, M54.50 - Low back pain, unspecified Refilled 2 lidocaine 5% leave on most painful area for up to 12 hrs topically daily; 30 ea 0RF back pain 30 days G89.29 - Other chronic pain, M41.9 - Scoliosis, unspecified, M47.814 - Spondylosis without myelopathy or radiculopathy, thoracic region, M47.817 - Spondylosis without myelopathy or radiculopathy, lumbosacral region, M54.50 - Low back pain, unspecified Coding Level of Care Code Est Pt Level 4 (77556) Complex EM visit Add On G2211 Diagnoses Right sciatic nerve pain M54.31 Lumbosacral spondylosis M47.817 Chronic low back pain M54.50; G89.29 Lumbosacral radiculopathy at S1 M54.17
[2024-09-22 14:23] VITALS: BP 132/75; PULSE 75; O2SAT 99; BMI 25.8
--- OUTSIDE RECORDS SUMMARY | 2024-09-22 15:01 | XMS_ITS | Patient Health Record ---
Author Organization [facility] Address [address] [place] [address] Care Team Providers Care Cotton Farmer Name Role Phone Nora Anderson Primary Care Provider Unavailab Jorge A Hayden Jr Unavailable [phone] Allergies Allergen (clinical drug ingredient) Drug/Non Drug [...] Problem Status W/U Status Risk Notes Problem 43190944 Rectal bleeding (K62.5) Active confirmed Problem 947163962 Gastro-esophagea l reflux disease without esophagitis (K21.9) Active confirmed Problem 235708985 Personal history of colonic polyps (Z86.010) Active confirmed Problem 04476350 Irritable bowel syndrome without diarrhea (K58.9) Active confirmed Problem 17210945 Dysphagia, unspecified type (R13.10) Active confirmed Plan Of Treatment Future Test Test Name Order Date COLONOSCOPY 11/04/2015 COLONOSCOPY 01/30/2018 Insurance Providers Payer Name Payer Address Payer Phone Subscriber Number Group Number Insured Name Patient Relationship to Insured Coverage Start Date Coverage End Date [facility] [address] [place] [phone] [id number] ISMA RODRÍGUEZ Self - patient is the insured Medical (General) History Medical History History ICD Code colonoscopy 01/28/16. Hyperplastic polyps x2, prior history of adenomas. degenerative joint disease gerd Peptic Ulcer Disease Asthma interstitial cystitis migraines Surgical History Surgery Date(Month/Year) hysterectomy tonsillectomy right knee arthroplasty throat left knee arthroscopy cystoscopy right knee replacement 12/2015
--- OUTSIDE RECORDS SUMMARY | 2024-09-22 15:01 | XMS_ITS | Data Portability ---
Author Organization [place] [facility] Address [address] [address] Care Team Providers Care Graphic Design Assistant Name Role Phone ELIZABETH RAMOS Primary Care [...] [place], modified barium swallow study 2023 024 [id number] [facility], [address], [place], [address], 12:05:11 Medication Orders None recorded. Patient TargetsNo targets recorded. Patient InstructionsNo instructions recorded. Reason for Referral None Reported. Results Created Date Observation Date Name Description Value Unit Range Abnormal Flag Note LastModifiedBy Organization Detail LastModifiedTime 01/01/20 24 01/01/2024 [place], modif ied randall clark study No observ ation record ed. falguni Ents Of [address], [address], 01/01/2024 15:09:03 Result Notes None recorded. Problems Name Problem SNOMED Code Status Onset Date Resolution Date Notes Provider Name and Address Organization Details Recorded Time Vertigo of central origin NOS Active 2017 Vertigo of central origin, unspecifi ed ear; Note: Date Diagnosed : 8 10:52 AM (H81.49) Not Available [facility] 4 02:35:40 Bilateral tinnitus 86346793483 02 Active 2017 Tinnitus, bilateral ; Note: Date Diagnosed : 8 10:35 AM (H93.13) Not Available [facility] 4 02:35:45 Dizziness and giddiness 113659960 Active 2017 Dizziness and giddiness ; Note: Date Diagnosed : 8 10:35 AM (R42) Not Available [facility] 4 02:35:44 Migraine 12174386 Active 2017 Other migraine, not intractab le, without status migrainos us; Note: Date Diagnosed : 8 10:52 AM (G43.809) Not Available [facility] 4 02:35:48 Vertigo of central origin 18156973 Active 2020 Vertigo of central origin; Note: Date Diagnosed : 1 3:44 PM (H81.4) Not Available [facility] 4 02:35:45 Insomnia 328344103 Active 2020 Insomnia, unspecifi ed; Note: Date Diagnosed : 1 3:42 PM (G47.00) Not Available [facility] 4 02:35:48 Refractor y migraine 526644048 Active 2021 Other migraine, intractab le, without status migrainos us; Note: Date Diagnosed : 08/23/2021 1:47 PM (G43.819) Not Available [facility] 4 02:35:41 Gastroeso phageal reflux disease without esophagit is 076139302 Active 2023 JACKSON JIMÉNEZ PA-C [address] [facility] [address],[place] [address], [place], [address] , [facility] 12:27:43 Dysphagia 49690847 Active 2023 JACKSON JIMÉNEZ PA-C [address] [facility] [address],[facility] [address], [place], [address] , [facility] 12:27:57 Problem Notes None recorded. Procedures Surgical History Date Name Laterality Status Provider Name and Address Organization Details Recorded Time 12/19/2023 FOL_Reflux _JMS completed JACKSON JIMÉNEZ PA-C [address] [facility],[place] [address], [place], [address], [facility] 12/19/2023 12:26:26 Imaging Results None recorded. [...] at bedtime 2021 active Medicatio n ID: [id number] Pr escribed By Name: Alma Zeng Name: [...] for inhalation 2017 active Medicatio n ID: [id number] Du ration Value: 90 Brand Name: Advair [...] mg capsule 2017 active Medicatio n ID: [id number] Br and Name: Tylenol S end Method: [...] Updated DateTime 12/19/2023 162.56 cm 28 kg/m2 88587.56 g Sulema Patel [place] - [facility] 12/19/2023 11:38:41 Social History None recorded. Functional Status None recorded. Mental Status None recorded. Family History Nothing Reported. Medical History No medical history recorded. Gynecological HistoryNo gynecological history recorded. Obstetrics History GPAL:G 0 P 0 0 0 0 Past Encounters Encounter ID Performer Location Encounter Start Date Encounter Closed Date Diagnosis/Indication Diagnosis SNOMED-CT Code Diagnosis ICD10 Code Diagnosis Note [id number] JACKSON JIMÉNEZ PA-C [facility] [address] [address] 12/19/2023 11:26:21 12/19/2023 12:08:20 Gastroesophageal reflux disease without esophagitis 886802297 K21.9 Dysphagia 21315258 R13.1 0 Health Concerns Section Related Observation LastModified by Organization Detai ls LastModified Time None Recorded Concern Status LastModified by Organization Details LastModified Time None Recorded Advance Directives Directive None Recorded Payers Insurance Date Sequence Insurance Name Policy Number Policy Sena Covered Member ID Sena Member ID Guarantor Name 12/19/2023 1 [facility] - DOS ON OR AFTER 2022 - MEDICARE [place]ANTAGE [place] RE[place]ACEMENT/ADV ANTAGE - PPO) Mckenzie Montgomery [id number] Mckenzie Montgomery 12/19/2023 1 [facility] - DOS ON OR AFTER 2022 - ONE CARE (MEDICARE REPLACEMENT/ADV ANTAGE - HMO) Mckenzie Montgomery [id number] Mckenzie Montgomery OBGyn Episode No OBEpisode recorded.
== END 2024-09-22 14:53 | disposition home or self-care (01) ==
LOC: HO.PMC 14:16
PROVIDERS: PCP Internal Medicine; Visit Provider Nurse Practitioner Family
DX: M54.31 Sciatica, right side (principal); M47.817 Spondylosis without myelopathy or radiculopathy, lumbosacral region; M54.50 Low back pain, unspecified; G89.29 Other chronic pain; M54.17 Radiculopathy, lumbosacral region
CPT/HCPCS: 99214; G2211

== ENCOUNTER → 2024-09-22 14:15 | Outpatient (BNVA) | payer OTHER, SELFPAY | PROVIDERS: PCP Internal Medicine; Visit Provider Nurse Practitioner Family | DX: Z71.2 Person consulting for explanation of examination or test findings (principal); M54.31 Sciatica, right side; M47.817 Spondylosis without myelopathy or radiculopathy, lumbosacral region; M54.50 Low back pain, unspecified; M54.17 Radiculopathy, lumbosacral region; G89.29 Other chronic pain | CPT/HCPCS: 99212 ==

== ENCOUNTER → 2024-10-06 16:33 | Outpatient (BNV) | payer OTHER, SELFPAY | PROVIDERS: PCP Internal Medicine; Visit Provider Radiology Diagnostic Radiology | DX: M47.816 Spondylosis without myelopathy or radiculopathy, lumbar region (principal) | CPT/HCPCS: 72148 ==

== ENCOUNTER 2024-10-06 16:34 | Outpatient (REF) | payer OTHER, SELFPAY ==
--- NOTE | ~2024-10-06 | MR_ITS ---
CLINICAL HISTORY: M47.817 - Spondylosis without myelopathy or radiculopathy, lumbosacral. Right sciatic nerve pain MR of the lumbar spine without contrast. No prior MR. Findings: There is thoracolumbar scoliosis. No fractures or suspicious bony lesions are seen. There is only mild multilevel degenerative disc disease with mild loss of normal disc signal and disc height. There is multilevel facet disease that is most severe at L4-5 and L5-S1. L1-2: No significant disc bulge or focal protrusion. L2-3: No significant disc bulge or focal protrusion. L3-4: There is a mild diffuse disc bulge without significant canal or foraminal narrowing. L4-5: Mild diffuse disc bulge without significant canal or foraminal stenosis. L5-S1: No significant disc bulge or focal protrusion. The cauda equina is unremarkable. Impression: Thoracolumbar scoliosis. Multilevel facet disease most severe at L4-5 and L5-S1. No significant narrowing of the spinal canal or neural foramina. This document has been electronically signed by: Noé Feliciano MD on 10/06/2024 17:55:00
== END 2024-10-06 16:35 | disposition home or self-care (01) ==
LOC: HO.MRI 16:34
PROVIDERS: PCP Internal Medicine; Visit Provider Nurse Practitioner Family
DX: M54.31 Sciatica, right side (principal); M47.27 Other spondylosis with radiculopathy, lumbosacral region
CPT/HCPCS: 72148

== ENCOUNTER 2024-10-23 11:43 | Outpatient (AMB) | payer OTHER, SELFPAY ==
--- NOTE | 2024-10-23 11:49 | A.OFFVIS_ITS ---
Vital Signs 10/23/24 11:50 Height 5 ft 4 in Weight 171 lb BMI 29.3 BP 130/62 Blood Pressure Location Lt brachial Position Sitting Pulse 77 Pulse Source Pulse Oximeter Pulse Oximetry (%) 96 Oxygen Delivery Method Room Air Intake Visit Reasons: cough Intake Note: pt is here for follow up and states she is okay today, but her ears are itchy and this is usual a sign that something is starting. Allergies Iodinated Contrast Media (IV DYE, IODINE CONTAINING) Allergy (Severe, Verified 10/23/24 12:15) ITCH/RASH clams Allergy (Intermediate, Verified 10/23/24 12:15) ITCHING docusate (From COLACE) Allergy (Intermediate, Verified 10/23/24 12:15) ITCHING lansoprazole (Prevacid) Allergy (Intermediate, Verified 10/23/24 12:15) hives oxybutynin Allergy (Intermediate, Verified 10/23/24 12:15) bladder pain pistachio nut Allergy (Intermediate, Verified 10/23/24 12:15) ITCHING walnut Allergy (Intermediate, Verified 10/23/24 12:15) ITCH/RASH SEASONAL ALLERGIES Allergy (Intermediate, Uncoded 10/23/24 12:15) ITCHY EYES Medication List - Last Reconciled 10/23/24 by Chelly Navarro MD acetaminophen ER (Tylenol 8 Hour) 650 mg PO Q8H PRN albuterol sulfate 2.5 mg (3 mL) inhalation Q6H PRN 30 days albuterol sulfate 90 mcg/actuation 2 puffs inhalation Q6H PRN 30 days NS blood pressure monitor As directed calcium carbonate-vitamin D3 600 mg-10 mcg (400 unit) 1 tab PO MOFR@0900 diclofenac sodium 1% 2 grams topical BID PRN docusate sodium (Colace) 100 mg PO BID fluticasone propion-salmeterol 250-50 mcg/dose (Wixela Inhub) 1 inh inhalation BID fluticasone propionate 50 mcg/actuation 1 spray intranasal DAILY glucosamine sulfate 750 mg PO DAILY guaifenesin ER (Mucinex) 600 mg PO BID 5 days lidocaine 5% leave on most painful area for up to 12 hrs topically daily; 30 days loratadine 10 mg PO DAILY magnesium oxide 400 mg PO BEDTIME PRN meclizine 25 mg PO TID PRN 30 days metoprolol succinate ER 50 mg PO DAILY pantoprazole 40 mg PO QAM riboflavin (vitamin B2) 400 mg PO DAILY 30 days sennosides (Natural Senna Laxative) 17.2 mg (2 x 8.6 mg) PO BEDTIME simethicone (Gas Relief (simethicone)) 125 mg PO BID-TID PRN tobramycin 0.3% 1 drp ophthalmic (eye) Q4H 7 days Do you need a note to return to daycare/school/sports/work: No HPI HPI cough: Details: Mckenzie , 63 years old female is here. For follow-up after 3 months She is being treated for moderately severe COPD and restrictive lung disorder, She has been doing very well with the use of Wixela 250-50 twice a day and albuterol in the nebulizer or HFA only p.r.n.. Her main problem is chronic ongoing nasal congestion with runny nose especially in the morning hours, and now she has itching in the ears. He used to take loratadine 10 mg daily which was helping but now she is out of loratadine because insurance does not pay for it. Her main complaint is also ongoing back pain and pain in the knees, she walks slowly with a cane, she needs to go and see the orthopedic service for possible drainage of fluid from the right knee. She is nonsmoker, [facility] Medical History Rhinosinusitis Acute respiratory failure with hypoxia Migraine Cough MAXIMILIANO (obstructive sleep apnea) Bronchitis PONV (postoperative nausea and vomiting) Helicobacter pylori (H. pylori) Physical exam UTI (urinary tract infection) Scoliosis Restrictive lung disease Dysphagia Mild major depression, single episode Right shoulder pain COPD (chronic obstructive pulmonary disease) Allergic rhinosinusitis Acute bronchitis Asthma Anemia Primary osteoarthritis involving multiple joints Essential hypertension Right ankle pain Allergic rhinitis Surgical History History of laparoscopic appendectomy (~09/10/23) History of esophagogastroduodenoscopy (EGD) Hx of colonoscopy Hx of cardiac cath History of total left knee replacement History of arthroscopy of right knee History of hemorrhoidectomy History of total right knee replacement History of total abdominal hysterectomy History of tonsillectomy Family History Father Alcoholism Arthritis Mother Diabetes Acute CVA (cerebrovascular accident) Sister Breast cancer Family/Other FH: mental illness Brother Diabetes Myocardial infarct Daughter In good health Daughter In good health Daughter In good health Social History Household Members: Spouse Housing: House Alcohol intake: never Patient Tobacco Use Status: Never used Tobacco e-Cigarette/Vaping Use: Never Used Second Hand Smoke Exposure: No Advance Directives Date on File: 11/28/19 service: No 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al status: disabled 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 Cognitive needs: No Hearing needs: No Vision needs: Yes Review of Systems Const All systems reviewed & are unremarkable except as noted in HPI and below Eyes Reports no additional complaints ENT Reports nasal congestion and Reports nasal discharge Card Denies chest pain, Denies irregular heart rhythm and Denies leg edema Resp Reports as per HPI and Reports cough (+++) GI Reports no additional complaints Reports no additional complaints Musc Reports back pain (Mild) Skin/Breast Reports system reviewed and no additional complaints, except as documented Neuro Reports no additional complaints Psych Reports no additional complaints Physical Exam Vital Signs: Last Vital Signs Pulse 77 10/23/24 11:50 BP 130/62 10/23/24 11:50 Pulse Ox 96 10/23/24 11:50 Oxygen Delivery Method Room Air 10/23/24 11:50 BMI result Body Mass Index 29.3 Const General: comfortable, no acute distress, alert and awake Orientation/consciousness: patient oriented x3 HEENT Head: Yes normal to inspection General nose exam: No nasal polyps present, No nasal discharge present and Other nasal findings present (Mild nasal congestion, chronic) Face and sinus: Yes sinuses nontender Mouth: oropharynx normal Throat: Yes posterior oropharynx normal Eyes General: appearance normal, both eyes and all related structures Neck Neck: Yes normal visual inspection, Yes no lymphadenopathy, Yes trachea midline and Yes no JVD Thyroid: Thyroid normal Chest Chest palpation & inspection: normal inspection of the chest, normal palpation of entire chest wall and no tenderness Resp Other: Percussion note resonant, breath sounds are slightly distant, Breath sounds are distant but clear . No audible wheezes or crepitations. Cardio Palpation: normal PMI Rate: regular rate Rhythm: regular rhythm Heart sounds: no gallops and no murmurs Peripheral pulses: Peripheral pulses 2+ throughout GI Palpation (GI): Soft to palpation, nontender, No hepatosplenomegaly present and no masses Auscultation: normal bowel sounds Back/Spine/Pelvis Thoracic/Lumbar Spine: thoracic and lumbar spine normal to inspection and Thoracic/lumbar scoliosis (Patient has moderately severe size dextroscoliosis of the thoracic spine.) Skin General skin exam: no rashes or lesions noted Neuro General: patient oriented x3 and no focal motor deficits Cranial nerves: Yes CN's II-XII intact bilaterally Extrem General: Yes normal to inspection, Yes no clubbing, cyanosis or edema and Yes no calf tenderness Psych Appearance: grossly normal and well kempt Speech and movement: Normal speech and movement present Assessment & Plan Assessment & Plan (1) Asthma: Comment: SHE HAS CHRONIC BRONCHIAL ASTHMA IN ADDITION TO CHRONIC ALLERGIC RHINOSINUSITIS. IT SEEMS TO BE STABLE AT THIS TIME. SHE DOES HAVE MILD INTERMITTENT COUGH , MOSTLY NONPRODUCTIVE Code(s): J45.909 - Unspecified asthma, uncomplicated Category: Medical Plan: ADVISED TO CONTINUE USING WIXELA 250-51 INHALATION B.I.D. ALBUTEROL HFA 2 PUFFS Q 4-6 HOURS P.R.N. OR ALTERNATIVELY USE ALBUTEROL IN THE NEBULIZER Q 4-6 HOURS P.R.N.. (2) Restrictive lung disease: Comment: THIS IS MAINLY BECAUSE OF DEXTROSCOLIOSIS OF THE THORACO -LUMBAR SPINE Code(s): J98.4 - Other disorders of lung Category: Medical Plan: PATIENT IS AWARE OF THIS. ADVISED TO KEEP ON DOING DEEP BREATHING EXERCISES 2 TO 3 TIMES A DAY. (3) Allergic rhinitis: Comment: Chronic allergic rhinitis. Claims that she has runny nose with postnasal discharge especially in the morning hours every day. Now she also has been having itching in the ears. She is out of Flonase and loratadine, because insurance does not pay for Montelukast 10 mg daily was prescribed last time but patient did not take this medicine, Code(s): J30.9 - Allergic rhinitis, unspecified Category: Medical Plan: I advised her to buy loratadine over the counter. It is generic and relatively cheap. Take 1 tablet every day. Coding Level of Care Code Est Pt Level 3 (42727) Diagnoses Asthma J45.909 Restrictive lung disease J98.4 Allergic rhinitis J30.9
[2024-10-23 11:50] VITALS: BP 130/62; PULSE 77; O2SAT 96; BMI 29.3
--- OUTSIDE RECORDS SUMMARY | 2024-10-23 12:53 | XMS_ITS | Patient Health Record ---
Author Organization [facility] Address [address] [place] [address] Care Team Providers Care Sales Agent Protective Service Name Role Phone Nora Anderson Primary Care Provider Unavailab Jorge A Hayden Jr Unavailable [phone] Allergies Allergen (clinical drug ingredient) Drug/Non Drug [...] Problem Status W/U Status Risk Notes Problem 80780222 Rectal bleeding (K62.5) Active confirmed Problem 538811941 Gastro-esophagea l reflux disease without esophagitis (K21.9) Active confirmed Problem 147274629 Personal history of colonic polyps (Z86.010) Active confirmed Problem 82847608 Irritable bowel syndrome without diarrhea (K58.9) Active confirmed Problem 34086027 Dysphagia, unspecified type (R13.10) Active confirmed Plan Of Treatment Future Test Test Name Order Date COLONOSCOPY 11/04/2015 COLONOSCOPY 01/30/2018 Insurance Providers Payer Name Payer Address Payer Phone Subscriber Number Group Number Insured Name Patient Relationship to Insured Coverage Start Date Coverage End Date [facility] [address] [place] [address] [id number] ISMA RODRÍGUEZ Self - patient is the insured Medical (General) History Medical History History ICD Code colonoscopy 01/28/16. Hyperplastic polyps x2, prior history of adenomas. degenerative joint disease gerd Peptic Ulcer Disease Asthma interstitial cystitis migraines Surgical History Surgery Date(Month/Year) hysterectomy tonsillectomy right knee arthroplasty throat left knee arthroscopy cystoscopy right knee replacement 12/2015
== END 2024-10-23 12:15 | disposition home or self-care (01) ==
LOC: HO.HPS 11:44
PROVIDERS: PCP Internal Medicine; Visit Provider Internal Medicine
DX: J45.909 Unspecified asthma, uncomplicated (principal); J98.4 Other disorders of lung; J30.9 Allergic rhinitis, unspecified
CPT/HCPCS: 99213

== ENCOUNTER → 2024-10-23 11:43 | Outpatient (BNVA) | payer OTHER, SELFPAY | PROVIDERS: PCP Internal Medicine; Visit Provider Internal Medicine | DX: J44.9 Chronic obstructive pulmonary disease, unspecified (principal); J45.909 Unspecified asthma, uncomplicated; M41.35 Thoracogenic scoliosis, thoracolumbar region | CPT/HCPCS: 99212 ==

== ENCOUNTER 2024-11-03 12:56 | Outpatient (AMB) | payer OTHER, SELFPAY ==
[2024-11-03 13:00] VITALS: BP 150/73; PULSE 80; RESP 18; O2SAT 95; BMI 29.2
--- NOTE | 2024-11-03 13:00 | A.OFFVIS_ITS ---
Vital Signs 3 11/03/24 13:00 Height 5 ft 4 in Weight 170 lb BMI 29.2 BP 150/73 H Blood Pressure Location Lt brachial Position Sitting Respiration 18 Pulse 80 Pulse Source Pulse Oximeter Pulse Oximetry (%) 95 Intake Visit Reasons: MRI results Intake Note: Pain 0/10 Information Systems Specialist Required: No Allergies Iodinated Contrast Media (IV DYE, IODINE CONTAINING) Allergy (Severe, Verified 11/03/24 12:59) ITCH/RASH clams Allergy (Intermediate, Verified 11/03/24 12:59) ITCHING docusate (From COLACE) Allergy (Intermediate, Verified 11/03/24 12:59) ITCHING lansoprazole (Prevacid) Allergy (Intermediate, Verified 11/03/24 12:59) hives oxybutynin Allergy (Intermediate, Verified 11/03/24 12:59) bladder pain pistachio nut Allergy (Intermediate, Verified 11/03/24 12:59) ITCHING walnut Allergy (Intermediate, Verified 11/03/24 12:59) ITCH/RASH SEASONAL ALLERGIES Allergy (Intermediate, Uncoded 10/23/24 12:15) ITCHY EYES HPI Comments Details: The patient is a 63-year-old female presenting with back pain and discuss recent lumbar spine MRI results. The back pain has been persistent and is associated with thoracolumbar scoliosis, which was confirmed by the MRI showing curvature from the upper to lower back. The patient reports severe arthritis at the L4-L5 and L5-S1 levels, contributing to significant pain during movements such as sitting upright and standing. The patient has been managing the pain with oral steroids, lidocaine patches, Tylenol, and heat therapy. She reports that these interventions provide temporary relief, allowing her to be pain-free for a few days at a time. The MRI results indicated no significant central or neuroforaminal spinal stenosis, suggesting that the leg pain is not originating from the back. The patient also experiences pain in her arms and head, particularly at night, which affects her sleep. She has been advised on the potential for diagnostic lumbar medial branch blocks to confirm arthritis and assess eligibility for procedures like radiofrequency ablation for long-term pain relief. Denies any recent cough, cold, infection, fever or any other significant changes in medical history since last office visit. PRIOR: The patient is a 63-year-old female presenting with follow-up for EMG and x-ray results. The EMG was a limited study due to intolerance, but nerve conduction studies suggested bilateral S1 radiculopathy, with a recommendation for clinical and imaging correlation by the Neurologist. The lumbar x-ray revealed significant thoracic and lumbar spinal curvature with predominantly facet joint degenerative change, and bilateral sacroiliac joint disease was noted. The patient reports that her back pain is worse in the lower back compared to the middle back, and she experiences pain radiating to the right leg posteriorly, which is exacerbated by climbing stairs, walking, or daily house chores. She denies taking aspirin or ibuprofen and reports minimal pain today, rated at 2/10, managed with Tylenol 650 mg. She reports severe back and right leg pain last week with difficulty urinating episodes last week and recently. She also reports constipation with mild relief with Senna. The patient has a history of dizziness with gabapentin use, leading to discontinuation, and she does not use muscle relaxants. She experiences numbness and tingling in her legs, particularly after standing for long periods, and reports that pain wakes her at night. Denies any recent cough, cold, infection, fever or any other significant changes in medical history since last office visit. PRIOR 07/14/24: The patient is a 63-year-old female presenting with chronic low back pain and right sciatic nerve pain. The pain is characterized by severe intensity, a rating of 10/10, and worsens with cold weather and nighttime. Accompanying symptoms include cramping and burning sensations in both feet, stiffness in the right leg, and concomitant pain in both knees despite prior replacements. The patient's significant medical history features severe thoracolumbar scoliosis and mild left sacroiliac joint sclerosis. She experiences episodes of vertigo and manages it with meclizine. Her past management included epidural injections, physical therapy, heat therapy, activity modifications, rest and reliance on a walker. Despite treatment efforts, pain persists, leading to functional impairment and difficulty ambulating. Analgesic use includes Tylenol, with noted side effects to ibuprofen precluding its use. - Onset: Chronic, with history of thoracolumbar scoliosis, left SI sclerosis - Quality: Severe aching, stabbing, burning and cramping (both feet), pinching, sharp - Primary Location: Low back and right sciatica - Areas of Radiation: Into the right leg, lateral and posterior of the legs, feet - Exacerbating Factors: Cold weather, movements, evenings, and nighttime - Relieving Factors: Tylenol and Aleve provide mild relief - Interference: Limits mobility, requires walker use, difficulty in bending, impacts sleep - Affect: Pain contributes to significant distress and impacts psychological well-being - Analgesia: Currently using Tylenol and Aleve with partial relief; does not use muscle relaxants - Adverse Effects: Dizziness and vertigo from certain medications; bruising from ibuprofen; avoids non-steroidal anti-inflammatory drugs due to bruising, but for severe pain will take Aleve - Activities of Daily Living: [place] on walker; unable to perform certain movements without pain; pain limits sleep - Aberrant Drug Related Behaviors: None reported [facility] Medical History Rhinosinusitis Acute respiratory failure with hypoxia Migraine Cough MAXIMILIANO (obstructive sleep apnea) Bronchitis PONV (postoperative nausea and vomiting) Helicobacter pylori (H. pylori) Physical exam UTI (urinary tract infection) Scoliosis Restrictive lung disease Dysphagia Mild major depression, single episode Right shoulder pain COPD (chronic obstructive pulmonary disease) Allergic rhinosinusitis Acute bronchitis Asthma Anemia Primary osteoarthritis involving multiple joints Essential hypertension Right ankle pain Allergic rhinitis Surgical History History of laparoscopic appendectomy (~09/10/23) History of esophagogastroduodenoscopy (EGD) Hx of colonoscopy Hx of cardiac cath History of total left knee replacement History of arthroscopy of right knee History of hemorrhoidectomy History of total right knee replacement History of total abdominal hysterectomy History of tonsillectomy Family History Father Alcoholism Arthritis Mother Diabetes Acute CVA (cerebrovascular accident) Sister Breast cancer Family/Other FH: mental illness Brother Diabetes Myocardial infarct Daughter In good health Daughter In good health Daughter In good health Social History Household Members: Spouse Housing: House Alcohol intake: never Patient Tobacco Use Status: Never used Tobacco e-Cigarette/Vaping Use: Never Used Second Hand Smoke Exposure: No Advance Directives Date on File: 11/28/19 service: No 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al status: disabled 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 Alert and oriented. Mood and affect appropriate. Follows and participates in conversation appropriately. Respiratory effort is unlabored. No cough. Able to transition from sit to stand unassisted. Ambulates with bilaterally normal heel strike and toe off. General: Yes no CVA tenderness Back/Spine/Pelvis Back: no CVA tenderness Cervical Spine: cervical ROM normal and No Cervical spine tenderness Thoracic/Lumbar Spine: thoracic and lumbar spine normal to inspection, No Thoracic/lumbar spine scar(s), Lasegue's sign negative, straight leg raise negative bilaterally, pain with thoraco-lumbar ROM (Positive facet loading bilaterally), paraspinal muscle tenderness on the right greater than left, thoraco-lumbar ROM limited, Thoracic/lumbar scoliosis, No thoracic spinal tenderness and lumbar spinal tenderness (L4-S1) Pelvis: no buttock tenderness Sacroiliac joints: bilaterally (right>left) tender to palpation (mild) Results Reviewed Results Reviewed: MR lumbar spine wo con 10/06/24 Findings: There is thoracolumbar scoliosis. No fractures or suspicious bony lesions are seen. There is only mild multilevel degenerative disc disease with mild loss of normal disc signal and disc height. There is multilevel facet disease that is most severe at L4-5 and L5-S1. L1-2: No significant disc bulge or focal protrusion. L2-3: No significant disc bulge or focal protrusion. L3-4: There is a mild diffuse disc bulge without significant canal or foraminal narrowing. L4-5: Mild diffuse disc bulge without significant canal or foraminal stenosis. L5-S1: No significant disc bulge or focal protrusion. The cauda equina is unremarkable. IMPRESSION: Thoracolumbar scoliosis. Multilevel facet disease most severe at L4-5 and L5-S1. No significant narrowing of the spinal canal or neural foramina. CT abdomen pelvis wo IV con 09/09/23 OSSEOUS STRUCTURES: Severe thoracolumbar scoliosis. Mild left inferior SI sclerosis. XR lumbar spine 4V min 07/14/24 CLINICAL HISTORY: M41.9 - Scoliosis, unspecified Findings: Moderate convex left mid lumbar curvature with apex at L3. Alignment is anatomic on the lateral view. No fracture. Mild disc space narrowing within the mid to upper lumbar spine with [id number] facet joint degenerative change along the con cave portion of the curvature. Bilateral sacroiliac joint DJD. Impression: Spinal curvature with predominantly facet joint degenerative change along the concave portion of the curvature. XR thoracic spine 3V 07/14/24 CLINICAL HISTORY: M41.9 - Scoliosis, unspecified Exam: AP and lateral views of the thoracic spine. Comparison: Chest x-ray February 17, 2024. Findings: Severe S curvature scoliosis. This is convex left within the upper thoracic spine, convex right within the mid to lower thoracic spine, convex left in the lumbar spine. This is not appreciably changed compared to the patient's prior study. No acute fracture. There is degenerative change along the concave portions of the curvature. Impression: Severe scoliosis. Assessment & Plan Assessment & Plan (1) Scoliosis: Comment: MODERATELY SEVERE DEXTROSCOLIOSIS OF THORACOLUMBAR SPINE. Code(s): M41.9 - Scoliosis, unspecified Category: Medical (2) Lumbosacral spondylosis: Code(s): M47.817 - Spondylosis without myelopathy or radiculopathy, lumbosacral region Category: Medical (3) Chronic low back pain: Code(s): M54.50 - Low back pain, unspecified; G89.29 - Other chronic pain Category: Medical Plan Lumbar spine MRI results were discussed with patient today which showed thoracolumbar scoliosis, multilevel facet disease most severe at L4-5 and L5-S1. No significant narrowing of the spinal canal or neural foramina. The plan includes continuing current pain management strategies such as lidocaine patches, Tylenol, and heat therapy to manage scoliosis and arthritis- related pain. The patient was informed about the option of diagnostic lumbar medial branch blocks to confirm arthritis and assess eligibility for radiofrequency ablation, which could provide long-term pain relief. The patient is advised to monitor the pain and report any worsening, at which point further interventions can be considered. All questions and concerns have been answered and patient agreed with the treatment plan. Follow up as needed. Patient was informed and verbally consented to the use of an ambient scribe for clinic note documentation during this visit. Coding Level of Care Code Est Pt Level 4 (68942) Complex EM visit Add On G2211 Diagnoses Scoliosis M41.9 Lumbosacral spondylosis M47.817 Chronic low back pain M54.50; G89.29
--- OUTSIDE RECORDS SUMMARY | 2024-11-03 15:06 | XMS_ITS | Patient Health Record ---
Author Organization [facility] Address [address] [place] [address] Care Team Providers Care Welt Treater Name Role Phone Nora Anderson Primary Care Provider Unavailab Jorge A Hayden Jr Unavailable [phone] Allergies Allergen (clinical drug ingredient) Drug/Non Drug [...] Problem Status W/U Status Risk Notes Problem 55663048 Rectal bleeding (K62.5) Active confirmed Problem 970464996 Gastro-esophagea l reflux disease without esophagitis (K21.9) Active confirmed Problem 572552254 Personal history of colonic polyps (Z86.010) Active confirmed Problem 75558394 Irritable bowel syndrome without diarrhea (K58.9) Active confirmed Problem 58615686 Dysphagia, unspecified type (R13.10) Active confirmed Plan Of Treatment Future Test Test Name Order Date COLONOSCOPY 11/04/2015 COLONOSCOPY 01/30/2018 Insurance Providers Payer Name Payer Address Payer Phone Subscriber Number Group Number Insured Name Patient Relationship to Insured Coverage Start Date Coverage End Date [facility] [address] [place] [address] [id number] ISMA RODRÍGUEZ Self - patient is the insured Medical (General) History Medical History History ICD Code colonoscopy 01/28/16. Hyperplastic polyps x2, prior history of adenomas. degenerative joint disease gerd Peptic Ulcer Disease Asthma interstitial cystitis migraines Surgical History Surgery Date(Month/Year) hysterectomy tonsillectomy right knee arthroplasty throat left knee arthroscopy cystoscopy right knee replacement 12/2015
== END 2024-11-03 13:14 | disposition home or self-care (01) ==
LOC: HO.PMC 12:57
PROVIDERS: PCP Internal Medicine; Visit Provider Nurse Practitioner Family
DX: M41.9 Scoliosis, unspecified (principal); M47.817 Spondylosis without myelopathy or radiculopathy, lumbosacral region; M54.50 Low back pain, unspecified; G89.29 Other chronic pain
CPT/HCPCS: 99214; G2211

== ENCOUNTER → 2024-11-03 12:56 | Outpatient (BNVA) | payer OTHER, SELFPAY | PROVIDERS: PCP Internal Medicine; Visit Provider Nurse Practitioner Family | DX: Z71.2 Person consulting for explanation of examination or test findings (principal); M47.817 Spondylosis without myelopathy or radiculopathy, lumbosacral region; M54.50 Low back pain, unspecified; G89.29 Other chronic pain; M41.9 Scoliosis, unspecified | CPT/HCPCS: 99212 ==

== ENCOUNTER 2024-11-18 11:17 | Outpatient (AMB) | payer OTHER, SELFPAY ==
--- NOTE | 2024-11-18 11:18 | MHC.PC.OV ---
Vital Signs 11/18/24 11:19 Height 5 ft 4 in Weight 169 lb 8 oz BMI 29.1 BP 130/74 Blood Pressure Location Rt brachial Position Sitting Pulse 100 Pulse Source Pulse Oximeter Temp 97.5 F Temp Source Temporal Artery Scan Pulse Oximetry (%) 95 Oxygen Delivery Method Room Air Intake Visit Reasons: Cough and possible pneumonia Allergies Iodinated Contrast Media (IV DYE, IODINE CONTAINING) Allergy (Severe, Verified 11/18/24 11:22) ITCH/RASH clams Allergy (Intermediate, Verified 11/18/24 11:22) ITCHING docusate (From COLACE) Allergy (Intermediate, Verified 11/18/24 11:22) ITCHING lansoprazole (Prevacid) Allergy (Intermediate, Verified 11/18/24 11:22) hives oxybutynin Allergy (Intermediate, Verified 11/18/24 11:22) bladder pain pistachio nut Allergy (Intermediate, Verified 11/18/24 11:22) ITCHING walnut Allergy (Intermediate, Verified 11/18/24 11:22) ITCH/RASH SEASONAL ALLERGIES Allergy (Intermediate, Uncoded 11/18/24 11:22) ITCHY EYES Medication List - Last Reconciled 11/18/24 by Bob Escobar MD acetaminophen ER (Tylenol 8 Hour) 650 mg PO Q8H PRN albuterol sulfate 90 mcg/actuation 2 puffs inhalation Q6H PRN 30 days NS albuterol sulfate 2.5 mg (3 mL) inhalation Q6H PRN 30 days blood pressure monitor As directed calcium carbonate-vitamin D3 600 mg-10 mcg (400 unit) 1 tab PO MOFR@0900 diclofenac sodium 1% 2 grams topical BID PRN docusate sodium (Colace) 100 mg PO BID fluticasone propion-salmeterol 250-50 mcg/dose (Wixela Inhub) 1 inh inhalation BID fluticasone propionate 50 mcg/actuation 1 spray intranasal DAILY glucosamine sulfate 750 mg PO DAILY guaifenesin ER (Mucinex) 600 mg PO BID 5 days lidocaine 5% leave on most painful area for up to 12 hrs topically daily; 30 days loratadine 10 mg PO DAILY magnesium oxide 400 mg PO BEDTIME PRN meclizine 25 mg PO TID PRN 30 days metoprolol succinate ER 50 mg PO DAILY pantoprazole 40 mg PO QAM riboflavin (vitamin B2) 400 mg PO DAILY 30 days sennosides (Natural Senna Laxative) 17.2 mg (2 x 8.6 mg) PO BEDTIME simethicone (Gas Relief (simethicone)) 125 mg PO BID-TID PRN tobramycin 0.3% 1 drp ophthalmic (eye) Q4H 7 days Tobacco use date assessed: 11/18/24 Fall risk assessment: No Falls in past year Last assessed Fall Risk: 11/18/24 Dental Screening Dental Screen Date: 11/18/24 Did you have a dental visit in the last 12 months?: Yes Did you have a dental problem in the last 6 months where you did not have access to dental care?: No Was dental information given to patient?: Patient has dentist HPI HPI Comments History of Present Illness Details The patient is a 63-year-old female presenting with asthma symptoms. She reports experiencing wheezing and cough, which have been persistent. The patient has been using her inhaler more frequently to manage these symptoms. The patient also describes throat discomfort, feeling as though something is stuck in her throat, which exacerbates her asthma symptoms. She denies any fever or but reports chills and cold intolerance. [facility] Medical History Rhinosinusitis Acute respiratory failure with hypoxia Migraine Cough MAXIMILIANO (obstructive sleep apnea) Bronchitis PONV (postoperative nausea and vomiting) Helicobacter pylori (H. pylori) Physical exam UTI (urinary tract infection) Scoliosis Restrictive lung disease Dysphagia Mild major depression, single episode Right shoulder pain COPD (chronic obstructive pulmonary disease) Allergic rhinosinusitis Acute bronchitis Asthma Anemia Primary osteoarthritis involving multiple joints Essential hypertension Right ankle pain Allergic rhinitis Surgical History History of laparoscopic appendectomy (~09/10/23) History of esophagogastroduodenoscopy (EGD) Hx of colonoscopy Hx of cardiac cath History of total left knee replacement History of arthroscopy of right knee History of hemorrhoidectomy History of total right knee replacement History of total abdominal hysterectomy History of tonsillectomy Family History Father Alcoholism Arthritis Mother Diabetes Acute CVA (cerebrovascular accident) Sister Breast cancer Family/Other FH: mental illness Brother Diabetes Myocardial infarct Daughter In good health Daughter In good health Daughter In good health Social History Household Members: Spouse Housing: House Alcohol intake: never Patient Tobacco Use Status: Never used Tobacco e-Cigarette/Vaping Use: Never Used Second Hand Smoke Exposure: No Advance Directives Date on File: 11/28/19 service: No 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al status: disabled 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 1. Little interest or pleasure in doing things: several days 2. Feeling down, depressed, or hopeless: not at all 3. Trouble falling or staying asleep, or sleeping too much: not at all 4. Feeling tired or having little energy: several days 5. Poor appetite or overeating: not at all 6. Feeling bad about yourself - or that you are a failure or have let yourself or your family down: several days 7. Trouble concentrating on things, such as reading the newspaper or watching television: not at all 8. Moving or speaking so slowly that other people could have noticed. Or the opposite - being so fidgety or restless that you have been moving around a lot more than usual: not at all 9. Thoughts that you would be better off or of hurting yourself in some way: not at all Total score: 3 Depression Screening Interpretation: Positive Depression Screening Follow-up: Existing condition and Follow-up Visit Requested Depression Screening Done: Yes Source: Developed by Drs. Lake Douglass, Kristina Millard, Umang Rome and colleagues, with an educational telma from [employer]. Thrive Questionnaire Date Thrive assessed: 06/02/24 I am a: Patient What is your living situation today?: I have a steady place to live Within the past 12 months, did the food you bought not last and you didn't have the money to get more?: Sometimes True Within the past 12 months, did you worry whether your food would run out before you got money to buy more?: Sometimes True Do you have trouble paying for medicines?: Yes Do you have trouble getting transportation to medical appointments?: No Do you have trouble paying your heating and electricity bill?: Yes Do you have trouble taking care of your child, family member or friend?: No Do you have trouble with day-to-day activities such as bathing, preparing meals, shopping, managing finances, etc.?: No Are you currently unemployed and looking for a job?: Yes Are you interested in more education?: No Please select the resources that you would like help with: None Currently or been in a relationship where the following occur: I choose not to answer THRIVE Score: 3 AUDIT C Alcohol Use Questionnaire (AUDIT-C) 1. How often do you have a drink containing alcohol?: Never 3. How often do you have six or more drinks on one occasion?: Never Total Score: 0 HELEN-7 AMB Questionnaire HELEN-7 Date HELEN - 7 assessed: 02/28/24 Feeling nervous, anxious, or on edge: 0 = Not at all Not being able to stop or control worryin = Not at all Worrying too much about different things: 0 = Not at all Trouble relaxin = Not at all Being so restless that it is hard to sit still: 0 = Not at all Becoming easily annoyed or irritable: 0 = Not at all Feeling afraid as if something awful might happen: 0 = Not at all Total HELEN-7 score (0-4 normal; 5-9 mild; 10-14 moderate; 15-21 severe): 0 Source: Developed by Drs. Lake Douglass, Kristina Millard, Umang Rome and colleagues, with an educational telma from [employer]. Review of Systems Const Details: Positives besides what was mentioned in HPI are in BOLD Constitutional: No Weight Change, No Fever, No Chills, No Night Sweats, No Fatigue, No Malaise ENT/Mouth: No Hearing Changes, No Ear Pain, No Nasal Congestion, No Sinus Pain, No Hoarseness, No sore throat, No Rhinorrhea, No Swallowing Difficulty Eyes: No Eye Pain, No Swelling, No Redness, No Foreign Body, No Discharge, No Vision Changes Cardiovascular: No Chest Pain, No SOB, No PND, No Dyspnea on Exertion, No Orthopnea, No Claudication, No Edema, No Palpitations Respiratory: No Cough, No Sputum, No Wheezing, No Smoke Exposure, No Dyspnea Gastrointestinal: No Nausea, No Vomiting, No Diarrhea, No Constipation, No Pain, No Heartburn, No Anorexia, No Dysphagia, No Hematochezia, No Melena, No Flatulence, No Jaundice Genitourinary: No Dysmenorrhea, No DUB, No Dyspareunia, No Dysuria, No Urinary Frequency, No Hematuria, No Urinary Incontinence, No Urgency, No Flank Pain, No Urinary Flow Changes, No Hesitancy Musculoskeletal: No Arthralgias, No Myalgias, No Joint Swelling, No Joint Stiffness, No Back Pain, No Neck Pain, No Injury History Skin: No Skin Lesions, No Pruritis, No Hair Changes, No Breast/Skin Changes, No Nipple Discharge Neuro: No Weakness, No Numbness, No Paresthesias, No Loss of Consciousness, No Syncope, No Dizziness, No Headache, No Coordination Changes, No Recent Falls Psych: No Anxiety/Panic, No Depression, No Insomnia, No Personality Changes, No Delusions, No Rumination, No SI/HI/AH/VH, No Social Issues, No Memory Changes, No Violence/Abuse Hx., No Eating Concerns Heme/Lymph: No Bruising, No Bleeding, No Transfusions History, No Lymphadenopathy Endocrine: No Polyuria, No Polydipsia, No Temperature Intolerance Physical exam (Primary Care) Vital Signs: Last Vital Signs Temp 97.5 F 11/18/24 11:19 Pulse 100 11/18/24 11:19 BP 130/74 11/18/24 11:19 Pulse Ox 95 11/18/24 11:19 Oxygen Delivery Method Room Air 11/18/24 11:19 BMI result Body Mass Index 29.1 Tobacco/Smoking Status: Tobacco use Status Tobacco use date assessed 11/18/24 11/18/24 11:24 Patient Tobacco Use Status Never used Tobacco 11/18/24 11:24 e-Cigarette/Vaping Use Never Used 11/18/24 11:24 PHQ-9: PHQ-9 Score PHQ-9: Total score 3 11/18/24 11:24 Depression Screening Interpretation: Positive Depression Screening Follow-up: Existing condition and Follow-up Visit Requested Thrive Assessment: Date of Thrive Assessment Date Thrive assessed 06/02/24 11/18/24 11:24 Currently or been in a relationship where the following occur: I choose not to answer Const Other: Pertinent findings are in BOLD GENERAL APPEARANCE NAD, activity normal for age, well developed/ well nourished, no cyanosis, pallor, or diaphoresis. EYES lids/conjunctiva normal. EARS/NOSE/THROAT Mucous membranes moist, nares normal, lips/teeth normal uvula midline without oral pharyngeal erythema, exudate or swelling TMs normal bilaterally. No lymphangitis/lymphedema. HEAD/NECK normocephalic atraumatic, no facial trauma, neck is supple. RESPIRATORY respiratory effort normal, speaks in full sentences, no tripod position, no accessory muscle use. Positive Ronchi, minimal wheezing. CARDIAC Regular rate and rhythm, no edema. ABDOMINAL Soft, ND/NT. No evidence of fluid wave. No pulsatile masses on exam, rebound tenderness, Ortega sign or pain over Mcburney's point. MUSCLES/EXTREMITIES No abnormal range of motion, no swelling. SKIN Warm, pink and dry. No rashes, dermatoses, petechiae or lesions. NEUROLOGICAL Speech is clear and appropriate. Normal level of consciousness. Gait and coordination are normal. 5/5 strength in all extremities. PSYCH Normal mood and affect. Judgement/competence is appropriate Coding Level of Care Code Est Pt Level 4 (63976) Diagnoses Pneumonia J18.9 Time Spent (min) 20 Assessment & Plan Assessment & Plan (1) Pneumonia: Code(s): J18.9 - Pneumonia, unspecified organism Category: Medical Plan: Augumentin for 10 days. CXR outpatient. Advised patient to go to the ED in case her symptoms get worse. F-U in 9 days to check for symptoms improvement. We will address her left elbow pain then. Plan I discussed with the patient the plan to prescribe Augmentin for 10 days to manage any bacterial infection that may be worsening her asthma symptoms. We also agreed on performing a chest x-ray to further assess her respiratory condition. I advised her to continue using her inhaler as needed and to stay hydrated. The patient was instructed to follow up in nine days or sooner if her symptoms worsen. Orders: Orders XR chest 2V Today J18.9 - Pneumonia, unspecified organism Medications: New amoxicillin-pot clavulanate 1,000-62.5 mg (Augmentin XR) 1 tab PO BID 20 tabs 0RF 10 days Refilled albuterol sulfate 2.5 mg (3 mL) inhalation Q6H PRN 75 mL 6RF shortness of breath or wheezing 30 days
[2024-11-18 11:19] VITALS: BP 130/74; PULSE 100; TEMP 36.4; O2SAT 95; BMI 29.1
--- OUTSIDE RECORDS SUMMARY | 2024-11-18 14:09 | XMS_ITS | Patient Health Record ---
Author Organization [facility] Address [address] [place] [address] Care Team Providers Care Construction Estimator Name Role Phone Nora Anderson Primary Care Provider Unavailab Jorge A Hayden Jr Unavailable Allergies Allergen (clinical drug [...] Problem Status W/U Status Risk Notes Problem 46723884 Rectal bleeding (K62.5) Active confirmed Problem 290474041 Gastro-esophagea l reflux disease without esophagitis (K21.9) Active confirmed Problem 607155026 Personal history of colonic polyps (Z86.010) Active confirmed Problem 04230213 Irritable bowel syndrome without diarrhea (K58.9) Active confirmed Problem 10098347 Dysphagia, unspecified type (R13.10) Active confirmed Plan Of Treatment Future Test Test Name Order Date COLONOSCOPY 11/04/2015 COLONOSCOPY 01/30/2018 Insurance Providers Payer Name Payer Address Payer Phone Subscriber Number Group Number Insured Name Patient Relationship to Insured Coverage Start Date Coverage End Date [facility] [address] [place] [phone] [id number] ISMA [id number] Self - patient is the insured Medical (General) History Medical History History ICD Code colonoscopy 01/28/16. Hyperplastic polyps x2, prior history of adenomas. degenerative joint disease gerd Peptic Ulcer Disease Asthma interstitial cystitis migraines Surgical History Surgery Date(Month/Year) hysterectomy tonsillectomy right knee arthroplasty throat left knee arthroscopy cystoscopy right knee replacement 12/2015
== END 2024-11-18 11:40 | disposition home or self-care (01) ==
LOC: HO.HMCH 11:18
PROVIDERS: PCP Internal Medicine; Visit Provider Internal Medicine
DX: J18.9 Pneumonia, unspecified organism (principal)

== ENCOUNTER 2024-11-18 11:17 | Outpatient (REF) | payer OTHER, SELFPAY ==
--- NOTE | ~2024-11-18 | XR_ITS ---
EXAMINATION: XR CHEST CLINICAL INFORMATION: J18.9 - Pneumonia, unspecified organism COMPARISON: 02/17/2024 TECHNIQUE: 2 views of the chest were obtained. FINDINGS: Elevated left hemidiaphragm, stable. The cardiac, hilar, and mediastinal contours are normal. Descending aorta is tortuous. The lungs are clear bilaterally. There is no pneumothorax or pleural effusion. There is no focal osseous or soft tissue abnormality. Moderate to severe right convex thoracic scoliosis with associated degenerative spondylosis. XR/XR chest 2V IMPRESSION: No active pulmonary disease. No significant interval change from 02/17/2024. Electronically signed by: Oj Arenas MD 11/18/2024 12:45 PM EDT
== END 2024-11-18 11:18 | disposition home or self-care (01) ==
LOC: HO.XRAY 11:17
PROVIDERS: PCP Internal Medicine; Visit Provider Internal Medicine
DX: J18.9 Pneumonia, unspecified organism (principal); Z79.899 Other long term (current) drug therapy
CPT/HCPCS: 71046; 99212

== ENCOUNTER → 2024-11-18 11:53 | Outpatient (BNV) | payer OTHER, SELFPAY | PROVIDERS: PCP Internal Medicine; Visit Provider Radiology Diagnostic Radiology | DX: J18.9 Pneumonia, unspecified organism (principal) | CPT/HCPCS: 71046 ==

== ENCOUNTER 2024-12-01 11:24 | Outpatient (AMB) | payer OTHER, SELFPAY ==
--- NOTE | 2024-12-01 11:29 | MHC.OFFVIS ---
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 Required: No Accompanied by: Self / Same As Patient Allergies Iodinated Contrast Media (IV DYE, IODINE CONTAINING) Allergy (Severe, Verified 12/01/24 11:39) ITCH/RASH clams Allergy (Intermediate, Verified 12/01/24 11:39) ITCHING docusate (From COLACE) Allergy (Intermediate, Verified 12/01/24 11:39) ITCHING lansoprazole (Prevacid) Allergy (Intermediate, Verified 12/01/24 11:39) hives oxybutynin Allergy (Intermediate, Verified 12/01/24 11:39) bladder pain pistachio nut Allergy (Intermediate, Verified 12/01/24 11:39) ITCHING walnut Allergy (Intermediate, Verified 12/01/24 11:39) ITCH/RASH SEASONAL ALLERGIES Allergy (Intermediate, Uncoded 11/18/24 11:22) ITCHY EYES Medication List - Last Reconciled 12/01/24 by FIFI Ga acetaminophen ER (Tylenol 8 Hour) 650 mg PO Q8H PRN albuterol sulfate 90 mcg/actuation 2 puffs inhalation Q6H PRN 30 days NS albuterol sulfate 2.5 mg (3 mL) inhalation Q6H PRN 30 days amoxicillin-pot clavulanate 1,000-62.5 mg (Augmentin XR) 1 tab PO BID 10 days blood pressure monitor As directed calcium carbonate-vitamin D3 600 mg-10 mcg (400 unit) 1 tab PO MOFR@0900 diclofenac sodium 1% 2 grams topical BID PRN docusate sodium (Colace) 100 mg PO BID fluticasone propion-salmeterol 250-50 mcg/dose (Wixela Inhub) 1 inh inhalation BID fluticasone propionate 50 mcg/actuation 1 spray intranasal DAILY glucosamine sulfate 750 mg PO DAILY guaifenesin ER (Mucinex) 600 mg PO BID 5 days lidocaine 5% leave on most painful area for up to 12 hrs topically daily; 30 days loratadine 10 mg PO DAILY magnesium oxide 400 mg PO BEDTIME PRN meclizine 25 mg PO TID PRN 30 days metoprolol succinate ER 50 mg PO DAILY pantoprazole 40 mg PO QAM riboflavin (vitamin B2) 400 mg PO DAILY 30 days sennosides (Natural Senna Laxative) 17.2 mg (2 x 8.6 mg) PO BEDTIME simethicone (Gas Relief (simethicone)) 125 mg PO BID-TID PRN tobramycin 0.3% 1 drp ophthalmic (eye) Q4H 7 days HPI Comments Details: 63-yr-old female presents for f/u visit for migraine and dizziness. Patient reports she is currently on a course of ABT due to asthma exacerbation. She states her allergy symptoms are worse, and her albuterol is not working. She states she has an appointment tomorrow with her PCP to address this. She states she has to sleep flat, cannot sleep with her head elevated. In the past month, she has been having increased headaches. Yesterday, she bought the vitamin B2 again. Baseline headache characteristics: Unilateral, possibly right-sided pulling sensation (like hair is being pulled) a/w photophobia, phonophobia, osmophobia, some nausea, can be dizzy (different than her vertigo). She reports she is still prone to foot pain if she has stood for greater than 4 hours. She states she has done PT for the foot pain, and was taught some foot exercises, which she tries to do. She is using a foot cream and a gel shoe insert, which helps. She states her dizziness has been better, however when it comes, it is slightly different. It used to be external dizziness, and now it feels like she is being pulled back. Patient offers no complaints of dizziness or tinnitus. Her baseline dizzy and mild tinnitus symptoms are triggered by moving her eyes, turning her head, or moving quickly. She previously did vestibular PT eval at [facility]- was told no vestibular s/s. 12/13/2022 MR/MR head/brain wo/w con IMPRESSION: 1. There are no acute bleeds or territorial infarcts. No masses aredemonstrated. There is no abnormal enhancement. 2. There are chronic microvascular ischemic changes and there is milddiffuse volume loss. [facility] Medical History Rhinosinusitis Acute respiratory failure with hypoxia Migraine Cough MAXIMILIANO (obstructive sleep apnea) Bronchitis PONV (postoperative nausea and vomiting) Helicobacter pylori (H. pylori) Physical exam UTI (urinary tract infection) Scoliosis Restrictive lung disease Dysphagia Mild major depression, single episode Right shoulder pain COPD (chronic obstructive pulmonary disease) Allergic rhinosinusitis Acute bronchitis Asthma Anemia Primary osteoarthritis involving multiple joints Essential hypertension Right ankle pain Allergic rhinitis Surgical History History of laparoscopic appendectomy (~09/10/23) History of esophagogastroduodenoscopy (EGD) Hx of colonoscopy Hx of cardiac cath History of total left knee replacement History of arthroscopy of right knee History of hemorrhoidectomy History of total right knee replacement History of total abdominal hysterectomy History of tonsillectomy Family History Father Alcoholism Arthritis Mother Diabetes Acute CVA (cerebrovascular accident) Sister Breast cancer Family/Other FH: mental illness Brother Diabetes Myocardial infarct Daughter In good health Daughter In good health Daughter In good health Social History Household Members: Spouse Housing: House Alcohol intake: never Patient Tobacco Use Status: Never used Tobacco e-Cigarette/Vaping Use: Never Used Second Hand Smoke Exposure: No Advance Directives Date on File: 11/28/19 service: No 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al status: disabled 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 Cognitive needs: No Hearing needs: No Vision needs: Yes Physical Exam Vital Signs: Last Vital Signs Pulse 73 12/01/24 11:37 BP 130/60 12/01/24 11:37 Pulse Ox 95 12/01/24 11:37 Oxygen Delivery Method Room Air 12/01/24 11:37 BMI result Body Mass Index 29.5 Const General: cooperative and no acute distress Orientation/consciousness: patient oriented x3 Resp Effort & Inspection: normal respiratory effort and able to speak in complete sentences Neuro General: patient oriented x3 Cranial nerves: Yes CN's II-XII intact bilaterally Cognition (Neuro): normal cognition Gait exam (Neuro): Normal gait present Psych Appearance: grossly normal Mental Status: mental status grossly normal Speech and movement: Normal speech and movement present Affect: normal affect Attitude: cooperative Assessment & Plan Assessment & Plan (1) Migraine without aura: Code(s): G43.009 - Migraine without aura, not intractable, without status migrainosus Category: Medical Qualifiers: Status migrainosus presence: without status migrainosus Intractability: not intractable Qualified Code(s): G43.009 - Migraine without aura, not intractable, without status migrainosus (2) Vertigo: Comment: ? BPPV, ? vestibular migraine component Code(s): R42 - Dizziness and giddiness Category: Medical (3) Paresthesia of both lower extremities: Code(s): R20.2 - Paresthesia of skin Category: Medical Plan Regarding patient's current marrow asthma/COPD exacerbation: Follow-up with PCP as scheduled tomorrow. Reviewed optimal albuterol inhalation technique. Advised to seek immediate medical attention she develops respiratory distress symptoms. Previous Brain MRI w/wo- chronic microvascular ischemic changes and mild diffuse volume loss. ? For bilateral foot burning pain in setting of history of anemia, osteoarthritis, dry eye: Continue magnesium, voltaren gel, gel shoe inserts. Future consideration: BLE EMG/NCS. ? For migraine and dizziness: Concur with resuming Riboflavin. Continue Magnesium 400mg qhs. May use Meclizine sparingly. Vestibular eval- did not reveal BPPV. Future considerations- gepant, SSRIs, TCAs, CCBs. Refer back to vestibular therapy. MAXIMILIANO: HST: mild MAXIMILIANO 12/hr and O2 kieran 75%. Unfortunately patient did not tolerate trial of APAP therapy. Unfortunately patient states she cannot sleep supine. F/u w/ pulmonology as scheduled. ? f/u in 6 months or sooner prn. Medications: Changed From magnesium oxide may hold for loose stools 400 mg PO BEDTIME PRN Constipation To magnesium oxide may hold for loose stools 400 mg PO BEDTIME PRN 90 tabs 3RF Constipation 90 days Refilled riboflavin (vitamin B2) 400 mg PO DAILY 30 tabs 11RF 30 days Coding Level of Care Code Est Pt Level 4 (67497) Diagnoses Migraine without aura and without status migrainosus, not intractable G43.009 Status migrainosus presence: without status migrainosus Intractability: not intractable Vertigo R42 Paresthesia of both lower extremities R20.2
[2024-12-01 11:37] VITALS: BP 130/60; PULSE 73; O2SAT 95; BMI 29.5
--- OUTSIDE RECORDS SUMMARY | 2024-12-01 14:04 | XMS_ITS | Data Portability ---
Author Organization [facility], Allergy Address [address] [address] Care Team Providers Care Rattan Worker Name Role Phone ELIZABETH RAMOS Primary [...] [place], modified barium swallow study 2023 024 [facility], [address], [place], [address], 12:05:11 Medication Orders None recorded. Patient TargetsNo targets recorded. Patient InstructionsNo instructions recorded. Reason for Referral None Reported. Results Created Date Observation Date Name Description Value Unit Range Abnormal Flag Note LastModifiedBy Organization Detail LastModifiedTime 01/01/20 24 01/01/2024 [place], modif ied randall clark study No observ ation record ed. falguni Ents Of [address], [address], 01/01/2024 15:09:03 Result Notes None recorded. Problems Name Problem SNOMED Code Status Onset Date Resolution Date Notes Provider Name and Address Organization Details Recorded Time Vertigo of central origin NOS Active 2017 Vertigo of central origin, unspecifi ed ear; Note: Date Diagnosed : 8 10:52 AM (H81.49) Not Available [facility] 4 02:35:40 Bilateral tinnitus 58623792451 02 Active 2017 Tinnitus, bilateral ; Note: Date Diagnosed : 8 10:35 AM (H93.13) Not Available [facility] 4 02:35:45 Dizziness and giddiness 916203419 Active 2017 Dizziness and giddiness ; Note: Date Diagnosed : 8 10:35 AM (R42) Not Available [facility] 4 02:35:44 Migraine 65944259 Active 2017 Other migraine, not intractab le, without status migrainos us; Note: Date Diagnosed : 8 10:52 AM (G43.809) Not Available [facility] 4 02:35:48 Vertigo of central origin 94510548 Active 2020 Vertigo of central origin; Note: Date Diagnosed : 1 3:44 PM (H81.4) Not Available [facility] 4 02:35:45 Insomnia 092424187 Active 2020 Insomnia, unspecifi ed; Note: Date Diagnosed : 1 3:42 PM (G47.00) Not Available [facility] 4 02:35:48 Refractor y migraine 355510241 Active 2021 Other migraine, intractab le, without status migrainos us; Note: Date Diagnosed : 08/23/2021 1:47 PM (G43.819) Not Available [facility] 4 02:35:41 Gastroeso phageal reflux disease without esophagit is 864124389 Active 2023 JACKSON JIMÉNEZ PA-C [address] [facility] [place] [address], [place], [address] , [facility] 12:27:43 Dysphagia 55447759 Active 2023 JACKSON JIMÉNEZ PA-C [address] [facility] [place],[facility] [address], [place], [address] , [facility] 12:27:57 Problem Notes None recorded. Procedures Surgical History Date Name Laterality Status Provider Name and Address Organization Details Recorded Time 12/19/2023 FOL_Reflux _JMS completed JACKSON JIMÉNEZ PA-C 100 [facility],[place] [address], [place], [address], [facility] 12/19/2023 12:26:26 Imaging Results None recorded. [...] at bedtime 2021 active Medicatio n ID: [id number] Pr escribed By Name: Alma Zeng Name: [...] for inhalation 2017 active Medicatio n ID: [id number] Du ration Value: 90 Brand Name: Advair [...] mg capsule 2017 active Medicatio n ID: [id number] Br and Name: Tylenol S end Method: [...] Updated DateTime 12/19/2023 162.56 cm 28 kg/m2 22441.56 g Sulema Patel [place] - [facility] N[facility] [...] Diagnosis SNOMED-CT Code Diagnosis ICD10 Code Diagnosis IMO Codes Diagnosis Note [id number] JACKSON JIMÉNEZ PA-C [facility] [address] [place] [address] 12/19/2023 11:26:21 12/19/2023 12:08:20 Gastroesophageal reflux disease without esophagitis 761717133 K21.9 Dysphagia 69424894 R13.1 0 Health Concerns Section Related Observation LastModified by Organization Detai ls LastModified Time None Recorded Concern Status LastModified by Organization Details LastModified Time None Recorded Advance Directives Directive None Recorded Payers Insurance Date Sequence Insurance Name Policy Number Policy Sena Covered Member ID Sena Member ID Guarantor Name 12/19/[address] [facility] - DOS ON OR AFTER 2022 - MEDICARE [place]ANTAGE [place]ARE REPLACEMENT/ADV ANTAGE - PPO) Mckenzie Montgomery [id number] Mckenzie Montgomery 12/19/[address] [facility] - DOS ON OR AFTER 2022 - ONE CARE (MEDICARE REPLACEMENT/ADV ANTAGE - HMO) Mckenzie Montgomery [id number] Mckenzie Montgomery Notes Date Note Type Note Provider Name and Address Organization Details Recorded Time 12/19/2023 text/html ROS as noted in the HPI 63-year-old female presents for evaluation of dysphagia. Patient states [...] swallowing becomes much better. JACOB TERRAZAS MD [address] [place] [address], [address], [place] [facility] 12/19/2023 16:55:57 OBGyn Episode No OBEpisode recorded.
--- OUTSIDE RECORDS SUMMARY | 2024-12-01 14:04 | XMS_ITS | Patient Health Record ---
Author Organization [facility] Address [address] [place] [address] Care Team Providers Care Manufacturing Assembler Name Role Phone Nora Anderson Primary Care [...] Problem Status W/U Status Risk Notes Problem 70261995 Rectal bleeding (K62.5) Active confirmed Problem 509776849 Gastro-esophagea l reflux disease without esophagitis (K21.9) Active confirmed Problem 022471459 Personal history of colonic polyps (Z86.010) Active confirmed Problem 63147752 Irritable bowel syndrome without diarrhea (K58.9) Active confirmed Problem 04156531 Dysphagia, unspecified type (R13.10) Active confirmed Plan Of Treatment Future Test Test Name Order Date COLONOSCOPY 11/04/2015 COLONOSCOPY 01/30/2018 Insurance Providers Payer Name Payer Address Payer Phone Subscriber Number Group Number Insured Name Patient Relationship to Insured Coverage Start Date Coverage End Date [facility] [address] [place] [address] [id number] ISMA RODRÍGUEZ Self - patient is the insured Medical (General) History Medical History History ICD Code colonoscopy 01/28/16. Hyperplastic polyps x2, prior history of adenomas. degenerative joint disease gerd Peptic Ulcer Disease Asthma interstitial cystitis migraines Surgical History Surgery Date(Month/Year) hysterectomy tonsillectomy right knee arthroplasty throat left knee arthroscopy cystoscopy right knee replacement 12/2015
== END 2024-12-01 13:10 | disposition home or self-care (01) ==
LOC: HO.HSMS 11:25
PROVIDERS: PCP Internal Medicine; Visit Provider Nurse Practitioner Family
DX: G43.009 Migraine without aura, not intractable, without status migrainosus (principal); R42 Dizziness and giddiness; R20.2 Paresthesia of skin
CPT/HCPCS: 99214

== ENCOUNTER → 2024-12-01 11:24 | Outpatient (BNVA) | payer OTHER, SELFPAY | PROVIDERS: PCP Internal Medicine; Visit Provider Nurse Practitioner Family | DX: G43.009 Migraine without aura, not intractable, without status migrainosus (principal); R42 Dizziness and giddiness; R20.2 Paresthesia of skin | CPT/HCPCS: 99212 ==

== ENCOUNTER 2024-12-02 11:01 | Outpatient (AMB) | payer OTHER, SELFPAY ==
--- NOTE | 2024-12-02 11:06 | MHC.PC.OV ---
Vital Signs 12/02/24 11:07 Height 5 ft 4 in Weight 172 lb 8 oz BMI 29.6 BP 142/62 H Blood Pressure Location Lt brachial Position Sitting Respiration 18 Pulse 79 Pulse Source Pulse Oximeter Temp 97.3 F Temp Source Temporal Artery Scan Pulse Oximetry (%) 95 Oxygen Delivery Method Room Air Intake Visit Reasons: depression Internet Sales Director Required: No Accompanied by: Self / Same As Patient Allergies Iodinated Contrast Media (IV DYE, IODINE CONTAINING) Allergy (Severe, Verified 12/02/24 11:26) ITCH/RASH clams Allergy (Intermediate, Verified 12/02/24 11:26) ITCHING docusate (From COLACE) Allergy (Intermediate, Verified 12/02/24 11:26) ITCHING lansoprazole (Prevacid) Allergy (Intermediate, Verified 12/02/24 11:26) hives oxybutynin Allergy (Intermediate, Verified 12/02/24 11:26) bladder pain pistachio nut Allergy (Intermediate, Verified 12/02/24 11:26) ITCHING walnut Allergy (Intermediate, Verified 12/02/24 11:26) ITCH/RASH SEASONAL ALLERGIES Allergy (Intermediate, Uncoded 12/02/24 11:26) ITCHY EYES Medication List - Last Reconciled 12/02/24 by Nora Julian MD acetaminophen ER (Tylenol 8 Hour) 650 mg PO Q8H PRN albuterol sulfate 90 mcg/actuation 2 puffs inhalation Q6H PRN 30 days NS albuterol sulfate 2.5 mg (3 mL) inhalation Q6H PRN 30 days amoxicillin-pot clavulanate 1,000-62.5 mg (Augmentin XR) 1 tab PO BID 10 days blood pressure monitor As directed calcium carbonate-vitamin D3 600 mg-10 mcg (400 unit) 1 tab PO MOFR@0900 diclofenac sodium 1% 2 grams topical BID PRN docusate sodium (Colace) 100 mg PO BID fluticasone propion-salmeterol 250-50 mcg/dose (Wixela Inhub) 1 inh inhalation BID fluticasone propionate 50 mcg/actuation 1 spray intranasal DAILY glucosamine sulfate 750 mg PO DAILY guaifenesin ER (Mucinex) 600 mg PO BID 5 days lidocaine 5% leave on most painful area for up to 12 hrs topically daily; 30 days loratadine 10 mg PO DAILY magnesium oxide 400 mg PO BEDTIME PRN 90 days meclizine 25 mg PO TID PRN 30 days metoprolol succinate ER 50 mg PO DAILY pantoprazole 40 mg PO QAM riboflavin (vitamin B2) 400 mg PO DAILY 30 days sennosides (Natural Senna Laxative) 17.2 mg (2 x 8.6 mg) PO BEDTIME simethicone (Gas Relief (simethicone)) 125 mg PO BID-TID PRN tobramycin 0.3% 1 drp ophthalmic (eye) Q4H 7 days Tobacco use date assessed: 12/02/24 Fall risk assessment: No Falls in past year Last assessed Fall Risk: 12/02/24 Dental Screening Dental Screen Date: 12/02/24 Did you have a dental visit in the last 12 months?: Yes Did you have a dental problem in the last 6 months where you did not have access to dental care?: No Was dental information given to patient?: Patient has dentist HPI HPI Comments History of Present Illness Details The patient is a 63-year-old female presenting with a follow-up for her chronic conditions, primarily hypertension and asthma. Her blood pressure was noted to be elevated during today's visit, and she is currently taking metoprolol for management. The patient has a history of asthma, which she describes as worsening over time. Previously, using her asthma inhaler provided quick relief, but now it seems less effective, and she experiences more severe symptoms. She is currently using Wixela and has considered the need for prednisone due to the severity of her symptoms. The patient has multiple allergies, including to contrast, docusate, brevacid, oxybutynine, pistachio, walnut, and seasonal allergens. She is managing her allergies with loratadine and has a history of using albuterol for asthma exacerbations. Additionally, she reports experiencing constipation, for which she takes calcium with vitamin A and senna. [facility] Medical History Rhinosinusitis Acute respiratory failure with hypoxia Migraine Cough MAXIMILIANO (obstructive sleep apnea) Bronchitis PONV (postoperative nausea and vomiting) Helicobacter pylori (H. pylori) Physical exam UTI (urinary tract infection) Scoliosis Restrictive lung disease Dysphagia Mild major depression, single episode Right shoulder pain COPD (chronic obstructive pulmonary disease) Allergic rhinosinusitis Acute bronchitis Asthma Anemia Primary osteoarthritis involving multiple joints Essential hypertension Right ankle pain Allergic rhinitis Surgical History History of laparoscopic appendectomy (~09/10/23) History of esophagogastroduodenoscopy (EGD) Hx of colonoscopy Hx of cardiac cath History of total left knee replacement History of arthroscopy of right knee History of hemorrhoidectomy History of total right knee replacement History of total abdominal hysterectomy History of tonsillectomy Family History Father Alcoholism Arthritis Mother Diabetes Acute CVA (cerebrovascular accident) Sister Breast cancer Family/Other FH: mental illness Brother Diabetes Myocardial infarct Daughter In good health Daughter In good health Daughter In good health Social History Household Members: Spouse Housing: House Alcohol intake: never Patient Tobacco Use Status: Never used Tobacco e-Cigarette/Vaping Use: Never Used Second Hand Smoke Exposure: No Advance Directives Date on File: 11/28/19 service: No 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al status: disabled 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 Cognitive needs: No Hearing needs: No Vision needs: Yes Questionnaire Thrive Questionnaire Date Thrive assessed: 06/02/24 I am a: Patient What is your living situation today?: I have a steady place to live Within the past 12 months, did the food you bought not last and you didn't have the money to get more?: Sometimes True Within the past 12 months, did you worry whether your food would run out before you got money to buy more?: Sometimes True Do you have trouble paying for medicines?: Yes Do you have trouble getting transportation to medical appointments?: No Do you have trouble paying your heating and electricity bill?: Yes Do you have trouble taking care of your child, family member or friend?: No Do you have trouble with day-to-day activities such as bathing, preparing meals, shopping, managing finances, etc.?: No Are you currently unemployed and looking for a job?: Yes Are you interested in more education?: No Please select the resources that you would like help with: None Currently or been in a relationship where the following occur: I choose not to answer THRIVE Score: 3 AUDIT C Alcohol Use Questionnaire (AUDIT-C) 1. How often do you have a drink containing alcohol?: Never 3. How often do you have six or more drinks on one occasion?: Never Total Score: 0 HELEN-7 AMB Questionnaire HELEN-7 Date HELEN - 7 assessed: 02/28/24 Trouble relaxin = More than half the days Being so restless that it is hard to sit still: 0 = Not at all Becoming easily annoyed or irritable: 0 = Not at all Feeling afraid as if something awful might happen: 0 = Not at all Source: Developed by Drs. Lake Douglass, Kristina Millard, Umang Rome and colleagues, with an educational telma from [employer]. Review of Systems Const All systems reviewed & are unremarkable except as noted in HPI and below Card Denies chest pain at rest, Denies chest pain with activity, Denies edema, Denies irregular heart rhythm, Denies claudication, Denies dyspnea, Denies dyspnea on exertion, Denies orthopnea, Denies paroxysmal nocturnal dyspnea and Denies slow heart rate Resp Denies cough, Denies dyspnea and Denies dyspnea on exertion Physical exam (Primary Care) Vital Signs: Last Vital Signs Temp 97.3 F 12/02/24 11:07 Pulse 79 12/02/24 11:07 Resp 18 12/02/24 11:07 BP 142/62 H 12/02/24 11:07 Pulse Ox 95 12/02/24 11:07 Oxygen Delivery Method Room Air 12/02/24 11:07 BMI result Body Mass Index 29.6 Tobacco/Smoking Status: Tobacco use Status Tobacco use date assessed 12/02/24 12/02/24 11:09 Patient Tobacco Use Status Never used Tobacco 12/02/24 11:09 e-Cigarette/Vaping Use Never Used 12/02/24 11:09 Thrive Assessment: Date of Thrive Assessment Date Thrive assessed 06/02/24 12/02/24 11:09 Currently or been in a relationship where the following occur: I choose not to answer Resp Effort & Inspection: normal respiratory effort Auscultation: clear to auscultation bilaterally Cardio Jugular venous distension: no JVD Rate: regular rate Rhythm: regular rhythm Heart sounds: S1 normal heart sound present and S2 normal heart sound present Extrem General: Yes full ROM Results AMB Urinalysis, Automated UA Leukoctes 0 Ethan/uL Last Edit by Charlotte Brand MA on 12/02/24 11:51 UA Nitrite Negative Last Edit by Charlotte Brand MA on 12/02/24 11:51 UA Urobilinogen 0 mg/dL Last Edit by Charlotte Brand MA on 12/02/24 11:51 UA Protein 0 mg/dL Last Edit by Charlotte Brand MA on 12/02/24 11:51 UA pH 6.0 Last Edit by Charlotte Brand MA on 12/02/24 11:51 UA Blood 0 Gabe/uL Last Edit by Charlotte Brand MA on 12/02/24 11:51 UA Specific [place] 0 Last Edit by Charlotte Brand MA on 12/02/24 11:51 UA Ketone Negative Last Edit by Charlotte Brand MA on 12/02/24 11:51 UA Bilirubin 0 mg/dL Last Edit by Charlotte Brand MA on 12/02/24 11:51 UA Glucose 0 mg/dL Last Edit by Charlotte Brand MA on 12/02/24 11:51 Coding Level of Care Code Est Pt Level 4 (76368) Complex EM visit Add On G2211 Diagnoses Essential hypertension I10 Gastroesophageal reflux disease, unspecified whether esophagitis present K21.9 Esophagitis presence: esophagitis presence not specified Constipation by delayed colonic transit K59.01 Migraine without aura and without status migrainosus, not intractable G43.009 Status migrainosus presence: without status migrainosus Intractability: not intractable Asthma J45.909 Time Spent (min) 21 Assessment & Plan Assessment & Plan (1) Essential hypertension: Code(s): I10 - Essential (primary) hypertension Category: Medical (2) GERD (gastroesophageal reflux disease): Code(s): K21.9 - Gastro-esophageal reflux disease without esophagitis Category: Medical Qualifiers: Esophagitis presence: esophagitis presence not specified Qualified Code(s): K21.9 - Gastro-esophageal reflux disease without esophagitis (3) Constipation by delayed colonic transit: Code(s): K59.01 - Slow transit constipation Category: Medical (4) Migraine without aura: Code(s): G43.009 - Migraine without aura, not intractable, without status migrainosus Category: Medical Qualifiers: Status migrainosus presence: without status migrainosus Intractability: not intractable Qualified Code(s): G43.009 - Migraine without aura, not intractable, without status migrainosus (5) Asthma: Comment: SHE HAS CHRONIC BRONCHIAL ASTHMA IN ADDITION TO CHRONIC ALLERGIC RHINOSINUSITIS. IT SEEMS TO BE STABLE AT THIS TIME. SHE DOES HAVE MILD INTERMITTENT COUGH , MOSTLY NONPRODUCTIVE Code(s): J45.909 - Unspecified asthma, uncomplicated Category: Medical Plan Plan Patient was informed and verbally consented to the use of an ambient scribe for clinic note documentation during this visit. 1. Essential Hypertension The patient's blood pressure was noted to be elevated during the visit. She is currently on metoprolol, and a follow-up blood pressure check is recommended in three weeks. 2. Asthma The patient reports worsening asthma symptoms with less effective relief from her inhaler. Consideration for adjusting her medication regimen, including the potential addition of prednisone, was discussed. 3. Allergies The patient has multiple allergies, including to contrast, docusate, brevacid, oxybutynine, pistachio, walnut, and seasonal allergens. She manages these with loratadine and has a history of using albuterol for asthma exacerbations. 4. Constipation The patient experiences constipation and manages it with calcium with vitamin A and senna. Orders: Orders Vitamin B12 and Folate 6 Months E53.8 - Deficiency of other specified B group vitamins Complete Blood Count Auto Diff 6 Months D64.9 - Anemia, unspecified AMB Urinalysis Automated Today Z13.9 - Encounter for screening, unspecified Lipid Panel 6 Months E78.5 - Hyperlipidemia, unspecified Vitamin D 25-OH Total 6 Months E55.9 - Vitamin D deficiency, unspecified IRON PROFILE 6 Months D64.9 - Anemia, unspecified Medications: Refilled metoprolol succinate ER 50 mg PO DAILY 90 tabs 3RF
[2024-12-02 11:07] VITALS: BP 142/62; PULSE 79; RESP 18; TEMP 36.3; O2SAT 95; BMI 29.6
--- OUTSIDE RECORDS SUMMARY | 2024-12-02 13:41 | XMS_ITS | Patient Health Record ---
Author Organization [facility] Address [address] [place] [address] Care Team Providers Care Manager Mechanical Name Role Phone Nora Anderson Primary Care [...] Problem Status W/U Status Risk Notes Problem 29709990 Rectal bleeding (K62.5) Active confirmed Problem 860466674 Gastro-esophagea l reflux disease without esophagitis (K21.9) Active confirmed Problem 200178367 Personal history of colonic polyps (Z86.010) Active confirmed Problem 84360507 Irritable bowel syndrome without diarrhea (K58.9) Active confirmed Problem 30084207 Dysphagia, unspecified type (R13.10) Active confirmed Plan Of Treatment Future Test Test Name Order Date COLONOSCOPY 11/04/2015 COLONOSCOPY 01/30/2018 Insurance Providers Payer Name Payer Address Payer Phone Subscriber Number Group Number Insured Name Patient Relationship to Insured Coverage Start Date Coverage End Date [facility] [address] [place] [address] [id number] ISMA RODRÍGUEZ Self - patient is the insured Medical (General) History Medical History History ICD Code colonoscopy 01/28/16. Hyperplastic polyps x2, prior history of adenomas. degenerative joint disease gerd Peptic Ulcer Disease Asthma interstitial cystitis migraines Surgical History Surgery Date(Month/Year) hysterectomy tonsillectomy right knee arthroplasty throat left knee arthroscopy cystoscopy right knee replacement 12/2015
== END 2024-12-02 11:45 | disposition home or self-care (01) ==
LOC: HO.HMCH 11:02
PROVIDERS: PCP Internal Medicine; Visit Provider Internal Medicine
DX: I10 Essential (primary) hypertension (principal); K21.9 Gastro-esophageal reflux disease without esophagitis; K59.01 Slow transit constipation; G43.009 Migraine without aura, not intractable, without status migrainosus; J45.909 Unspecified asthma, uncomplicated; Z13.9 Encounter for screening, unspecified

== ENCOUNTER → 2024-12-02 11:01 | Outpatient (BNVA) | payer OTHER, SELFPAY | PROVIDERS: PCP Internal Medicine; Visit Provider Internal Medicine | DX: I10 Essential (primary) hypertension (principal); K21.9 Gastro-esophageal reflux disease without esophagitis; K59.01 Slow transit constipation; G43.009 Migraine without aura, not intractable, without status migrainosus; J45.909 Unspecified asthma, uncomplicated | CPT/HCPCS: 81003; 99212 ==

== ENCOUNTER 2024-12-15 11:22 | Outpatient (AMB) | payer OTHER, SELFPAY ==
--- NOTE | 2024-12-15 11:37 | A.OFFVIS_ITS ---
Vital Signs 12/15/24 11:47 Height 5 ft 4 in Weight 170 lb BMI 29.2 BP 136/80 Blood Pressure Location Rt brachial Position Sitting Pulse 88 Pulse Source Pulse Oximeter Pulse Oximetry (%) 95 Oxygen Delivery Method Room Air Intake Visit Reasons: 30 m; 3 mo f/u Intake Note: ESTABLISHED PATIENT for mgmt of GERD w/ abd pain. Chief Complaint; C.O. persistence of abd pain despite current therapies with various other improvements. Pt states that she has been doing well with the fiber gummies and the magnesium for BM mgmt. Pt does have questions about GERD tx with regard to Pantoprazole versus Famotidine. Pt believes her abd pain could be related to her pancreas. County Commissioner Required: Yes County Commissioner Services: County Commissioner Offered & Declined Accompanied by: Self / Same As Patient Allergies Iodinated Contrast Media (IV DYE, IODINE CONTAINING) Allergy (Severe, Verified 12/15/24 11:53) ITCH/RASH clams Allergy (Intermediate, Verified 12/15/24 11:53) ITCHING docusate (From COLACE) Allergy (Intermediate, Verified 12/15/24 11:53) ITCHING lansoprazole (Prevacid) Allergy (Intermediate, Verified 12/15/24 11:53) hives oxybutynin Allergy (Intermediate, Verified 12/15/24 11:53) bladder pain pistachio nut Allergy (Intermediate, Verified 12/15/24 11:53) ITCHING walnut Allergy (Intermediate, Verified 12/15/24 11:53) ITCH/RASH SEASONAL ALLERGIES Allergy (Intermediate, Uncoded 12/15/24 11:53) ITCHY EYES HPI HPI 30 m; 3 mo f/u: Details: LAST VISIT: Dysphagia GERD (gastroesophageal reflux disease) Transaminitis Constipation by delayed colonic transit Abdominal pain Postprandial abdominal bloating Plan Continue pantoprazole daily. Avoid dietary triggers and late night snacking. Staying upright for minimum 3 hours after meals discussed with patient. Patient will start taking senna in the evening. Increase fluid intake and activity to promote better bowel motility. Simethicone for excessive gas with meals. Discussed with patient low FODMAP diet. List of food recommended as well as list of food to avoid given to patient. Patient will return in 3 months. Patient will call if her symptoms will continue or will get worse. She is agreeable to current plan of care and verbalizes understanding of instructions. She was given the opportunity to ask questions and all questions answered. ? Thank you for allowing me to participate in her care New sennosides (Natural Senna Laxative) 17.2 mg (2 x 8.6 mg) PO BEDTIME 60 tabs 3RF constipation K59.00 simethicone (Gas Relief (simethicone)) 125 mg PO BID-TID PRN 90 tabs 3RF abdominal distention Refilled pantoprazole 40 mg PO QAM 90 tabs 2RF TODAY'S VISIT: Patient is here today for follow-up. Patient reports that she has been feeling better, she still has trouble swallowing. Patient reports trouble swallowing medications and solid food like chicken, sometimes rind. Patient reports no choking episodes. She is taking pantoprazole in the morning and her symptoms of acid reflux are suppressed for the most part. Patient reports asthma exacerbation couple weeks ago. Still following up with her clinical documentation clerk last visit in September and next visit in January. Patient denies nausea or vomiting. Denies dyspepsia or odynophagia. Reports that she is moving her bowels well now. Denies melena, hematochezia, unintentional weight loss or ribbon like stools. Patient denies mucus in her stools. Patient denies any other GI concerning symptoms. [facility]LY [facility] Medical History Rhinosinusitis Acute respiratory failure with hypoxia Migraine Cough MAXIMILIANO (obstructive sleep apnea) Bronchitis PONV (postoperative nausea and vomiting) Helicobacter pylori (H. pylori) Physical exam UTI (urinary tract infection) Scoliosis Restrictive lung disease Dysphagia Mild major depression, single episode Right shoulder pain COPD (chronic obstructive pulmonary disease) Allergic rhinosinusitis Acute bronchitis Asthma Anemia Primary osteoarthritis involving multiple joints Essential hypertension Right ankle pain Allergic rhinitis Surgical History History of laparoscopic appendectomy (~09/10/23) History of esophagogastroduodenoscopy (EGD) Hx of colonoscopy Hx of cardiac cath History of total left knee replacement History of arthroscopy of right knee History of hemorrhoidectomy History of total right knee replacement History of total abdominal hysterectomy History of tonsillectomy Family History Father Alcoholism Arthritis Mother Diabetes Acute CVA (cerebrovascular accident) Sister Breast cancer Family/Other FH: mental illness Brother Diabetes Myocardial infarct Daughter In good health Daughter In good health Daughter In good health Social History Household Members: Spouse Housing: House Alcohol intake: never Patient Tobacco Use Status: Never used Tobacco e-Cigarette/Vaping Use: Never Used Second Hand Smoke Exposure: No Advance Directives Date on File: 11/28/19 service: No 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al status: disabled 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 Cognitive needs: No Hearing needs: No Vision needs: Yes Review of Systems Const Denies weight gain and Denies weight loss ENT Reports no additional complaints, Reports dysphagia and Denies odynophagia Card Reports no additional complaints Resp Reports no additional complaints GI Denies abdominal pain, Denies belching, Denies melena, Reports bloating, Denies change in bowel habits, Reports dysphagia, Denies excessive flatus, Reports dyspepsia, Reports heartburn, Denies diarrhea, Denies loose stools, Denies nausea, Denies odynophagia and Denies vomiting Reports no additional complaints Musc Reports no additional complaints Neuro Reports no additional complaints Psych Reports no additional complaints Endo Reports no additional complaints Physical Exam Vital Signs: Last Vital Signs Pulse 88 12/15/24 11:47 BP 136/80 12/15/24 11:47 Pulse Ox 95 12/15/24 11:47 Oxygen Delivery Method Room Air 12/15/24 11:47 BMI result Body Mass Index 29.2 Const General: healthy appearing and no acute distress Nutritional Appearance: obese Orientation/consciousness: patient oriented x3 Resp Effort & Inspection: normal respiratory effort, able to speak in complete sentences, no tracheal deviation and symmetric chest movement Auscultation: clear to auscultation bilaterally Cardio Rate: regular rate GI Inspection: Yes normal to inspection, No distended and Yes obesity Palpation (GI): Soft to palpation, not firm, nontender and No hepatosplenomegaly present Auscultation: normal bowel sounds General: Yes no CVA tenderness Back/Spine/Pelvis Back: no CVA tenderness Skin General skin exam: elasticity normal, turgor normal and dry skin Neuro General: patient oriented x3 Psych Appearance: grossly normal Mental Status: mental status grossly normal Assessment & Plan Assessment & Plan (1) Dysphagia: Code(s): R13.10 - Dysphagia, unspecified Category: Medical Qualifiers: Dysphagia type: unspecified Qualified Code(s): R13.10 - Dysphagia, unspecified (2) GERD (gastroesophageal reflux disease): Code(s): K21.9 - Gastro-esophageal reflux disease without esophagitis Category: Medical Qualifiers: Esophagitis presence: esophagitis presence not specified Qualified Code(s): K21.9 - Gastro-esophageal reflux disease without esophagitis (3) Transaminitis: Code(s): R74.01 - Elevation of levels of liver transaminase levels Category: Medical (4) Constipation by delayed colonic transit: Code(s): K59.01 - Slow transit constipation Category: Medical Plan Patient will continue taking pantoprazole daily. Instructions to take it half an hour before breakfast daily. Will send patient for upper endoscopy for possible dilation. Patient reports ongoing dysphagia. Patient reports feeling better for short time and reports that trouble swallowing is getting worsen. Discussed with patient avoiding dietary triggers in late night snacking. Staying upright for minimal 3 hours after meals discussed with patient. Patient will be seen after the procedure, sooner on as needed basis. She is agreeable to this plan and verbalizes understanding of instructions. She was given the opportunity to ask questions and all questions answered. Thank you for allowing me to participate in her care Coding Level of Care Code Est Pt Level 4 (89298) Complex EM visit Add On G2211 Diagnoses Dysphagia, unspecified type R13.10 Dysphagia type: unspecified Gastroesophageal reflux disease, unspecified whether esophagitis present K21.9 Esophagitis presence: esophagitis presence not specified Transaminitis R74.01 Constipation by delayed colonic transit K59.01 Time Spent (min) 35 Comment 25 minutes spent with patient and additional 10 minutes spent reviewing her records
[2024-12-15 11:47] VITALS: BP 136/80; PULSE 88; O2SAT 95; BMI 29.2
== END 2024-12-15 12:48 | disposition home or self-care (01) ==
LOC: HO.HGI 11:22
PROVIDERS: PCP Internal Medicine; Visit Provider Nurse Practitioner Family
DX: R13.10 Dysphagia, unspecified (principal); K21.9 Gastro-esophageal reflux disease without esophagitis; R74.01 Elevation of levels of liver transaminase levels; K59.01 Slow transit constipation
CPT/HCPCS: 99214; G2211

== ENCOUNTER → 2024-12-15 11:22 | Outpatient (BNVA) | payer OTHER, SELFPAY | PROVIDERS: PCP Internal Medicine; Visit Provider Nurse Practitioner Family | DX: K21.9 Gastro-esophageal reflux disease without esophagitis (principal); R13.10 Dysphagia, unspecified; R74.01 Elevation of levels of liver transaminase levels; K59.01 Slow transit constipation | CPT/HCPCS: 99212 ==

== ENCOUNTER → 2024-12-25 11:14 | Outpatient (BNVA) | payer OTHER, SELFPAY | PROVIDERS: PCP Internal Medicine | DX: Z01.30 Encounter for examination of blood pressure without abnormal findings (principal) | CPT/HCPCS: 99211 ==